=== PATIENT | male | born 1945 | race Asian ===

== ENCOUNTER 2017-06-28 13:42 | Inpatient (IN) | payer OTHER ==
[2017-06-28 14:16] VITALS: BMI 24.9
--- NOTE | 2017-06-28 14:23 | PDOC ---
History of Present Illness - General History Source: Patient Exam Limitations: No Limitations - History of Present Illness Initial Comments: 06/28/17 14:24 72yo M with history of COPD, CAD and Afib/flutter s/p ventricular pacemaker (12 years ago), HTN, HLD, GERD and previous CHF who presented to the ED with a one day history of some nausea with nonbloody, nonbilious vomiting and nausea. Pt states he previously had some dysuria and presented to his PCP's office (Dr. Drake) and was given medications. He is unsure of one medication but the second was nitrofurantoin. Pt notes his nausea started when he developed these symptoms. In addition, pt also endorses some shortness of breath. He normally has a little shortness of breath with exertion due to his COPD and cardiac history, however he reports this is worse than usual. Finally, he states his abdomen is more distended than usual and denies any previous liver abnormalities. Pt denies any fever/chills, chest pain, chest discomfort, palpitations, abdominal pain. <Terence Prescott - Last Filed: 06/28/17 18:55> <Jay Gutiérrez - Last Filed: 06/28/17 20:13> - General Stated Complaint: SHORTNESS OF BREATH/VOMITING Past History - Past Medical History Cardiac Disorders: Yes (Stents) COPD: Yes GI Disorders: Yes (GERD) HTN: Yes Hypercholesterolemia: Yes - Surgical History Cardiac Surgery: Yes - Suicide/Smoking/Psychosocial Hx Smoking History: Never smoked Have you smoked in the past 12 months: No Information on smoking cessation initiated: No Hx Alcohol Use: No Drug/Substance Use Hx: No Substance Use Type: None <Terence Prescott - Last Filed: 06/28/17 18:55> <Jay Gutiérrez - Last Filed: 06/28/17 20:13> - Past Medical History Allergies/Adverse Reactions: Allergies Allergy/AdvReac Type Severity Reaction Status Date / Time No Known Allergies Allergy Verified 02/26/16 18:20 Home Medications: Ambulatory Orders Aspirin [ASA -] 81 mg PO DAILY 10/06/15 Brimonidine Tartrate [Alphagan P 0.1% -] 1 drop BID 10/06/15 Esomeprazole Magnesium [Nexium] 40 mg PO DAILY 10/06/15 Fluticasone/Salmeterol [Advair 250-50 Diskus] 1 each IH BID 10/06/15 Furosemide [Lasix -] 20 mg PO DAILY 10/06/15 Levothyroxine [Synthroid -] 37.5 mcg PO DAILY 10/06/15 Losartan Potassium [Cozaar -] 50 mg PO DAILY 10/06/15 Montelukast Na [Singulair -] 10 mg PO HS 10/06/15 [place]-3 Fatty Acids/Fish Oil [Fish Oil 1,000 mg Softgel] 1 each PO DAILY Pilocarpine 2% [Pilostat 2% -] 1 drop OD TID 03/08/16 Acetaminophen [Tylenol .Regular Strength -] 650 mg PO Q4H PRN #0 tablet Albuterol 0.083% Nebulizer Amanda [Ventolin 0.083% Nebulizer Soln -] 1 amp NEB QIDR amp 03/09/16 Apixaban [Eliquis -] 5 mg PO BID #60 tablet 03/09/16 Atorvastatin Ca [Lipitor] 10 mg PO HS #30 tablet 03/09/16 Carvedilol [Coreg -] 12.5 mg PO BID #60 tablet 03/09/16 Docusate Sodium [Colace -] 100 mg PO DAILY capsule 03/09/16 Insulin Sliding Scale [Novolog Vial Sliding Scale -] 1 vial SQ TIDAC units Mag Hydrox/Al Hydrox/Simeth [Mylanta Oral Suspension -] 30 ml PO Q6H PRN #0 cup 03/09/16 Polyethylene Glycol 3350 [Miralax 119 gm Btl -] 17 gm PO DAILY PRN #0 bottle Spironolactone [Aldactone -] 25 mg PO DAILY tablet 03/09/16 Valsartan [Diovan] 160 mg PO DAILY tablet 03/09/16 predniSONE [Deltasone -] 10 mg PO DAILY #30 tablet 03/09/16 Review of Systems - Review of Systems Constitutional: No: Chills, Fever, Night Sweats HEENTM: No: Blurred Vision, Nose Congestion, Throat Pain Respiratory: Yes: Shortness of Breath. No: Cough, Wheezing Cardiac (ROS): No: Chest Pain, Irregular Heart Rate, Lightheadedness, Palpitations, Syncope, Chest Tightness ABD/GI: Yes: Abdominal Distended, Nausea, Vomiting. No: Constipated, Diarrhea, Poor Appetite : Yes: Dysuria, Flank Pain. No: Frequency, Hematuria, Incontinence Integumentary: No: Pruritus, Rash Neurological: No: Headache, Numbness, Tingling, Dizziness <Terence Prescott - Last Filed: 06/28/17 18:55> *Physical Exam - Vital Signs Last Vital Signs Temp Pulse Resp BP Pulse Ox 97.3 F L 75 21 104/69 98 06/28/17 14:08 06/28/17 14:08 06/28/17 14:08 06/28/17 14:08 06/28/17 14:08 - Physical Exam Comments: 06/28/17 15:09 GEN: NAD, awake, alert and oriented x3 HEENT: EOMI, SUGEY, scleral injections noted, sclera anicteric, moist mucosa, no jaundiced mucosa NECK: No JVD LUNGS: CTA b/l diminished breath sounds at the bases CARDIAC: RRR, distant sounds due to body habitus, no murmurs appreciated ABD: Soft, distendend, nontender, normoactive BS, no hepatomegaly via percussion and palpation, no ecchymosis EXT: No edema, 2+ DP pulses <Terence Prescott - Last Filed: 06/28/17 18:55> - Vital Signs Last Vital Signs Temp Pulse Resp BP Pulse Ox 98.1 F 60 20 110/72 99 06/28/17 19:58 06/28/17 19:58 06/28/17 19:58 06/28/17 19:58 06/28/17 19:58 <Jay Gutiérrez - Last Filed: 06/28/17 20:13> Heart Score/ECG Review #1 06/28/17 14:47 Ventricular-paced rhythm at 70bpm rate. QTc 507, 0/3 Sgarbossa criteria met <Terence Prescott - Last Filed: 06/28/17 18:55> ED Treatment Course - LABORATORY CBC & Chemistry Diagram: 06/28/17 15:20 06/28/17 15:20 <Terence Prescott - Last Filed: 06/28/17 18:55> - LABORATORY CBC & Chemistry Diagram: 06/28/17 15:20 06/28/17 15:20 - ADDITIONAL ORDERS Additional order review: Laboratory Results 06/28/17 06/28/17 06/28/17 18:10 15:20 15:20 Sodium 124 L* Potassium 5.2 H Chloride 92 L Carbon Dioxide 27 Anion Gap 5 L BUN 14 D Creatinine 1.3 Creat Clearance w eGFR 54.11 Random Glucose 116 H D Calcium 8.4 L Total Bilirubin 2.0 H D AST 24 D ALT 23 Alkaline Phosphatase 46 D Creatine Kinase 71 Troponin I 0.07 H D Total Protein 6.7 Albumin 3.4 Lipase 51 L Urine Osmolality 626 06/28/17 15:20 RBC 3.95 L MCV 94.3 MCHC 34.3 RDW 14.7 MPV 9.3 Neutrophils % 81.3 Lymphocytes % 8.0 Monocytes % 10.0 D Eosinophils % 0.4 D Basophils % 0.3 - Medications Given in the ED: ED Medications Discontinued Medications Generic Name Dose Route Start Last Admin Trade Name Freq PRN Reason Stop Dose Admin Metoclopramide HCl 10 mg 06/28/17 18:59 06/28/17 19:15 Reglan - PO 06/28/17 19:00 10 mg ONCE ONE Administration Sodium Polystyrene Sulfonate 15 gm 06/28/17 18:42 06/28/17 19:14 Kayexalate - PO 06/28/17 18:43 15 gm ONCE ONE Administration <Jay Gutiérrez - Last Filed: 06/28/17 20:13> Medical Decision Making - Medical Decision Making 06/28/17 14:49 1) In setting of abdominal distention, nausea, and vomiting r/o partial obstruction --KUB AXR for air fluid levels 2) Nausea vomiting SOB; r/o cardiac event or worsening cardiac status --EKG - see above --Troponin --CXR 3) CBC, CMP, Lipase 06/28/17 15:38 CBC revealed nonconcerning thrombocytopenia; otherwise normal 06/28/17 16:03 Critical lab value 124 Na with 5.2 K --NS @75cc/hr currently (pt is CHF) --doubt adrenal insufficiency, doubt psychogenic polydipsia based on history, doubt metabolic derangements due to normal anion gap --cannot r/o SIADH --Cannot r/o hypoaldosteronism --hypochloremia can be due to vomiting episodes --aldosterone ordered 06/28/17 18:38 CXR error in [facility] not appearing for me; CXR shown done on PACS system: no acute pathology noted; no effusions 06/28/17 18:39 Pt continues to have no symptoms currently. Receiving his IV saline currently <Terence Prescott - Last Filed: 06/28/17 18:55> *DC/Admit/Observation/Transfer <Terence Prescott - Last Filed: 06/28/17 18:55> - Discharge Dispostion Admit: Yes <Jay Gutiérrez - Last Filed: 06/28/17 20:13> Diagnosis at time of Disposition: Hyponatremia Vomiting Qualifiers: Vomiting type: unspecified Vomiting Intractability: non-intractable Nausea presence: with nausea Qualified Code(s): R11.2 - Nausea with vomiting, unspecified - Discharge Dispostion Condition at time of disposition: Stable - Referrals Referrals: Fannie Drake MD [Primary Care Provider] -
[2017-06-28 15:32] LABS: BASO % 0.3 % (0-2.0); EOS % 0.4 % (0-4.5); HEMATOCRIT 37.2 % (35.4-49); HEMOGLOBIN 12.8 GM/dL (11.7-16.9); MCH 32.3 pg (25.7-33.7); MCHC 34.3 g/dl (32.0-35.9); MEAN CELL VOLUME 94.3 fl (80-96); MEAN PLT VOLUME 9.3 fl (7.5-11.1); NEUT % 81.3 % (42.8-82.8); PLATELET COUNT 104 K/MM3 (134-434); RBC 3.95 M/mm3 (4.00-5.60); RDW 14.7 % (11.9-15.9); WHITE BLOOD COUNT 9.5 K/mm3 (4.0-10.0)
[2017-06-28 15:50] LABS: ALBUMIN 3.4 g/dl (3.4-5.0); ALK PHOS 46 U/L (45-117); ANION GAP 5 (8-16); BLOOD UREA NITROGEN 14 mg/dL (7-18); CALCIUM 8.4 mg/dL (8.5-10.1); CHLORIDE 92 mmol/L (98-107); CO2 27 mmol/L (21-32); CREATININE 1.3 mg/dL (0.7-1.3); GLUCOSE,RANDOM 116 mg/dL (74-106); LIPASE 51 U/L (73-393); POTASSIUM 5.2 mmol/L (3.5-5.1); SGOT/AST 24 U/L (15-37); SGPT/ALT 23 U/L (12-78); TOT PROT 6.7 g/dl (6.4-8.2)
[2017-06-28 15:51] LABS: SODIUM 124 mmol/L (136-145)
[2017-06-28] MEDS ORDERED: SODIUM CHLORIDE 1,000 ML IV SCH (16:00)
[2017-06-28] MEDS ORDERED: SODIUM POLYSTYRENE SULFONATE 15 GM/60 ML BOTTLE PO ONE (18:42)
[2017-06-28] MEDS ORDERED: METOCLOPRAMIDE HCL 10 MG TABLET (FP) PO ONE (18:59)
[2017-06-28] MEDS ORDERED: METOCLOPRAMIDE HCL INJECTION 10 MG/2 ML VIAL ONE (19:06)
[2017-06-28] MEDS ORDERED: SODIUM POLYSTYRENE SULFONATE 15 GM/60 ML BOTTLE ONE (19:07)
--- NOTE | 2017-06-28 19:47 | HP ---
CHIEF COMPLAINT: PCP HISTORY OF PRESENT ILLNESS: ER course was notable for: (1) (2) (3) Recent Travel: None PAST MEDICAL HISTORY: See HPI PAST SURGICAL HISTORY: See HPI Social History: Smoking: Never Alcohol: None Drugs: None Family History: Allergies No Known Allergies Allergy (Verified 02/26/16 18:20) HOME MEDICATIONS: Home Medications Medication Instructions Recorded Aspirin [ASA -] 81 mg PO DAILY 10/06/15 Brimonidine Tartrate [Alphagan P 1 drop BID 10/06/15 0.1% -] Esomeprazole Magnesium [Nexium] 40 mg PO DAILY 10/06/15 Fluticasone/Salmeterol [Advair 1 each IH BID 10/06/15 250-50 Diskus] Furosemide [Lasix -] 20 mg PO DAILY 10/06/15 Levothyroxine [Synthroid -] 37.5 mcg PO DAILY 10/06/15 Losartan Potassium [Cozaar -] 50 mg PO DAILY 10/06/15 Montelukast Na [Singulair -] 10 mg PO HS 10/06/15 [place]-3 Fatty Acids/Fish Oil [Fish 1 each PO DAILY 10/06/15 Oil 1,000 mg Softgel] Pilocarpine 2% [Pilostat 2% -] 1 drop OD TID 03/08/16 Acetaminophen [Tylenol .Regular 650 mg PO Q4H PRN #0 tablet 03/09/16 Strength -] Albuterol 0.083% Nebulizer Amanda 1 amp NEB QIDR amp 03/09/16 [Ventolin 0.083% Nebulizer Soln -] Apixaban [Eliquis -] 5 mg PO BID #60 tablet 03/09/16 Atorvastatin Ca [Lipitor] 10 mg PO HS #30 tablet 03/09/16 Carvedilol [Coreg -] 12.5 mg PO BID #60 tablet 03/09/16 Docusate Sodium [Colace -] 100 mg PO DAILY capsule 03/09/16 Insulin Sliding Scale [Novolog 1 vial SQ TIDAC units 03/09/16 Vial Sliding Scale -] Mag Hydrox/Al Hydrox/Simeth 30 ml PO Q6H PRN #0 cup 03/09/16 [Mylanta Oral Suspension -] Polyethylene Glycol 3350 [Miralax 17 gm PO DAILY PRN #0 bottle 03/09/16 119 gm Btl -] Spironolactone [Aldactone -] 25 mg PO DAILY tablet 03/09/16 Valsartan [Diovan] 160 mg PO DAILY tablet 03/09/16 predniSONE [Deltasone -] 10 mg PO DAILY #30 tablet 03/09/16 REVIEW OF SYSTEMS CONSTITUTIONAL: Absent: fever, chills, diaphoresis, generalized weakness, malaise, loss of appetite, weight change HEENT: Absent: rhinorrhea, nasal congestion, throat pain, throat swelling, difficulty swallowing, mouth swelling, ear pain, eye pain, visual changes CARDIOVASCULAR: Absent: chest pain, syncope, palpitations, irregular heart rate, lightheadedness , peripheral edema RESPIRATORY: Absent: cough, shortness of breath, dyspnea with exertion, orthopnea, wheezing, stridor, hemoptysis GASTROINTESTINAL: Absent: abdominal pain, abdominal distension, nausea, vomiting, diarrhea, constipation, melena, hematochezia GENITOURINARY: Absent: dysuria, frequency, urgency, hesitancy, hematuria, flank pain, genital pain MUSCULOSKELETAL: Absent: myalgia, arthralgia, joint swelling, back pain, neck pain SKIN: Absent: rash, itching, pallor HEMATOLOGIC/IMMUNOLOGIC: Absent: easy bleeding, easy bruising, lymphadenopathy, frequent infections ENDOCRINE: Absent: unexplained weight gain, unexplained weight loss, heat intolerance, cold intolerance NEUROLOGIC: Absent: headache, focal weakness or paresthesias, dizziness, unsteady gait, seizure, mental status changes, bladder or bowel incontinence PSYCHIATRIC: Absent: anxiety, depression, suicidal or homicidal ideation, hallucinations. PHYSICAL EXAMINATION Vital Signs - 24 hr 06/28/17 14:08 Temperature 97.3 F L Pulse Rate 75 Respiratory 21 Rate Blood Pressure 104/69 O2 Sat by Pulse 98 Oximetry (%) GENERAL: Awake, alert, and fully oriented, in no acute distress. HEAD: Normal with no signs of trauma. EYES: Pupils equal, round and reactive to light, extraocular movements intact, sclera anicteric, conjunctiva clear. No lid lag. EARS, NOSE, THROAT: Ears normal, nares patent, oropharynx clear without exudates. Moist mucous membranes. NECK: Normal range of motion, supple without lymphadenopathy, JVD, or masses. LUNGS: Breath sounds equal, clear to auscultation bilaterally. No wheezes, and no crackles. No accessory muscle use. HEART: Regular rate and rhythm, normal S1 and S2 without murmur, rub or gallop. ABDOMEN: Soft, nontender, not distended, normoactive bowel sounds, no guarding, no rebound, no masses. No hepatomegaly or splenomegaly. MUSCULOSKELETAL: Normal range of motion at all joints. No bony deformities or tenderness. No CVA tenderness. UPPER EXTREMITIES: 2+ pulses, warm, well-perfused. No cyanosis. No clubbing. No peripheral edema. LOWER EXTREMITIES: 2+ pulses, warm, well-perfused. No calf tenderness. No peripheral edema. NEUROLOGICAL: Cranial nerves II-XII intact. Normal speech. Normal gait. PSYCHIATRIC: Cooperative. Good eye contact. Appropriate mood and affect. SKIN: Warm, dry, normal turgor, no rashes or lesions noted, normal capillary refill. Laboratory Results - last 24 hr 06/28/17 06/28/17 06/28/17 15:20 15:20 15:20 WBC 9.5 RBC 3.95 L Hgb 12.8 D Hct 37.2 MCV 94.3 MCH 32.3 MCHC 34.3 RDW 14.7 Plt Count 104 L MPV 9.3 Neutrophils % 81.3 Lymphocytes % 8.0 Monocytes % 10.0 D Eosinophils % 0.4 D Basophils % 0.3 Sodium 124 L* Potassium 5.2 H Chloride 92 L Carbon Dioxide 27 Anion Gap 5 L BUN 14 D Creatinine 1.3 Creat Clearance w eGFR 54.11 Random Glucose 116 H D Calcium 8.4 L Total Bilirubin 2.0 H D AST 24 D ALT 23 Alkaline Phosphatase 46 D Creatine Kinase 71 Troponin I 0.07 H D Total Protein 6.7 Albumin 3.4 Lipase 51 L ASSESSMENT/PLAN: Hospitalist Screening - Colonoscopy Questionnaire Colonoscopy Questionnaire: Colonoscopy Questionnaire
--- NOTE | 2017-06-28 19:52 | PDOC ---
Attending Attestation - Resident Resident Name: Terence Prescott - ED Attending Attestation I have performed the following: I have examined & evaluated the patient, The case was reviewed & discussed with the resident, I agree w/resident's findings & plan, Exceptions are as noted - HPI HPI: 06/28/17 19:53 72y F hx of copd, cad, aflutter/fib sp pm, htn, hl, chf, recently dx with UTI by PMD presents with complaint of mild sob, n/v. Pt states that he had some dysuria and suprapubic pain 2 days ago, went to dr. olson who started him on pyridium and abx. he states starting last night he felt alittle nauseus, thsi morning had some sob and nbnb n/v. he endorses mild suprapubic pain, but denies any fever/chills, cough, cp, curent sob, palpitations, diarrhea. on exam pt well apaering in no distress abd slightly distended but nontender and no guarding/rebound. no cva tenderness lungs cta heart rrr ddx includes acs, metabolic deragnement, anemia, chf, med side effect will ck labs will give ezequiel ezofran will ck ekg will reasesss - Physicial Exam PE: 06/28/17 20:18 see above - Medical Decision Making 06/28/17 20:14 labs reviewed noted for hyponatremia slightly elevated K ?metaoblic derangement secondary to diuretic use? will admit for furhter management of hyponatremia trop at 0.07 - will continue to tred due to pts episode of sob/nausea for possible anginal equivalent case dw padmini gomez - agree with observation in med surg under d.r crichlows service Heart Score/ECG Review - ECG Impressions Comment:: 06/28/17 19:52 ekg from 06/28/17 at 13:59 rate of [address] changes suggestive of acute ischemia per sgarbossa criteria
--- NOTE | 2017-06-28 20:07 | HP ---
CHIEF COMPLAINT: Dysuria, Vomiting PCP: Dr. Fannie Drake HISTORY OF PRESENT ILLNESS: This is a 72 y/o man with significant medical history COPD, CAD s/p Stents, Afib /Flutter, s/p Ventricular PM (12yrs), HTN, HLD, GERD, Hypothyroid, Previous CHF Who presents to the ED with nausea, non-bloody, non-bilious vomiting, dysuria. Patient reports having dysuria x 2 days and going to his PCP, placed on nitrofurantoin, ?pyridum. Patient reports after taking the medication he became nausea. Patient reports having increased SOB after vomiting. Patient denies fever, chills, dizziness, [place], CP, diarrhea, constipation. ER course was notable for: (1) Na 124 (2) UA- +Nitrate, +1 Blood, Trace Ketones (3) Recent Travel: None PAST MEDICAL HISTORY: See HPI PAST SURGICAL HISTORY: See HPI Social History: Smoking: Never Alcohol: None Drugs: None Family History: Allergies No Known Allergies Allergy (Verified 02/26/16 18:20) HOME MEDICATIONS: Home Medications Medication Instructions Recorded Aspirin [ASA -] 81 mg PO DAILY 10/06/15 Brimonidine Tartrate [Alphagan P 1 drop BID 10/06/15 0.1% -] Esomeprazole Magnesium [Nexium] 40 mg PO DAILY 10/06/15 Fluticasone/Salmeterol [Advair 1 each IH BID 10/06/15 250-50 Diskus] Furosemide [Lasix -] 20 mg PO DAILY 10/06/15 Levothyroxine [Synthroid -] 37.5 mcg PO DAILY 10/06/15 Losartan Potassium [Cozaar -] 50 mg PO DAILY 10/06/15 Montelukast Na [Singulair -] 10 mg PO HS 10/06/15 [place]-3 Fatty Acids/Fish Oil [Fish 1 each PO DAILY 10/06/15 Oil 1,000 mg Softgel] Pilocarpine 2% [Pilostat 2% -] 1 drop OD TID 03/08/16 Acetaminophen [Tylenol .Regular 650 mg PO Q4H PRN #0 tablet 03/09/16 Strength -] Albuterol 0.083% Nebulizer Amanda 1 amp NEB QIDR amp 03/09/16 [Ventolin 0.083% Nebulizer Soln -] Apixaban [Eliquis -] 5 mg PO BID #60 tablet 03/09/16 Atorvastatin Ca [Lipitor] 10 mg PO HS #30 tablet 03/09/16 Carvedilol [Coreg -] 12.5 mg PO BID #60 tablet 03/09/16 Docusate Sodium [Colace -] 100 mg PO DAILY capsule 03/09/16 Insulin Sliding Scale [Novolog 1 vial SQ TIDAC units 03/09/16 Vial Sliding Scale -] Mag Hydrox/Al Hydrox/Simeth 30 ml PO Q6H PRN #0 cup 03/09/16 [Mylanta Oral Suspension -] Polyethylene Glycol 3350 [Miralax 17 gm PO DAILY PRN #0 bottle 03/09/16 119 gm Btl -] Spironolactone [Aldactone -] 25 mg PO DAILY tablet 03/09/16 Valsartan [Diovan] 160 mg PO DAILY tablet 03/09/16 predniSONE [Deltasone -] 10 mg PO DAILY #30 tablet 03/09/16 REVIEW OF SYSTEMS CONSTITUTIONAL: Absent: fever, chills, diaphoresis, generalized weakness, malaise, loss of appetite, weight change HEENT: Absent: rhinorrhea, nasal congestion, throat pain, throat swelling, difficulty swallowing, mouth swelling, ear pain, eye pain, visual changes CARDIOVASCULAR: Absent: chest pain, syncope, palpitations, irregular heart rate, lightheadedness , peripheral edema RESPIRATORY: Absent: cough, shortness of breath, dyspnea with exertion, orthopnea, wheezing, stridor, hemoptysis GASTROINTESTINAL: abdominal pain, abdominal distension, nausea, vomiting Absent: diarrhea, constipation, melena, hematochezia GENITOURINARY: dysuria Absent: frequency, urgency, hesitancy, hematuria, flank pain, genital pain MUSCULOSKELETAL: Absent: myalgia, arthralgia, joint swelling, back pain, neck pain SKIN: Absent: rash, itching, pallor HEMATOLOGIC/IMMUNOLOGIC: Absent: easy bleeding, easy bruising, lymphadenopathy, frequent infections ENDOCRINE: Absent: unexplained weight gain, unexplained weight loss, heat intolerance, cold intolerance NEUROLOGIC: Absent: headache, focal weakness or paresthesias, dizziness, unsteady gait, seizure, mental status changes, bladder or bowel incontinence PSYCHIATRIC: Absent: anxiety, depression, suicidal or homicidal ideation, hallucinations. PHYSICAL EXAMINATION Vital Signs - 24 hr 06/28/17 06/28/17 14:08 19:58 Temperature 97.3 F L 98.1 F Pulse Rate 75 Pulse Rate [ 60 Apical] Respiratory 21 20 Rate Blood Pressure 104/69 Blood Pressure 110/72 [Right Arm] O2 Sat by Pulse 98 99 Oximetry (%) GENERAL: Awake, alert, and fully oriented, in no acute distress. HEAD: Normal with no signs of trauma. EYES: Pupils equal, round and reactive to light, extraocular movements intact, sclera anicteric, conjunctiva clear. No lid lag. EARS, NOSE, THROAT: Ears normal, nares patent, oropharynx clear without exudates. Dry mucous membranes. NECK: Normal range of motion, supple without lymphadenopathy, JVD, or masses. LUNGS: Breath sounds equal, clear to auscultation bilaterally. No wheezes, and no crackles. No accessory muscle use. HEART: Regular rate and rhythm, normal S1 and S2 without murmur, rub or gallop. ABDOMEN: Soft, nontender, +distended, hypoactive bowel sounds, no guarding, no rebound, no masses. No hepatomegaly or splenomegaly. MUSCULOSKELETAL: Normal range of motion at all joints. No bony deformities or tenderness. No CVA tenderness. UPPER EXTREMITIES: 2+ pulses, warm, well-perfused. No cyanosis. No clubbing. No peripheral edema. LOWER EXTREMITIES: 2+ pulses, warm, well-perfused. No calf tenderness. No peripheral edema. NEUROLOGICAL: Cranial nerves II-XII intact. Normal speech. Gait not observed. PSYCHIATRIC: Cooperative. Good eye contact. Appropriate mood and affect. SKIN: Warm, dry, normal turgor, no rashes or lesions noted, normal capillary refill. Laboratory Results - last 24 hr 06/28/17 06/28/17 06/28/17 15:20 15:20 15:20 WBC 9.5 RBC 3.95 L Hgb 12.8 D Hct 37.2 MCV 94.3 MCH 32.3 MCHC 34.3 RDW 14.7 Plt Count 104 L MPV 9.3 Neutrophils % 81.3 Lymphocytes % 8.0 Monocytes % 10.0 D Eosinophils % 0.4 D Basophils % 0.3 Sodium 124 L* Potassium 5.2 H Chloride 92 L Carbon Dioxide 27 Anion Gap 5 L BUN 14 D Creatinine 1.3 Creat Clearance w eGFR 54.11 Random Glucose 116 H D Calcium 8.4 L Total Bilirubin 2.0 H D AST 24 D ALT 23 Alkaline Phosphatase 46 D Creatine Kinase 71 Troponin I 0.07 H D Total Protein 6.7 Albumin 3.4 Lipase 51 L Urine Osmolality 06/28/17 18:10 WBC RBC Hgb Hct MCV MCH MCHC RDW Plt Count MPV Neutrophils % Lymphocytes % Monocytes % Eosinophils % Basophils % Sodium Potassium Chloride Carbon Dioxide Anion Gap BUN Creatinine Creat Clearance w eGFR Random Glucose Calcium Total Bilirubin AST ALT Alkaline Phosphatase Creatine Kinase Troponin I Total Protein Albumin Lipase Urine Osmolality 626 ASSESSMENT/PLAN: This is a 72 y/o man placed in Observation for Acute Hyponatremia, UTI. Plan: 1. Acute Hyponatremia - Likely due to hypovalemia vs medications - Sodium Deficit 576 meq - NS fluids started in ED will continue judiciously concern for fluid overload - Appreciate Nephrology consult - Serial BMPs - Urine Osm, Urine electrolytes-pending - Monitor vitals - Seizure Precautions - Fall Precautions 2. UTI - Urine culture-pending - Will start Ceftriaxone - Monitor vitals 3. Afib/Flutter - [id number] 4 - Continue Coreg, Eliquis 4. CAD - stable - s/p Stents - Continue home meds 5. CHF - will hold diuretics 2/2 Hyponatremia 6. COPD - Duonebs - Continue home meds - Monitor Spo2 7. HTN - stable - Continue home meds - monitor renal function 8. HLD - continue Statin - monitor LFTs 9. Hypothyroid - TSH in am - continue Levothyroid 10. GERD - Continue PPI 11. FEN - Replete Na, monitor - Clear Liquid Diet 12. DVT ppx - SCDs - Continue Eliquis Code Status: Full Code Dispo: Observation Problem List - Problem (1) Hyponatremia Code(s): E87.1 - HYPO-OSMOLALITY AND HYPONATREMIA (2) UTI (urinary tract infection) Code(s): N39.0 - URINARY TRACT INFECTION, SITE NOT SPECIFIED (3) Chronic left ventricular systolic heart failure Code(s): I50.22 - CHRONIC SYSTOLIC (CONGESTIVE) HEART FAILURE (4) CAD (coronary artery disease) Code(s): I25.10 - ATHSCL HEART DISEASE OF [place] CORONARY ARTERY W/O ANG PCTRS Qualifiers: Coronary Disease-Associated Artery/Lesion type: [place] artery [place] vs. transplanted heart: [place] heart Associated angina: without angina Qualified Code(s): I25.10 - Atherosclerotic heart disease of [place] coronary artery without angina pectoris (5) HTN (hypertension) Code(s): I10 - ESSENTIAL (PRIMARY) HYPERTENSION Qualifiers: Hypertension type: essential hypertension Qualified Code(s): I10 - Essential (primary) hypertension (6) Hyperlipidemia Code(s): E78.5 - HYPERLIPIDEMIA, UNSPECIFIED Qualifiers: Hyperlipidemia type: pure hypercholesterolemia Qualified Code(s): E78.00 - Pure hypercholesterolemia, unspecified; E78.0 - Pure hypercholesterolemia (7) Hypothyroidism Code(s): E03.9 - HYPOTHYROIDISM, UNSPECIFIED Qualifiers: Hypothyroidism type: unspecified Qualified Code(s): E03.9 - Hypothyroidism , unspecified (8) Status post coronary artery stent placement Code(s): Z95.5 - PRESENCE OF CORONARY ANGIOPLASTY IMPLANT AND GRAFT (9) DVT prophylaxis Code(s): UQJ3301 - Visit type - Emergency Visit Emergency Visit: Yes ED Registration Date: 06/28/17 Care time: The patient presented to the Emergency Department on the above date and was hospitalized for further evaluation of their emergent condition. - New Patient This patient is new to me today: Yes Date on this admission: 06/28/17 - Critical Care Critical Care patient: No Hospitalist Screening - Colonoscopy Questionnaire Colonoscopy Questionnaire: Colonoscopy Questionnaire - Patient: 50 - 75 years old and never had a screening colonoscopy: Unknown History of colon or rectal polyps, or CA: Unknown History of IBD, Crohn's disease or UC: Unknown History of abdominal radiation therapy as a child: Unknown - Relative: 1 with colon or rectal CA, or polyps at age 60 or younger: Unknown Colon or rectal CA diagnosed at age 45 or younger: Unknown Multiple relatives with colon or rectal CA: Unknown - Outcome: Screening Result: Negative Screen
[2017-06-28 20:18] LABS: URINE APPEARANCE CLEAR; URINE BILIRUBIN NEGATIVE (<2.0 mg/dL); URINE BLOOD 1+ (NEGATIVE); URINE COLOR AMBER; URINE GLUCOSE (UA) NEGATIVE (NEGATIVE); URINE KETONE TRACE (NEGATIVE); URINE LEUK ESTERASE NEGATIVE (NEGATIVE); URINE NITRITE POSITIVE (NEGATIVE); URINE PROTEIN NEGATIVE (NEGATIVE); URINE UROBILINOGEN 4.0 E.U/dl mg/dL (0.2-1.0)
[2017-06-28 20:21] LABS: EPI CELLS RARE /HPF (FEW); URINE BACTERIA RARE /hpf (NONE SEEN); URINE MUCUS RARE
[2017-06-28 22:27] LABS: ANION GAP 7 (8-16); BLOOD UREA NITROGEN 14 mg/dL (7-18); CALCIUM 8.1 mg/dL (8.5-10.1); CHLORIDE 95 mmol/L (98-107); CO2 24 mmol/L (21-32); CREATININE 1.2 mg/dL (0.7-1.3); GLUCOSE,RANDOM 130 mg/dL (74-106); POTASSIUM 4.6 mmol/L (3.5-5.1); SODIUM 126 mmol/L (136-145)
--- NOTE | 2017-06-28 23:36 | CON.NEP ---
Consult - History of Present Illness History of Present Illness: 06/28/17 14:24 72yo M with history of COPD, CAD and Afib/flutter s/p ventricular pacemaker (12 years ago), HTN, HLD, GERD and previous CHF who presented to the ED with a one day history of some nausea with nonbloody, nonbilious vomiting and nausea. Pt states he previously had some dysuria and presented to his PCP's office (Dr. Drake) and was given medications. He is unsure of one medication but the second was nitrofurantoin. Pt notes his nausea started when he developed these symptoms. In addition, pt also endorses some shortness of breath. He normally has a little shortness of breath with exertion due to his COPD and cardiac history, however he reports this is worse than usual. Finally, he states his abdomen is more distended than usual and denies any previous liver abnormalities. Pt denies any fever/chills, chest pain, chest discomfort, palpitations, abdominal pain. - Past Medical History Cardio/Vascular: Yes: [facility] HTN, Hyperlipdemia, Other (CHF, cardiomyopathy- s/p AICD) Pulmonary: Yes: Asthma, Cancer Gastrointestinal: Yes: GERD Renal/: Yes: Renal Inusuff (creat- around 1.3), BPH - Alcohol/Substance Use Hx Alcohol Use: No - Smoking History Smoking history: Never smoked Have you smoked in the past 12 months: No Home Medications - Allergies Allergies/Adverse Reactions: Allergies Allergy/AdvReac Type Severity Reaction Status Date / Time No Known Allergies Allergy Verified 02/26/16 18:20 - Home Medications Home Medications: Ambulatory Orders Aspirin [ASA -] 81 mg PO DAILY 10/06/15 Brimonidine Tartrate [Alphagan P 0.1% -] 1 drop BID 10/06/15 Esomeprazole Magnesium [Nexium] 40 mg PO DAILY 10/06/15 Fluticasone/Salmeterol [Advair 250-50 Diskus] 1 each IH BID 10/06/15 Furosemide [Lasix -] 20 mg PO DAILY 10/06/15 Levothyroxine [Synthroid -] 37.5 mcg PO DAILY 10/06/15 Losartan Potassium [Cozaar -] 50 mg PO DAILY 10/06/15 Montelukast Na [Singulair -] 10 mg PO HS 10/06/15 [place]-3 Fatty Acids/Fish Oil [Fish Oil 1,000 mg Softgel] 1 each PO DAILY [place] 2% [Pilostat 2% -] 1 drop OD TID 03/08/16 Acetaminophen [Tylenol .Regular Strength -] 650 mg PO Q4H PRN #0 tablet Albuterol 0.083% Nebulizer Amanda [Ventolin 0.083% Nebulizer Soln -] 1 amp NEB QIDR amp 03/09/16 Apixaban [Eliquis -] 5 mg PO BID #60 tablet 03/09/16 Atorvastatin Ca [Lipitor] 10 mg PO HS #30 tablet 03/09/16 Carvedilol [Coreg -] 12.5 mg PO BID #60 tablet 03/09/16 Docusate Sodium [Colace -] 100 mg PO DAILY capsule 03/09/16 Insulin Sliding Scale [Novolog Vial Sliding Scale -] 1 vial SQ TIDAC units Mag Hydrox/Al Hydrox/Simeth [Mylanta Oral Suspension -] 30 ml PO Q6H PRN #0 cup 03/09/16 Polyethylene Glycol 3350 [Miralax 119 gm Btl -] 17 gm PO DAILY PRN #0 bottle Spironolactone [Aldactone -] 25 mg PO DAILY tablet 03/09/16 Valsartan [Diovan] 160 mg PO DAILY tablet 03/09/16 predniSONE [Deltasone -] 10 mg PO DAILY #30 tablet 03/09/16 Nephrology Consult - Height Height: 5 ft 4 in - Weight Weight: 145 lb - BMI Body Mass Index (BMI): 24.9 - Lab Results CBC,BMP: CBC, BMP 06/28/17 15:20 06/28/17 21:41 Anion Gap: Anion Gap Anion Gap 7 (8-16) L 06/28/17 21:41 - Physical Examination Vital Signs: Vital Signs Temperature 98.1 F 06/28/17 22:21 Pulse Rate 59 L 06/28/17 22:21 Respiratory Rate 20 06/28/17 22:21 Blood Pressure 116/78 06/28/17 22:21 O2 Sat by Pulse Oximetry (%) 100 06/28/17 22:21 Assessment/Plan hyponatremia na 124 worse than baseline 134 sodium 126 after one liter of ns multifactorial- nausea, vomiting, underlying lung and heart disease has a component of siadh- urine osmolality inappropriately high indicating high adh state copd chf well compensated Plan- hold IVF for now repeat bmp in am
[2017-06-28] MEDS ORDERED: CEFTRIAXONE 1 GM in DEXTROSE 5%-WATER - 50 ML IVPB ONE (23:45)
[2017-06-28] MEDS ORDERED: DEXTROSE 5%-WATER - 50 ML IVPB ONE (23:56)
[2017-06-28] MEDS ORDERED: cefTRIAXone SODIUM 1 GM VIAL ONE (23:56)
[2017-06-29] MEDS: ATORVASTATIN CA 10 MG TABLET (FP) PO SCH ×2 (00:27→22:56)
[2017-06-29] MEDS: APIXABAN 5 MG TABLET PO SCH ×3 (00:27→22:56)
[2017-06-29] MEDS: PILOCARPINE 2% OPHTHALMIC SOLUTION 15 ML BOTTLE OD SCH ×4 (00:27→22:57)
[2017-06-29] MEDS: BRIMONIDINE TARTRATE 0.1% OPHTHALMIC 5 ML BOTTLE OD SCH ×3 (00:28→22:56)
[2017-06-29 04:48] LABS: ANION GAP 7 (8-16); BLOOD UREA NITROGEN 14 mg/dL (7-18); CALCIUM 7.7 mg/dL (8.5-10.1); CHLORIDE 97 mmol/L (98-107); CO2 23 mmol/L (21-32); GLUCOSE,RANDOM 109 mg/dL (74-106); SODIUM 127 mmol/L (136-145)
[2017-06-29] MEDS: LEVOTHYROXINE NA 25 MCG TABLET (FP) PO SCH (06:01)
[2017-06-29 08:56] LABS: ANION GAP 9 (8-16); BLOOD UREA NITROGEN 13 mg/dL (7-18); CALCIUM 7.7 mg/dL (8.5-10.1); CHLORIDE 101 mmol/L (98-107); CO2 24 mmol/L (21-32); CREATININE 1.1 mg/dL (0.7-1.3); GLUCOSE,RANDOM 107 mg/dL (74-106); POTASSIUM 4.2 mmol/L (3.5-5.1); SODIUM 134 mmol/L (136-145)
[2017-06-29] MEDS ORDERED: cefTRIAXone SODIUM 1 GM VIAL ONE (09:06)
[2017-06-29] MEDS ORDERED: DEXTROSE 5%-WATER - 50 ML IVPB ONE (09:06)
[2017-06-29] MEDS ORDERED: PT OWN MED DRAWER 7, Y5N ONE ×4 (09:06→22:51)
[2017-06-29] MEDS: LOSARTAN POTASSIUM 50 MG TABLET (FP) PO SCH (09:15)
[2017-06-29] MEDS: ASPIRIN 81 MG CHEWABLE TABLETS PO SCH (09:15)
[2017-06-29] MEDS: CARVEDILOL 12.5 MG TABLET (FP) PO SCH ×2 (09:15→22:56)
[2017-06-29] MEDS: CEFTRIAXONE 1 GM in DEXTROSE 5%-WATER - 50 ML IVPB SCH (09:15)
--- NOTE | 2017-06-29 11:16 | PN ---
Progress Note, Physician History of Present Illness: pt seen/ examined . feels much better well known to me sodium better passing urine-much better afebrile - Current Medication List Current Medications: Active Medications Apixaban (Eliquis -) 5 mg PO BID [facility] Last Admin: 06/29/17 09:16 Dose: 5 mg Aspirin (Asa -) 81 mg PO DAILY [facility] Last Admin: 06/29/17 09:15 Dose: 81 mg Atorvastatin Calcium (Lipitor -) 10 mg PO HS [facility] Last Admin: 06/29/17 00:27 Dose: 10 mg Brimonidine Tartrate (Alphagan P 0.1% -) 1 drop OD BID [facility] Last Admin: 06/29/17 09:15 Dose: 1 drop Budesonide/Formoterol Fumarate (Symbicort 80/4.5mcg -) 2 puff IH BID [facility] Carvedilol (Coreg -) 12.5 mg PO BID [facility] Last Admin: 06/29/17 09:15 Dose: 12.5 mg Ceftriaxone Sodium 1 gm/ (Dextrose) 50 mls @ 200 mls/hr IVPB DAILY [facility] Last Admin: 06/29/17 09:15 Dose: 200 mls/hr Levothyroxine Sodium (Synthroid -) 37.5 mcg PO DAILY@0700 [facility] Last Admin: 06/29/17 06:01 Dose: 37.5 mcg Losartan Potassium (Cozaar -) 50 mg PO DAILY [facility] Last Admin: 06/29/17 09:15 Dose: 50 mg Pilocarpine HCl (Pilostat 2% -) 1 drop OD TID [facility] Last Admin: 06/29/17 06:01 Dose: 1 drop - Objective Vital Signs: Vital Signs Temperature 98.7 F 06/29/17 05:06 Pulse Rate 68 06/29/17 05:06 Respiratory Rate 18 06/29/17 05:06 Blood Pressure 110/77 06/29/17 05:06 O2 Sat by Pulse Oximetry (%) 100 06/29/17 03:05 Constitutional: Yes: No Distress, Calm Eyes: Yes: Conjunctiva Clear Neck: Yes: Supple Cardiovascular: Yes: Pulse Irregular. No: Regular Rate and Rhythm Respiratory: Yes: Diminished Gastrointestinal: Yes: Soft Edema: No Neurological: Yes: Alert Labs: CBC, BMP 06/29/17 08:00 Problem List - Problems (1) Hyponatremia Code(s): E87.1 - HYPO-OSMOLALITY AND HYPONATREMIA (2) UTI (urinary tract infection) Code(s): N39.0 - URINARY TRACT INFECTION, SITE NOT SPECIFIED (3) [id number] kidney injury Code(s): N17.9 - ACUTE KIDNEY FAILURE, UNSPECIFIED; N18.9 - CHRONIC KIDNEY DISEASE, UNSPECIFIED (4) Automatic implantable cardiac defibrillator in situ Code(s): Z95.810 - PRESENCE OF AUTOMATIC (IMPLANTABLE) CARDIAC DEFIBRILLATOR (5) CAD (coronary artery disease) Code(s): I25.10 - ATHSCL HEART DISEASE OF [place] CORONARY ARTERY W/O ANG PCTRS Qualifiers: Coronary Disease-Associated Artery/Lesion type: [place] artery [place] vs. transplanted heart: [place] heart Associated angina: without angina Qualified Code(s): I25.10 - Atherosclerotic heart disease of [place] coronary artery without angina pectoris (6) Chronic left ventricular systolic heart failure Code(s): I50.22 - CHRONIC SYSTOLIC (CONGESTIVE) HEART FAILURE (7) HTN (hypertension) Code(s): I10 - ESSENTIAL (PRIMARY) HYPERTENSION Qualifiers: Hypertension type: essential hypertension Qualified Code(s): I10 - Essential (primary) hypertension (8) Hypothyroidism Code(s): E03.9 - HYPOTHYROIDISM, UNSPECIFIED Qualifiers: Hypothyroidism type: unspecified Qualified Code(s): E03.9 - Hypothyroidism , unspecified (9) A-fib Code(s): I48.91 - UNSPECIFIED ATRIAL FIBRILLATION Assessment/Plan overall better meds reviewed continue present care. abx f/u cultures discussed with pt and pts daughter will follow.
[2017-06-29] MEDS: BUDESONIDE/FORMETEROL FUMARATE 80/4.5 mcg INHALER IH SCH ×2 (11:37→22:57)
[2017-06-29 13:07] LABS: BASO % 0.8 % (0-2.0); EOS % 0.4 % (0-4.5); HEMATOCRIT 37.6 % (35.4-49); HEMOGLOBIN 12.5 GM/dL (11.7-16.9); LYMPH % 14.1 % (8-40); MCH 31.9 pg (25.7-33.7); MCHC 33.2 g/dl (32.0-35.9); MEAN PLT VOLUME 9.8 fl (7.5-11.1); MONO % 11.5 % (3.8-10.2); NEUT % 73.2 % (42.8-82.8); PLATELET COUNT 107 K/MM3 (134-434); RBC 3.92 M/mm3 (4.00-5.60); RDW 14.7 % (11.9-15.9); WHITE BLOOD COUNT 8.8 K/mm3 (4.0-10.0)
--- NOTE | 2017-06-29 16:22 | PN ---
Progress Note (short form) - Note Progress Note: Hyponatremia on admission copd recent uti s/p nausea/vomiting prior to admission serum Na 134 now. that sees to be his baseline, looking at prior labs but he c/o increased abd girth, bloating, and mild residual nausea- he is still on clear liquid diet he also c/o diminished urine vol Current Medications Apixaban (Eliquis -) 5 mg PO BID [facility] Last Admin: 06/29/17 09:16 Dose: 5 mg Aspirin (Asa -) 81 mg PO DAILY [facility] Last Admin: 06/29/17 09:15 Dose: 81 mg Atorvastatin Calcium (Lipitor -) 10 mg PO HS [facility] Last Admin: 06/29/17 00:27 Dose: 10 mg Brimonidine Tartrate (Alphagan P 0.1% -) 1 drop OD BID [facility] Last Admin: 06/29/17 09:15 Dose: 1 drop Budesonide/Formoterol Fumarate (Symbicort 80/4.5mcg -) 2 puff IH BID [facility] Last Admin: 06/29/17 11:37 Dose: 2 puff Carvedilol (Coreg -) 12.5 mg PO BID [facility] Last Admin: 06/29/17 09:15 Dose: 12.5 mg Ceftriaxone Sodium 1 gm/ (Dextrose) 50 mls @ 200 mls/hr IVPB DAILY [facility] Last Admin: 06/29/17 09:15 Dose: 200 mls/hr Levothyroxine Sodium (Synthroid -) 37.5 mcg PO DAILY@0700 [facility] Last Admin: 06/29/17 06:01 Dose: 37.5 mcg Losartan Potassium (Cozaar -) 50 mg PO DAILY [facility] Last Admin: 06/29/17 09:15 Dose: 50 mg Pilocarpine HCl (Pilostat 2% -) 1 drop OD TID [facility] Last Admin: 06/29/17 15:19 Dose: 1 drop Last Vital Signs Temp Pulse Resp BP Pulse Ox 97.5 F L 79 18 92/56 100 06/29/17 15:19 06/29/17 15:19 06/29/17 15:19 06/29/17 15:19 06/29/17 03:05 Intake & Output 06/26/17 06/27/17 06/28/17 06/29/17 23:59 23:59 23:59 23:59 Intake Total 100 400 Output Total 200 Balance 100 200 Weight 164 lb 1.6 oz 158 lb CBC, BMP 06/29/17 08:00 06/29/17 08:00 IP- hyponatremia multifactorial- resolving copd ashd/valvuar heart dis abd bloating and distension mild generalized edema evident in all extremities Hypocalcemia unclear cause, albumin normal Plan-plain xray of abdomen eval bowel gas pattern add serum magnesium, pth daily weights continue to moitor labs can be d/c from renal poit of view
[2017-06-30] MEDS ORDERED: PT OWN MED DRAWER 7, Y5N ONE ×7 (05:29→21:36)
[2017-06-30] MEDS: PILOCARPINE 2% OPHTHALMIC SOLUTION 15 ML BOTTLE OD SCH ×3 (05:54→21:20)
[2017-06-30] MEDS: LEVOTHYROXINE NA 25 MCG TABLET (FP) PO SCH (05:59)
[2017-06-30 08:15] LABS: ANION GAP 11 (8-16); BLOOD UREA NITROGEN 15 mg/dL (7-18); CALCIUM 8.1 mg/dL (8.5-10.1); CHLORIDE 91 mmol/L (98-107); CO2 23 mmol/L (21-32); GLUCOSE,RANDOM 141 mg/dL (74-106); MAGNESIUM 1.8 mg/dL (1.8-2.4); POTASSIUM 4.6 mmol/L (3.5-5.1); SODIUM 125 mmol/L (136-145)
[2017-06-30 08:16] LABS: CREATININE 1.1 mg/dL (0.7-1.3)
--- NOTE | 2017-06-30 09:21 | PN ---
Progress Note (short form) - Note Progress Note: Pt seen/ examined. going for x- ray- abdomen renal f/u noted c/c- little difficulty in passing urine.-- afebrile overall looks/ feels ok. Vital Signs Temp 97.5 F L 06/30/17 06:00 Pulse 68 06/30/17 06:00 Resp 16 06/30/17 06:00 BP 105/66 06/30/17 06:00 Pulse Ox 99 06/30/17 04:00 Intake & Output 06/29/17 06/29/17 06/30/17 11:59 23:59 11:59 Intake Total 400 0 Output Total 200 Balance 200 0 Weight 158 lb 149 lb 4.8 oz Intake: IV 0 SALINE LOCK 0 Oral 400 Output: Urine 200 Void 200 Other: Voiding Method Toilet Urinal Urinal Bowel Movement No Yes Height 5 ft 4 in Body Mass Index (BMI) 24.9 Weight Measurement Method Built in [facility] Active Medications Apixaban (Eliquis -) 5 mg PO BID [facility] Last Admin: 06/29/17 22:56 Dose: 5 mg Aspirin (Asa -) 81 mg PO DAILY [facility] Last Admin: 06/29/17 09:15 Dose: 81 mg Atorvastatin Calcium (Lipitor -) 10 mg PO HS [facility] Last Admin: 06/29/17 22:56 Dose: 10 mg Brimonidine Tartrate (Alphagan P 0.1% -) 1 drop OD BID [facility] Last Admin: 06/29/17 22:56 Dose: 1 drop Budesonide/Formoterol Fumarate (Symbicort 80/4.5mcg -) 2 puff IH BID [facility] Last Admin: 06/29/17 22:57 Dose: 2 puff Carvedilol (Coreg -) 12.5 mg PO BID [facility] Last Admin: 06/29/17 22:56 Dose: 12.5 mg Ceftriaxone Sodium 1 gm/ (Dextrose) 50 mls @ 200 mls/hr IVPB DAILY [facility] Last Admin: 06/29/17 09:15 Dose: 200 mls/hr Levothyroxine Sodium (Synthroid -) 37.5 mcg PO DAILY@0700 [facility] Last Admin: 06/30/17 05:59 Dose: 37.5 mcg Losartan Potassium (Cozaar -) 50 mg PO DAILY [facility] Last Admin: 06/29/17 09:15 Dose: 50 mg Pilocarpine HCl (Pilostat 2% -) 1 drop OD TID [facility] Last Admin: 06/30/17 05:54 Dose: 1 drop Polyethylene Glycol (Miralax (For Daily Use) -) 17 gm PO DAILY [facility] CBC, BMP 06/29/17 08:00 06/30/17 07:30 urine - culture- pending - Objective Constitutional: Yes: No Distress, Calm.comfortable Eyes: Yes: Conjunctiva Clear Neck: Yes: Supple Cardiovascular: Yes: Pulse Irregular. No: Regular Rate and Rhythm Respiratory: Yes: Diminished Gastrointestinal: Yes: Soft/ slightly distended Edema: No Neurological: Yes: Alert Assessment/Plan clinically stable continue present care sodium low again u/c pending called lab-- pending add flomax-- likely has prostate issues also discussed with nursing staff will follow Problem List - Problems (1) Hyponatremia Code(s): E87.1 - HYPO-OSMOLALITY AND HYPONATREMIA (2) UTI (urinary tract infection) Code(s): N39.0 - URINARY TRACT INFECTION, SITE NOT SPECIFIED (3) [id number] kidney injury Code(s): N17.9 - ACUTE KIDNEY FAILURE, UNSPECIFIED; N18.9 - CHRONIC KIDNEY DISEASE, UNSPECIFIED (4) Automatic implantable cardiac defibrillator in situ Code(s): Z95.810 - PRESENCE OF AUTOMATIC (IMPLANTABLE) CARDIAC DEFIBRILLATOR (5) CAD (coronary artery disease) Code(s): I25.10 - ATHSCL HEART DISEASE OF [place] CORONARY ARTERY W/O ANG PCTRS Qualifiers: Coronary Disease-Associated Artery/Lesion type: [place] artery [place] vs. transplanted heart: [place] heart Associated angina: without angina Qualified Code(s): I25.10 - Atherosclerotic heart disease of [place] coronary artery without angina pectoris (6) Chronic left ventricular systolic heart failure Code(s): I50.22 - CHRONIC SYSTOLIC (CONGESTIVE) HEART FAILURE (7) HTN (hypertension) Code(s): I10 - ESSENTIAL (PRIMARY) HYPERTENSION Qualifiers: Hypertension type: essential hypertension Qualified Code(s): I10 - Essential (primary) hypertension (8) Hypothyroidism Code(s): E03.9 - HYPOTHYROIDISM, UNSPECIFIED Qualifiers: Hypothyroidism type: unspecified Qualified Code(s): E03.9 - Hypothyroidism , unspecified (9) A-fib Code(s): I48.91 - UNSPECIFIED ATRIAL FIBRILLATION
[2017-06-30] MEDS ORDERED: DEXTROSE 5%-WATER - 50 ML IVPB ONE (10:26)
[2017-06-30] MEDS ORDERED: cefTRIAXone SODIUM 1 GM VIAL ONE (10:26)
[2017-06-30] MEDS: ASPIRIN 81 MG CHEWABLE TABLETS PO SCH (10:32)
[2017-06-30] MEDS: APIXABAN 5 MG TABLET PO SCH ×2 (10:32→21:22)
[2017-06-30] MEDS: CARVEDILOL 12.5 MG TABLET (FP) PO SCH ×2 (10:32→21:20)
[2017-06-30] MEDS: CEFTRIAXONE 1 GM in DEXTROSE 5%-WATER - 50 ML IVPB SCH (10:33)
[2017-06-30] MEDS: BUDESONIDE/FORMETEROL FUMARATE 80/4.5 mcg INHALER IH SCH ×2 (10:33→21:20)
[2017-06-30] MEDS: BRIMONIDINE TARTRATE 0.1% OPHTHALMIC 5 ML BOTTLE OD SCH ×2 (10:34→21:20)
[2017-06-30] MEDS: POLYETHYLENE GLYCOL 3350 119 GM BTL PO SCH (10:34)
[2017-06-30] MEDS: LOSARTAN POTASSIUM 50 MG TABLET (FP) PO SCH (10:40)
--- NOTE | 2017-06-30 12:47 | EKG ---
Test Reason : Blood Pressure : / mmHG Vent. Rate : 070 BPM Atrial Rate : 075 BPM P-R Int : 000 ms QRS Dur : 190 ms QT Int : 470 ms P-R-T Axes : 000 -73 090 degrees QTc Int : 507 ms Ventricular-paced rhythm ABNORMAL ECG WHEN COMPARED WITH ECG OF 27-FEB-2016 10:42, ELECTRONIC VENTRICULAR PACEMAKER HAS REPLACED ATRIAL FIBRILLATION Confirmed by VERA RODRIGUEZ MD ([id number]) on 06/30/2017 12:46:53 PM Referred By: Confirmed By:VERA RODRIGUEZ MD
[2017-06-30] MEDS: PANTOPRAZOLE 40 MG TABLET (FP) PO SCH (14:09)
[2017-06-30] MEDS: TAMSULOSIN HCL 0.4 MG CAP.ER.24H (FP) PO SCH (15:16)
--- NOTE | 2017-06-30 17:00 | PN ---
Progress Note, Physician History of Present Illness: Pt seen and examined at bedside. He is awake and alert. He complains of shortness of breath and lower ext edema. He says he was drinking about 3 liters of fluid per day. He was on spironolactone and lasix at home. - Current Medication List Current Medications: Active Medications Apixaban (Eliquis -) 5 mg PO BID [facility] Last Admin: 06/30/17 10:32 Dose: 5 mg Aspirin (Asa -) 81 mg PO DAILY [facility] Last Admin: 06/30/17 10:32 Dose: 81 mg Atorvastatin Calcium (Lipitor -) 10 mg PO HS [facility] Last Admin: 06/29/17 22:56 Dose: 10 mg Brimonidine Tartrate (Alphagan P 0.1% -) 1 drop OD BID [facility] Last Admin: 06/30/17 10:34 Dose: 1 drop Budesonide/Formoterol Fumarate (Symbicort 80/4.5mcg -) 2 puff IH BID [facility] Last Admin: 06/30/17 10:33 Dose: 2 puff Carvedilol (Coreg -) 12.5 mg PO BID [facility] Last Admin: 06/30/17 10:32 Dose: 12.5 mg Ceftriaxone Sodium 1 gm/ (Dextrose) 50 mls @ 200 mls/hr IVPB DAILY [facility] Last Admin: 06/30/17 10:33 Dose: 200 mls/hr Levothyroxine Sodium (Synthroid -) 37.5 mcg PO DAILY@0700 [facility] Last Admin: 06/30/17 05:59 Dose: 37.5 mcg Losartan Potassium (Cozaar -) 50 mg PO DAILY [facility] Last Admin: 06/30/17 10:40 Dose: 50 mg Pantoprazole Sodium (Protonix -) 40 mg PO DAILY [facility] Last Admin: 06/30/17 14:09 Dose: 40 mg Pilocarpine HCl (Pilostat 2% -) 1 drop OD TID [facility] Last Admin: 06/30/17 15:16 Dose: 1 drop Polyethylene Glycol (Miralax (For Daily Use) -) 17 gm PO DAILY [facility] Last Admin: 06/30/17 10:34 Dose: 17 gm Tamsulosin HCl (Flomax -) 0.4 mg PO DAILY@0830 [facility] Last Admin: 06/30/17 15:16 Dose: 0.4 mg - Objective Vital Signs: Vital Signs Temperature 97.5 F L 06/30/17 13:25 Pulse Rate 60 06/30/17 13:25 Respiratory Rate 18 06/30/17 13:25 Blood Pressure 113/67 06/30/17 13:25 O2 Sat by Pulse Oximetry (%) 99 06/30/17 04:00 Constitutional: Yes: Calm Eyes: Yes: Conjunctiva Clear HENT: Yes: Atraumatic Neck: Yes: Supple Cardiovascular: Yes: S1, S2 Respiratory: Yes: Rhonchi Gastrointestinal: Yes: Soft Genitourinary: Yes: WNL Musculoskeletal: Yes: WNL Edema: Yes Edema: LLE: 1+, RLE: 1+ Neurological: Yes: Oriented Psychiatric: Yes: Oriented Labs: CBC, BMP 06/29/17 08:00 06/30/17 07:30 Problem List - Problems (1) A-fib Code(s): I48.91 - UNSPECIFIED ATRIAL FIBRILLATION (2) CAD (coronary artery disease) Code(s): I25.10 - ATHSCL HEART DISEASE OF [place] CORONARY ARTERY W/O ANG PCTRS Qualifiers: Coronary Disease-Associated Artery/Lesion type: [place] artery [place] vs. transplanted heart: [place] heart Associated angina: without angina Qualified Code(s): I25.10 - Atherosclerotic heart disease of [place] coronary artery without angina pectoris Assessment/Plan Current Medications Generic Name Dose Route Start Last Admin Trade Name Freq PRN Reason Stop Dose Admin Apixaban 5 mg 06/28/17 22:45 06/30/17 10:32 Eliquis - PO 5 mg BID [facility] Administration Aspirin 81 mg 06/29/17 10:00 06/30/17 10:32 Asa - PO 81 mg DAILY [facility] Administration Atorvastatin Calcium 10 mg 06/28/17 22:00 06/29/17 22:56 Lipitor - PO 10 mg HS [facility] Administration Brimonidine Tartrate 1 drop 06/28/17 23:15 06/30/17 10:34 Alphagan P 0.1% - OD 1 drop BID [facility] Administration Budesonide/Formoterol Fumarate 2 puff 06/29/17 10:00 06/30/17 10:33 Symbicort 80/4.5mcg - IH 2 puff BID [facility] Administration Carvedilol 12.5 mg 06/29/17 10:00 06/30/17 10:32 Coreg - PO 12.5 mg BID [facility] Administration Ceftriaxone Sodium 1 gm/ 50 mls @ 200 mls/hr 06/29/17 10:00 06/30/17 10:33 Dextrose IVPB 200 mls/hr DAILY [facility] Administration Levothyroxine Sodium 37.5 mcg 06/29/17 07:00 06/30/17 05:59 Synthroid - PO 37.5 mcg DAILY@0700 [facility] Administration Losartan Potassium 50 mg 06/29/17 10:00 06/30/17 10:40 Cozaar - PO 50 mg DAILY [facility] Administration Pantoprazole Sodium 40 mg 06/30/17 12:15 06/30/17 14:09 Protonix - PO 40 mg DAILY [facility] Administration Pilocarpine HCl 1 drop 06/28/17 23:15 06/30/17 15:16 Pilostat 2% - OD 1 drop TID [facility] Administration Polyethylene Glycol 17 gm 06/30/17 10:00 06/30/17 10:34 Miralax (For Daily Use) - PO 17 gm DAILY [facility] Administration Tamsulosin HCl 0.4 mg 06/30/17 16:00 06/30/17 15:16 Flomax - PO 0.4 mg DAILY@0830 [facility] Administration Laboratory Tests 06/28/17 06/28/17 06/29/17 18:10 18:10 08:00 Sodium 134 L Urine Osmolality 626 Ur Random Sodium 12 06/30/17 07:30 Sodium 125 L Urine Osmolality Ur Random Sodium Impression 1. hyponatremia 2. CHF 3. HTN 4. hyperlipidemia 5. a-fib Plan - will give a dose of lasix - restrict free water - pt is hypervolemic hyponatremia - urine sodium not consistent with siadh - cont to monitor sodium Dr Copeland
[2017-06-30] MEDS: FUROSEMIDE 40 MG TABLET (FP) PO SCH (17:52)
[2017-06-30] MEDS: ATORVASTATIN CA 10 MG TABLET (FP) PO SCH (21:19)
[2017-07-01 01:51] LABS: ANION GAP 12 (8-16); BLOOD UREA NITROGEN 16 mg/dL (7-18); CALCIUM 7.8 mg/dL (8.5-10.1); CHLORIDE 88 mmol/L (98-107); CO2 23 mmol/L (21-32); CREATININE 1.1 mg/dL (0.7-1.3); GLUCOSE,RANDOM 126 mg/dL (74-106); MAGNESIUM 1.5 mg/dL (1.8-2.4); POTASSIUM 3.9 mmol/L (3.5-5.1)
[2017-07-01 01:57] LABS: SODIUM 123 mmol/L (136-145)
[2017-07-01] MEDS ORDERED: MAGNESIUM SULF 50% (8.12 MEQ/2 ML-1 GM VIAL) IVPB ONE (03:05)
[2017-07-01] MEDS: PILOCARPINE 2% OPHTHALMIC SOLUTION 15 ML BOTTLE OD SCH ×3 (06:43→21:48)
[2017-07-01] MEDS: LEVOTHYROXINE NA 25 MCG TABLET (FP) PO SCH (06:44)
[2017-07-01] MEDS ORDERED: PT OWN MED DRAWER 7, Y5N ONE ×4 (06:47→21:50)
[2017-07-01] MEDS: TAMSULOSIN HCL 0.4 MG CAP.ER.24H (FP) PO SCH (08:15)
[2017-07-01] MEDS ORDERED: ONDANSETRON 4 MG/2 ML VIAL IVPUSH PRN (08:24)
[2017-07-01 08:33] LABS: ALBUMIN 3.3 g/dl (3.4-5.0); ANION GAP 9 (8-16); BLOOD UREA NITROGEN 17 mg/dL (7-18); CALCIUM 8.1 mg/dL (8.5-10.1); CHLORIDE 88 mmol/L (98-107); CO2 25 mmol/L (21-32); CREATININE 1.2 mg/dL (0.7-1.3); GLUCOSE,RANDOM 132 mg/dL (74-106); POTASSIUM 4.1 mmol/L (3.5-5.1); SGOT/AST 73 U/L (15-37); SGPT/ALT 93 U/L (12-78)
[2017-07-01 08:37] LABS: ALK PHOS 55 U/L (45-117); BILIRUBIN,TOTAL 1.4 mg/dL (0.2-1.0); TOT PROT 6.3 g/dl (6.4-8.2)
[2017-07-01 09:00] LABS: SODIUM 122 mmol/L (136-145)
[2017-07-01] MEDS ORDERED: DEXTROSE 5%-WATER - 50 ML IVPB ONE (09:14)
[2017-07-01] MEDS ORDERED: cefTRIAXone SODIUM 1 GM VIAL ONE (09:14)
[2017-07-01] MEDS: APIXABAN 5 MG TABLET PO SCH ×2 (09:28→21:47)
[2017-07-01] MEDS: FUROSEMIDE 40 MG TABLET (FP) PO SCH (09:28)
[2017-07-01] MEDS: CARVEDILOL 12.5 MG TABLET (FP) PO SCH ×2 (09:28→21:47)
[2017-07-01] MEDS: CEFTRIAXONE 1 GM in DEXTROSE 5%-WATER - 50 ML IVPB SCH (09:28)
[2017-07-01] MEDS: ASPIRIN 81 MG CHEWABLE TABLETS PO SCH (09:28)
[2017-07-01] MEDS: LOSARTAN POTASSIUM 50 MG TABLET (FP) PO SCH (09:28)
[2017-07-01] MEDS: POLYETHYLENE GLYCOL 3350 119 GM BTL PO SCH (09:31)
[2017-07-01] MEDS: PANTOPRAZOLE 40 MG TABLET (FP) PO SCH (09:31)
[2017-07-01] MEDS: BRIMONIDINE TARTRATE 0.1% OPHTHALMIC 5 ML BOTTLE OD SCH ×2 (09:31→21:47)
[2017-07-01] MEDS: BUDESONIDE/FORMETEROL FUMARATE 80/4.5 mcg INHALER IH SCH ×2 (09:31→21:46)
--- NOTE | 2017-07-01 11:50 | PN ---
Progress Note, Physician Chief Complaint: SOB when he talks states he ambulates across the [place] able to lie down with one pillow edema decreased per pt - Current Medication List Current Medications: Active Medications Apixaban (Eliquis -) 5 mg PO BID [facility] Last Admin: 07/01/17 09:28 Dose: 5 mg Aspirin (Asa -) 81 mg PO DAILY [facility] Last Admin: 07/01/17 09:28 Dose: 81 mg Atorvastatin Calcium (Lipitor -) 10 mg PO HS [facility] Last Admin: 06/30/17 21:19 Dose: 10 mg Brimonidine Tartrate (Alphagan P 0.1% -) 1 drop OD BID [facility] Last Admin: 07/01/17 09:31 Dose: 1 drop Budesonide/Formoterol Fumarate (Symbicort 80/4.5mcg -) 2 puff IH BID [facility] Last Admin: 07/01/17 09:31 Dose: 2 puff Carvedilol (Coreg -) 12.5 mg PO BID [facility] Last Admin: 07/01/17 09:28 Dose: 12.5 mg Furosemide (Lasix Injection -) 40 mg IVPUSH DAILY [facility] Ceftriaxone Sodium 1 gm/ (Dextrose) 50 mls @ 200 mls/hr IVPB DAILY [facility] Last Admin: 07/01/17 09:28 Dose: 200 mls/hr Levothyroxine Sodium (Synthroid -) 37.5 mcg PO DAILY@0700 [facility] Last Admin: 07/01/17 06:44 Dose: 37.5 mcg Losartan Potassium (Cozaar -) 50 mg PO DAILY [facility] Last Admin: 07/01/17 09:28 Dose: 50 mg Ondansetron HCl (Zofran Injection) 4 mg IVPUSH Q6H PRN PRN Reason: NAUSEA AND/OR VOMITING Last Admin: 07/01/17 09:28 Dose: 4 mg Pantoprazole Sodium (Protonix -) 40 mg PO DAILY [facility] Last Admin: 07/01/17 09:31 Dose: 40 mg Pilocarpine HCl (Pilostat 2% -) 1 drop OD TID [facility] Last Admin: 07/01/17 06:43 Dose: 1 drop Polyethylene Glycol (Miralax (For Daily Use) -) 17 gm PO DAILY [facility] Last Admin: 07/01/17 09:31 Dose: 17 gm Tamsulosin HCl (Flomax -) 0.4 mg PO DAILY@0830 [facility] Last Admin: 07/01/17 08:15 Dose: 0.4 mg - Objective Vital Signs: Vital Signs Temperature 98.0 F 07/01/17 09:24 Pulse Rate 64 07/01/17 09:24 Respiratory Rate 18 07/01/17 09:24 Blood Pressure 112/77 07/01/17 09:24 O2 Sat by Pulse Oximetry (%) 97 07/01/17 04:00 Constitutional: Yes: No Distress, Calm Cardiovascular: Yes: Pulse Irregular Respiratory: Yes: Diminished Gastrointestinal: Yes: Normal Bowel Sounds, Soft, Distention. No: Tenderness Edema: Yes Edema: LLE: 2+, RLE: 2+ Labs: CBC, BMP 06/29/17 08:00 07/01/17 06:35 Problem List - Problems (1) A-fib Code(s): I48.91 - UNSPECIFIED ATRIAL FIBRILLATION (2) Hyponatremia Code(s): E87.1 - HYPO-OSMOLALITY AND HYPONATREMIA (3) UTI (urinary tract infection) Code(s): N39.0 - URINARY TRACT INFECTION, SITE NOT SPECIFIED (4) Chronic left ventricular systolic heart failure Code(s): I50.22 - CHRONIC SYSTOLIC (CONGESTIVE) HEART FAILURE (5) HTN (hypertension) Code(s): I10 - ESSENTIAL (PRIMARY) HYPERTENSION Qualifiers: Hypertension type: essential hypertension Qualified Code(s): I10 - Essential (primary) hypertension (6) Hyperlipidemia Code(s): E78.5 - HYPERLIPIDEMIA, UNSPECIFIED Qualifiers: Hyperlipidemia type: pure hypercholesterolemia Qualified Code(s): E78.00 - Pure hypercholesterolemia, unspecified; E78.0 - Pure hypercholesterolemia (7) Hypothyroidism Code(s): E03.9 - HYPOTHYROIDISM, UNSPECIFIED Qualifiers: Hypothyroidism type: unspecified Qualified Code(s): E03.9 - Hypothyroidism , unspecified (8) Systolic CHF, acute on chronic Code(s): I50.23 - ACUTE ON CHRONIC SYSTOLIC (CONGESTIVE) HEART FAILURE Assessment/Plan PLAN change Lasix to IV check i and O daily weights check BNP Cardiology eval check lytes and replace if needed fluid restriction
[2017-07-01] MEDS ORDERED: ACETAMINOPHEN 500 MG TABLET (FP) PO PRN (11:51)
--- NOTE | 2017-07-01 15:49 | PN ---
Progress Note, Physician History of Present Illness: Pt seen and examined at bedside. He complains of shortness of breath and lower ext edema. - Current Medication List Current Medications: Active Medications Acetaminophen (Tylenol -) 500 mg PO Q6H PRN PRN Reason: FEVER Apixaban (Eliquis -) 5 mg PO BID [facility] Last Admin: 07/01/17 09:28 Dose: 5 mg Aspirin (Asa -) 81 mg PO DAILY [facility] Last Admin: 07/01/17 09:28 Dose: 81 mg Atorvastatin Calcium (Lipitor -) 10 mg PO HS [facility] Last Admin: 06/30/17 21:19 Dose: 10 mg Brimonidine Tartrate (Alphagan P 0.1% -) 1 drop OD BID [facility] Last Admin: 07/01/17 09:31 Dose: 1 drop Budesonide/Formoterol Fumarate (Symbicort 80/4.5mcg -) 2 puff IH BID [facility] Last Admin: 07/01/17 09:31 Dose: 2 puff Carvedilol (Coreg -) 12.5 mg PO BID [facility] Last Admin: 07/01/17 09:28 Dose: 12.5 mg Furosemide (Lasix Injection -) 40 mg IVPUSH DAILY [facility] Ceftriaxone Sodium 1 gm/ (Dextrose) 50 mls @ 200 mls/hr IVPB DAILY [facility] Last Admin: 07/01/17 09:28 Dose: 200 mls/hr Levothyroxine Sodium (Synthroid -) 37.5 mcg PO DAILY@0700 [facility] Last Admin: 07/01/17 06:44 Dose: 37.5 mcg Losartan Potassium (Cozaar -) 50 mg PO DAILY [facility] Last Admin: 07/01/17 09:28 Dose: 50 mg Ondansetron HCl (Zofran Injection) 4 mg IVPUSH Q6H PRN PRN Reason: NAUSEA AND/OR VOMITING Last Admin: 07/01/17 09:28 Dose: 4 mg Pantoprazole Sodium (Protonix -) 40 mg PO DAILY [facility] Last Admin: 07/01/17 09:31 Dose: 40 mg Pilocarpine HCl (Pilostat 2% -) 1 drop OD TID [facility] Last Admin: 07/01/17 14:10 Dose: 1 drop Polyethylene Glycol (Miralax (For Daily Use) -) 17 gm PO DAILY [facility] Last Admin: 07/01/17 09:31 Dose: 17 gm Potassium Chloride (K-Dur -) 20 meq PO DAILY [facility] Tamsulosin HCl (Flomax -) 0.4 mg PO DAILY@0830 [facility] Last Admin: 07/01/17 08:15 Dose: 0.4 mg - Objective Vital Signs: Vital Signs Temperature 97.4 F L 07/01/17 13:46 Pulse Rate 86 07/01/17 13:46 Respiratory Rate 18 07/01/17 09:24 Blood Pressure 113/62 07/01/17 13:46 O2 Sat by Pulse Oximetry (%) 98 07/01/17 12:00 Constitutional: Yes: Calm Eyes: Yes: Conjunctiva Clear HENT: Yes: Atraumatic Cardiovascular: Yes: S1, S2 Respiratory: Yes: Rhonchi Gastrointestinal: Yes: Soft Genitourinary: Yes: WNL Musculoskeletal: Yes: WNL Edema: Yes Edema: LLE: 2+, RLE: 2+ Neurological: Yes: Oriented Psychiatric: Yes: Oriented Labs: CBC, BMP 06/29/17 08:00 07/01/17 06:35 Problem List - Problems (1) A-fib Code(s): I48.91 - UNSPECIFIED ATRIAL FIBRILLATION (2) CAD (coronary artery disease) Code(s): I25.10 - ATHSCL HEART DISEASE OF [place] CORONARY ARTERY W/O ANG PCTRS Qualifiers: Coronary Disease-Associated Artery/Lesion type: [place] artery [place] vs. transplanted heart: [place] heart Associated angina: without angina Qualified Code(s): I25.10 - Atherosclerotic heart disease of [place] coronary artery without angina pectoris Assessment/Plan Current Medications Generic Name Dose Route Start Last Admin Trade Name Michaela PRN Reason Stop Dose Admin Acetaminophen 500 mg 07/01/17 11:51 Tylenol - PO Q6H PRN FEVER Apixaban 5 mg 06/28/17 22:45 07/01/17 09:28 Eliquis - PO 5 mg BID [facility] Administration Aspirin 81 mg 06/29/17 10:00 07/01/17 09:28 Asa - PO 81 mg DAILY [facility] Administration Atorvastatin Calcium 10 mg 06/28/17 22:00 06/30/17 21:19 Lipitor - PO 10 mg HS [facility] Administration Brimonidine Tartrate 1 drop 06/28/17 23:15 07/01/17 09:31 Alphagan P 0.1% - OD 1 drop BID [facility] Administration Budesonide/Formoterol Fumarate 2 puff 06/29/17 10:00 07/01/17 09:31 Symbicort 80/4.5mcg - IH 2 puff BID [facility] Administration Carvedilol 12.5 mg 06/29/17 10:00 07/01/17 09:28 Coreg - PO 12.5 mg BID [facility] Administration Furosemide 40 mg 07/02/17 10:00 Lasix Injection - IVPUSH DAILY [facility] Ceftriaxone Sodium 1 gm/ 50 mls @ 200 mls/hr 06/29/17 10:00 07/01/17 09:28 Dextrose IVPB 200 mls/hr DAILY [facility] Administration Levothyroxine Sodium 37.5 mcg 06/29/17 07:00 07/01/17 06:44 Synthroid - PO 37.5 mcg DAILY@0700 [facility] Administration Losartan Potassium 50 mg 06/29/17 10:00 07/01/17 09:28 Cozaar - PO 50 mg DAILY [facility] Administration Ondansetron HCl 4 mg 07/01/17 08:24 07/01/17 09:28 Zofran Injection IVPUSH 4 mg Q6H PRN Administration NAUSEA AND/OR VOMITING Pantoprazole Sodium 40 mg 06/30/17 12:15 07/01/17 09:31 Protonix - PO 40 mg DAILY [facility] Administration Pilocarpine HCl 1 drop 06/28/17 23:15 07/01/17 14:10 Pilostat 2% - OD 1 drop TID [facility] Administration Polyethylene Glycol 17 gm 06/30/17 10:00 07/01/17 09:31 Miralax (For Daily Use) - PO 17 gm DAILY [facility] Administration Potassium Chloride 20 meq 07/02/17 10:00 K-Dur - PO DAILY [facility] Tamsulosin HCl 0.4 mg 06/30/17 16:00 07/01/17 08:15 Flomax - PO 0.4 mg DAILY@0830 [facility] Administration Impression 1. hyponatremia 2. CHF 3. HTN 4. hyperlipidemia 5. a-fib Plan - discussed free water intake - he did take lasix today - repeat labs - asked nurse to call me with lab results - tighten fluid restriction to 800 cc - cardio eval - pt is hypervolemic hyponatremia - urine sodium not consistent with siadh - cont to monitor sodium Dr Copeland
[2017-07-01 17:45] LABS: ANION GAP 10 (8-16); BLOOD UREA NITROGEN 16 mg/dL (7-18); CALCIUM 8.1 mg/dL (8.5-10.1); CHLORIDE 86 mmol/L (98-107); CO2 27 mmol/L (21-32); CREATININE 1.3 mg/dL (0.7-1.3); GLUCOSE,RANDOM 116 mg/dL (74-106)
[2017-07-01 17:47] LABS: SODIUM 123 mmol/L (136-145)
[2017-07-01] MEDS ORDERED: FUROSEMIDE 40 MG/4 ML INJECTABLE VIAL IVPUSH ONE (18:15)
[2017-07-01] MEDS: ATORVASTATIN CA 10 MG TABLET (FP) PO SCH (21:47)
[2017-07-02] MEDS ORDERED: PT OWN MED DRAWER 7, Y5N ONE ×2 (06:23→21:09)
[2017-07-02] MEDS: PILOCARPINE 2% OPHTHALMIC SOLUTION 15 ML BOTTLE OD SCH ×3 (06:32→21:40)
[2017-07-02] MEDS: LEVOTHYROXINE NA 25 MCG TABLET (FP) PO SCH (06:32)
[2017-07-02] MEDS: TAMSULOSIN HCL 0.4 MG CAP.ER.24H (FP) PO SCH (07:45)
[2017-07-02 09:29] LABS: CHLORIDE 89 mmol/L (98-107); POTASSIUM 4.2 mmol/L (3.5-5.1); SODIUM 125 mmol/L (136-145)
[2017-07-02 09:36] LABS: ANION GAP 9 (8-16); BLOOD UREA NITROGEN 19 mg/dL (7-18); CALCIUM 7.9 mg/dL (8.5-10.1); CO2 27 mmol/L (21-32); CREATININE 1.4 mg/dL (0.7-1.3); GLUCOSE,RANDOM 93 mg/dL (74-106); MAGNESIUM 1.9 mg/dL (1.8-2.4)
[2017-07-02] MEDS ORDERED: cefTRIAXone SODIUM 1 GM VIAL ONE (10:00)
[2017-07-02] MEDS ORDERED: DEXTROSE 5%-WATER - 50 ML IVPB ONE (10:00)
[2017-07-02] MEDS: CEFTRIAXONE 1 GM in DEXTROSE 5%-WATER - 50 ML IVPB SCH (10:09)
[2017-07-02] MEDS: CARVEDILOL 12.5 MG TABLET (FP) PO SCH ×2 (10:10→21:41)
[2017-07-02] MEDS: LOSARTAN POTASSIUM 50 MG TABLET (FP) PO SCH (10:10)
[2017-07-02] MEDS: ASPIRIN 81 MG CHEWABLE TABLETS PO SCH (10:10)
[2017-07-02] MEDS: POTASSIUM CHLORIDE TABS 20 MEQ TABLET.ER (FP) PO SCH (10:10)
[2017-07-02] MEDS: PANTOPRAZOLE 40 MG TABLET (FP) PO SCH (10:10)
[2017-07-02] MEDS: BRIMONIDINE TARTRATE 0.1% OPHTHALMIC 5 ML BOTTLE OD SCH ×2 (10:10→21:40)
[2017-07-02] MEDS: APIXABAN 5 MG TABLET PO SCH ×2 (10:11→21:49)
[2017-07-02] MEDS: FUROSEMIDE 40 MG/4 ML INJECTABLE VIAL IVPUSH SCH (10:11)
[2017-07-02] MEDS: BUDESONIDE/FORMETEROL FUMARATE 80/4.5 mcg INHALER IH SCH ×2 (10:12→21:41)
[2017-07-02] MEDS: POLYETHYLENE GLYCOL 3350 119 GM BTL PO SCH (10:12)
--- NOTE | 2017-07-02 13:05 | CON.CARD ---
Consult Consult Specialty:: Cardiology Referred by:: Nohemy Morris MD Reason for Consultation:: Systolic failure - History of Present Illness Chief Complaint: Dyspnea, abd distension History of Present Illness: 72 yo male with h/o HTN, DM, hyperlipidemia, CAD s/p 2 stents, hypothyroidism, ischemic cardiomyopathy s/p ICD, COPD admitted for dysuria, hyponatremia, received IVF, experienced worsening dyspnea on exertion and abd distension, denies chest pain, near or true syncope, palpitations, orthopnea, PND or LE edema, IVF d/rayne and started on diuresis with symptom relief. - History Source History Provided By: Patient Limitations to Obtaining History: No Limitations - Past Medical History Card[facility]: Yes: [facility] HTN, Hyperlipdemia, Other (CHF, cardiomyopathy- s/p AICD) Pulmonary: Yes: Asthma, Cancer Gastrointestinal: Yes: GERD Renal/: Yes: Renal Inusuff (creat- around 1.3), BPH - Alcohol/Substance Use Hx Alcohol Use: No - Smoking History Smoking history: Never smoked Have you smoked in the past 12 months: No Home Medications - Allergies Allergies/Adverse Reactions: Allergies Allergy/AdvReac Type Severity Reaction Status Date / Time No Known Allergies Allergy Verified 02/26/16 18:20 - Home Medications Home Medications: Ambulatory Orders Aspirin [ASA -] 81 mg PO DAILY 10/06/15 Brimonidine Tartrate [Alphagan P 0.1% -] 1 drop BID 10/06/15 Esomeprazole Magnesium [Nexium] 40 mg PO DAILY 10/06/15 Fluticasone/Salmeterol [Advair 250-50 Diskus] 1 each IH BID 10/06/15 Furosemide [Lasix -] 20 mg PO DAILY 10/06/15 Levothyroxine [Synthroid -] 37.5 mcg PO DAILY 10/06/15 Losartan Potassium [Cozaar -] 50 mg PO DAILY 10/06/15 Montelukast Na [Singulair -] 10 mg PO HS 10/06/15 [place]-3 Fatty Acids/Fish Oil [Fish Oil 1,000 mg Softgel] 1 each PO DAILY [place] 2% [Pilostat 2% -] 1 drop OD TID 03/08/16 Acetaminophen [Tylenol .Regular Strength -] 650 mg PO Q4H PRN #0 tablet Albuterol 0.083% Nebulizer Amanda [Ventolin 0.083% Nebulizer Soln -] 1 amp NEB QIDR amp 03/09/16 Apixaban [Eliquis -] 5 mg PO BID #60 tablet 03/09/16 Atorvastatin Ca [Lipitor] 10 mg PO HS #30 tablet 03/09/16 Carvedilol [Coreg -] 12.5 mg PO BID #60 tablet 03/09/16 Docusate Sodium [Colace -] 100 mg PO DAILY capsule 03/09/16 Insulin Sliding Scale [Novolog Vial Sliding Scale -] 1 vial SQ TIDAC units Mag Hydrox/Al Hydrox/Simeth [Mylanta Oral Suspension -] 30 ml PO Q6H PRN #0 cup 03/09/16 Polyethylene Glycol 3350 [Miralax 119 gm Btl -] 17 gm PO DAILY PRN #0 bottle Spironolactone [Aldactone -] 25 mg PO DAILY tablet 03/09/16 Valsartan [Diovan] 160 mg PO DAILY tablet 03/09/16 predniSONE [Deltasone -] 10 mg PO DAILY #30 tablet 03/09/16 Review of Systems - Review of Systems Respiratory: reports: Exercise Intolerance, SOB on Exertion Vital Signs: Vital Signs Temperature 97.6 F 07/02/17 05:21 Pulse Rate 60 07/02/17 09:00 Respiratory Rate 18 07/02/17 09:00 Blood Pressure 110/70 07/02/17 09:00 O2 Sat by Pulse Oximetry (%) 98 07/02/17 04:00 Constitutional: Yes: No Distress, Calm, Thin Neck: Yes: Supple Respiratory: Yes: Regular, Diminished, Stridor Gastrointestinal: Yes: Normal Bowel Sounds, Distention Cardiovascular: Yes: Regular Rate and Rhythm JVD: Yes Carotid Bruit: No Heart Sounds: Yes: S1, S2 Murmur: Yes: Systolic Murmur, Grade 2 Edema: No - Other Data Labs, Other Data: CBC, BMP 06/29/17 08:00 07/02/17 07:25 Afib v-paced @ 70 Ejection Fraction %: LVEF < 40 % Imaging - Results Chest X-ray: Report Reviewed (NAD, ICD seen) Problem List - Problems (1) A-fib Code(s): I48.91 - UNSPECIFIED ATRIAL FIBRILLATION Qualifiers: Atrial fibrillation type: persistent Qualified Code(s): I48.1 - Persistent atrial fibrillation (2) Hyponatremia Code(s): E87.1 - HYPO-OSMOLALITY AND HYPONATREMIA (3) Systolic CHF, acute on chronic Code(s): I50.23 - ACUTE ON CHRONIC SYSTOLIC (CONGESTIVE) HEART FAILURE (4) UTI (urinary tract infection) Code(s): N39.0 - URINARY TRACT INFECTION, SITE NOT SPECIFIED Qualifiers: Urinary tract infection type: site unspecified (5) [id number] kidney injury Code(s): N17.9 - ACUTE KIDNEY FAILURE, UNSPECIFIED; N18.9 - CHRONIC KIDNEY DISEASE, UNSPECIFIED (6) Automatic implantable cardiac defibrillator in situ Code(s): Z95.810 - PRESENCE OF AUTOMATIC (IMPLANTABLE) CARDIAC DEFIBRILLATOR (7) CAD (coronary artery disease) Code(s): I25.10 - ATHSCL HEART DISEASE OF [place] CORONARY ARTERY W/O ANG PCTRS Qualifiers: Coronary Disease-Associated Artery/Lesion type: [place] artery [place] vs. transplanted heart: [place] heart Associated angina: without angina Qualified Code(s): I25.10 - Atherosclerotic heart disease of [place] coronary artery without angina pectoris (8) HTN (hypertension) Code(s): I10 - ESSENTIAL (PRIMARY) HYPERTENSION Qualifiers: Hypertension type: essential hypertension Qualified Code(s): I10 - Essential (primary) hypertension (9) Hyperlipidemia Code(s): E78.5 - HYPERLIPIDEMIA, UNSPECIFIED Qualifiers: Hyperlipidemia type: pure hypercholesterolemia Qualified Code(s): E78.00 - Pure hypercholesterolemia, unspecified; E78.0 - Pure hypercholesterolemia (10) Hypothyroidism Code(s): E03.9 - HYPOTHYROIDISM, UNSPECIFIED Qualifiers: Hypothyroidism type: unspecified Qualified Code(s): E03.9 - Hypothyroidism , unspecified (11) Old myocardial infarction, greater than 8 weeks Code(s): I25.2 - OLD MYOCARDIAL INFARCTION (12) Status post coronary artery stent placement Code(s): Z95.5 - PRESENCE OF CORONARY ANGIOPLASTY IMPLANT AND GRAFT Assessment/Plan 07/02/2017 Echo: Normal LV size with severely decreased LV fxn, anterior AK, severe TR, mod-severe MR, mild-mod AR, mild [place] 1. Acute on chronic LV systolic failure with underlying severe TR, mod-severe MR 2. Persistent atrial fibrillation [id number] score of 4 on NOAC 3. CAD post SD/PCI/stent angina pectoris 4. s/p ICD 5. HTN 6. Hypercholesterolemia 7. Hypervolemic hyponatremia 8. Hypothyroidism 9. DM 10. Hepatic congestion PLAN: 1. IV diuresis with monitor diuretic response, renal function and electrolytes, trend LFTs, keep K>4.0 Mg>2.0 2. Continue Coreg 12.5 mg BID as tolerated 3. Continue losartan 50 qd and resume Aldactone 25 mg QD with monitoring renal function. Entresto may be considered as outpatient once renal function stabilizes 4. Continue Eliquis 5 mg twice daily 5. ASA discontinued while on NOAC as CAD is stable 6. Continue Lipitor 10 qhs 7. Upgrade to COMPLIANCE INTERN-D as outpatient Patient is to follow up with Dr. Rad Flower (cardiology) at [facility] post discharge
--- NOTE | 2017-07-02 13:06 | PN ---
Progress Note, Physician Chief Complaint: feels better decreased SOB - Current Medication List Current Medications: Active Medications Acetaminophen (Tylenol -) 500 mg PO Q6H PRN PRN Reason: FEVER Apixaban (Eliquis -) 5 mg PO BID [facility] Last Admin: 07/02/17 10:11 Dose: 5 mg Aspirin (Asa -) 81 mg PO DAILY [facility] Last Admin: 07/02/17 10:10 Dose: 81 mg Atorvastatin Calcium (Lipitor -) 10 mg PO HS [facility] Last Admin: 07/01/17 21:47 Dose: 10 mg Brimonidine Tartrate (Alphagan P 0.1% -) 1 drop OD BID [facility] Last Admin: 07/02/17 10:10 Dose: 1 drop Budesonide/Formoterol Fumarate (Symbicort 80/4.5mcg -) 2 puff IH BID [facility] Last Admin: 07/02/17 10:12 Dose: 2 puff Carvedilol (Coreg -) 12.5 mg PO BID [facility] Last Admin: 07/02/17 10:10 Dose: 12.5 mg Furosemide (Lasix Injection -) 40 mg IVPUSH DAILY [facility] Last Admin: 07/02/17 10:11 Dose: 40 mg Ceftriaxone Sodium 1 gm/ (Dextrose) 50 mls @ 200 mls/hr IVPB DAILY [facility] Last Admin: 07/02/17 10:09 Dose: 200 mls/hr Levothyroxine Sodium (Synthroid -) 37.5 mcg PO DAILY@0700 [facility] Last Admin: 07/02/17 06:32 Dose: 37.5 mcg Losartan Potassium (Cozaar -) 50 mg PO DAILY [facility] Last Admin: 07/02/17 10:10 Dose: 50 mg Ondansetron HCl (Zofran Injection) 4 mg IVPUSH Q6H PRN PRN Reason: NAUSEA AND/OR VOMITING Last Admin: 07/01/17 09:28 Dose: 4 mg Pantoprazole Sodium (Protonix -) 40 mg PO DAILY [facility] Last Admin: 07/02/17 10:10 Dose: 40 mg Pilocarpine HCl (Pilostat 2% -) 1 drop OD TID [facility] Last Admin: 07/02/17 06:32 Dose: 1 drop Polyethylene Glycol (Miralax (For Daily Use) -) 17 gm PO DAILY [facility] Last Admin: 07/02/17 10:12 Dose: 17 gm Potassium Chloride (K-Dur -) 20 meq PO DAILY [facility] Last Admin: 07/02/17 10:10 Dose: 20 meq Tamsulosin HCl (Flomax -) 0.4 mg PO DAILY@0830 [facility] Last Admin: 07/02/17 07:45 Dose: 0.4 mg - Objective Vital Signs: Vital Signs Temperature 97.6 F 07/02/17 05:21 Pulse Rate 60 07/02/17 09:00 Respiratory Rate 18 07/02/17 09:00 Blood Pressure 110/70 07/02/17 09:00 O2 Sat by Pulse Oximetry (%) 98 07/02/17 04:00 Constitutional: Yes: No Distress Cardiovascular: Yes: Pulse Irregular Respiratory: Yes: Diminished. No: Rales, Rhonchi Gastrointestinal: Yes: Normal Bowel Sounds, Soft, Distention (decreased). No: Tenderness Edema: Yes (decreased) Labs: CBC, BMP 06/29/17 08:00 07/02/17 07:25 Problem List - Problems (1) A-fib Code(s): I48.91 - UNSPECIFIED ATRIAL FIBRILLATION (2) Hyponatremia Code(s): E87.1 - HYPO-OSMOLALITY AND HYPONATREMIA (3) UTI (urinary tract infection) Code(s): N39.0 - URINARY TRACT INFECTION, SITE NOT SPECIFIED (4) Chronic left ventricular systolic heart failure Code(s): I50.22 - CHRONIC SYSTOLIC (CONGESTIVE) HEART FAILURE (5) HTN (hypertension) Code(s): I10 - ESSENTIAL (PRIMARY) HYPERTENSION Qualifiers: Hypertension type: essential hypertension Qualified Code(s): I10 - Essential (primary) hypertension (6) Hyperlipidemia Code(s): E78.5 - HYPERLIPIDEMIA, UNSPECIFIED Qualifiers: Hyperlipidemia type: pure hypercholesterolemia Qualified Code(s): E78.00 - Pure hypercholesterolemia, unspecified; E78.0 - Pure hypercholesterolemia (7) Hypothyroidism Code(s): E03.9 - HYPOTHYROIDISM, UNSPECIFIED Qualifiers: Hypothyroidism type: unspecified Qualified Code(s): E03.9 - Hypothyroidism , unspecified (8) Systolic CHF, acute on chronic Code(s): I50.23 - ACUTE ON CHRONIC SYSTOLIC (CONGESTIVE) HEART FAILURE Assessment/Plan PLAN on Lasix IV check i and O daily weights check BNP Cardiology eval appreciated check lytes and replace if needed fluid restriction change to regular diet dc iv antibiotics-- urine cultures negative OOB daily Check echo
--- NOTE | 2017-07-02 13:40 | PN ---
Progress Note, Physician History of Present Illness: Pt seen and examined at bedside. He feels a little better today. He is out of bed to chair. - Current Medication List Current Medications: Active Medications Acetaminophen (Tylenol -) 500 mg PO Q6H PRN PRN Reason: FEVER Apixaban (Eliquis -) 5 mg PO BID [facility] Last Admin: 07/02/17 10:11 Dose: 5 mg Aspirin (Asa -) 81 mg PO DAILY [facility] Last Admin: 07/02/17 10:10 Dose: 81 mg Atorvastatin Calcium (Lipitor -) 10 mg PO HS [facility] Last Admin: 07/01/17 21:47 Dose: 10 mg Brimonidine Tartrate (Alphagan P 0.1% -) 1 drop OD BID [facility] Last Admin: 07/02/17 10:10 Dose: 1 drop Budesonide/Formoterol Fumarate (Symbicort 80/4.5mcg -) 2 puff IH BID [facility] Last Admin: 07/02/17 10:12 Dose: 2 puff Carvedilol (Coreg -) 12.5 mg PO BID [facility] Last Admin: 07/02/17 10:10 Dose: 12.5 mg Furosemide (Lasix Injection -) 40 mg IVPUSH DAILY [facility] Last Admin: 07/02/17 10:11 Dose: 40 mg Levothyroxine Sodium (Synthroid -) 37.5 mcg PO DAILY@0700 [facility] Last Admin: 07/02/17 06:32 Dose: 37.5 mcg Losartan Potassium (Cozaar -) 50 mg PO DAILY [facility] Last Admin: 07/02/17 10:10 Dose: 50 mg Ondansetron HCl (Zofran Injection) 4 mg IVPUSH Q6H PRN PRN Reason: NAUSEA AND/OR VOMITING Last Admin: 07/01/17 09:28 Dose: 4 mg Pantoprazole Sodium (Protonix -) 40 mg PO DAILY [facility] Last Admin: 07/02/17 10:10 Dose: 40 mg Pilocarpine HCl (Pilostat 2% -) 1 drop OD TID [facility] Last Admin: 07/02/17 06:32 Dose: 1 drop Polyethylene Glycol (Miralax (For Daily Use) -) 17 gm PO DAILY [facility] Last Admin: 07/02/17 10:12 Dose: 17 gm Potassium Chloride (K-Dur -) 20 meq PO DAILY [facility] Last Admin: 07/02/17 10:10 Dose: 20 meq Tamsulosin HCl (Flomax -) 0.4 mg PO DAILY@0830 [facility] Last Admin: 07/02/17 07:45 Dose: 0.4 mg - Objective Vital Signs: Vital Signs Temperature 97.6 F 07/02/17 05:21 Pulse Rate 60 07/02/17 09:00 Respiratory Rate 18 07/02/17 09:00 Blood Pressure 110/70 07/02/17 09:00 O2 Sat by Pulse Oximetry (%) 98 07/02/17 04:00 Constitutional: Yes: Calm Eyes: Yes: Conjunctiva Clear HENT: Yes: Atraumatic Neck: Yes: Supple Cardiovascular: Yes: S1, S2 Respiratory: Yes: Rhonchi Gastrointestinal: Yes: Soft Genitourinary: Yes: WNL Musculoskeletal: Yes: WNL Edema: Yes Edema: LLE: 1+, RLE: 1+ Neurological: Yes: Oriented Psychiatric: Yes: Oriented Labs: CBC, BMP 06/29/17 08:00 07/02/17 07:25 Problem List - Problems (1) A-fib Code(s): I48.91 - UNSPECIFIED ATRIAL FIBRILLATION (2) CAD (coronary artery disease) Code(s): I25.10 - ATHSCL HEART DISEASE OF [place] CORONARY ARTERY W/O ANG PCTRS Qualifiers: Coronary Disease-Associated Artery/Lesion type: [place] artery [place] vs. transplanted heart: [place] heart Associated angina: without angina Qualified Code(s): I25.10 - Atherosclerotic heart disease of [place] coronary artery without angina pectoris Assessment/Plan Current Medications Generic Name Dose Route Start Last Admin Trade Name Michaela PRN Reason Stop Dose Admin Acetaminophen 500 mg 07/01/17 11:51 Tylenol - PO Q6H PRN FEVER Apixaban 5 mg 06/28/17 22:45 07/02/17 10:11 Eliquis - PO 5 mg BID [facility] Administration Aspirin 81 mg 06/29/17 10:00 07/02/17 10:10 Asa - PO 81 mg DAILY [facility] Administration Atorvastatin Calcium 10 mg 06/28/17 22:00 07/01/17 21:47 Lipitor - PO 10 mg HS [facility] Administration Brimonidine Tartrate 1 drop 06/28/17 23:15 07/02/17 10:10 Alphagan P 0.1% - OD 1 drop BID [facility] Administration Budesonide/Formoterol Fumarate 2 puff 06/29/17 10:00 07/02/17 10:12 Symbicort 80/4.5mcg - IH 2 puff BID [facility] Administration Carvedilol 12.5 mg 06/29/17 10:00 07/02/17 10:10 Coreg - PO 12.5 mg BID [facility] Administration Furosemide 40 mg 07/02/17 10:00 07/02/17 10:11 Lasix Injection - IVPUSH 40 mg DAILY [facility] Administration Levothyroxine Sodium 37.5 mcg 06/29/17 07:00 07/02/17 06:32 Synthroid - PO 37.5 mcg DAILY@0700 [facility] Administration Losartan Potassium 50 mg 06/29/17 10:00 07/02/17 10:10 Cozaar - PO 50 mg DAILY [facility] Administration Ondansetron HCl 4 mg 07/01/17 08:24 07/01/17 09:28 Zofran Injection IVPUSH 4 mg Q6H PRN Administration NAUSEA AND/OR VOMITING Pantoprazole Sodium 40 mg 06/30/17 12:15 07/02/17 10:10 Protonix - PO 40 mg DAILY [facility] Administration Pilocarpine HCl 1 drop 06/28/17 23:15 07/02/17 06:32 Pilostat 2% - OD 1 drop TID [facility] Administration Polyethylene Glycol 17 gm 06/30/17 10:00 07/02/17 10:12 Miralax (For Daily Use) - PO 17 gm DAILY [facility] Administration Potassium Chloride 20 meq 07/02/17 10:00 07/02/17 10:10 K-Dur - PO 20 meq DAILY [facility] Administration Tamsulosin HCl 0.4 mg 06/30/17 16:00 07/02/17 07:45 Flomax - PO 0.4 mg DAILY@0830 [facility] Administration Impression 1. hyponatremia 2. CHF 3. HTN 4. hyperlipidemia 5. a-fib Plan - cont with IV lasix - monitor sodium - etiology likely secondary to CHF - cardio input pending - restrict fluid intake Dr Copeland
[2017-07-02] MEDS ORDERED: MAGNESIUM OXIDE 400 MG TABLET (FP) PO ONE ×2 (18:25→21:50)
[2017-07-02] MEDS: SPIRONOLACTONE 25 MG TABLET (FP) PO SCH (21:41)
[2017-07-02] MEDS: ATORVASTATIN CA 10 MG TABLET (FP) PO SCH (21:41)
[2017-07-03] MEDS: PILOCARPINE 2% OPHTHALMIC SOLUTION 15 ML BOTTLE OD SCH ×2 (06:16→21:58)
[2017-07-03] MEDS: LEVOTHYROXINE NA 25 MCG TABLET (FP) PO SCH (06:16)
[2017-07-03] MEDS ORDERED: PT OWN MED DRAWER 7, Y5N ONE ×3 (06:37→21:54)
[2017-07-03] MEDS: TAMSULOSIN HCL 0.4 MG CAP.ER.24H (FP) PO SCH (08:35)
[2017-07-03 08:49] LABS: ANION GAP 11 (8-16); BLOOD UREA NITROGEN 21 mg/dL (7-18); CALCIUM 8.7 mg/dL (8.5-10.1); CHLORIDE 89 mmol/L (98-107); CO2 29 mmol/L (21-32); CREATININE 1.5 mg/dL (0.7-1.3); GLUCOSE,RANDOM 98 mg/dL (74-106); MAGNESIUM 2.3 mg/dL (1.8-2.4); POTASSIUM 4.1 mmol/L (3.5-5.1); SODIUM 129 mmol/L (136-145)
[2017-07-03 08:52] LABS: ALBUMIN 3.2 g/dl (3.4-5.0); BILIRUBIN,DIRECT 0.5 mg/dL (0.0-0.2); BILIRUBIN,TOTAL 1.1 mg/dL (0.2-1.0); TOT PROT 6.6 g/dl (6.4-8.2)
[2017-07-03] MEDS ORDERED: cefTRIAXone SODIUM 1 GM VIAL ONE (09:24)
[2017-07-03] MEDS ORDERED: DEXTROSE 5%-WATER - 50 ML IVPB ONE (09:24)
[2017-07-03] MEDS: FUROSEMIDE 40 MG/4 ML INJECTABLE VIAL IVPUSH SCH (09:31)
[2017-07-03] MEDS: CARVEDILOL 12.5 MG TABLET (FP) PO SCH ×2 (09:32→21:58)
[2017-07-03] MEDS: APIXABAN 5 MG TABLET PO SCH ×2 (09:32→21:58)
[2017-07-03] MEDS: SPIRONOLACTONE 25 MG TABLET (FP) PO SCH (09:32)
[2017-07-03] MEDS: PANTOPRAZOLE 40 MG TABLET (FP) PO SCH (09:32)
[2017-07-03] MEDS: LOSARTAN POTASSIUM 50 MG TABLET (FP) PO SCH (09:32)
[2017-07-03] MEDS: POTASSIUM CHLORIDE TABS 20 MEQ TABLET.ER (FP) PO SCH (09:32)
[2017-07-03] MEDS: CEFTRIAXONE 1 GM in DEXTROSE 5%-WATER - 50 ML IVPB SCH (09:32)
[2017-07-03] MEDS: POLYETHYLENE GLYCOL 3350 119 GM BTL PO SCH (09:33)
[2017-07-03] MEDS: BRIMONIDINE TARTRATE 0.1% OPHTHALMIC 5 ML BOTTLE OD SCH ×2 (09:33→21:58)
[2017-07-03] MEDS: BUDESONIDE/FORMETEROL FUMARATE 80/4.5 mcg INHALER IH SCH ×2 (09:34→21:57)
--- NOTE | 2017-07-03 11:43 | PN ---
Progress Note, Physician History of Present Illness: Dyspnea on exertion and abd distension resolved with diuresis, denies chest pain , near or true syncope, palpitations, orthopnea, PND or LE edema. - Current Medication List Current Medications: Active Medications Acetaminophen (Tylenol -) 500 mg PO Q6H PRN PRN Reason: FEVER Apixaban (Eliquis -) 5 mg PO BID [facility] Last Admin: 07/03/17 09:32 Dose: 5 mg Atorvastatin Calcium (Lipitor -) 10 mg PO HS [facility] Last Admin: 07/02/17 21:41 Dose: 10 mg Brimonidine Tartrate (Alphagan P 0.1% -) 1 drop OD BID [facility] Last Admin: 07/03/17 09:33 Dose: 1 drop Budesonide/Formoterol Fumarate (Symbicort 80/4.5mcg -) 2 puff IH BID [facility] Last Admin: 07/03/17 09:34 Dose: 2 puff Carvedilol (Coreg -) 12.5 mg PO BID [facility] Last Admin: 07/03/17 09:32 Dose: 12.5 mg Furosemide (Lasix Injection -) 40 mg IVPUSH DAILY [facility] Last Admin: 07/03/17 09:31 Dose: 40 mg Ceftriaxone Sodium 1 gm/ (Dextrose) 50 mls @ 100 mls/hr IVPB DAILY [facility] Last Admin: 07/03/17 09:32 Dose: 100 mls/hr Levothyroxine Sodium (Synthroid -) 37.5 mcg PO DAILY@0700 [facility] Last Admin: 07/03/17 06:16 Dose: 37.5 mcg Losartan Potassium (Cozaar -) 50 mg PO DAILY [facility] Last Admin: 07/03/17 09:32 Dose: 50 mg Ondansetron HCl (Zofran Injection) 4 mg IVPUSH Q6H PRN PRN Reason: NAUSEA AND/OR VOMITING Last Admin: 07/01/17 09:28 Dose: 4 mg Pantoprazole Sodium (Protonix -) 40 mg PO DAILY [facility] Last Admin: 07/03/17 09:32 Dose: 40 mg Pilocarpine HCl (Pilostat 2% -) 1 drop OD TID [facility] Last Admin: 07/03/17 06:16 Dose: 1 drop Polyethylene Glycol (Miralax (For Daily Use) -) 17 gm PO DAILY [facility] Last Admin: 04/19/18 09:33 Dose: 17 gm Potassium Chloride (K-Dur -) 20 meq PO DAILY [facility] Last Admin: 07/03/17 09:32 Dose: 20 meq Spironolactone (Aldactone -) 25 mg PO DAILY [facility] Last Admin: 07/03/17 09:32 Dose: 25 mg Tamsulosin HCl (Flomax -) 0.4 mg PO DAILY@0830 [facility] Last Admin: 07/03/17 08:35 Dose: 0.4 mg - Objective Vital Signs: Vital Signs Temperature 98.1 F 07/03/17 06:26 Pulse Rate 60 07/03/17 06:26 Respiratory Rate 20 07/03/17 06:26 Blood Pressure 100/55 07/03/17 06:26 O2 Sat by Pulse Oximetry (%) 98 07/02/17 21:00 Constitutional: Yes: No Distress, Calm, Thin Neck: Yes: Supple Cardiovascular: Yes: Regular Rate and Rhythm, Murmur (2/6 SM) Respiratory: Yes: Regular, CTA Bilaterally Gastrointestinal: Yes: Normal Bowel Sounds, Soft Edema: No Labs: CBC, BMP 06/29/17 08:00 07/03/17 06:30 Problem List - Problems (1) A-fib Code(s): I48.91 - UNSPECIFIED ATRIAL FIBRILLATION Qualifiers: Atrial fibrillation type: persistent Qualified Code(s): I48.1 - Persistent atrial fibrillation (2) Hyponatremia Code(s): E87.1 - HYPO-OSMOLALITY AND HYPONATREMIA (3) Systolic CHF, acute on chronic Code(s): I50.23 - ACUTE ON CHRONIC SYSTOLIC (CONGESTIVE) HEART FAILURE (4) UTI (urinary tract infection) Code(s): N39.0 - URINARY TRACT INFECTION, SITE NOT SPECIFIED Qualifiers: Urinary tract infection type: site unspecified (5) [id number] kidney injury Code(s): N17.9 - ACUTE KIDNEY FAILURE, UNSPECIFIED; N18.9 - CHRONIC KIDNEY DISEASE, UNSPECIFIED (6) Automatic implantable cardiac defibrillator in situ Code(s): Z95.810 - PRESENCE OF AUTOMATIC (IMPLANTABLE) CARDIAC DEFIBRILLATOR (7) CAD (coronary artery disease) Code(s): I25.10 - ATHSCL HEART DISEASE OF [place] CORONARY ARTERY W/O ANG PCTRS Qualifiers: Coronary Disease-Associated Artery/Lesion type: [place] artery [place] vs. transplanted heart: [place] heart Associated angina: without angina Qualified Code(s): I25.10 - Atherosclerotic heart disease of [place] coronary artery without angina pectoris (8) HTN (hypertension) Code(s): I10 - ESSENTIAL (PRIMARY) HYPERTENSION Qualifiers: Hypertension type: essential hypertension Qualified Code(s): I10 - Essential (primary) hypertension (9) Hyperlipidemia Code(s): E78.5 - HYPERLIPIDEMIA, UNSPECIFIED Qualifiers: Hyperlipidemia type: pure hypercholesterolemia Qualified Code(s): E78.00 - Pure hypercholesterolemia, unspecified; E78.0 - Pure hypercholesterolemia (10) Hypothyroidism Code(s): E03.9 - HYPOTHYROIDISM, UNSPECIFIED Qualifiers: Hypothyroidism type: unspecified Qualified Code(s): E03.9 - Hypothyroidism , unspecified (11) Old myocardial infarction, greater than 8 weeks Code(s): I25.2 - OLD MYOCARDIAL INFARCTION (12) Status post coronary artery stent placement Code(s): Z95.5 - PRESENCE OF CORONARY ANGIOPLASTY IMPLANT AND GRAFT Assessment/Plan 07/02/2017 Echo: Normal LV size with severely decreased LV fxn, anterior AK, severe TR, mod-severe MR, mild-mod AR, mild [place] 1. Acute on chronic LV systolic failure with underlying severe TR, mod-severe MR resolving 2. Persistent atrial fibrillation [id number] score of 4 on NOAC 3. CAD post [place]/PCI/stent angina pectoris 4. s/p ICD 5. HTN 6. Hypercholesterolemia 7. Hypervolemic hyponatremia 8. Hypothyroidism 9. DM 10. Hepatic congestion 11. Acute kidney injury 12. UTI PLAN: 1. Resume home oral diuretic dose with monitor diuretic response, renal function and electrolytes, trend LFTs, keep K>4.0 Mg>2.0 2. Continue Coreg 12.5 mg BID as tolerated 3. Continue losartan 50 qd and Aldactone 25 mg QD with monitoring renal function. Entresto may be considered as outpatient once renal function stabilizes 4. Continue Eliquis 5 mg twice daily 5. ASA discontinued while on NOAC as CAD is stable 6. Continue Lipitor 10 qhs 7. Upgrade to BRIDAL GOWN FITTER-D as outpatient 8. Complete abx course Patient is to follow up with Dr. Rad Flower (cardiology) at [facility] post discharge
--- NOTE | 2017-07-03 12:36 | PN ---
Progress Note, Physician Chief Complaint: feels better decreased SOB - Current Medication List Current Medications: Active Medications Acetaminophen (Tylenol -) 500 mg PO Q6H PRN PRN Reason: FEVER Apixaban (Eliquis -) 5 mg PO BID [facility] Last Admin: 07/03/17 09:32 Dose: 5 mg Atorvastatin Calcium (Lipitor -) 10 mg PO HS [facility] Last Admin: 07/02/17 21:41 Dose: 10 mg Brimonidine Tartrate (Alphagan P 0.1% -) 1 drop OD BID [facility] Last Admin: 07/03/17 09:33 Dose: 1 drop Budesonide/Formoterol Fumarate (Symbicort 80/4.5mcg -) 2 puff IH BID [facility] Last Admin: 07/03/17 09:34 Dose: 2 puff Carvedilol (Coreg -) 12.5 mg PO BID [facility] Last Admin: 07/03/17 09:32 Dose: 12.5 mg Furosemide (Lasix -) 20 mg PO DAILY [facility] Ceftriaxone Sodium 1 gm/ (Dextrose) 50 mls @ 100 mls/hr IVPB DAILY [facility] Last Admin: 07/03/17 09:32 Dose: 100 mls/hr Levothyroxine Sodium (Synthroid -) 37.5 mcg PO DAILY@0700 [facility] Last Admin: 07/03/17 06:16 Dose: 37.5 mcg Losartan Potassium (Cozaar -) 50 mg PO DAILY [facility] Last Admin: 07/03/17 09:32 Dose: 50 mg Ondansetron HCl (Zofran Injection) 4 mg IVPUSH Q6H PRN PRN Reason: NAUSEA AND/OR VOMITING Last Admin: 07/01/17 09:28 Dose: 4 mg Pantoprazole Sodium (Protonix -) 40 mg PO DAILY [facility] Last Admin: 07/03/17 09:32 Dose: 40 mg Pilocarpine HCl (Pilostat 2% -) 1 drop OD TID [facility] Last Admin: 07/03/17 06:16 Dose: 1 drop Polyethylene Glycol (Miralax (For Daily Use) -) 17 gm PO DAILY [facility] Last Admin: 07/03/17 09:33 Dose: 17 gm Potassium Chloride (K-Dur -) 20 meq PO DAILY [facility] Last Admin: 07/03/17 09:32 Dose: 20 meq Spironolactone (Aldactone -) 25 mg PO DAILY [facility] Last Admin: 07/03/17 09:32 Dose: 25 mg Tamsulosin HCl (Flomax -) 0.4 mg PO DAILY@0830 [facility] Last Admin: 07/03/17 08:35 Dose: 0.4 mg - Objective Vital Signs: Vital Signs Temperature 98.1 F 07/03/17 06:26 Pulse Rate 60 07/03/17 06:26 Respiratory Rate 20 07/03/17 06:26 Blood Pressure 100/55 07/03/17 06:26 O2 Sat by Pulse Oximetry (%) 98 07/02/17 21:00 Constitutional: Yes: No Distress Cardiovascular: Yes: Regular Rate and Rhythm Respiratory: Yes: Diminished. No: Rales, Rhonchi Gastrointestinal: Yes: Normal Bowel Sounds, Soft. No: Tenderness Edema: Yes (decreased) Labs: CBC, BMP 06/29/17 08:00 07/03/17 06:30 Problem List - Problems (1) A-fib Code(s): I48.91 - UNSPECIFIED ATRIAL FIBRILLATION Qualifiers: Atrial fibrillation type: persistent Qualified Code(s): I48.1 - Persistent atrial fibrillation (2) Hyponatremia Code(s): E87.1 - HYPO-OSMOLALITY AND HYPONATREMIA (3) UTI (urinary tract infection) Code(s): N39.0 - URINARY TRACT INFECTION, SITE NOT SPECIFIED Qualifiers: Urinary tract infection type: site unspecified (4) Chronic left ventricular systolic heart failure Code(s): I50.22 - CHRONIC SYSTOLIC (CONGESTIVE) HEART FAILURE (5) HTN (hypertension) Code(s): I10 - ESSENTIAL (PRIMARY) HYPERTENSION Qualifiers: Hypertension type: essential hypertension Qualified Code(s): I10 - Essential (primary) hypertension (6) Hyperlipidemia Code(s): E78.5 - HYPERLIPIDEMIA, UNSPECIFIED Qualifiers: Hyperlipidemia type: pure hypercholesterolemia Qualified Code(s): E78.00 - Pure hypercholesterolemia, unspecified; E78.0 - Pure hypercholesterolemia (7) Hypothyroidism Code(s): E03.9 - HYPOTHYROIDISM, UNSPECIFIED Qualifiers: Hypothyroidism type: unspecified Qualified Code(s): E03.9 - Hypothyroidism , unspecified (8) Systolic CHF, acute on chronic Code(s): I50.23 - ACUTE ON CHRONIC SYSTOLIC (CONGESTIVE) HEART FAILURE Assessment/Plan PLAN on Lasix IV -- >changed to PO check i and O daily weights check BNP Cardiology eval appreciated check lytes and replace if needed fluid restriction change to regular diet will change iv antibiotics to PO dc planning
--- NOTE | 2017-07-03 13:41 | PN ---
Progress Note, Physician History of Present Illness: Pt seen and examined at bedside. He is awake and alert. He feels that his breathing is improving. - Current Medication List Current Medications: Active Medications Acetaminophen (Tylenol -) 500 mg PO Q6H PRN PRN Reason: FEVER Apixaban (Eliquis -) 5 mg PO BID [facility] Last Admin: 07/03/17 09:32 Dose: 5 mg Atorvastatin Calcium (Lipitor -) 10 mg PO HS [facility] Last Admin: 07/02/17 21:41 Dose: 10 mg Brimonidine Tartrate (Alphagan P 0.1% -) 1 drop OD BID [facility] Last Admin: 07/03/17 09:33 Dose: 1 drop Budesonide/Formoterol Fumarate (Symbicort 80/4.5mcg -) 2 puff IH BID [facility] Last Admin: 07/03/17 09:34 Dose: 2 puff Carvedilol (Coreg -) 12.5 mg PO BID [facility] Last Admin: 07/03/17 09:32 Dose: 12.5 mg Furosemide (Lasix -) 20 mg PO DAILY [facility] Ceftriaxone Sodium 1 gm/ (Dextrose) 50 mls @ 100 mls/hr IVPB DAILY [facility] Last Admin: 07/03/17 09:32 Dose: 100 mls/hr Levothyroxine Sodium (Synthroid -) 37.5 mcg PO DAILY@0700 [facility] Last Admin: 07/03/17 06:16 Dose: 37.5 mcg Losartan Potassium (Cozaar -) 50 mg PO DAILY [facility] Last Admin: 07/03/17 09:32 Dose: 50 mg Ondansetron HCl (Zofran Injection) 4 mg IVPUSH Q6H PRN PRN Reason: NAUSEA AND/OR VOMITING Last Admin: 07/01/17 09:28 Dose: 4 mg Pantoprazole Sodium (Protonix -) 40 mg PO DAILY [facility] Last Admin: 07/03/17 09:32 Dose: 40 mg Pilocarpine HCl (Pilostat 2% -) 1 drop OD TID [facility] Last Admin: 07/03/17 06:16 Dose: 1 drop Polyethylene Glycol (Miralax (For Daily Use) -) 17 gm PO DAILY [facility] Last Admin: 07/03/17 09:33 Dose: 17 gm Potassium Chloride (K-Dur -) 20 meq PO DAILY [facility] Last Admin: 04/19/18 09:32 Dose: 20 meq Spironolactone (Aldactone -) 25 mg PO DAILY [facility] Last Admin: 07/03/17 09:32 Dose: 25 mg Tamsulosin HCl (Flomax -) 0.4 mg PO DAILY@0830 [facility] Last Admin: 07/03/17 08:35 Dose: 0.4 mg - Objective Vital Signs: Vital Signs Temperature 98 F 07/03/17 10:00 Pulse Rate 62 07/03/17 10:00 Respiratory Rate 20 07/03/17 10:00 Blood Pressure 114/57 07/03/17 10:00 O2 Sat by Pulse Oximetry (%) 98 07/02/17 21:00 Constitutional: Yes: Calm HENT: Yes: Atraumatic Cardiovascular: Yes: S1, S2 Respiratory: Yes: CTA Bilaterally Gastrointestinal: Yes: Normal Bowel Sounds, Soft Genitourinary: Yes: WNL Musculoskeletal: Yes: WNL Edema: Yes Edema: LLE: 1+, RLE: 1+ Neurological: Yes: Oriented Psychiatric: Yes: Oriented Labs: CBC, BMP 06/29/17 08:00 07/03/17 06:30 Problem List - Problems (1) A-fib Code(s): I48.91 - UNSPECIFIED ATRIAL FIBRILLATION Qualifiers: Atrial fibrillation type: persistent Qualified Code(s): I48.1 - Persistent atrial fibrillation (2) CAD (coronary artery disease) Code(s): I25.10 - ATHSCL HEART DISEASE OF [place] CORONARY ARTERY W/O ANG PCTRS Qualifiers: Coronary Disease-Associated Artery/Lesion type: [place] artery [place] vs. transplanted heart: [place] heart Associated angina: without angina Qualified Code(s): I25.10 - Atherosclerotic heart disease of [place] coronary artery without angina pectoris Assessment/Plan Current Medications Generic Name Dose Route Start Last Admin Trade Name Freq PRN Reason Stop Dose Admin Acetaminophen 500 mg 07/01/17 11:51 Tylenol - PO Q6H PRN FEVER Apixaban 5 mg 06/28/17 22:45 07/03/17 09:32 Eliquis - PO 5 mg BID [facility] Administration Atorvastatin Calcium 10 mg 06/28/17 22:00 07/02/17 21:41 Lipitor - PO 10 mg HS [facility] Administration Brimonidine Tartrate 1 drop 06/28/17 23:15 07/03/17 09:33 Alphagan P 0.1% - OD 1 drop BID [facility] Administration Budesonide/Formoterol Fumarate 2 puff 06/29/17 10:00 07/03/17 09:34 Symbicort 80/4.5mcg - IH 2 puff BID [facility] Administration Carvedilol 12.5 mg 06/29/17 10:00 07/03/17 09:32 Coreg - PO 12.5 mg BID [facility] Administration Furosemide 20 mg 07/04/17 10:00 Lasix - PO DAILY [facility] Ceftriaxone Sodium 1 gm/ 50 mls @ 100 mls/hr 07/03/17 10:00 07/03/17 09:32 Dextrose IVPB 100 mls/hr DAILY [facility] Administration Levothyroxine Sodium 37.5 mcg 06/29/17 07:00 07/03/17 06:16 Synthroid - PO 37.5 mcg DAILY@0700 [facility] Administration Losartan Potassium 50 mg 06/29/17 10:00 07/03/17 09:32 Cozaar - PO 50 mg DAILY [facility] Administration Ondansetron HCl 4 mg 07/01/17 08:24 07/01/17 09:28 Zofran Injection IVPUSH 4 mg Q6H PRN Administration NAUSEA AND/OR VOMITING Pantoprazole Sodium 40 mg 06/30/17 12:15 07/03/17 09:32 Protonix - PO 40 mg DAILY [facility] Administration Pilocarpine HCl 1 drop 06/28/17 23:15 07/03/17 06:16 Pilostat 2% - OD 1 drop TID [facility] Administration Polyethylene Glycol 17 gm 06/30/17 10:00 07/03/17 09:33 Miralax (For Daily Use) - PO 17 gm DAILY [facility] Administration Potassium Chloride 20 meq 07/02/17 10:00 07/03/17 09:32 K-Dur - PO 20 meq DAILY [facility] Administration Spironolactone 25 mg 07/02/17 18:30 07/03/17 09:32 Aldactone - PO 25 mg DAILY [facility] Administration Tamsulosin HCl 0.4 mg 06/30/17 16:00 07/03/17 08:35 Flomax - PO 0.4 mg DAILY@0830 [facility] Administration Impression 1. hyponatremia 2. CHF 3. HTN 4. hyperlipidemia 5. a-fib Plan - will give IV lasix - monitor sodium - aldactone restarted - monitor lytes - cardio input appreciated - restrict fluid intake Dr Copeland
[2017-07-03] MEDS ORDERED: FUROSEMIDE 40 MG/4 ML INJECTABLE VIAL IVPUSH ONE (14:00)
[2017-07-03] MEDS: ATORVASTATIN CA 10 MG TABLET (FP) PO SCH (21:58)
[2017-07-04] MEDS: LEVOTHYROXINE NA 25 MCG TABLET (FP) PO SCH (06:20)
[2017-07-04] MEDS: TAMSULOSIN HCL 0.4 MG CAP.ER.24H (FP) PO SCH (08:04)
[2017-07-04 09:23] LABS: ANION GAP 5 (8-16); BLOOD UREA NITROGEN 23 mg/dL (7-18); CALCIUM 8.8 mg/dL (8.5-10.1); CHLORIDE 96 mmol/L (98-107); CO2 30 mmol/L (21-32); CREATININE 1.4 mg/dL (0.7-1.3); GLUCOSE,RANDOM 99 mg/dL (74-106); POTASSIUM 4.6 mmol/L (3.5-5.1); SODIUM 131 mmol/L (136-145)
--- NOTE | 2017-07-04 09:33 | DS ---
Physical Examination Vital Signs: Vital Signs Temperature 98.5 F 07/04/17 05:49 Pulse Rate 65 07/04/17 05:49 Respiratory Rate 20 07/04/17 05:49 Blood Pressure 103/65 07/04/17 05:49 O2 Sat by Pulse Oximetry (%) 97 07/03/17 21:00 Labs: CBC, BMP 06/29/17 08:00 07/04/17 07:30 Discharge Summary Reason For Visit: HYPONATREMIA VOMITING Current Active Problems A-fib (Acute) DVT prophylaxis (Acute) Hyponatremia (Acute) Systolic CHF, acute on chronic (Acute) UTI (urinary tract infection) (Acute) Vomiting (Acute) Condition: Stable - Instructions Referrals: Fannie Drake MD [Primary Care Provider] - Disposition: HOME - Home Medications Comprehensive Discharge Medication List: Ambulatory Orders Aspirin [ASA -] 81 mg PO DAILY 10/06/15 Brimonidine Tartrate [Alphagan P 0.1% -] 1 drop BID 10/06/15 Esomeprazole Magnesium [Nexium] 40 mg PO DAILY 10/06/15 Fluticasone/Salmeterol [Advair 250-50 Diskus] 1 each IH BID 10/06/15 Furosemide [Lasix -] 20 mg PO DAILY 10/06/15 Levothyroxine [Synthroid -] 37.5 mcg PO DAILY 10/06/15 Losartan Potassium [Cozaar -] 50 mg PO DAILY 10/06/15 Montelukast Na [Singulair -] 10 mg PO HS 10/06/15 [place]-3 Fatty Acids/Fish Oil [Fish Oil 1,000 mg Softgel] 1 each PO DAILY [place] 2% [Pilostat 2% -] 1 drop OD TID 03/08/16 Acetaminophen [Tylenol .Regular Strength -] 650 mg PO Q4H PRN #0 tablet Albuterol 0.083% Nebulizer Amanda [Ventolin 0.083% Nebulizer Soln -] 1 amp NEB QIDR amp 03/09/16 Apixaban [Eliquis -] 5 mg PO BID #60 tablet 03/09/16 Atorvastatin Ca [Lipitor] 10 mg PO HS #30 tablet 03/09/16 Carvedilol [Coreg -] 12.5 mg PO BID #60 tablet 03/09/16 Docusate Sodium [Colace -] 100 mg PO DAILY capsule 03/09/16 Insulin Sliding Scale [Novolog Vial Sliding Scale -] 1 vial SQ TIDAC units Mag Hydrox/Al Hydrox/Simeth [Mylanta Oral Suspension -] 30 ml PO Q6H PRN #0 cup 03/09/16 Polyethylene Glycol 3350 [Miralax 119 gm Btl -] 17 gm PO DAILY PRN #0 bottle Valsartan [Diovan] 160 mg PO DAILY tablet 03/09/16 Cefuroxime Axetil [Ceftin -] 500 mg PO Q12H #8 tablet 07/03/17 Furosemide [Lasix -] 40 mg PO DAILY #90 tablet 07/04/17 Potassium Chloride [K-Dur -] 20 meq PO DAILY #60 tablet.er 07/04/17
[2017-07-04] MEDS ORDERED: PT OWN MED DRAWER 7, Y5N ONE (09:37)
[2017-07-04] MEDS ORDERED: DEXTROSE 5%-WATER - 50 ML IVPB ONE (09:37)
[2017-07-04] MEDS ORDERED: cefTRIAXone SODIUM 1 GM VIAL ONE (09:37)
[2017-07-04] MEDS: POTASSIUM CHLORIDE TABS 20 MEQ TABLET.ER (FP) PO SCH (09:43)
[2017-07-04] MEDS: CEFTRIAXONE 1 GM in DEXTROSE 5%-WATER - 50 ML IVPB SCH (09:43)
[2017-07-04] MEDS: CARVEDILOL 12.5 MG TABLET (FP) PO SCH (09:43)
[2017-07-04] MEDS: BUDESONIDE/FORMETEROL FUMARATE 80/4.5 mcg INHALER IH SCH (09:43)
[2017-07-04] MEDS: LOSARTAN POTASSIUM 50 MG TABLET (FP) PO SCH (09:43)
[2017-07-04] MEDS: PANTOPRAZOLE 40 MG TABLET (FP) PO SCH (09:43)
[2017-07-04] MEDS: BRIMONIDINE TARTRATE 0.1% OPHTHALMIC 5 ML BOTTLE OD SCH (09:44)
[2017-07-04] MEDS: SPIRONOLACTONE 25 MG TABLET (FP) PO SCH (09:44)
[2017-07-04] MEDS: APIXABAN 5 MG TABLET PO SCH (09:44)
[2017-07-04] MEDS: POLYETHYLENE GLYCOL 3350 119 GM BTL PO SCH (09:44)
[2017-07-04] MEDS ORDERED: FUROSEMIDE 20 MG TABLET (FP) PO SCH (10:00)
[2017-07-04 11:21] VITALS: BP 103/68; PULSE 67; TEMP 98.9
--- NOTE | 2017-07-04 12:22 | PN ---
Progress Note, Physician History of Present Illness: Dyspnea on exertion and abd distension resolved with diuresis, denies chest pain , near or true syncope, palpitations, orthopnea, PND or LE edema. - Current Medication List Current Medications: Active Medications Acetaminophen (Tylenol -) 500 mg PO Q6H PRN PRN Reason: FEVER Apixaban (Eliquis -) 5 mg PO BID [facility] Last Admin: 07/04/17 09:44 Dose: 5 mg Atorvastatin Calcium (Lipitor -) 10 mg PO HS [facility] Last Admin: 07/03/17 21:58 Dose: 10 mg Brimonidine Tartrate (Alphagan P 0.1% -) 1 drop OD BID [facility] Last Admin: 07/04/17 09:44 Dose: 1 drop Budesonide/Formoterol Fumarate (Symbicort 80/4.5mcg -) 2 puff IH BID [facility] Last Admin: 07/04/17 09:43 Dose: 2 puff Carvedilol (Coreg -) 12.5 mg PO BID [facility] Last Admin: 07/04/17 09:43 Dose: 12.5 mg Furosemide (Lasix -) 20 mg PO DAILY [facility] Last Admin: 07/04/17 09:43 Dose: 20 mg Ceftriaxone Sodium 1 gm/ (Dextrose) 50 mls @ 100 mls/hr IVPB DAILY [facility] Last Admin: 07/04/17 09:43 Dose: 100 mls/hr Levothyroxine Sodium (Synthroid -) 37.5 mcg PO DAILY@0700 [facility] Last Admin: 07/04/17 06:20 Dose: 37.5 mcg Losartan Potassium (Cozaar -) 50 mg PO DAILY [facility] Last Admin: 07/04/17 09:43 Dose: 50 mg Ondansetron HCl (Zofran Injection) 4 mg IVPUSH Q6H PRN PRN Reason: NAUSEA AND/OR VOMITING Last Admin: 07/01/17 09:28 Dose: 4 mg Pantoprazole Sodium (Protonix -) 40 mg PO DAILY [facility] Last Admin: 07/04/17 09:43 Dose: 40 mg Pilocarpine HCl (Pilostat 2% -) 1 drop OD TID [facility] Last Admin: 07/03/17 21:58 Dose: 1 drop Polyethylene Glycol (Miralax (For Daily Use) -) 17 gm PO DAILY [facility] Last Admin: 07/04/17 09:44 Dose: 17 gm Potassium Chloride (K-Dur -) 20 meq PO DAILY [facility] Last Admin: 07/04/17 09:43 Dose: 20 meq Spironolactone (Aldactone -) 25 mg PO DAILY [facility] Last Admin: 07/04/17 09:44 Dose: 25 mg Tamsulosin HCl (Flomax -) 0.4 mg PO DAILY@0830 [facility] Last Admin: 07/04/17 08:04 Dose: 0.4 mg - Objective Vital Signs: Vital Signs Temperature 98.9 F 07/04/17 10:00 Pulse Rate 67 07/04/17 10:00 Respiratory Rate 20 07/04/17 10:00 Blood Pressure 103/68 07/04/17 10:00 O2 Sat by Pulse Oximetry (%) 97 07/03/17 21:00 Constitutional: Yes: No Distress, Calm, Thin Neck: Yes: Supple Cardiovascular: Yes: Regular Rate and Rhythm Respiratory: Yes: Regular, Diminished Gastrointestinal: Yes: Normal Bowel Sounds, Soft Edema: No Labs: CBC, BMP 06/29/17 08:00 07/04/17 07:30 Problem List - Problems (1) A-fib Code(s): I48.91 - UNSPECIFIED ATRIAL FIBRILLATION Qualifiers: Atrial fibrillation type: persistent Qualified Code(s): I48.1 - Persistent atrial fibrillation (2) Hyponatremia Code(s): E87.1 - HYPO-OSMOLALITY AND HYPONATREMIA (3) Systolic CHF, acute on chronic Code(s): I50.23 - ACUTE ON CHRONIC SYSTOLIC (CONGESTIVE) HEART FAILURE (4) UTI (urinary tract infection) Code(s): N39.0 - URINARY TRACT INFECTION, SITE NOT SPECIFIED Qualifiers: Urinary tract infection type: site unspecified (5) [id number] kidney injury Code(s): N17.9 - ACUTE KIDNEY FAILURE, UNSPECIFIED; N18.9 - CHRONIC KIDNEY DISEASE, UNSPECIFIED (6) Automatic implantable cardiac defibrillator in situ Code(s): Z95.810 - PRESENCE OF AUTOMATIC (IMPLANTABLE) CARDIAC DEFIBRILLATOR (7) CAD (coronary artery disease) Code(s): I25.10 - ATHSCL HEART DISEASE OF [place] CORONARY ARTERY W/O ANG PCTRS Qualifiers: Coronary Disease-Associated Artery/Lesion type: [place] artery [place] vs. transplanted heart: [place] heart Associated angina: without angina Qualified Code(s): I25.10 - Atherosclerotic heart disease of [place] coronary artery without angina pectoris (8) HTN (hypertension) Code(s): I10 - ESSENTIAL (PRIMARY) HYPERTENSION Qualifiers: Hypertension type: essential hypertension Qualified Code(s): I10 - Essential (primary) hypertension (9) Hyperlipidemia Code(s): E78.5 - HYPERLIPIDEMIA, UNSPECIFIED Qualifiers: Hyperlipidemia type: pure hypercholesterolemia Qualified Code(s): E78.00 - Pure hypercholesterolemia, unspecified; E78.0 - Pure hypercholesterolemia (10) Hypothyroidism Code(s): E03.9 - HYPOTHYROIDISM, UNSPECIFIED Qualifiers: Hypothyroidism type: unspecified Qualified Code(s): E03.9 - Hypothyroidism , unspecified (11) Old myocardial infarction, greater than 8 weeks Code(s): I25.2 - OLD MYOCARDIAL INFARCTION (12) Status post coronary artery stent placement Code(s): Z95.5 - PRESENCE OF CORONARY ANGIOPLASTY IMPLANT AND GRAFT Assessment/Plan 07/02/2017 Echo: Normal LV size with severely decreased LV fxn, anterior AK, severe TR, mod-severe MR, mild-mod AR, mild MI 1. Acute on chronic LV systolic failure with underlying severe TR, mod-severe MR resolving 2. Persistent atrial fibrillation [id number] score of 4 on NOAC 3. CAD post [place]/PCI/stent angina pectoris 4. s/p ICD 5. HTN 6. Hypercholesterolemia 7. Hypervolemic hyponatremia resolving 8. Hypothyroidism 9. DM 10. Hepatic congestion 11. Acute kidney injury improving 12. UTI PLAN: 1. Resume home oral diuretic dose with monitor diuretic response, renal function and electrolytes, trend LFTs, keep K>4.0 Mg>2.0 2. Continue Coreg 12.5 mg BID as tolerated 3. Continue losartan 50 qd and Aldactone 25 mg QD with monitoring renal function. Entresto may be considered as outpatient once renal function stabilizes 4. Continue Eliquis 5 mg twice daily 5. ASA discontinued while on NOAC as CAD is stable 6. Continue Lipitor 10 qhs 7. Upgrade to [employer] as outpatient 8. Complete abx course Patient is to follow up with Dr. Rad Flower (cardiology) at [facility] post discharge
== END 2017-07-04 13:42 | disposition home or self-care (01) | DRG 291 ==
LOC: JER 13:42 → JERBED 20:13 → J6S 23:02 → OBSVTOIN 07-02 13:06
PROVIDERS: ADMIT Internal Medicine; ATTEND Internal Medicine
DX: I13.0 Hypertensive heart and chronic kidney disease with heart failure and stage 1 through stage 4 chronic kidney disease, or unspecified chronic kidney disease (principal); I50.23 Acute on chronic systolic (congestive) heart failure; E87.1 Hypo-osmolality and hyponatremia; N17.9 Acute kidney failure, unspecified; I48.92 Unspecified atrial flutter; I48.1 Persistent atrial fibrillation; N39.0 Urinary tract infection, site not specified; I42.9 Cardiomyopathy, unspecified; N18.9 Chronic kidney disease, unspecified; J44.9 Chronic obstructive pulmonary disease, unspecified; E83.51 Hypocalcemia; I25.5 Ischemic cardiomyopathy; I36.1 Nonrheumatic tricuspid (valve) insufficiency; I34.0 Nonrheumatic mitral (valve) insufficiency; K76.1 Chronic passive congestion of liver; I25.10 Atherosclerotic heart disease of native coronary artery without angina pectoris; K21.9 Gastro-esophageal reflux disease without esophagitis; E78.5 Hyperlipidemia, unspecified; Z95.810 Presence of automatic (implantable) cardiac defibrillator; E03.9 Hypothyroidism, unspecified; I25.119 Atherosclerotic heart disease of native coronary artery with unspecified angina pectoris; Z79.4 Long term (current) use of insulin
CPT/HCPCS: 36415; 71045-TC-FY; 74018-TC-FY; 80048; 80053; 80076; 81003; 81015; 82088; 82310; 82436; 82533; 82550; 83690; 83735; 83880; 83935; 83970; 84133; 84300; 84443; 84484; 85025; 87086; 93005; 93010; 93306-TC; 99284-25; G0378; J7030

== ENCOUNTER 2017-08-07 12:31 | Observation (INO) | payer OTHER ==
[2017-08-07 12:47] VITALS: BMI 24.9
--- NOTE | 2017-08-07 13:25 | PDOC ---
History of Present Illness - General Chief Complaint: Pain Stated Complaint: WEAKNESS Time Seen by Provider: 08/07/17 12:57 History Source: Patient Exam Limitations: No Limitations - History of Present Illness Initial Comments: 08/07/17 13:13 The patient is a 72M with a PMH of COPD, CHF, CAD and Afib/flutter s/p ventricular pacemaker (12 years ago), HTN, HLD, and GERD who presents to the ER with worsening SOB. The patient states that for the past 3-4 days he has worsening shortness of breath that was initially only when he laid down and is now when he is sitting up as well. He also endorses leg swelling bilaterally and abdominal distension. He denies CP, abdominal pain, dysuria, rash, numbness , tingling, or weakness, cough. Past History - Past Medical History Allergies/Adverse Reactions: Allergies Allergy/AdvReac Type Severity Reaction Status Date / Time No Known Allergies Allergy Verified 02/26/16 18:20 Home Medications: Ambulatory Orders Apixaban [Eliquis -] 5 mg PO BID 08/07/17 Aspirin 81 mg PO DAILY 08/07/17 Atorvastatin Ca [Lipitor] 10 mg PO HS 08/07/17 Brimonidine Tartrate [Alphagan 0.15% -] 1 drop OU BID 08/07/17 Carvedilol [Coreg -] 6.25 mg PO BID 08/07/17 Esomeprazole Magnesium [Nexium 24Hr] 20 mg PO DAILY 08/07/17 Fluticasone/Salmeterol [Advair 250-50 Diskus] 1 each IH BID 08/07/17 Levothyroxine [Synthroid -] 37.5 mcg PO DAILY 08/07/17 Montelukast Sodium [Singulair] 10 mg PO DAILY 08/07/17 [place]-3 Fatty Acids/Fish Oil [Fish Oil 1,000 mg Capsule] 1 each PO DAILY [place]ocarpine 0.5% [Pilostat 0.5% -] 1 drop OU TID 08/07/17 Solifenacin Succinate [Vesicare -] 5 mg PO DAILY 08/07/17 Valsartan [Diovan] 160 mg PO DAILY 08/07/17 Furosemide [Lasix] 60 mg PO DAILY #30 tab 08/08/17 Cardiac Disorders: Yes (Stents) COPD: Yes GI Disorders: Yes (GERD) HTN: Yes Hypercholesterolemia: Yes - Surgical History Cardiac Surgery: Yes - Suicide/Smoking/Psychosocial Hx Smoking History: Never smoked Have you smoked in the past 12 months: No Information on smoking cessation initiated: No Hx Alcohol Use: No Drug/Substance Use Hx: No Substance Use Type: None Review of Systems - Review of Systems Able to Perform ROS?: Yes Comments:: 08/07/17 13:25 GENERAL/CONSTITUTIONAL: No fever or chills. No weakness. HEAD, EYES, EARS, NOSE AND THROAT: No change in vision. No ear pain or discharge. No sore throat. CARDIOVASCULAR: No chest pain, palpitations, or lightheadedness. RESPIRATORY: Positive for shortness of breath. No cough, wheezing, or hemoptysis. GASTROINTESTINAL: Positive for abdominal distension. No nausea, vomiting, diarrhea, constipation, or abdominal pain. GENITOURINARY: No dysuria, frequency, hematuria, or change in urination. MUSCULOSKELETAL: Positive for leg swelling. No joint or muscle swelling or pain. No neck or back pain. SKIN: No rash or lesions. NEUROLOGIC: No headache, numbness, tingling, weakness, loss of consciousness, or change in strength/sensation. ENDOCRINE: No increased thirst. No abnormal weight change. HEMATOLOGIC/LYMPHATIC: No anemia, easy bleeding, or history of blood clots. ALLERGIC/IMMUNOLOGIC: No hives or skin allergy. Is the patient limited [place]inese proficient: No *Physical Exam - Vital Signs Last Vital Signs Temp Pulse Resp BP Pulse Ox 97.8 F 79 20 115/85 99 08/07/17 12:44 08/07/17 12:44 08/07/17 12:44 08/07/17 12:44 08/07/17 12:44 - Physical Exam Comments: 08/07/17 13:27 GENERAL: Well developed, well nourished. Awake and alert. No acute distress. HEENT: Normocephalic, atraumatic. Hearing grossly normal. Moist mucous membranes. PERRLA, EOMI. No conjunctival pallor. Sclera are non-icteric. NECK: Supple. Full ROM. CARDIOVASCULAR: Regular rate and rhythm. No murmurs, rubs, or gallops. PULMONARY: No evidence of respiratory distress. Lungs clear to auscultation bilaterally. No wheezing, rales or rhonchi. ABDOMINAL: Soft. Non-tender. 1+ edema in abdomen. Distended. No rebound or guarding. N GENITOURINARY: No CVA tenderness bilaterally. MUSCULOSKELETAL: Normal range of motion at all joints. No bony deformities or tenderness. EXTREMITIES: No cyanosis. No clubbing. 2+ edema in b/l LE. No calf tenderness or swelling. SKIN: Warm and dry. Normal capillary refill. No rashes. No jaundice. NEUROLOGICAL: Alert, awake, appropriate. Cranial nerves 2-12 intact. Normal speech. Gait is normal without ataxia. PSYCHIATRIC: Cooperative. Good eye contact. Appropriate mood and affect. Heart Score/ECG Review #1 ECG reviewed & interpreted by me at: 12:50 General ECG Interpretation: Sinus Rhythm, Normal Rate, Normal Intervals, No acute ischemic changes Compared to previous ECG there are: No significant change 08/07/17 13:30 Vent-paced rhythm Rate 68 MO n/a QRS 184 QTc 499 No ANTONINA or STD. No acute ischemic changes noted. ED Treatment Course - LABORATORY CBC & Chemistry Diagram: 08/08/17 06:26 08/08/17 06:26 - RADIOLOGY Radiology Studies Ordered: Category Date Time Status CHEST X-RAY PORTABLE* [RAD] Stat Radiology 08/07/17 13:06 Ordered Medical Decision Making - Medical Decision Making 08/07/17 13:30 The patient is a 72M with an extensive PMH who presents to the ER with worsening orthopnea and SOB at rest. This is likely acute on chronic CHF. Will give 40 of lasix while labs are pending. 08/07/17 14:12 CBC WNL. BNP 3012. Likely acute on chronic CHF. The patient's previous echo indicates mitral and aortic regurg. Pt is scheduled for a EMILE tomorrow. 08/07/17 15:19 I have endorsed the patient to Dr. Morris for admission under Dr. Drake. *DC/Admit/Observation/Transfer Diagnosis at time of Disposition: Chronic left ventricular systolic heart failure CAD (coronary artery disease) Qualifiers: Coronary Disease-Associated Artery/Lesion type: unspecified vessel or lesion type [place] vs. transplanted heart: unspecified whether [place] or transplanted heart Associated angina: with unspecified angina Qualified Code(s): I25.119 - Atherosclerotic heart disease of [place] coronary artery with unspecified angina pectoris - Discharge Dispostion Disposition: HOME Condition at time of disposition: Stable Decision to Admit order: Yes - Referrals - Patient Instructions - Post Discharge Activity
[2017-08-07 13:37] LABS: BASO % 0.7 % (0-2.0); EOS % 2.1 % (0-4.5); HEMOGLOBIN 13.1 GM/dL (11.7-16.9); LYMPH % 20.7 % (8-40); MCH 31.8 pg (25.7-33.7); MCHC 33.5 g/dl (32.0-35.9); MEAN CELL VOLUME 94.9 fl (80-96); MEAN PLT VOLUME 9.5 fl (7.5-11.1); NEUT % 65.5 % (42.8-82.8); PLATELET COUNT 127 K/MM3 (134-434); RDW 14.4 % (11.9-15.9); WHITE BLOOD COUNT 6.1 K/mm3 (4.0-10.0)
[2017-08-07] MEDS ORDERED: FUROSEMIDE 40 MG/4 ML INJECTABLE VIAL IVPUSH ONE (13:39)
[2017-08-07] MEDS ORDERED: FUROSEMIDE 40 MG/4 ML INJECTABLE VIAL ONE (13:48)
--- NOTE | 2017-08-07 14:01 | PDOC ---
Attending Attestation - Resident Resident Name: SarkisOskar wrgiht - ED Attending Attestation I have performed the following: I have examined & evaluated the patient, The case was reviewed & discussed with the resident, I agree w/resident's findings & plan - HPI HPI: 08/07/17 13:54 72y/o M multiple medical problems including CAD/CHF p/w 3d worsening volume overload, ESPARZA, orthopnea, and about 3-pound weight gain. intermittent chest pressure lasts about 1h then resolves. no syncope. - Physicial Exam PE: 08/07/17 14:01 well appearing, VSS, O2 98% on room air no acute distress, speaking full sentences no jvd bibasilar crackles, no wheeze s1s2 regular with 2-3/6 aida abd wall edema, otherwise nontender 1+ b/l edema, no calf ttp neuro nl - Medical Decision Making 08/07/17 14:03 72y/o M h/o CHF p/w several days of CHF exacerbation and volume overload, both pulmonary and peripheral. intermittent chest pain concerning for angina. scheduled for EMILE tomorrow at [facility] with his gas prover, Dr. Flower. labs cxr, ekg iv diuresis admission, PMD Dr. Drake Heart Score/ECG Review #1 ECG reviewed & interpreted by me at: 12:40 08/07/17 14:05 v-paced at 68, no secondary signs of acute ischemic change
[2017-08-07 14:02] LABS: ALBUMIN 3.6 g/dl (3.4-5.0); ANION GAP 7 (8-16); BILIRUBIN,TOTAL 1.1 mg/dL (0.2-1.0); BLOOD UREA NITROGEN 19 mg/dL (7-18); CALCIUM 8.8 mg/dL (8.5-10.1); CHLORIDE 102 mmol/L (98-107); CO2 28 mmol/L (21-32); CREATININE 1.4 mg/dL (0.7-1.3); GLUCOSE,RANDOM 96 mg/dL (74-106); POTASSIUM 4.3 mmol/L (3.5-5.1); SGOT/AST 20 U/L (15-37); SGPT/ALT 26 U/L (12-78); SODIUM 137 mmol/L (136-145); TOT PROT 7.2 g/dl (6.4-8.2)
[2017-08-07 14:15] LABS: ALK PHOS 51 U/L (45-117)
--- NOTE | 2017-08-07 16:29 | EKG ---
Test Reason : Blood Pressure : / mmHG Vent. Rate : 068 BPM Atrial Rate : 068 BPM P-R Int : 000 ms QRS Dur : 184 ms QT Int : 470 ms P-R-T Axes : 000 -77 087 degrees QTc Int : 499 ms POOR DATA QUALITY, INTERPRETATION MAY BE ADVERSELY AFFECTED Ventricular-paced rhythm ABNORMAL ECG WHEN COMPARED WITH ECG OF 28-JUN-2017 13:59, VENT. RATE HAS DECREASED BY 2 BPM Confirmed by TITUS COLE, GELACIO ([id number]) on 08/07/2017 4:29:08 PM Referred By: Confirmed By:GELACIO QURESHI MD
[2017-08-07] MEDS ORDERED: ATORVASTATIN CA 10 MG TABLET (FP) PO SCH (22:00)
[2017-08-07] MEDS ORDERED: MONTELUKAST NA 10 MG TABLET PO SCH (22:00)
[2017-08-07] MEDS ORDERED: PILOCARPINE HCL OP SCH (22:00)
[2017-08-07] MEDS: APIXABAN 5 MG TABLET PO SCH (22:07)
[2017-08-07] MEDS: CARVEDILOL 6.25 MG TABLET (FP) PO SCH (22:07)
[2017-08-07] MEDS: BUDESONIDE/FORMETEROL FUMARATE 80/4.5 mcg INHALER IH SCH (22:58)
[2017-08-07] MEDS: BRIMONIDINE TARTRATE 0.15% OPHTHALMIC 5 ML BOTTLE OU SCH (22:59)
[2017-08-08] MEDS ORDERED: LEVOTHYROXINE NA 25 MCG TABLET (FP) PO SCH (07:00)
[2017-08-08 07:36] LABS: BASO % 0.7 % (0-2.0); EOS % 2.3 % (0-4.5); HEMATOCRIT 38.7 % (35.4-49); HEMOGLOBIN 13.1 GM/dL (11.7-16.9); MCH 31.9 pg (25.7-33.7); MCHC 33.8 g/dl (32.0-35.9); MEAN CELL VOLUME 94.2 fl (80-96); MEAN PLT VOLUME 9.7 fl (7.5-11.1); MONO % 12.1 % (3.8-10.2); NEUT % 60.9 % (42.8-82.8); PLATELET COUNT 124 K/MM3 (134-434); RDW 14.2 % (11.9-15.9); WHITE BLOOD COUNT 5.5 K/mm3 (4.0-10.0)
[2017-08-08 08:10] LABS: CHLORIDE 103 mmol/L (98-107); POTASSIUM 3.6 mmol/L (3.5-5.1); SODIUM 139 mmol/L (136-145)
[2017-08-08 08:24] VITALS: BP 102/74; PULSE 62; TEMP 98.1
[2017-08-08 08:32] LABS: ALBUMIN 3.3 g/dl (3.4-5.0); ALK PHOS 47 U/L (45-117); ANION GAP 8 (8-16); BILIRUBIN,TOTAL 1.1 mg/dL (0.2-1.0); BLOOD UREA NITROGEN 22 mg/dL (7-18); CO2 28 mmol/L (21-32); CREATININE 1.4 mg/dL (0.7-1.3); GLUCOSE,RANDOM 98 mg/dL (74-106); SGOT/AST 17 U/L (15-37); SGPT/ALT 21 U/L (12-78); TOT PROT 6.3 g/dl (6.4-8.2)
[2017-08-08] MEDS: CARVEDILOL 6.25 MG TABLET (FP) PO SCH (09:09)
[2017-08-08] MEDS: APIXABAN 5 MG TABLET PO SCH (09:09)
[2017-08-08] MEDS: BUDESONIDE/FORMETEROL FUMARATE 80/4.5 mcg INHALER IH SCH (09:14)
[2017-08-08] MEDS: BRIMONIDINE TARTRATE 0.15% OPHTHALMIC 5 ML BOTTLE OU SCH (09:14)
[2017-08-08] MEDS ORDERED: FUROSEMIDE 40 MG/4 ML INJECTABLE VIAL IVPUSH SCH (10:00)
[2017-08-08] MEDS ORDERED: ASPIRIN 81 MG CHEWABLE TABLETS PO SCH (10:00)
[2017-08-08] MEDS ORDERED: VALSARTAN 160 MG TABLET (UD) PO SCH (10:00)
[2017-08-08] MEDS ORDERED: SOLIFENACIN SUCCINATE 5 MG TAB (FP) PO SCH (10:00)
--- NOTE | 2017-08-08 12:27 | HP ---
Admitting History and Physical - Primary Care Physician PCP: Fannie Drake - Admission Chief Complaint: sob History of Present Illness: pt seen/ examined chart reviewed per er records-- 08/07/17 13:13 The patient is a 72M with a PMH of COPD, CHF, CAD and Afib/flutter s/p ventricular pacemaker (12 years ago), HTN, HLD, and GERD who presents to the ER with worsening SOB. The patient states that for the past 3-4 days he has worsening shortness of breath that was initially only when he laid down and is now when he is sitting up as well. He also endorses leg swelling bilaterally and abdominal distension. He denies CP, abdominal pain, dysuria, rash, numbness , tingling, or weakness, cough. Pt well known to me admitted to floor for chf exac chart reviewed given i/v lasix much better ambulatory wants to go home History Source: Patient Limitations to Obtaining History: No Limitations - Past Medical History Cardiovascular: Yes: CAD (s/p stent in 2005- Jessica.), HTN, Hyperlipdemia, Other (CHF, cardiomyopathy- s/p AICD) Pulmonary: Yes: Asthma. No: Cancer Gastrointestinal: Yes: GERD Renal/: Yes: Renal Inusuff (creat- around 1.3), BPH - Smoking History Smoking history: Never smoked Have you smoked in the past 12 months: No - Alcohol/Substance Use Hx Alcohol Use: No Home Medications - Allergies Allergies/Adverse Reactions: Allergies Allergy/AdvReac Type Severity Reaction Status Date / Time No Known Allergies Allergy Verified 02/26/16 18:20 - Home Medications Home Medications: Ambulatory Orders Apixaban [Eliquis -] 5 mg PO BID 08/07/17 Aspirin 81 mg PO DAILY 08/07/17 Atorvastatin Ca [Lipitor] 10 mg PO HS 08/07/17 Brimonidine Tartrate [Alphagan 0.15% -] 1 drop OU BID 08/07/17 Carvedilol [Coreg -] 6.25 mg PO BID 08/07/17 Esomeprazole Magnesium [Nexium 24Hr] 20 mg PO DAILY 08/07/17 Fluticasone/Salmeterol [Advair 250-50 Diskus] 1 each IH BID 08/07/17 Levothyroxine [Synthroid -] 37.5 mcg PO DAILY 08/07/17 Montelukast Sodium [Singulair] 10 mg PO DAILY 08/07/17 [place]-3 Fatty Acids/Fish Oil [Fish Oil 1,000 mg Capsule] 1 each PO DAILY [place] 0.5% [Pilostat 0.5% -] 1 drop OU TID 08/07/17 Solifenacin Succinate [Vesicare -] 5 mg PO DAILY 08/07/17 Valsartan [Diovan] 160 mg PO DAILY 08/07/17 Furosemide [Lasix] 60 mg PO DAILY #30 tab 08/08/17 Review of Systems - Review of Systems Constitutional: reports: No Symptoms Eyes: reports: No Symptoms Neck: reports: No Symptoms Cardiovascular: reports: Shortness of Breath Respiratory: reports: SOB Gastrointestinal: reports: No Symptoms Genitourinary: reports: No Symptoms Neurological: reports: No Symptoms Psychiatric: reports: No Symptoms Physical Examination Vital Signs: Vital Signs Temperature 98.1 F 08/08/17 08:23 Pulse Rate 62 08/08/17 08:23 Respiratory Rate 18 08/08/17 08:23 Blood Pressure 102/74 08/08/17 08:23 O2 Sat by Pulse Oximetry (%) 98 08/08/17 08:00 Constitutional: Yes: No Distress, Calm Eyes: Yes: Conjunctiva Clear Neck: Yes: Supple Cardiovascular: Yes: Regular Rate and Rhythm Respiratory: Yes: Regular Gastrointestinal: Yes: Soft Edema: LLE: Trace, RLE: Trace Neurological: Yes: WNL, Alert Psychiatric: Yes: Alert Labs: CBC, BMP 08/08/17 06:26 08/08/17 06:26 Imaging - Results Chest X-ray: Report Reviewed EKG: Report Reviewed Problem List - Problems (1) A-fib Code(s): I48.91 - UNSPECIFIED ATRIAL FIBRILLATION Qualifiers: Atrial fibrillation type: persistent Qualified Code(s): I48.1 - Persistent atrial fibrillation (2) Automatic implantable cardiac defibrillator in situ Code(s): Z95.810 - PRESENCE OF AUTOMATIC (IMPLANTABLE) CARDIAC DEFIBRILLATOR (3) CAD (coronary artery disease) Code(s): I25.10 - ATHSCL HEART DISEASE OF [place] CORONARY ARTERY W/O ANG PCTRS Qualifiers: Coronary Disease-Associated Artery/Lesion type: unspecified vessel or lesion type [place] vs. transplanted heart: unspecified whether [place] or transplanted heart Associated angina: with unspecified angina Qualified Code (s): I25.119 - Atherosclerotic heart disease of [place] coronary artery with unspecified angina pectoris (4) Chronic left ventricular systolic heart failure Code(s): I50.22 - CHRONIC SYSTOLIC (CONGESTIVE) HEART FAILURE (5) HTN (hypertension) Code(s): I10 - ESSENTIAL (PRIMARY) HYPERTENSION Qualifiers: Hypertension type: essential hypertension Qualified Code(s): I10 - Essential (primary) hypertension Assessment/Plan Stable Discussed will d/c home advised to take lasix 60 mg daily x few days and the 40 mg f/u with optical effects layout person f/u in offce next visit. meds reconcilled pt in agreement discussed with nursing staff
== END 2017-08-08 13:54 | disposition home or self-care (01) ==
LOC: JER 12:31 → JERBED 15:20 → J4W 21:19
PROVIDERS: ADMIT Internal Medicine; ATTEND Internal Medicine
PROC: 3E033GC Introduction of Other Therapeutic Substance into Peripheral Vein, Percutaneous Approach (ICD-10-PCS; principal; 2017-08-07)
PROC: 3E0F7GC Introduction of Other Therapeutic Substance into Respiratory Tract, Via Natural or Artificial Opening (ICD-10-PCS; 2017-08-07)
DX: I50.22 Chronic systolic (congestive) heart failure (principal); I25.119 Atherosclerotic heart disease of native coronary artery with unspecified angina pectoris; I10 Essential (primary) hypertension; I48.1 Persistent atrial fibrillation; I48.92 Unspecified atrial flutter; E78.5 Hyperlipidemia, unspecified; K21.9 Gastro-esophageal reflux disease without esophagitis; J44.9 Chronic obstructive pulmonary disease, unspecified; E87.70 Fluid overload, unspecified; R07.9 Chest pain, unspecified; Z95.810 Presence of automatic (implantable) cardiac defibrillator
CPT/HCPCS: 36415; 71045-TC-FY; 80053; 82550; 83880; 84484; 85025; 93005; 93010; 94640; 96374; 96375; 99285-25; G0378

== ENCOUNTER 2017-12-06 09:47 | Inpatient (IN) | payer OTHER ==
[2017-12-06] MEDS ORDERED: ONDANSETRON 4 MG/2 ML VIAL IVPUSH ONE (10:12)
[2017-12-06] MEDS ORDERED: LACTATED RINGERS SOLUTION 1,000 ML IV STA (10:12)
[2017-12-06] MEDS ORDERED: FAMOTIDINE 20 MG/50 ML IVPB 20 MG/50 ML MG IVPB ONE ×2 (10:12→10:59)
--- NOTE | 2017-12-06 10:18 | PDOC ---
History of Present Illness <FernandesMaris Jessica - Last Filed: 12/06/17 13:33> - History of Present Illness Initial Comments: 12/06/17 10:18 72M with a PMH of COPD, CHF, CAD and Afib/flutter s/p ventricular pacemaker (12 years ago), HTN, HLD, and GERD who presents to the ER with Nausea, vomiting and chest tightness since last night. He had blood work performed on Friday and he received a call from his PCP - Dr. Morris - this morning to come into the ER. He denies diaphoresis or chest pain. He denies recent fevers, chills, or infections. Denies abdominal pain, back pain , dysuria, frequency, or urgency. I spoke with Dr. Morris and was informed that the reason the patient was sent to the ER was that his most recent lab results from [facility] showed a sodium level of 117. 12/06/17 11:01 <River Chand - Last Filed: 12/06/17 15:03> - General Chief Complaint: Nausea/Vomiting Stated Complaint: TROUBLE BREATHING Time Seen by Provider: 12/06/17 10:07 Past History <Maris Fernandes - Last Filed: 12/06/17 13:33> - Past Medical History Cardiac Disorders: Yes (Stents) COPD: Yes GI Disorders: Yes (GERD) HTN: Yes Hypercholesterolemia: Yes - Surgical History Cardiac Surgery: Yes - Suicide/Smoking/Psychosocial Hx Smoking History: Never smoked Have you smoked in the past 12 months: No Hx Alcohol Use: No Drug/Substance Use Hx: No Substance Use Type: None <River Chand - Last Filed: 12/06/17 15:03> - Past Medical History Allergies/Adverse Reactions: Allergies Allergy/AdvReac Type Severity Reaction Status Date / Time No Known Allergies Allergy Verified 12/06/17 09:58 Home Medications: Ambulatory Orders Apixaban [Eliquis -] 5 mg PO BID 08/07/17 Aspirin 81 mg PO DAILY 08/07/17 Atorvastatin Ca [Lipitor] 10 mg PO HS 08/07/17 Brimonidine Tartrate [Alphagan 0.15% -] 1 drop OU BID 08/07/17 Carvedilol [Coreg -] 6.25 mg PO BID 08/07/17 Esomeprazole Magnesium [Nexium 24Hr] 40 mg PO DAILY 08/07/17 Fluticasone/Salmeterol [Advair 250-50 Diskus] 1 each IH BID 08/07/17 Levothyroxine [Synthroid -] 37.5 mcg PO DAILY 08/07/17 Montelukast Sodium [Singulair] 10 mg PO DAILY 08/07/17 [place]-3 Fatty Acids/Fish Oil [Fish Oil 1,000 mg Capsule] 1 each PO DAILY Pilocarpine 0.5% [Pilostat 0.5% -] 1 drop OU TID 08/07/17 Solifenacin Succinate [Vesicare -] 5 mg PO DAILY 08/07/17 Furosemide [Lasix] 40 mg PO BID 12/06/17 Losartan Potassium [Cozaar -] 50 mg PO DAILY 12/06/17 Review of Systems - Review of Systems Comments:: 12/06/17 11:04 CONSTITUTIONAL: Absent: fever, chills, diaphoresis, generalized weakness, malaise, loss of appetite HEENT: Absent: rhinorrhea, nasal congestion, throat pain, throat swelling, difficulty swallowing, mouth swelling, ear pain, eye pain, visual Changes CARDIOVASCULAR: Present: Chest tightness, peripheral edema Absent: syncope, palpitations, irregular heart rate, lightheadedness, RESPIRATORY: Present: dyspnea with exertion, orthopnea, Absent: cough, shortness of breath, wheezing, stridor, hemoptysis GASTROINTESTINAL: Present: nausea, vomiting, Absent: abdominal pain, abdominal distension, diarrhea, constipation, melena, hematochezia GENITOURINARY: Absent: dysuria, frequency, urgency, hesitancy, hematuria, flank pain, genital pain MUSCULOSKELETAL: Absent: myalgia, arthralgia, joint swelling SKIN: Absent: rash, itching, pallor HEMATOLOGIC/IMMUNOLOGIC: Absent: easy bleeding, easy bruising, lymphadenopathy, frequent infections ENDOCRINE: Absent: unexplained weight gain, unexplained weight loss, heat intolerance, cold intolerance NEUROLOGIC: Absent: headache, focal weakness or paresthesias, dizziness, unsteady gait, seizure, mental status changes, bladder or bowel incontinence PSYCHIATRIC: Absent: anxiety, depression, suicidal or homicidal ideation, hallucinations. <River Chand - Last Filed: 12/06/17 15:03> *Physical Exam - Vital Signs Last Vital Signs Temp Pulse Resp BP Pulse Ox 97.7 F 82 16 118/62 99 12/06/17 09:58 12/06/17 09:58 12/06/17 09:58 12/06/17 09:58 12/06/17 11:00 <Maris Fernandes - Last Filed: 12/06/17 13:33> - Vital Signs Last Vital Signs Temp Pulse Resp BP Pulse Ox 97.7 F 82 16 118/62 99 12/06/17 09:58 12/06/17 09:58 12/06/17 09:58 12/06/17 09:58 12/06/17 09:58 - Physical Exam Comments: 12/06/17 11:06 GENERAL: Well developed, well nourished. Awake and alert. No acute distress. HEENT: Normocephalic, atraumatic. PERRLA, EOMI. No conjunctival pallor. Sclera are non- icteric. Moist mucous membranes. Oropharynx is clear. NECK: Supple. Full ROM. No JVD. No thyromegaly. No lymphadenopathy. CARDIOVASCULAR: Regular rate and rhythm. No murmurs, rubs, or gallops. Distal pulses are 2+ and symmetric. PULMONARY: No evidence of respiratory distress. Lungs clear to auscultation bilaterally. No wheezing, rales or rhonchi. ABDOMINAL: Soft. Non-tender. Non-distended. No rebound or guarding. No organomegaly. Normoactive bowel sounds. MUSCULOSKELETAL Normal range of motion at all joints. No bony deformities or tenderness. No CVA tenderness. EXTREMITIES: No cyanosis. No clubbing. No edema. No calf tenderness. SKIN: Warm and dry. Normal capillary refill. No rashes. No jaundice. NEUROLOGICAL: Alert, awake, appropriate. Cranial nerves 2-12 intact. Normal speech. Gait is normal without ataxia. PSYCHIATRIC: Cooperative. Good eye contact. Appropriate mood and affect. 12/06/17 11:08 <iRver Chand - Last Filed: 12/06/17 15:03> ED Treatment Course - LABORATORY CBC & Chemistry Diagram: 12/06/17 10:42 12/06/17 11:54 - ADDITIONAL ORDERS Additional order review: Laboratory Results 12/06/17 12/06/17 12/06/17 11:54 11:00 10:42 Sodium 112 L* Potassium 2.8 L* Chloride 70 L Carbon Dioxide 33 H Anion Gap 9 BUN 18 Creatinine 1.2 Creat Clearance w eGFR 59.35 Random Glucose 196 H Calcium 8.1 L Total Bilirubin 1.8 H AST 33 ALT 27 Alkaline Phosphatase 63 Troponin I < 0.02 Total Protein 6.4 Albumin 3.2 L Lipase 102 Urine Color Yellow Urine Appearance Clear Urine pH 6.0 Ur Specific [place] 1.020 Urine Protein Negative Urine Glucose (UA) 2+ H Urine Ketones Negative Urine Blood Negative Urine Nitrite Negative Urine Bilirubin Negative Urine Urobilinogen 2.0 Ur Leukocyte Esterase Negative 12/06/17 10:42 Sodium Cancelled Potassium Cancelled Chloride Cancelled Carbon Dioxide Cancelled Anion Gap Cancelled BUN Cancelled Creatinine Cancelled Creat Clearance w eGFR Cancelled Random Glucose Cancelled Calcium Cancelled Total Bilirubin Cancelled AST Cancelled ALT Cancelled Alkaline Phosphatase Cancelled Troponin I Total Protein Cancelled Albumin Cancelled Lipase Cancelled Urine Color Urine Appearance Urine pH Ur Specific [place] Urine Protein Urine Glucose (UA) Urine Ketones Urine Blood Urine Nitrite Urine Bilirubin Urine Urobilinogen Ur Leukocyte Esterase 12/06/17 10:42 RBC 4.44 MCV 88.2 MCHC 35.0 RDW 14.4 MPV 9.2 Neutrophils % 73.6 D Lymphocytes % 15.0 D Monocytes % 9.8 Eosinophils % 1.0 Basophils % 0.6 - Medications Given in the ED: ED Medications Discontinued Medications Generic Name Dose Route Start Last Admin Trade Name Freq PRN Reason Stop Dose Admin Lactated Ringer's 1,000 mls @ 1,000 mls/hr 12/06/17 10:12 12/06/17 10:58 Lactated Ringers Solution IV 12/06/17 11:11 1,000 mls/hr ONCE STA Administration Famotidine/Sodium Chloride 20 mg in 50 mls @ 100 mls/hr 12/06/17 10:12 11:08 Pepcid 20 Mg Premixed Ivpb - IVPB 12/06/17 10:41 100 mls/hr ONCE ONE Administration Ondansetron HCl 4 mg 12/06/17 10:12 12/06/17 10:58 Zofran Injection IVPUSH 12/06/17 10:13 4 mg ONCE ONE Administration <Maris Fernandes - Last Filed: 12/06/17 13:33> - LABORATORY CBC & Chemistry Diagram: 12/06/17 10:42 12/06/17 11:54 - RADIOLOGY Radiology Studies Ordered: Category Date Time Status CHEST PA & LAT [RAD] Stat Radiology 12/06/17 10:16 Ordered <River Chand - Last Filed: 12/06/17 15:03> Medical Decision Making - Medical Decision Making 12/06/17 11:09 72M with a PMH of COPD, CHF, CAD and Afib/flutter s/p ventricular pacemaker (12 years ago), HTN, HLD, and GERD who presents to the ER with Nausea, vomiting and chest tightness since last night. He was sent here by Dr. Morris due to a low sodium level of 117 taken at [facility]. DD ncludes but not limited to: CHF, infection, COPD exacerbation. Plan: Labs, urine, CXR, Ekg, zofran, pepcid, re-assess. Chemistry shows a sodium level of 112 and a potasium of 2.8. This is likely a heart failure excaerbation. Patient will be admitted for further care. Will start repleting both sodium and potassium. 3% hypertonic saline administered in ED. Patient will go up to the ICU for further correction. 12/06/17 15:02 <River Chand - Last Filed: 12/06/17 15:03> *DC/Admit/Observation/Transfer - Discharge Dispostion Decision to Admit order: Yes Decision to Admit order Date/Time: 12/06/17 13:33 <Maris Fernandes - Last Filed: 12/06/17 13:33> - Discharge Dispostion Decision to Admit order: Yes <River Chand - Last Filed: 12/06/17 15:03> Diagnosis at time of Disposition: Nausea & vomiting, Hyponatremia, Hypokalemia - Discharge Dispostion Condition at time of disposition: Guarded
[2017-12-06] MEDS ORDERED: ONDANSETRON 4 MG/2 ML VIAL ONE (10:44)
[2017-12-06 10:50] LABS: BASO % 0.6 % (0-2.0); HEMATOCRIT 39.2 % (35.4-49); HEMOGLOBIN 13.7 GM/dL (11.7-16.9); MCH 30.9 pg (25.7-33.7); MEAN CELL VOLUME 88.2 fl (80-96); MEAN PLT VOLUME 9.2 fl (7.5-11.1); MONO % 9.8 % (3.8-10.2); NEUT % 73.6 % (42.8-82.8); PLATELET COUNT 162 K/MM3 (134-434); RBC 4.44 M/mm3 (4.00-5.60); RDW 14.4 % (11.9-15.9); WHITE BLOOD COUNT 8.8 K/mm3 (4.0-10.0)
[2017-12-06 11:37] LABS: URINE APPEARANCE CLEAR; URINE BILIRUBIN NEGATIVE (<2.0 mg/dL); URINE COLOR YELLOW; URINE GLUCOSE (UA) 2+ (NEGATIVE); URINE KETONE NEGATIVE (NEGATIVE); URINE LEUK ESTERASE NEGATIVE (NEGATIVE); URINE NITRITE NEGATIVE (NEGATIVE); URINE PROTEIN NEGATIVE (NEGATIVE)
--- NOTE | 2017-12-06 12:35 | PDOC ---
Attending Attestation - Resident Resident Name: River Chand - HPI HPI: 12/06/17 12:32 Gwyn 72 year old male, with a significant PMH of CAD, afib/flutter s/p ventricular pacemaker (12 years ago), COPD, CHF, hypertension, hyperlipidemia, and GERD who presents to the emergency department with chest tightness and nausea with vomiting, cough since last night. Patient was prompted to visit ED for further evaluation by Dr. Fannie Drake (PCP) secondary to sodium level of 117 and to rule out fluid overload. The patient denies chest pain, back pain, abdominal pain, shortness of breath, diaphoresis, fevers, chills, dysuria, frequency, or urgency. 12/06/17 12:57 - Physicial Exam PE: 12/06/17 12:35 NAD, well appearing, MMM, nl conjunctiva, anicteric; neck supple. no JVD. left chest wall PPM. lungs clear, RRR, abdomen soft nontender, obese. MCGARRY x4, no focal neuro deficits. No peripheral edema. normal color for ethnicity, WWP. - Medical Decision Making 12/06/17 12:33 72M with a PMH of COPD, CHF, CAD and Afib/flutter s/p ventricular pacemaker (12 years ago), HTN, HLD, and GERD who presents to the ER with Nausea, vomiting and chest tightness since last night. Vital signs reviewed, wnl. Prior notes reviewed, including admissions, discharges and consultations. laboratory results and imaging reviewed, basic labs and lytes with +hypokalemia and Hyponatremia to 112, will send off urine lytes and osm. no sz or AMS, will fluid restrict for now until further elucidation based on lytes/urine testing for etiology of hyponatremia. IV and PO Potassium runs and Mg repletion for electrolyte derangement. nephro consultation, recommend hypertonic saline 3% slowly with solution made with sodium bicarb diluted to 3% solution since pharmacy med not available for treatment and c/w fluid restriction. h/o hypervolemia/heart failure, defer DDAVP for now. trop_negative EKG with V paced pattern, wide QRS, c/w pacemaker at 71 bpm - no derangements. CXR clear, no effusion or edema, PPM visualized. abdomen remains soft and nontender, no respiratory distress here. D/w Dr Morris with update on results. renal consult in place. monitor lytes, ordered for urine lytes and osm/serum osm checks. Dispo: admit to telemetry/ICU for medical management, repletion and slow resolution of sodium/potassium accepted to ICU for closer monitoring of lytes and neuro status as there is risk of central pontine myelinolysis 12/06/17 13:50 12/06/17 15:17 12/06/17 15:19 Heart Score/ECG Review - ECG Impressions Comment:: 12/06/17 12:35 EKG with V paced pattern, wide QRS, c/w pacemaker at 71 bpm
[2017-12-06 13:07] LABS: ALBUMIN 3.2 g/dl (3.4-5.0); ALK PHOS 63 U/L (45-117); ANION GAP 9 MMOL/L (8-16); BILIRUBIN,TOTAL 1.8 mg/dL (0.2-1); BLOOD UREA NITROGEN 18 mg/dL (7-18); CALCIUM 8.1 mg/dL (8.5-10.1); CHLORIDE 70 mmol/L (98-107); CO2 33 mmol/L (21-32); CREATININE 1.2 mg/dL (0.55-1.3); GLUCOSE,RANDOM 196 mg/dL (74-106); LIPASE 102 U/L (73-393); SGOT/AST 33 U/L (15-37); SGPT/ALT 27 U/L (13-61); TOT PROT 6.4 g/dl (6.4-8.2)
[2017-12-06 13:09] LABS: POTASSIUM 2.8 mmol/L (3.5-5.1); SODIUM 112 mmol/L (136-145)
[2017-12-06] MEDS ORDERED: MAGNESIUM SULF 50% (8.12 MEQ/2 ML-1 GM VIAL) IVPB ONE (13:22)
[2017-12-06] MEDS ORDERED: POTASSIUM CHLORIDE TABS 20 MEQ TABLET.ER (FP) PO ONE ×3 (13:22→18:08)
[2017-12-06] MEDS ORDERED: KCL 10 MEQ IVPB 10 MEQ/100 ML INFUS.BAG IVPB SCH (13:30)
[2017-12-06] MEDS ORDERED: MAGNESIUM 1GM/D5W - 1 GM/100 ML IVPB IVPB ONE (13:43)
[2017-12-06] MEDS ORDERED: KCL 10 MEQ IVPB 10 MEQ/100 ML INFUS.BAG IVPB ONE (13:43)
[2017-12-06] MEDS ORDERED: SODIUM CHLORIDE 3% 500 ML/500 ML INFUS.BAG IV ONE ×2 (14:02→18:05)
[2017-12-06] MEDS: KCL 10 MEQ IVPB 10 MEQ/100 ML INFUS.BAG IVPB SCH ×2 (15:21→23:40)
--- NOTE | 2017-12-06 15:26 | EKG ---
Test Reason : Blood Pressure : / mmHG Vent. Rate : 071 BPM Atrial Rate : 468 BPM P-R Int : 000 ms QRS Dur : 236 ms QT Int : 542 ms P-R-T Axes : 000 -78 092 degrees QTc Int : 588 ms Ventricular-paced rhythm ABNORMAL ECG WHEN COMPARED WITH ECG OF 07-AUG-2017 12:40, VENT. RATE HAS INCREASED BY 3 BPM Confirmed by MD Daugherty Daniel ([id number]) on 12/06/2017 3:26:23 PM Referred By: Confirmed By:Timothy Daugherty MD
--- NOTE | 2017-12-06 16:43 | CONSULT ---
Consult Consult Specialty:: CCM Referred by:: Dena Reason for Consultation:: hyponatremia - History of Present Illness Chief Complaint: told by PMD to present History of Present Illness: Briefly Mr Pascal is a 72 yo male with h/o HTN, DM, hyperlipidemia, CAD s/p 2 stents, hypothyroidism, ischemic cardiomyopathy s/p ICD, COPD and previous admissions for hyponatremia who now presents for same, requiring hypertonic salinie. Pt relates adjustments in diuretic over last two weeks (decrease of lasix but addition of metolazone), also relates significant free water intake ( states drinks two glasses of water, and lots of coffee and tea daily). Pt also c /o nausea, non bloody non bilious vomiting in morning which he feels is related to reflux. Pt presented to PMD yesterday for those symptoms, had labs drawn then , today PMD office called pt telling him to go to ED for Na of 117. In ED pt was non-toxic appearing, afebrile, without acute new complaint. Na in ED was 112 (114 when corrected for Glu 196). He was given 1 L of LR, Nephrology was consulted, pt was started on 3% saline and pt was admitted to ICU for close monitoring while Na is slowly corrected. - History Source History Provided By: Patient - Past Medical History Cardio/Vascular: Yes: CAD (s/p stent in 2005- [facility] HTN, Hyperlipdemia, Other (CHF, cardiomyopathy- s/p AICD, S/p 2 Stents) Pulmonary: Yes: Asthma. No: Cancer Gastrointestinal: Yes: GERD Renal/: Yes: Renal Inusuff (creat- around 1.3), BPH - Alcohol/Substance Use Hx Alcohol Use: No Number of Drinks Daily: 0 History of Substance Use: reports: None - Smoking History Smoking history: Never smoked Have you smoked in the past 12 months: No - Social History Usual Living Arrangement: With Spouse ADL: Independent History of Recent Travel: No Home Medications - Allergies Allergies/Adverse Reactions: Allergies Allergy/AdvReac Type Severity Reaction Status Date / Time No Known Allergies Allergy Verified 12/06/17 09:58 - Home Medications Home Medications: Ambulatory Orders Apixaban [Eliquis -] 5 mg PO BID 08/07/17 Aspirin 81 mg PO DAILY 08/07/17 Atorvastatin Ca [Lipitor] 10 mg PO HS 08/07/17 Brimonidine Tartrate [Alphagan 0.15% -] 1 drop OU BID 08/07/17 Carvedilol [Coreg -] 6.25 mg PO BID 08/07/17 Esomeprazole Magnesium [Nexium 24Hr] 40 mg PO DAILY 08/07/17 Fluticasone/Salmeterol [Advair 250-50 Diskus] 1 each IH BID 08/07/17 Levothyroxine [Synthroid -] 37.5 mcg PO DAILY 08/07/17 Montelukast Sodium [Singulair] 10 mg PO DAILY 08/07/17 [place]-3 Fatty Acids/Fish Oil [Fish Oil 1,000 mg Capsule] 1 each PO DAILY Pilocarpine 0.5% [Pilostat 0.5% -] 1 drop OU TID 08/07/17 Solifenacin Succinate [Vesicare -] 5 mg PO DAILY 08/07/17 Furosemide [Lasix] 40 mg PO BID 12/06/17 Losartan Potassium [Cozaar -] 50 mg PO DAILY 12/06/17 Family Disease History - Family Disease History Family History: Unremarkable Review of Systems Findings/Remarks: 12 pt review negative except as per HPI Physical Exam Vital Signs: Vital Signs Temperature 97.3 F L 12/06/17 14:12 Pulse Rate 69 12/06/17 16:00 Respiratory Rate 16 12/06/17 16:00 Blood Pressure 101/54 L 12/06/17 16:00 O2 Sat by Pulse Oximetry (%) 100 12/06/17 16:00 Constitutional: Yes: Well Nourished, No Distress, Calm Eyes: Yes: Conjunctiva Clear, EOM Intact, PERRL HENT: Yes: Atraumatic, Normocephalic Neck: Yes: Trachea Midline Cardiovascular: Yes: JVD, Murmur Respiratory: Yes: CTA Bilaterally, Poor Air Entry. No: Accessory Muscle Use Gastrointestinal: Yes: Normal Bowel Sounds, Soft, Abdomen, Obese, Distention, Other (tympanic) ...Rectal Exam: Yes: Deferred Renal/: Yes: WNL Breast(s): Yes: WNL Musculoskeletal: Yes: WNL Edema: Yes Edema: LUE: Trace, RUE: Trace, LLE: 1+, RLE: 1+ Peripheral Pulses WNL: Yes Integumentary: Yes: WNL Neurological: Yes: WNL ...Motor Strength: WNL Psychiatric: Yes: WNL Labs: CBC, BMP 12/06/17 10:42 12/06/17 11:54 Imaging - Results Chest X-ray: Report Reviewed, Image Reviewed (Clear) EKG: Report Reviewed, Image Reviewed (Vpaced) Problem List - Problems (1) Hypokalemia Code(s): E87.6 - HYPOKALEMIA (2) Hyponatremia Code(s): E87.1 - HYPO-OSMOLALITY AND HYPONATREMIA (3) Systolic CHF, acute on chronic Code(s): I50.23 - ACUTE ON CHRONIC SYSTOLIC (CONGESTIVE) HEART FAILURE (4) A-fib Code(s): I48.91 - UNSPECIFIED ATRIAL FIBRILLATION Qualifiers: Atrial fibrillation type: persistent Qualified Code(s): I48.1 - Persistent atrial fibrillation (5) [id number] kidney injury Code(s): N17.9 - ACUTE KIDNEY FAILURE, UNSPECIFIED; N18.9 - CHRONIC KIDNEY DISEASE, UNSPECIFIED (6) Automatic implantable cardiac defibrillator in situ Code(s): Z95.810 - PRESENCE OF AUTOMATIC (IMPLANTABLE) CARDIAC DEFIBRILLATOR Assessment/Plan CCM A/ 72 yo male with h/o HTN, DM, hyperlipidemia, CAD s/p 2 stents, hypothyroidism, ischemic cardiomyopathy s/p ICD, COPD admitted for hyponatremia P/ Hyponatremia, likley combination of freewater intake, diuretic use with metolazone, some overload -correction of 10meq/24hr or less -serial BMP q 3hr (repeat currently pending) -check urine and serum osm to R/o Siadh, check Aracelis -free water restrict -may need diuretic with the hypertonic -will check TSH, cortisol, urine Na CAD/CHF: -cont ASA, Eliquis -cont Coreg -would Hold Statin given elevated Bili (likley 2/2 hepatic congestion but will wait until down trending) -cont Losartan -check TBNP Hypothyroid: -check TSH, fT4 -cont synthroid No indication for GI prophy On Eliquis ( DVT prophy) Full Code: Discussed POC with pt and family at bedside [facility] [id number]
[2017-12-06 17:59] LABS: ANION GAP 9 MMOL/L (8-16); BLOOD UREA NITROGEN 16 mg/dL (7-18); CALCIUM 8.5 mg/dL (8.5-10.1); CHLORIDE 69 mmol/L (98-107); CO2 34 mmol/L (21-32); CREATININE 1.2 mg/dL (0.55-1.3); GLUCOSE,RANDOM 211 mg/dL (74-106); N-TERMINAL BNP 2067.7 pg/ml (5-125)
[2017-12-06 18:00] LABS: SODIUM 112 mmol/L (136-145)
--- NOTE | 2017-12-06 18:05 | CON.NEP ---
Consult Consult Specialty:: nephrology Reason for Consultation:: hyponatremia - History of Present Illness Chief Complaint: nausea and vomiting History of Present Illness: This is a 72 year old male, with a significant PMH of CAD, afib/flutter s/p ventricular pacemaker (12 years ago), COPD, CHF, hypertension, hyperlipidemia, and GERD who presents to the emergency department with nausea with vomiting, for 1 week. Patient was prompted to visit ED for further evaluation by Dr. Fannie Drake (PCP) secondary to sodium level of 117 and to rule out fluid overload. The patient denies chest pain, back pain, abdominal pain, shortness of breath, diaphoresis, fevers, chills, dysuria, frequency, or urgency He apparently has been on lasix and recently another diuretic was added (probably metolazone). Says his speech has been garbled as well. - History Source History Provided By: Patient, Medical Record - Past Medical History Cardio/Vascular: Yes: CAD (s/p stent in 2005- [facility] HTN, Hyperlipdemia, Other (CHF, cardiomyopathy- s/p AICD, S/p 2 Stents) Pulmonary: Yes: Asthma. No: Cancer Gastrointestinal: Yes: GERD Renal/: Yes: Renal Inusuff (creat- around 1.3), BPH - Alcohol/Substance Use Hx Alcohol Use: No Number of Drinks Daily: 0 History of Substance Use: reports: None - Smoking History Smoking history: Never smoked Have you smoked in the past 12 months: No - Social History Usual Living Arrangement: With Spouse ADL: Independent History of Recent Travel: No Home Medications - Allergies Allergies/Adverse Reactions: Allergies Allergy/AdvReac Type Severity Reaction Status Date / Time No Known Allergies Allergy Verified 12/06/17 09:58 - Home Medications Home Medications: Ambulatory Orders Apixaban [Eliquis -] 5 mg PO BID 08/07/17 Aspirin 81 mg PO DAILY 08/07/17 Atorvastatin Ca [Lipitor] 10 mg PO HS 08/07/17 Brimonidine Tartrate [Alphagan 0.15% -] 1 drop OU BID 08/07/17 Carvedilol [Coreg -] 6.25 mg PO BID 08/07/17 Esomeprazole Magnesium [Nexium 24Hr] 40 mg PO DAILY 08/07/17 Fluticasone/Salmeterol [Advair 250-50 Diskus] 1 each IH BID 08/07/17 Levothyroxine [Synthroid -] 37.5 mcg PO DAILY 08/07/17 Montelukast Sodium [Singulair] 10 mg PO DAILY 08/07/17 [place]-3 Fatty Acids/Fish Oil [Fish Oil 1,000 mg Capsule] 1 each PO DAILY [place]ocarp[place] 0.5% [Pilostat 0.5% -] 1 drop OU TID 08/07/17 Solifenacin Succinate [Vesicare -] 5 mg PO DAILY 08/07/17 Furosemide [Lasix] 40 mg PO BID 12/06/17 Losartan Potassium [Cozaar -] 50 mg PO DAILY 12/06/17 Review of Systems - Review of Systems Constitutional: reports: Weakness Eyes: reports: No Symptoms HENT: reports: No Symptoms Neck: reports: No Symptoms Cardiovascular: reports: Edema Respiratory: reports: No Symptoms Gastrointestinal: reports: Nausea, Vomiting Genitourinary: reports: No Symptoms Breasts: reports: No Symptoms Reported Musculoskeletal: reports: No Symptoms Integumentary: reports: No Symptoms Neurological: reports: Change in Speech Endocrine: reports: No Symptoms Hematology/Lymphatic: reports: No Symptoms Psychiatric: reports: No Symptoms Nephrology Consult - Height Height: 5 ft 4 in - Weight Weight: 149 lb 0.52 oz - BMI Body Mass Index (BMI): 25.5 - Lab Results CBC,BMP: CBC, BMP 12/06/17 10:42 Anion Gap: Anion Gap Anion Gap 9 MMOL/L (8-16) 12/06/17 11:54 - Imaging Chest X-ray: Report Reviewed (no evidence of acute infiltrate or pleural eff) - Physical Examination Vital Signs: Vital Signs Temperature 97.5 F L 12/06/17 16:28 Pulse Rate 89 12/06/17 16:28 Respiratory Rate 22 H 12/06/17 16:28 Blood Pressure 100/68 12/06/17 16:28 O2 Sat by Pulse Oximetry (%) 100 12/06/17 16:28 Constitutional: Yes: Well Nourished, No Distress Eyes: Yes: Conjunctiva Clear HENT: Yes: Atraumatic, Normocephalic Neck: Yes: Supple, Trachea Midline Cardiovascular: Yes: Regular Rate and Rhythm Respiratory: Yes: Regular, CTA Bilaterally Gastrointestinal: Yes: Normal Bowel Sounds Renal/: Yes: WNL Musculoskeletal: Yes: WNL Extremities: Yes: WNL Edema: Yes Edema: LLE: Trace, RLE: Trace Neurological: Yes: Alert, Oriented Psychiatric: Yes: Alert, Oriented Assessment/Plan IMPRESSION Likely diuretic induced hyponatremia and hypokalemia hypokalemia needs to be corrected for the sodium to improve h/o LV dysf with EF of 25 percent per pt s/p pacemaker insertion PLAN k replacements being given he has been on hypertonic saline and sodium did not improve so will increase rate to 20 cc/hr the goal should be to reach a sodium of 122 by tomorrow obtain urine sodium and osm and serum osm. Also tsh and cortisol he should not be on thiazide diuretics like metolazone If he becomes fluid overloaded he can get lasix keep in ICU for now will need q2 sodiums for now MV
[2017-12-06] MEDS ORDERED: SODIUM CHLORIDE IV ONE (19:30)
[2017-12-06] MEDS: SODIUM CHLORIDE IV ONE ×2 (19:30→22:00)
[2017-12-06] MEDS: WATER FOR INJ STERILE IV ONE ×2 (19:30→22:00)
[2017-12-06] MEDS ORDERED: WATER FOR INJ STERILE IV ONE (19:30)
[2017-12-06 21:14] LABS: ANION GAP 14 MMOL/L (8-16); BLOOD UREA NITROGEN 15 mg/dL (7-18); CALCIUM 8.8 mg/dL (8.5-10.1); CHLORIDE 70 mmol/L (98-107); CO2 33 mmol/L (21-32); CREATININE 1.2 mg/dL (0.55-1.3); GLUCOSE,RANDOM 194 mg/dL (74-106)
[2017-12-06 21:21] LABS: SODIUM 117 mmol/L (136-145)
[2017-12-06] MEDS ORDERED: ONDANSETRON 4 MG/2 ML VIAL IVPUSH PRN (22:18)
[2017-12-06] MEDS: CARVEDILOL 6.25 MG TABLET (FP) PO SCH (22:21)
[2017-12-06] MEDS: APIXABAN 5 MG TABLET PO SCH (22:22)
[2017-12-07 02:19] LABS: ANION GAP 7 MMOL/L (8-16); BLOOD UREA NITROGEN 15 mg/dL (7-18); CALCIUM 8.4 mg/dL (8.5-10.1); CHLORIDE 72 mmol/L (98-107); CO2 34 mmol/L (21-32); CREATININE 1.3 mg/dL (0.55-1.3); GLUCOSE,RANDOM 160 mg/dL (74-106); POTASSIUM 3.4 mmol/L (3.5-5.1)
[2017-12-07 02:21] LABS: SODIUM 114 mmol/L (136-145)
[2017-12-07] MEDS ORDERED: SODIUM CHLORIDE IV ONE (02:28)
[2017-12-07] MEDS ORDERED: WATER FOR INJ STERILE IV ONE (02:28)
[2017-12-07 05:14] LABS: HEMATOCRIT 36.2 % (35.4-49); HEMOGLOBIN 12.6 GM/dL (11.7-16.9); MCHC 34.9 g/dl (32.0-35.9); MEAN CELL VOLUME 88.8 fl (80-96); MEAN PLT VOLUME 8.6 fl (7.5-11.1); PLATELET COUNT 141 K/MM3 (134-434); RBC 4.07 M/mm3 (4.00-5.60); RDW 14.1 % (11.9-15.9); WHITE BLOOD COUNT 7.2 K/mm3 (4.0-10.0)
[2017-12-07 05:57] LABS: ALBUMIN 3.1 g/dl (3.4-5.0); ALK PHOS 60 U/L (45-117); ANION GAP 6 MMOL/L (8-16); BILIRUBIN,TOTAL 1.7 mg/dL (0.2-1); BLOOD UREA NITROGEN 15 mg/dL (7-18); CALCIUM 8.3 mg/dL (8.5-10.1); CHLORIDE 75 mmol/L (98-107); CO2 36 mmol/L (21-32); CREATININE 1.3 mg/dL (0.55-1.3); GLUCOSE,RANDOM 158 mg/dL (74-106); MAGNESIUM 1.9 mg/dL (1.8-2.4); PHOSPHOROUS 2.8 mg/dL (2.5-4.9); POTASSIUM 3.4 mmol/L (3.5-5.1); SGOT/AST 27 U/L (15-37); SGPT/ALT 28 U/L (13-61); TOT PROT 6.3 g/dl (6.4-8.2)
[2017-12-07 06:09] LABS: SODIUM 117 mmol/L (136-145)
[2017-12-07] MEDS ORDERED: LEVOTHYROXINE NA 25 MCG TABLET (FP) PO ONE ×2 (09:47→10:15)
[2017-12-07] MEDS: LOSARTAN POTASSIUM 50 MG TABLET (FP) PO SCH (09:50)
[2017-12-07] MEDS: APIXABAN 5 MG TABLET PO SCH ×2 (09:50→21:50)
[2017-12-07] MEDS: CARVEDILOL 6.25 MG TABLET (FP) PO SCH ×2 (09:50→21:50)
[2017-12-07] MEDS: ASPIRIN COATED 81 MG TABLET.EC PO SCH (10:00)
--- NOTE | 2017-12-07 10:03 | PN ---
Progress Note (short form) - Note Progress Note: RENAL Pt is awake and alert his sodium was rising quickly and his hypertonic saline was held Last Vital Signs Temp Pulse Resp BP Pulse Ox 97.6 F 72 15 100/75 100 12/07/17 05:00 12/07/17 06:00 12/07/17 06:00 12/07/17 06:00 12/06/17 21:00 lungs crackles at bases cvs s1s2 rr abd soft ext trace edema neuro a+ox3 skin no lesions CBC, BMP 12/07/17 03:30 12/07/17 03:30 Current Medications Generic Name Dose Route Start Last Admin Trade Name Freq PRN Reason Stop Dose Admin Apixaban 5 mg 12/06/17 22:00 12/07/17 09:50 Eliquis - PO 5 mg BID JAYSON Administration Aspirin 81 mg 12/07/17 10:00 Ecotrin - PO DAILY JAYSON Atorvastatin Calcium 10 mg 12/07/17 22:00 Lipitor - PO HS JAYSON Brimonidine Tartrate 1 drop 12/07/17 10:00 Alphagan 0.15% - OU BID JAYSON Carvedilol 6.25 mg 12/06/17 22:00 12/07/17 09:50 Coreg - PO 6.25 mg BID JAYSON Administration Sodium Chloride 256.5 meq/ 500 mls @ 15 mls/hr 12/07/17 02:28 Sterile Water IV 12/08/17 04:50 ASDIR ONE Levothyroxine Sodium 37.5 mcg 12/08/17 07:00 Synthroid - PO DAILY@0700 JAYSON Levothyroxine Sodium 37.5 mcg 12/07/17 09:47 Synthroid - PO 12/07/17 09:48 ONCE ONE Losartan Potassium 50 mg 12/07/17 10:00 12/07/17 09:50 Cozaar - PO 50 mg DAILY JAYSON Administration Montelukast Sodium 10 mg 12/07/17 22:00 Singulair - PO HS JAYSON Ondansetron HCl 4 mg 12/06/17 22:18 12/06/17 22:22 Zofran Injection IVPUSH 4 mg Q4H PRN Administration NAUSEA AND/OR VOMITING Pilocarpine HCl 1 drop 12/07/17 14:00 Pilostat 0.5% - OU TID JAYSON IMPRESSION Hyponatremia likely due to diuretics. Had very low chloride and high bicarb which would be consistent PLAN await todays labs would switch to ns with kcl 20 meq at 75 cc and observe will need to exclude other causes of hyponatremia MV
--- NOTE | 2017-12-07 10:13 | PN ---
Progress Note (short form) - Note Progress Note: CCM F/U Pt seen and examined in ICU 24Hr: -Na slowly correcting on hypertonic, albeit slowly -restarted home meds, TSH wnl. -Neph saw, will cont 3% for now Vital Signs Temp 97.6 F 12/07/17 05:00 Pulse 72 12/07/17 06:00 Resp 15 12/07/17 06:00 BP 100/75 12/07/17 06:00 Pulse Ox 100 12/06/17 21:00 Intake & Output 12/06/17 12/06/17 12/07/17 11:59 23:59 11:59 Intake Total 330 167.5 Output Total 675 300 Balance -345 -132.5 Weight 69.4 kg 67.6 kg 68.492 kg Intake: IV 110 67.5 SODIUM CHLORIDE 3% 500 ml 30 In 500 ml @ 15 mls/hr IV ASDIR ONE Rx#: [id number] SODIUM CHLORIDE 3% 500 ml 20 In 500 ml @ 20 mls/hr IV ASDIR ONE Rx#: [id number] Sterile Water *TPN Order* 60 67.5 435.875 ml @ 20 mls/hr IV ASDIR ONE with Sodium Chloride 23.4% - 256.5 Meq Rx#:[id number] IVPB 100 100 Oral 120 Output: Urine 675 300 Void 675 300 Other: Voiding Method Urinal Bowel Movement No No Height 5 ft 4 in 5 ft 4 in Body Mass Index (BMI) 26.2 25.5 Weight Measurement Method Built in [facility] Built in [facility] Weight Measurement Method Est/Stated by Patient Current Medications Apixaban (Eliquis -) 5 mg PO BID ON LICENSE OF [facility] Last Admin: 12/07/17 09:50 Dose: 5 mg Aspirin (Ecotrin -) 81 mg PO DAILY ON LICENSE OF [facility] Last Admin: 12/07/17 10:00 Dose: 81 mg Atorvastatin Calcium (Lipitor -) 10 mg PO HS ON LICENSE OF [facility] Brimonidine Tartrate (Alphagan 0.15% -) 1 drop OU BID ON LICENSE OF [facility] Carvedilol (Coreg -) 6.25 mg PO BID ON LICENSE OF [facility] Last Admin: 12/07/17 09:50 Dose: 6.25 mg Sodium Chloride 256.5 meq/ (Sterile Water) 500 mls @ 15 mls/hr IV ASDIR ONE Stop: 12/08/17 04:50 Levothyroxine Sodium (Synthroid -) 37.5 mcg PO DAILY@0700 ON LICENSE OF [facility] Losartan Potassium (Cozaar -) 50 mg PO DAILY ON [facility] OF [facility] Last Admin: 12/07/17 09:50 Dose: 50 mg Montelukast Sodium (Singulair -) 10 mg PO HS ON LICENSE OF [facility] Ondansetron HCl (Zofran Injection) 4 mg IVPUSH Q4H PRN PRN Reason: NAUSEA AND/OR VOMITING Last Admin: 12/06/17 22:22 Dose: 4 mg Pilocarpine HCl (Pilostat 0.5% -) 1 drop OU TID JAYSON CBC, BMP 12/07/17 03:30 12/07/17 03:30 PE: Gen: awake, alert, in chair INAD HEENT: NCAT PULM: clear anterior CV: reg, paced ABD: soft, slightly distended EXT: mild dependent edema NEURO: no focal, N/V improved Assessment/Plan CCM A/ 72 yo male with h/o HTN, DM, hyperlipidemia, CAD s/p 2 stents, hypothyroidism, ischemic cardiomyopathy s/p ICD, COPD admitted for hyponatremia (multifactorial) P/ Hyponatremia, likley combination of freewater intake, diuretic use with metolazone, some overload -hypertonic to NS with KCL as per Nephrology, recs appreciated -correction of 10meq/24hr or less -serial BMP -free water restrict -may need diuretic with the hypertonic if signs of CHF CAD/CHF: -cont ASA, Eliquis -cont Coreg -statin -cont Losartan Hypothyroid: -cont synthroid No indication for GI prophy On Eliquis ( DVT prophy) ICU monitoring until off hypertonic Full Code: Discussed POC with pt and family at bedside Jesus ACNP [id number] Problem List - Problems (1) Hypokalemia Code(s): E87.6 - HYPOKALEMIA (2) Hyponatremia Code(s): E87.1 - HYPO-OSMOLALITY AND HYPONATREMIA (3) Systolic CHF, acute on chronic Code(s): I50.23 - ACUTE ON CHRONIC SYSTOLIC (CONGESTIVE) HEART FAILURE (4) A-fib Code(s): I48.91 - UNSPECIFIED ATRIAL FIBRILLATION Qualifiers: Atrial fibrillation type: persistent Qualified Code(s): I48.1 - Persistent atrial fibrillation (5) Cwviw-lv-aomvvwz kidney injury Code(s): N17.9 - ACUTE KIDNEY FAILURE, UNSPECIFIED; N18.9 - CHRONIC KIDNEY DISEASE, UNSPECIFIED (6) Automatic implantable cardiac defibrillator in situ Code(s): Z95.810 - PRESENCE OF AUTOMATIC (IMPLANTABLE) CARDIAC DEFIBRILLATOR
[2017-12-07 10:22] LABS: HEMATOCRIT 37.6 % (35.4-49); HEMOGLOBIN 13.3 GM/dL (11.7-16.9); MCH 30.9 pg (25.7-33.7); MCHC 35.3 g/dl (32.0-35.9); MEAN CELL VOLUME 87.6 fl (80-96); MEAN PLT VOLUME 8.9 fl (7.5-11.1); PLATELET COUNT 144 K/MM3 (134-434); RBC 4.29 M/mm3 (4.00-5.60); RDW 14.5 % (11.9-15.9); WHITE BLOOD COUNT 6.8 K/mm3 (4.0-10.0)
[2017-12-07] MEDS ORDERED: SODIUM CHLORIDE 0.9%/KCL 20 MEQ/1,000 ML INFUS.BAG IV SCH ×2 (10:30→19:45)
[2017-12-07 10:51] LABS: ANION GAP 12 MMOL/L (8-16); BLOOD UREA NITROGEN 15 mg/dL (7-18); CALCIUM 8.4 mg/dL (8.5-10.1); CHLORIDE 78 mmol/L (98-107); CO2 32 mmol/L (21-32); CREATININE 1.2 mg/dL (0.55-1.3); GLUCOSE,RANDOM 180 mg/dL (74-106); MAGNESIUM 1.9 mg/dL (1.8-2.4); PHOSPHOROUS 2.8 mg/dL (2.5-4.9); POTASSIUM 3.4 mmol/L (3.5-5.1); SODIUM 121 mmol/L (136-145)
[2017-12-07] MEDS: BRIMONIDINE TARTRATE 0.15% OPHTHALMIC 5 ML BOTTLE OU SCH ×2 (10:51→21:49)
--- NOTE | 2017-12-07 11:03 | HP ---
Admitting History and Physical - Primary Care Physician PCP: Fannie Drake - Admission Chief Complaint: hyponatremia History of Present Illness: Pt sent from home for abnormal labs-- sodium was 117. Recent h/o nausea, vomiting multiple times for last few days. Had come to the office and labs were done. Pt admits to feeling weak and having a "garbled speech" Pt examined in ICU-- he feels better He is sitting up in chair He is on Hypertonic saline admits he was drinking a lot of water and gatorade when he was vomiting History Source: Patient Limitations to Obtaining History: No Limitations - Past Medical History Cardiovascular: Yes: CAD (s/p stent in 2005- [facility] HTN, Hyperlipdemia, Other (CHF, cardiomyopathy- s/p AICD, S/p 2 Stents) Pulmonary: Yes: Asthma. No: Cancer Gastrointestinal: Yes: GERD Renal/: Yes: Renal Inusuff (creat- around 1.3), BPH - Smoking History Smoking history: Never smoked Have you smoked in the past 12 months: No - Alcohol/Substance Use Hx Alcohol Use: No Number of Drinks Daily: 0 History of Substance Use: reports: None - Social History ADL: Independent History of Recent Travel: No Home Medications - Allergies Allergies/Adverse Reactions: Allergies Allergy/AdvReac Type Severity Reaction Status Date / Time No Known Allergies Allergy Verified 12/06/17 09:58 - Home Medications Home Medications: Ambulatory Orders Apixaban [Eliquis -] 5 mg PO BID 08/07/17 Aspirin 81 mg PO DAILY 08/07/17 Atorvastatin Ca [Lipitor] 10 mg PO HS 08/07/17 Brimonidine Tartrate [Alphagan 0.15% -] 1 drop OU BID 08/07/17 Carvedilol [Coreg -] 6.25 mg PO BID 08/07/17 Esomeprazole Magnesium [Nexium 24Hr] 40 mg PO DAILY 08/07/17 Fluticasone/Salmeterol [Advair 250-50 Diskus] 1 each IH BID 08/07/17 Levothyroxine [Synthroid -] 37.5 mcg PO DAILY 08/07/17 Montelukast Sodium [Singulair] 10 mg PO DAILY 08/07/17 [place]-3 Fatty Acids/Fish Oil [Fish Oil 1,000 mg Capsule] 1 each PO DAILY Pilocarpine 0.5% [Pilostat 0.5% -] 1 drop OU TID 08/07/17 Solifenacin Succinate [Vesicare -] 5 mg PO DAILY 08/07/17 Furosemide [Lasix] 40 mg PO BID 12/06/17 Losartan Potassium [Cozaar -] 50 mg PO DAILY 12/06/17 Review of Systems - Review of Systems Constitutional: reports: Weakness. denies: Chills, Fever Cardiovascular: denies: Chest Pain, Edema, Palpitations Respiratory: reports: Wheezing. denies: Cough, SOB, SOB on Exertion Physical Examination Vital Signs: Vital Signs Temperature 97.6 F 12/07/17 05:00 Pulse Rate 72 12/07/17 06:00 Respiratory Rate 15 12/07/17 06:00 Blood Pressure 100/75 12/07/17 06:00 O2 Sat by Pulse Oximetry (%) 100 12/06/17 21:00 Constitutional: Yes: No Distress, Calm Cardiovascular: Yes: Pulse Irregular, Murmur Respiratory: Yes: Diminished Gastrointestinal: Yes: Normal Bowel Sounds, Soft Edema: No Labs: CBC, BMP 12/07/17 10:05 12/07/17 10:05 Imaging - Results Chest X-ray: Image Reviewed (clear) EKG: Image Reviewed (paced) Problem List - Problems (1) Hypokalemia Code(s): E87.6 - HYPOKALEMIA (2) Hyponatremia Code(s): E87.1 - HYPO-OSMOLALITY AND HYPONATREMIA (3) Nausea & vomiting Code(s): R11.2 - NAUSEA WITH VOMITING, UNSPECIFIED (4) A-fib Code(s): I48.91 - UNSPECIFIED ATRIAL FIBRILLATION Qualifiers: Atrial fibrillation type: persistent Qualified Code(s): I48.1 - Persistent atrial fibrillation Assessment/Plan PLAN On Hypertonic saline Renal eval appreciated check Sodium q2h continue with meds hyponatremia due to diuretic use and gastritis replacing potassium continue with meds monitor for volume overload Protonix for GERD
[2017-12-07] MEDS ORDERED: POTASSIUM CHLORIDE ORAL LIQUID 20 MEQ/15 ML PO ONE ×2 (11:13)
[2017-12-07] MEDS ORDERED: POLYETHYLENE GLYCOL 3350 119 GM BTL PO PRN (11:13)
[2017-12-07] MEDS ORDERED: ALBUTEROL SO4 8 GM HFA INHALER IH PRN (11:15)
[2017-12-07] MEDS: PANTOPRAZOLE 40 MG TABLET (FP) PO SCH (13:14)
[2017-12-07] MEDS ORDERED: PILOCARPINE HCL OU SCH ×2 (14:00→22:00)
[2017-12-07 19:13] LABS: ANION GAP 9 MMOL/L (8-16); BLOOD UREA NITROGEN 16 mg/dL (7-18); CHLORIDE 84 mmol/L (98-107); CO2 31 mmol/L (21-32); CREATININE 1.1 mg/dL (0.55-1.3); GLUCOSE,RANDOM 180 mg/dL (74-106); POTASSIUM 3.8 mmol/L (3.5-5.1); SODIUM 124 mmol/L (136-145)
[2017-12-07 19:14] LABS: CALCIUM 8.3 mg/dL (8.5-10.1)
[2017-12-07] MEDS ORDERED: ATORVASTATIN CA 10 MG TABLET (FP) PO SCH (22:00)
[2017-12-07] MEDS ORDERED: MONTELUKAST NA 10 MG TABLET PO SCH (22:00)
[2017-12-08 02:23] LABS: ALBUMIN 3.1 g/dl (3.4-5.0); ANION GAP 5 MMOL/L (8-16); BLOOD UREA NITROGEN 18 mg/dL (7-18); CALCIUM 8.2 mg/dL (8.5-10.1); CHLORIDE 86 mmol/L (98-107); CO2 33 mmol/L (21-32); CREATININE 1.3 mg/dL (0.55-1.3); GLUCOSE,RANDOM 118 mg/dL (74-106); SODIUM 124 mmol/L (136-145)
[2017-12-08 02:24] LABS: POTASSIUM 4.5 mmol/L (3.5-5.1)
[2017-12-08] MEDS ORDERED: SODIUM CHLORIDE 0.9%/KCL 20 MEQ/1,000 ML INFUS.BAG IV SCH (02:37)
[2017-12-08] MEDS ORDERED: SODIUM CHLORIDE 1,000 ML IV SCH ×2 (02:45→15:39)
[2017-12-08 06:24] LABS: ALBUMIN 3.1 g/dl (3.4-5.0); ANION GAP 8 MMOL/L (8-16); BLOOD UREA NITROGEN 18 mg/dL (7-18); CALCIUM 8.2 mg/dL (8.5-10.1); CHLORIDE 89 mmol/L (98-107); CO2 29 mmol/L (21-32); CREATININE 1.2 mg/dL (0.55-1.3); GLUCOSE,RANDOM 133 mg/dL (74-106); MAGNESIUM 1.8 mg/dL (1.8-2.4); POTASSIUM 3.8 mmol/L (3.5-5.1); SODIUM 126 mmol/L (136-145)
[2017-12-08] MEDS ORDERED: LEVOTHYROXINE NA 25 MCG TABLET (FP) PO SCH (07:00)
[2017-12-08] MEDS ORDERED: LEVOTHYROXINE NA 50 MCG TABLET (FP) PO SCH (07:00)
[2017-12-08] MEDS ORDERED: LEVOTHYROXINE NA 25 MCG TABLET (FP) PO ONE (09:47)
[2017-12-08] MEDS: ASPIRIN COATED 81 MG TABLET.EC PO SCH (10:09)
[2017-12-08] MEDS: CARVEDILOL 6.25 MG TABLET (FP) PO SCH ×2 (10:09→22:09)
[2017-12-08] MEDS: APIXABAN 5 MG TABLET PO SCH ×2 (10:09→22:08)
[2017-12-08] MEDS: LOSARTAN POTASSIUM 50 MG TABLET (FP) PO SCH (10:09)
[2017-12-08] MEDS: PANTOPRAZOLE 40 MG TABLET (FP) PO SCH (10:09)
[2017-12-08] MEDS: BRIMONIDINE TARTRATE 0.15% OPHTHALMIC 5 ML BOTTLE OU SCH ×2 (10:12→22:10)
--- NOTE | 2017-12-08 11:25 | PN ---
Progress Note (short form) - Note Progress Note: Pt seen/ examined in icu chart reviewed events noted sitting in chair feels ok sodium better off hypertonic saline Vital Signs Temp 98.3 F 12/08/17 10:00 Pulse 70 12/08/17 10:00 Resp 18 12/08/17 10:00 BP 113/73 12/08/17 10:00 Pulse Ox 97 12/08/17 08:01 Intake & Output 12/07/17 12/07/17 12/08/17 11:59 23:59 11:59 Intake Total 167.5 738 426 Output Total 300 1100 300 Balance -132.5 -362 126 Weight 151 lb 151 lb Intake: IV 67.5 618 426 NS+20 MEQ KCL - 20 meq In 183 426 1,000 ml @ 42 mls/hr IV ASDIR JAYSON Rx#:[id number] NS+20 MEQ KCL - 20 meq In 375 1,000 ml @ 75 mls/hr IV ASDIR JAYSON Rx#:[id number] Sterile Water *TPN Order* 67.5 60 435.875 ml @ 20 mls/hr IV ASDIR ONE with Sodium Chloride 23.4% - 256.5 Meq Rx#:[id number] IVPB 100 0 0 Oral 120 Output: Urine 300 1100 300 Void 300 1100 300 Other: Voiding Method Urinal Urinal Urinal # Unmeasured Voids Void 1 Bowel Movement No No No Weight Measurement Method [facility] Active Medications Albuterol Sulfate (Ventolin Hfa Inhaler -) 2 puff IH Q4H PRN PRN Reason: SHORT OF BREATH/WHEEZING Apixaban (Eliquis -) 5 mg PO BID [facility] Last Admin: 12/08/17 10:09 Dose: 5 mg Aspirin (Ecotrin -) 81 mg PO DAILY [facility] Last Admin: 12/08/17 10:09 Dose: 81 mg Atorvastatin Calcium (Lipitor -) 10 mg PO HS [facility] Last Admin: 12/07/17 21:50 Dose: 10 mg Brimonidine Tartrate (Alphagan 0.15% -) 1 drop OU BID [facility] Last Admin: 12/08/17 10:12 Dose: 1 drop Carvedilol (Coreg -) 6.25 mg PO BID [facility] Last Admin: 12/08/17 10:09 Dose: 6.25 mg Sodium Chloride (Normal Saline -) 1,000 mls @ 75 mls/hr IV ASDIR [facility] Last Admin: 12/08/17 02:45 Dose: 75 mls/hr Levothyroxine Sodium (Synthroid -) 37.5 mcg PO DAILY@0700 [facility] Last Admin: 12/08/17 06:31 Dose: 37.5 mcg Losartan Potassium (Cozaar -) 50 mg PO DAILY [facility] Last Admin: 12/08/17 10:09 Dose: 50 mg Montelukast Sodium (Singulair -) 10 mg PO HS [facility] Last Admin: 12/07/17 21:50 Dose: 10 mg Ondansetron HCl (Zofran Injection) 4 mg IVPUSH Q4H PRN PRN Reason: NAUSEA AND/OR VOMITING Last Admin: 12/06/17 22:22 Dose: 4 mg Pantoprazole Sodium (Protonix -) 40 mg PO DAILY [facility] Last Admin: 12/08/17 10:09 Dose: 40 mg Pilocarpine HCl (Pilostat 0.5% -) 1 drop OU TID [facility] Polyethylene Glycol (Miralax (For Daily Use) -) 17 gm PO DAILY PRN PRN Reason: CONSTIPATION Last Admin: 12/07/17 13:14 Dose: 17 grams CBC, BMP 12/07/17 10:05 12/08/17 05:30 Microbiology 12/06/17 11:00 Urine Culture - Final Urine - Urine Clean Catch Contaminated: Please Repeat cxr -- reviewed Physical Examination Constitutional: Yes: No Distress, Comfortable. Cardiovascular: Yes: Pulse Irregular, Murmur Respiratory: Yes: Diminished Gastrointestinal: Yes: Normal Bowel Sounds, Soft Edema: No Imaging - Results Chest X-ray: Image Reviewed (clear) EKG: Image Reviewed (paced) Problem List - Problems (1) Hypokalemia Code(s): E87.6 - HYPOKALEMIA (2) Hyponatremia Code(s): E87.1 - HYPO-OSMOLALITY AND HYPONATREMIA (3) Nausea & vomiting Code(s): R11.2 - NAUSEA WITH VOMITING, UNSPECIFIED (4) A-fib Code(s): I48.91 - UNSPECIFIED ATRIAL FIBRILLATION Qualifiers: Atrial fibrillation type: persistent Qualified Code(s): I48.1 - Persistent atrial fibrillation Assessment/Plan Better on i/v ns continue with meds off diuretice and Entresto monitor for volume overload Protonix for GERD overall better Monitor lytes will follow can downgrade
--- NOTE | 2017-12-08 12:57 | PN ---
Teaching Attending Note Name of Resident: Missy Connolly ATTENDING PHYSICIAN STATEMENT I saw and evaluated the patient. I reviewed the resident's note and discussed the case with the resident. I agree with the resident's findings and plan as documented. SUBJECTIVE: Patient seen and examined in the ICU. Awake and alert. Reported some SOB this AM but feels back to baseline now. No CP. Na has improved to 126. Off 3% saline. Intake & Output 12/05/17 12/06/17 12/07/17 12/08/17 23:59 23:59 23:59 23:59 Intake Total 330 905.5 426 Output Total 675 1400 300 Balance -345 -494.5 126 Weight 149 lb 0.52 oz 151 lb 151 lb Last Vital Signs Temp Pulse Resp BP Pulse Ox 98.3 F 70 18 95/70 97 12/08/17 10:00 12/08/17 12:00 12/08/17 12:00 12/08/17 12:00 12/08/17 08:01 Active Medications Albuterol Sulfate (Ventolin Hfa Inhaler -) 2 puff IH Q4H PRN PRN Reason: SHORT OF BREATH/WHEEZING Apixaban (Eliquis -) 5 mg PO BID [facility] Last Admin: 12/08/17 10:09 Dose: 5 mg Aspirin (Ecotrin -) 81 mg PO DAILY [facility] Last Admin: 12/08/17 10:09 Dose: 81 mg Atorvastatin Calcium (Lipitor -) 10 mg PO HS [facility] Last Admin: 12/07/17 21:50 Dose: 10 mg Brimonidine Tartrate (Alphagan 0.15% -) 1 drop OU BID [facility] Last Admin: 12/08/17 10:12 Dose: 1 drop Carvedilol (Coreg -) 6.25 mg PO BID [facility] Last Admin: 12/08/17 10:09 Dose: 6.25 mg Sodium Chloride (Normal Saline -) 1,000 mls @ 75 mls/hr IV ASDIR [facility] Last Admin: 12/08/17 02:45 Dose: 75 mls/hr Levothyroxine Sodium (Synthroid -) 37.5 mcg PO DAILY@0700 [facility] Last Admin: 12/08/17 06:31 Dose: 37.5 mcg Losartan Potassium (Cozaar -) 50 mg PO DAILY [facility] Last Admin: 12/08/17 10:09 Dose: 50 mg Montelukast Sodium (Singulair -) 10 mg PO HS [facility] Last Admin: 12/07/17 21:50 Dose: 10 mg Ondansetron HCl (Zofran Injection) 4 mg IVPUSH Q4H PRN PRN Reason: NAUSEA AND/OR VOMITING Last Admin: 12/06/17 22:22 Dose: 4 mg Pantoprazole Sodium (Protonix -) 40 mg PO DAILY [facility] Last Admin: 12/08/17 10:09 Dose: 40 mg Pilocarpine HCl (Pilostat 0.5% -) 1 drop OU TID [facility] Polyethylene Glycol (Miralax (For Daily Use) -) 17 gm PO DAILY PRN PRN Reason: CONSTIPATION Last Admin: 12/07/17 13:14 Dose: 17 grams PE: Gen: awake, alert, NAD HEENT: NC, AT, (-) Icterus PULM: Clear CV: S1S2 ABD: soft, (+) BS, NT EXT: mild dependent edema NEURO: non-focal Laboratory Results - last 24 hr 12/06/17 12/06/17 12/07/17 18:00 18:00 18:38 Sodium 124 L Potassium 3.8 Chloride 84 L Carbon Dioxide 31 Anion Gap 9 BUN 16 Creatinine 1.1 Creat Clearance w eGFR > 60 Random Glucose 180 H Calcium 8.3 L Phosphorus Magnesium Albumin Urine Osmolality 320 D Ur Random Sodium 39 L Ur Random Potassium 56.0 Ur Random Chloride 82 L Ur Random Urea Nitrogn 315 L 12/08/17 12/08/17 01:30 05:30 Sodium 124 L 126 L Potassium 4.5 3.8 Chloride 86 L 89 L Carbon Dioxide 33 H 29 Anion Gap 5 L 8 BUN 18 18 Creatinine 1.3 1.2 Creat Clearance w eGFR 54.11 59.35 Random Glucose 118 H 133 H Calcium 8.2 L 8.2 L Phosphorus 3.0 Magnesium 1.8 Albumin 3.1 L 3.1 L Urine Osmolality Ur Random Sodium Ur Random Potassium Ur Random Chloride Ur Random Urea Nitrogn Problem List - Problems (1) Hypokalemia Code(s): E87.6 - HYPOKALEMIA (2) Hyponatremia Code(s): E87.1 - HYPO-OSMOLALITY AND HYPONATREMIA (3) Systolic CHF, acute on chronic Code(s): I50.23 - ACUTE ON CHRONIC SYSTOLIC (CONGESTIVE) HEART FAILURE (4) A-fib Code(s): I48.91 - UNSPECIFIED ATRIAL FIBRILLATION Qualifiers: Atrial fibrillation type: persistent Qualified Code(s): I48.1 - Persistent atrial fibrillation (5) Tgoez-dh-tuxekop kidney injury Code(s): N17.9 - ACUTE KIDNEY FAILURE, UNSPECIFIED; N18.9 - CHRONIC KIDNEY DISEASE, UNSPECIFIED (6) Automatic implantable cardiac defibrillator in situ Code(s): Z95.810 - PRESENCE OF AUTOMATIC (IMPLANTABLE) CARDIAC DEFIBRILLATOR Assessment/Plan Symptomatic Hyponatremia likely due to diuretics HTN DM Hyperlipidemia CAD S/P PCI Hypothyroidism Ischemic cardiomyopathy S/P ICD COPD Currently on NS Strict I & O O2 as needed Noted on free water restriction ASA Eliquis Statin Losartan Follow chemistry Floor Dr Maddox
[2017-12-08 15:00] VITALS: BMI 25.9
--- NOTE | 2017-12-08 15:30 | PN ---
Progress Note, Physician History of Present Illness: Pt seen and examined at bedside. He is out of bed to chair. - Current Medication List Current Medications: Active Medications Albuterol Sulfate (Ventolin Hfa Inhaler -) 2 puff IH Q4H PRN PRN Reason: SHORT OF BREATH/WHEEZING Apixaban (Eliquis -) 5 mg PO BID [facility] Last Admin: 12/08/17 10:09 Dose: 5 mg Aspirin (Ecotrin -) 81 mg PO DAILY [facility] Last Admin: 12/08/17 10:09 Dose: 81 mg Atorvastatin Calcium (Lipitor -) 10 mg PO HS [facility] Last Admin: 12/07/17 21:50 Dose: 10 mg Brimonidine Tartrate (Alphagan 0.15% -) 1 drop OU BID [facility] Last Admin: 12/08/17 10:12 Dose: 1 drop Carvedilol (Coreg -) 6.25 mg PO BID [facility] Last Admin: 12/08/17 10:09 Dose: 6.25 mg Sodium Chloride (Normal Saline -) 1,000 mls @ 75 mls/hr IV ASDIR [facility] Last Admin: 12/08/17 02:45 Dose: 75 mls/hr Levothyroxine Sodium (Synthroid -) 37.5 mcg PO DAILY@0700 [facility] Last Admin: 12/08/17 06:31 Dose: 37.5 mcg Losartan Potassium (Cozaar -) 50 mg PO DAILY [facility] Last Admin: 12/08/17 10:09 Dose: 50 mg Montelukast Sodium (Singulair -) 10 mg PO HS [facility] Last Admin: 12/07/17 21:50 Dose: 10 mg Ondansetron HCl (Zofran Injection) 4 mg IVPUSH Q4H PRN PRN Reason: NAUSEA AND/OR VOMITING Last Admin: 12/06/17 22:22 Dose: 4 mg Pantoprazole Sodium (Protonix -) 40 mg PO DAILY [facility] Last Admin: 12/08/17 10:09 Dose: 40 mg Pilocarpine HCl (Pilostat 0.5% -) 1 drop OU TID [facility] Polyethylene Glycol (Miralax (For Daily Use) -) 17 gm PO DAILY PRN PRN Reason: CONSTIPATION Last Admin: 12/07/17 13:14 Dose: 17 grams - Objective Vital Signs: Vital Signs Temperature 99.7 F H 12/08/17 14:00 Pulse Rate 74 12/08/17 14:00 Respiratory Rate 18 12/08/17 14:00 Blood Pressure 101/67 12/08/17 14:00 O2 Sat by Pulse Oximetry (%) 97 12/08/17 08:01 Constitutional: Yes: Calm Eyes: Yes: Conjunctiva Clear HENT: Yes: Atraumatic Neck: Yes: Supple Cardiovascular: Yes: S1, S2 Respiratory: Yes: CTA Bilaterally Gastrointestinal: Yes: Soft Genitourinary: Yes: WNL Musculoskeletal: Yes: WNL Edema: Yes Edema: LLE: Trace, RLE: Trace Neurological: Yes: Oriented Psychiatric: Yes: Oriented Labs: CBC, BMP 12/07/17 10:05 12/08/17 05:30 Problem List - Problems (1) Hypokalemia Code(s): E87.6 - HYPOKALEMIA (2) COPD exacerbation Code(s): J44.1 - CHRONIC OBSTRUCTIVE PULMONARY DISEASE W (ACUTE) EXACERBATION Assessment/Plan Current Medications Generic Name Dose Route Start Last Admin Trade Name Freq PRN Reason Stop Dose Admin Albuterol Sulfate 2 puff 12/07/17 11:15 Ventolin Hfa Inhaler - IH Q4H PRN SHORT OF BREATH/WHEEZING Apixaban 5 mg 12/06/17 22:00 12/08/17 10:09 Eliquis - PO 5 mg BID JAYSON Administration Aspirin 81 mg 12/07/17 10:00 12/08/17 10:09 Ecotrin - PO 81 mg DAILY JAYSON Administration Atorvastatin Calcium 10 mg 12/07/17 22:00 12/07/17 21:50 Lipitor - PO 10 mg HS JAYSON Administration Brimonidine Tartrate 1 drop 12/07/17 10:00 12/08/17 10:12 Alphagan 0.15% - OU 1 drop BID JAYSON Administration Carvedilol 6.25 mg 12/06/17 22:00 12/08/17 10:09 Coreg - PO 6.25 mg BID JAYSON Administration Sodium Chloride 1,000 mls @ 75 mls/hr 12/08/17 02:45 12/08/17 02:45 Normal Saline - IV 75 mls/hr ASDIR JAYSON Administration Levothyroxine Sodium 37.5 mcg 12/08/17 07:00 12/08/17 06:31 Synthroid - PO 37.5 mcg DAILY@0700 JAYSON Administration Losartan Potassium 50 mg 12/07/17 10:00 12/08/17 10:09 Cozaar - PO 50 mg DAILY [facility]YSON Administration Montelukast Sodium 10 mg 12/07/17 22:00 12/07/17 21:50 Singulair - PO 10 mg HS [facility]ON Administration Ondansetron HCl 4 mg 12/06/17 22:18 12/06/17 22:22 Zofran Injection IVPUSH 4 mg Q4H PRN Administration NAUSEA AND/OR VOMITING Pantoprazole Sodium 40 mg 12/07/17 11:15 12/08/17 10:09 Protonix - PO 40 mg DAILY JAYSON Administration Pilocarpine HCl 1 drop 12/07/17 22:00 Pilostat 0.5% - OU TID JAYSON Polyethylene Glycol 17 gm 12/07/17 11:13 12/07/17 13:14 Miralax (For Daily Use) - PO 17 grams DAILY PRN Administration CONSTIPATION Laboratory Tests 12/06/17 12/06/17 12/06/17 16:57 18:00 18:00 Serum Osmolality 248 L Urine Osmolality 320 D Ur Random Sodium 39 L 12/06/17 19:30 Serum Osmolality 247 L Urine Osmolality Ur Random Sodium Impression 1. hyponatremia 2. hypothyroidism 3. htn 4. HLD Plan - sodium is improving - check bmp - cont saline - restrict free water - discussed with ICU team - diuretics on hold for now
[2017-12-08] MEDS ORDERED: POLYETHYLENE GLYCOL 3350 119 GM BTL PO PRN (18:31)
[2017-12-08] MEDS ORDERED: ONDANSETRON 4 MG/2 ML VIAL IVPUSH PRN (18:31)
[2017-12-08] MEDS ORDERED: ALBUTEROL SO4 8 GM HFA INHALER IH PRN (18:31)
--- NOTE | 2017-12-08 18:52 | PN ---
Physical Exam: SUBJECTIVE: - Feels well this morning, no new complaints - NAEO OBJECTIVE: Vital Signs Period Temp Pulse Resp BP Sys/Dennis Pulse Ox Last 24 Hr 96.8 F-99.7 F 70-82 14-26 82-122/58-88 96-97 General: Comfortable, no acute distress HEENT: PERRL, EOMI, MMM, voice normal, normal neck ROM, no LAD Cards: RRR, no murmur appreciated Pulm: Comfortable on room air, clear to auscultation bilaterally Abd: Soft, nontender, nondistended Ext: Atraumatic. No LE edema. ROM intact. Strength 5/5 and equal bilaterally Vasc: Extremities WWP. Palpable radial and pedal pulses bilaterally Skin: Normal color, no rashes or lesions Neuro: A&Ox3, CN grossly intact, normal speech, motor/sensory grossly intact and symmetric Psych: Mood appropriate to situation Laboratory Results - last 24 hr 12/07/17 12/08/17 12/08/17 18:38 01:30 05:30 Sodium 124 L 124 L 126 L Potassium 3.8 4.5 3.8 Chloride 84 L 86 L 89 L Carbon Dioxide 31 33 H 29 Anion Gap 9 5 L 8 BUN 16 18 18 Creatinine 1.1 1.3 1.2 Creat Clearance w eGFR > 60 54.11 59.35 Random Glucose 180 H 118 H 133 H Calcium 8.3 L 8.2 L 8.2 L Phosphorus 3.0 Magnesium 1.8 Albumin 3.1 L 3.1 L Active Medications Generic Name Dose Route Start Last Admin Trade Name Freq PRN Reason Stop Dose Admin Albuterol Sulfate 2 puff 12/08/17 18:31 Ventolin Hfa Inhaler - IH Q4H PRN SHORT OF BREATH/WHEEZING Apixaban 5 mg 12/08/17 22:00 Eliquis - PO BID JAYSON Aspirin 81 mg 12/09/17 10:00 Ecotrin - PO DAILY JA[facility]ON Atorvastatin Calcium 10 mg 12/08/17 22:00 Lipitor - PO HS JA[facility]ON Brimonidine Tartrate 1 drop 12/08/17 22:00 Alphagan 0.15% - OU BID JA[facility]ON Carvedilol 6.25 mg 12/08/17 22:00 Coreg - PO BID JA[facility]ON Sodium Chloride 1,000 mls @ 42 mls/hr 12/08/17 15:39 12/08/17 16:00 Normal Saline - IV 42 mls/hr ASDIR JAYSON Administration Levothyroxine Sodium 37.5 mcg 12/09/17 07:00 Synthroid - PO DAILY@0700 JA[facility] Losartan Potassium 50 mg 12/09/17 10:00 Cozaar - PO DAILY JA[facility]ON Montelukast Sodium 10 mg 12/08/17 22:00 Singulair - PO HS JA[facility]ON Ondansetron HCl 4 mg 12/08/17 18:31 Zofran Injection IVPUSH Q4H PRN NAUSEA AND/OR VOMITING Pantoprazole Sodium 40 mg 12/09/17 10:00 Protonix - PO DAILY AJYSON Pilocarpine HCl 1 drop 12/08/17 22:00 Pilostat 0.5% - OU TID JA[facility]ON Polyethylene Glycol 17 gm 12/08/17 18:31 Miralax (For Daily Use) - PO DAILY PRN CONSTIPATION ASSESSMENT/PLAN: Dameon Pascal is a 72yo man with HTN, DM, HLD, CAD s/p stent x2, hypothyroidism , ischemic cardiomyopathy s/p ICD, COPD who was admitted for hyponatremia on Friday. His sodium has continued to improve, and he is now stable for transfer to the floor. Neuro: - No issues, A&O. CV: - h/o HTN, CHF, CAD, ICD placement - Continue home ASA, apixaban, carvedilol, losartan - HDS since admission Pulm: - h/o COPD - Continue home brimonidine, monteleukast - Albuterol nebs Q4 PRN - IS 10x per hour Heme: - Fully anticoagulated on apixaban - Monitor daily CBC GI: - Tolerating diet - Continue miralax, zofran PRN, pantoprazole Renal: - Admitted for hyponatremia, likely secondary to free water intake in the setting of diuretic use at home - Holding home lasix - Initially on 3% saline, now NS at 75/hr - Sodium increased to 126 this morning. PM sodium ordered. ID: - No issues Endo: - h/o hypothyroidism - Continue home synthroid Psych: - No issues Musc: - OOB as tolerated PPx: - Fully anticoagulated - Pantoprazole FEN: - General diet - NS@75 - Monitor sodium level - Replete lytes PRN Dispo: - Transfer to floor Seen and discussed with Dr Tanaud. Missy Connolly PGY1 Visit type - Emergency Visit Emergency Visit: No - New Patient This patient is new to me today: Yes Date on this admission: 12/08/17 - Critical Care Critical Care patient: Yes Total Critical Care Time (in minutes): 30 Critical Care Statement: The care of this patient involved high complexity decision making to prevent further life threatening deterioration of the patient 's condition and/or to evaluate & treat vital organ system(s) failure or risk of failure.
[2017-12-08] MEDS ORDERED: PT OWN MED DRAWER 7, Y5N ONE (20:49)
[2017-12-08] MEDS: MONTELUKAST NA 10 MG TABLET PO SCH (22:09)
[2017-12-08] MEDS: ATORVASTATIN CA 10 MG TABLET (FP) PO SCH (22:09)
[2017-12-09] MEDS: LEVOTHYROXINE NA 25 MCG TABLET (FP) PO SCH (06:04)
[2017-12-09 07:59] LABS: ALBUMIN 3.2 g/dl (3.4-5.0); ALK PHOS 57 U/L (45-117); ANION GAP 6 MMOL/L (8-16); BILIRUBIN,TOTAL 0.8 mg/dL (0.2-1); BLOOD UREA NITROGEN 19 mg/dL (7-18); CALCIUM 8.5 mg/dL (8.5-10.1); CHLORIDE 92 mmol/L (98-107); CO2 30 mmol/L (21-32); CREATININE 1.2 mg/dL (0.55-1.3); GLUCOSE,RANDOM 122 mg/dL (74-106); POTASSIUM 3.8 mmol/L (3.5-5.1); SGOT/AST 21 U/L (15-37); SGPT/ALT 27 U/L (13-61); SODIUM 128 mmol/L (136-145); TOT PROT 6.2 g/dl (6.4-8.2)
[2017-12-09] MEDS: LOSARTAN POTASSIUM 50 MG TABLET (FP) PO SCH (10:38)
[2017-12-09] MEDS: ASPIRIN COATED 81 MG TABLET.EC PO SCH (10:39)
[2017-12-09] MEDS: PANTOPRAZOLE 40 MG TABLET (FP) PO SCH (10:39)
[2017-12-09] MEDS: BRIMONIDINE TARTRATE 0.15% OPHTHALMIC 5 ML BOTTLE OU SCH ×2 (10:39→21:07)
[2017-12-09] MEDS: APIXABAN 5 MG TABLET PO SCH ×2 (10:39→21:04)
[2017-12-09] MEDS: CARVEDILOL 6.25 MG TABLET (FP) PO SCH ×2 (10:39→21:05)
--- NOTE | 2017-12-09 12:17 | PN ---
Progress Note (short form) - Note Progress Note: Appears SOB Constipation- no SM since admission Vital Signs - 24 hr 12/08/17 12/08/17 12/08/17 14:00 15:00 16:00 Temperature 99.7 F H Pulse Rate 74 71 70 Respiratory 18 16 15 Rate Blood Pressure 101/67 109/76 82/68 L O2 Sat by Pulse Oximetry (%) 12/08/17 12/08/17 12/08/17 17:00 18:31 22:00 Temperature 96.8 F L Pulse Rate 70 72 Respiratory 14 20 Rate Blood Pressure 103/84 107/71 O2 Sat by Pulse 97 Oximetry (%) 12/08/17 12/09/17 12/09/17 22:32 06:00 10:00 Temperature 98.0 F 97.4 F L Pulse Rate 70 72 71 Respiratory 18 18 18 Rate Blood Pressure 112/70 116/76 113/65 O2 Sat by Pulse Oximetry (%) Current Medications Generic Name Dose Route Start Last Admin Trade Name Freq PRN Reason Stop Dose Admin Albuterol Sulfate 2 puff 12/08/17 18:31 Ventolin Hfa Inhaler - IH Q4H PRN SHORT OF BREATH/WHEEZING Apixaban 5 mg 12/08/17 22:00 12/09/17 10:39 Eliquis - PO 5 mg BID [facility]ON Administration Aspirin 81 mg 12/09/17 10:00 12/09/17 10:39 Ecotrin - PO 81 mg DAILY [facility]ON Administration Atorvastatin Calcium 10 mg 12/08/17 22:00 12/08/17 22:09 Lipitor - PO 10 mg HS JA[facility]ON Administration Brimonidine Tartrate 1 drop 12/08/17 22:00 12/09/17 10:39 Alphagan 0.15% - OU 1 drop BID [facility]ON Administration Carvedilol 6.25 mg 12/08/17 22:00 12/09/17 10:39 Coreg - PO 6.25 mg BID JA[facility]ON Administration Furosemide 20 mg 12/09/17 12:30 Lasix Injection - IVPUSH 12/09/17 12:31 ONCE ONE Levothyroxine Sodium 37.5 mcg 12/09/17 07:00 12/09/17 06:04 Synthroid - PO 37.5 mcg DAILY@0700 [facility] Administration Losartan Potassium 50 mg 12/09/17 10:00 12/09/17 10:38 Cozaar - PO 50 mg DAILY [facility] Administration Mineral Oil 133 ml 12/09/17 12:31 Fleet Mineral Oil Rectal Enema - MI 12/09/17 12:32 NOW ONE Montelukast Sodium 10 mg 12/08/17 22:00 12/08/17 22:09 Singulair - PO 10 mg HS [facility] Administration Ondansetron HCl 4 mg 12/08/17 18:31 Zofran Injection IVPUSH Q4H PRN NAUSEA AND/OR VOMITING Pantoprazole Sodium 40 mg 12/09/17 10:00 12/09/17 10:39 Protonix - PO 40 mg DAILY [facility] Administration Pilocarpine HCl 1 drop 12/08/17 22:00 Pilostat 0.5% - OU TID JA[facility]ON Polyethylene Glycol 17 gm 12/08/17 18:31 Miralax (For Daily Use) - PO DAILY PRN CONSTIPATION Laboratory Results - last 24 hr 12/06/17 12/08/17 12/08/17 18:15 20:00 21:00 Sodium Cancelled Cancelled Potassium Cancelled Chloride Cancelled Carbon Dioxide Cancelled Anion Gap Cancelled BUN Cancelled Creatinine Cancelled Creat Clearance w eGFR Cancelled Random Glucose Cancelled Calcium Cancelled Total Bilirubin AST ALT Alkaline Phosphatase Total Protein Albumin Cortisol PM Sample 16.9 H 12/09/17 06:30 Sodium 128 L Potassium 3.8 Chloride 92 L Carbon Dioxide 30 Anion Gap 6 L BUN 19 H Creatinine 1.2 Creat Clearance w eGFR 59.35 Random Glucose 122 H Calcium 8.5 Total Bilirubin 0.8 AST 21 ALT 27 Alkaline Phosphatase 57 Total Protein 6.2 L Albumin 3.2 L Cortisol PM Sample S1 S2 RRR Lungs crackles at bases+ Abd- soft, obese NT, BS+ edema + 1 + PLAN Sodium improving DC fluids Give stat dose of lasix Fleet enema Spoke with at bedside Problem List - Problems (1) Hypokalemia Code(s): E87.6 - HYPOKALEMIA (2) Hyponatremia Code(s): E87.1 - HYPO-OSMOLALITY AND HYPONATREMIA (3) Nausea & vomiting Code(s): R11.2 - NAUSEA WITH VOMITING, UNSPECIFIED (4) A-fib Code(s): I48.91 - UNSPECIFIED ATRIAL FIBRILLATION Qualifiers: Atrial fibrillation type: persistent Qualified Code(s): I48.1 - Persistent atrial fibrillation
[2017-12-09] MEDS ORDERED: FUROSEMIDE 40 MG/4 ML INJECTABLE VIAL IVPUSH ONE (12:30)
[2017-12-09] MEDS ORDERED: MINERAL OIL ENEMA 133 ML ENEMA PR ONE (12:31)
[2017-12-09] MEDS: PILOCARPINE 2% OPHTHALMIC SOLUTION 15 ML BOTTLE OU SCH ×2 (15:22→21:10)
--- NOTE | 2017-12-09 16:33 | PN ---
Progress Note, Physician History of Present Illness: Pt seen and examined at bedside. He is awake and alert. He had some shortness of breath this morning. It improved with a small dose of lasix. - Current Medication List Current Medications: Active Medications Albuterol Sulfate (Ventolin Hfa Inhaler -) 2 puff IH Q4H PRN PRN Reason: SHORT OF BREATH/WHEEZING Apixaban (Eliquis -) 5 mg PO BID [facility] Last Admin: 12/09/17 10:39 Dose: 5 mg Aspirin (Ecotrin -) 81 mg PO DAILY [facility] Last Admin: 12/09/17 10:39 Dose: 81 mg Atorvastatin Calcium (Lipitor -) 10 mg PO HS [facility] Last Admin: 12/08/17 22:09 Dose: 10 mg Brimonidine Tartrate (Alphagan 0.15% -) 1 drop OU BID [facility] Last Admin: 12/09/17 10:39 Dose: 1 drop Carvedilol (Coreg -) 6.25 mg PO BID [facility] Last Admin: 12/09/17 10:39 Dose: 6.25 mg Levothyroxine Sodium (Synthroid -) 37.5 mcg PO DAILY@0700 [facility] Last Admin: 12/09/17 06:04 Dose: 37.5 mcg Losartan Potassium (Cozaar -) 50 mg PO DAILY [facility] Last Admin: 12/09/17 10:38 Dose: 50 mg Montelukast Sodium (Singulair -) 10 mg PO HS [facility] Last Admin: 12/08/17 22:09 Dose: 10 mg Ondansetron HCl (Zofran Injection) 4 mg IVPUSH Q4H PRN PRN Reason: NAUSEA AND/OR VOMITING Pantoprazole Sodium (Protonix -) 40 mg PO DAILY [facility] Last Admin: 12/09/17 10:39 Dose: 40 mg Pilocarpine HCl (Pilostat 2% -) 1 drop OU TID [facility] Last Admin: 12/09/17 15:22 Dose: 1 drop Polyethylene Glycol (Miralax (For Daily Use) -) 17 gm PO DAILY PRN PRN Reason: CONSTIPATION - Objective Vital Signs: Vital Signs Temperature 98.5 F 12/09/17 14:43 Pulse Rate 75 12/09/17 14:43 Respiratory Rate 20 12/09/17 14:43 Blood Pressure 115/53 L 12/09/17 14:43 O2 Sat by Pulse Oximetry (%) 97 12/08/17 22:00 Constitutional: Yes: Calm Eyes: Yes: Conjunctiva Clear HENT: Yes: Atraumatic Neck: Yes: Supple Cardiovascular: Yes: S1, S2 Respiratory: Yes: On Nasal O2 Gastrointestinal: Yes: Soft Genitourinary: Yes: WNL Musculoskeletal: Yes: WNL Edema: Yes Edema: LLE: Trace, RLE: Trace Neurological: Yes: Oriented Psychiatric: Yes: Oriented Labs: CBC, BMP 12/07/17 10:05 12/09/17 06:30 Problem List - Problems (1) Hypokalemia Code(s): E87.6 - HYPOKALEMIA (2) COPD exacerbation Code(s): J44.1 - CHRONIC OBSTRUCTIVE PULMONARY DISEASE W (ACUTE) EXACERBATION Assessment/Plan Current Medications Generic Name Dose Route Start Last Admin Trade Name Freq PRN Reason Stop Dose Admin Albuterol Sulfate 2 puff 12/08/17 18:31 Ventolin Hfa Inhaler - IH Q4H PRN SHORT OF BREATH/WHEEZING Apixaban 5 mg 12/08/17 22:00 12/09/17 10:39 Eliquis - PO 5 mg BID [facility] Administration Aspirin 81 mg 12/09/17 10:00 12/09/17 10:39 Ecotrin - PO 81 mg DAILY [facility] Administration Atorvastatin Calcium 10 mg 12/08/17 22:00 12/08/17 22:09 Lipitor - PO 10 mg HS [facility]ON Administration Brimonidine Tartrate 1 drop 12/08/17 22:00 12/09/17 10:39 Alphagan 0.15% - OU 1 drop BID [facility] Administration Carvedilol 6.25 mg 12/08/17 22:00 12/09/17 10:39 Coreg - PO 6.25 mg BID [facility] Administration Levothyroxine Sodium 37.5 mcg 12/09/17 07:00 12/09/17 06:04 Synthroid - PO 37.5 mcg DAILY@0700 [facility] Administration Losartan Potassium 50 mg 12/09/17 10:00 12/09/17 10:38 Cozaar - PO 50 mg DAILY [facility] Administration Montelukast Sodium 10 mg 12/08/17 22:00 12/08/17 22:09 Singulair - PO 10 mg HS [facility]ON Administration Ondansetron HCl 4 mg 12/08/17 18:31 Zofran Injection IVPUSH Q4H PRN NAUSEA AND/OR VOMITING Pantoprazole Sodium 40 mg 12/09/17 10:00 12/09/17 10:39 Protonix - PO 40 mg DAILY [facility] Administration Pilocarpine HCl 1 drop 12/09/17 14:45 12/09/17 15:22 Pilostat 2% - OU 1 drop TID JA[facility]ON Administration Polyethylene Glycol 17 gm 12/08/17 18:31 Miralax (For Daily Use) - PO DAILY PRN CONSTIPATION Impression 1. hyponatremia 2. hypothyroidism 3. htn 4. HLD Plan - sodium is still improving - repeat labs in am - lasix 20 mg po once - restrict free water, discussed with pt and his - will follow
[2017-12-09] MEDS ORDERED: PT OWN MED DRAWER 7, Y5N ONE (21:02)
[2017-12-09] MEDS: ATORVASTATIN CA 10 MG TABLET (FP) PO SCH (21:05)
[2017-12-09] MEDS: MONTELUKAST NA 10 MG TABLET PO SCH (21:05)
[2017-12-10] MEDS: LEVOTHYROXINE NA 25 MCG TABLET (FP) PO SCH (06:24)
[2017-12-10] MEDS: PILOCARPINE 2% OPHTHALMIC SOLUTION 15 ML BOTTLE OU SCH ×3 (06:26→21:23)
[2017-12-10 08:19] LABS: ANION GAP 13 MMOL/L (8-16); BLOOD UREA NITROGEN 22 mg/dL (7-18); CALCIUM 9.6 mg/dL (8.5-10.1); CHLORIDE 92 mmol/L (98-107); CO2 27 mmol/L (21-32); CREATININE 1.4 mg/dL (0.55-1.3); GLUCOSE,RANDOM 114 mg/dL (74-106); POTASSIUM 3.7 mmol/L (3.5-5.1); SODIUM 131 mmol/L (136-145)
[2017-12-10] MEDS ORDERED: PT OWN MED DRAWER 7, Y5N ONE (09:54)
[2017-12-10] MEDS: ASPIRIN COATED 81 MG TABLET.EC PO SCH (10:04)
[2017-12-10] MEDS: BRIMONIDINE TARTRATE 0.15% OPHTHALMIC 5 ML BOTTLE OU SCH ×2 (10:04→21:23)
[2017-12-10] MEDS: CARVEDILOL 6.25 MG TABLET (FP) PO SCH ×2 (10:04→21:23)
[2017-12-10] MEDS: APIXABAN 5 MG TABLET PO SCH ×2 (10:04→21:23)
[2017-12-10] MEDS: LOSARTAN POTASSIUM 50 MG TABLET (FP) PO SCH (10:04)
[2017-12-10] MEDS: PANTOPRAZOLE 40 MG TABLET (FP) PO SCH (10:04)
--- NOTE | 2017-12-10 12:01 | PN ---
Progress Note (short form) - Note Progress Note: had a bm yesterday and today breathing is better Vital Signs - 24 hr 12/09/17 12/09/17 12/09/17 14:43 20:18 22:20 Temperature 98.5 F 97.5 F L Pulse Rate 75 72 Respiratory 20 20 20 Rate Blood Pressure 115/53 L 106/74 O2 Sat by Pulse 97 Oximetry (%) 12/10/17 12/10/17 06:00 09:05 Temperature 97.4 F L 98.2 F Pulse Rate 74 75 Respiratory 20 18 Rate Blood Pressure 129/76 123/82 O2 Sat by Pulse Oximetry (%) Current Medications Generic Name Dose Route Start Last Admin Trade Name Freq PRN Reason Stop Dose Admin Albuterol Sulfate 2 puff 12/08/17 18:31 Ventolin Hfa Inhaler - IH Q4H PRN SHORT OF BREATH/WHEEZING Apixaban 5 mg 12/08/17 22:00 12/10/17 10:04 Eliquis - PO 5 mg BID JA[facility]ON Administration Aspirin 81 mg 12/09/17 10:00 12/10/17 10:04 Ecotrin - PO 81 mg DAILY [facility] Administration Atorvastatin Calcium 10 mg 12/08/17 22:00 12/09/17 21:05 Lipitor - PO 10 mg HS JA[facility]ON Administration Brimonidine Tartrate 1 drop 12/08/17 22:00 12/10/17 10:04 Alphagan 0.15% - OU 1 drop BID [facility] Administration Carvedilol 6.25 mg 12/08/17 22:00 12/10/17 10:04 Coreg - PO 6.25 mg BID JA[facility]ON Administration Levothyroxine Sodium 37.5 mcg 12/09/17 07:00 12/10/17 06:24 Synthroid - PO 37.5 mcg DAILY@0700 [facility] Administration Losartan Potassium 50 mg 12/09/17 10:00 12/10/17 10:04 Cozaar - PO 50 mg DAILY [facility] Administration Montelukast Sodium 10 mg 12/08/17 22:00 12/09/17 21:05 Singulair - PO 10 mg HS [facility]ON Administration Ondansetron HCl 4 mg 12/08/17 18:31 Zofran Injection IVPUSH Q4H PRN NAUSEA AND/OR VOMITING Pantoprazole Sodium 40 mg 12/09/17 10:00 12/10/17 10:04 Protonix - PO 40 mg DAILY [facility] Administration Pilocarpine HCl 1 drop 12/09/17 14:45 12/10/17 06:26 Pilostat 2% - OU 1 drop TID [facility]ON Administration Polyethylene Glycol 17 gm 12/08/17 18:31 12/10/17 10:05 Miralax (For Daily Use) - PO 17 grams DAILY PRN Administration CONSTIPATION Laboratory Results - last 24 hr 12/10/17 07:20 Sodium 131 L Potassium 3.7 Chloride 92 L Carbon Dioxide 27 Anion Gap 13 BUN 22 H Creatinine 1.4 H Creat Clearance w eGFR 49.68 Random Glucose 114 H Calcium 9.6 S1 S2 RRR Lungs crackles at bases+ Abd- soft, obese NT, BS+ edema + decreased PLAN Sodium improving spoke with renal about diuretics Lasix PO Problem List - Problems (1) Hypokalemia Code(s): E87.6 - HYPOKALEMIA (2) Hyponatremia Code(s): E87.1 - HYPO-OSMOLALITY AND HYPONATREMIA (3) Nausea & vomiting Code(s): R11.2 - NAUSEA WITH VOMITING, UNSPECIFIED (4) A-fib Code(s): I48.91 - UNSPECIFIED ATRIAL FIBRILLATION Qualifiers: Atrial fibrillation type: persistent Qualified Code(s): I48.1 - Persistent atrial fibrillation
[2017-12-10] MEDS ORDERED: MINERAL OIL ENEMA 133 ML ENEMA PR ONE (16:45)
--- NOTE | 2017-12-10 17:59 | PN ---
Progress Note, Physician History of Present Illness: Pt seen and examined at bedside. He is awake and alert. He denies shortness of breath. - Current Medication List Current Medications: Active Medications Albuterol Sulfate (Ventolin Hfa Inhaler -) 2 puff IH Q4H PRN PRN Reason: SHORT OF BREATH/WHEEZING Apixaban (Eliquis -) 5 mg PO BID [facility] Last Admin: 12/10/17 10:04 Dose: 5 mg Aspirin (Ecotrin -) 81 mg PO DAILY [facility] Last Admin: 12/10/17 10:04 Dose: 81 mg Atorvastatin Calcium (Lipitor -) 10 mg PO HS [facility] Last Admin: 12/09/17 21:05 Dose: 10 mg Brimonidine Tartrate (Alphagan 0.15% -) 1 drop OU BID [facility] Last Admin: 12/10/17 10:04 Dose: 1 drop Carvedilol (Coreg -) 6.25 mg PO BID [facility] Last Admin: 12/10/17 10:04 Dose: 6.25 mg Levothyroxine Sodium (Synthroid -) 37.5 mcg PO DAILY@0700 [facility] Last Admin: 12/10/17 06:24 Dose: 37.5 mcg Losartan Potassium (Cozaar -) 50 mg PO DAILY [facility] Last Admin: 12/10/17 10:04 Dose: 50 mg Montelukast Sodium (Singulair -) 10 mg PO [facility] Last Admin: 12/09/17 21:05 Dose: 10 mg Ondansetron HCl (Zofran Injection) 4 mg IVPUSH Q4H PRN PRN Reason: NAUSEA AND/OR VOMITING Pantoprazole Sodium (Protonix -) 40 mg PO DAILY [facility] Last Admin: 12/10/17 10:04 Dose: 40 mg Pilocarpine HCl (Pilostat 2% -) 1 drop OU TID [facility] Last Admin: 12/10/17 15:09 Dose: 1 drop Polyethylene Glycol (Miralax (For Daily Use) -) 17 gm PO DAILY PRN PRN Reason: CONSTIPATION Last Admin: 12/10/17 10:05 Dose: 17 grams - Objective Vital Signs: Vital Signs Temperature 97.8 F 12/10/17 15:13 Pulse Rate 70 12/10/17 15:13 Respiratory Rate 18 12/10/17 15:13 Blood Pressure 105/71 12/10/17 15:13 O2 Sat by Pulse Oximetry (%) 99 12/10/17 09:05 Constitutional: Yes: Calm Eyes: Yes: Conjunctiva Clear HENT: Yes: Atraumatic Cardiovascular: Yes: S1, S2 Respiratory: Yes: CTA Bilaterally Gastrointestinal: Yes: Soft Musculoskeletal: Yes: WNL Edema: Yes Edema: LLE: Trace, RLE: Trace Neurological: Yes: Oriented Psychiatric: Yes: Oriented Labs: CBC, BMP 12/07/17 10:05 12/10/17 07:20 Problem List - Problems (1) Hypokalemia Code(s): E87.6 - HYPOKALEMIA (2) COPD exacerbation Code(s): J44.1 - CHRONIC OBSTRUCTIVE PULMONARY DISEASE W (ACUTE) EXACERBATION Assessment/Plan Current Medications Generic Name Dose Route Start Last Admin Trade Name Freq PRN Reason Stop Dose Admin Albuterol Sulfate 2 puff 12/08/17 18:31 Ventolin Hfa Inhaler - IH Q4H PRN SHORT OF BREATH/WHEEZING Apixaban 5 mg 12/08/17 22:00 12/10/17 10:04 Eliquis - PO 5 mg BID [facility] Administration Aspirin 81 mg 12/09/17 10:00 12/10/17 10:04 Ecotrin - PO 81 mg DAILY [facility] Administration Atorvastatin Calcium 10 mg 12/08/17 22:00 12/09/17 21:05 Lipitor - PO 10 mg HS [facility] Administration Brimonidine Tartrate 1 drop 12/08/17 22:00 12/10/17 10:04 Alphagan 0.15% - OU 1 drop BID [facility] Administration Carvedilol 6.25 mg 12/08/17 22:00 12/10/17 10:04 Coreg - PO 6.25 mg BID [facility] Administration Levothyroxine Sodium 37.5 mcg 12/09/17 07:00 12/10/17 06:24 Synthroid - PO 37.5 mcg DAILY@0700 [facility] Administration Losartan Potassium 50 mg 12/09/17 10:00 12/10/17 10:04 Cozaar - PO 50 mg DAILY [facility] Administration Montelukast Sodium 10 mg 12/08/17 22:00 12/09/17 21:05 Singulair - PO 10 mg HS [facility] Administration Ondansetron HCl 4 mg 12/08/17 18:31 Zofran Injection IVPUSH Q4H PRN NAUSEA AND/OR VOMITING Pantoprazole Sodium 40 mg 12/09/17 10:00 12/10/17 10:04 Protonix - PO 40 mg DAILY [facility] Administration Pilocarpine HCl 1 drop 12/09/17 14:45 12/10/17 15:09 Pilostat 2% - OU 1 drop TID [facility] Administration Polyethylene Glycol 17 gm 12/08/17 18:31 12/10/17 10:05 Miralax (For Daily Use) - PO 17 grams DAILY PRN Administration CONSTIPATION Impression 1. hyponatremia 2. hypothyroidism 3. htn 4. HLD Plan - sodium continues to improve - repeat labs in am - will restart lasix tomorrow - daily weights - will need close follow up after discharge - restrict free water - will follow
[2017-12-10] MEDS ORDERED: FUROSEMIDE 20 MG TABLET (FP) PO ONE (19:52)
[2017-12-10] MEDS: ATORVASTATIN CA 10 MG TABLET (FP) PO SCH (21:23)
[2017-12-10] MEDS: MONTELUKAST NA 10 MG TABLET PO SCH (21:23)
[2017-12-11] MEDS: PILOCARPINE 2% OPHTHALMIC SOLUTION 15 ML BOTTLE OU SCH ×3 (06:05→21:16)
[2017-12-11] MEDS: LEVOTHYROXINE NA 25 MCG TABLET (FP) PO SCH (06:06)
[2017-12-11 08:27] LABS: ANION GAP 9 MMOL/L (8-16); BLOOD UREA NITROGEN 25 mg/dL (7-18); CALCIUM 8.9 mg/dL (8.5-10.1); CHLORIDE 93 mmol/L (98-107); CO2 28 mmol/L (21-32); CREATININE 1.4 mg/dL (0.55-1.3); GLUCOSE,RANDOM 110 mg/dL (74-106); POTASSIUM 3.9 mmol/L (3.5-5.1); SODIUM 130 mmol/L (136-145)
[2017-12-11] MEDS: ASPIRIN COATED 81 MG TABLET.EC PO SCH (10:44)
[2017-12-11] MEDS: APIXABAN 5 MG TABLET PO SCH ×2 (10:44→21:15)
[2017-12-11] MEDS: PANTOPRAZOLE 40 MG TABLET (FP) PO SCH (10:44)
[2017-12-11] MEDS: LOSARTAN POTASSIUM 50 MG TABLET (FP) PO SCH (10:44)
[2017-12-11] MEDS: CARVEDILOL 6.25 MG TABLET (FP) PO SCH ×2 (10:45→21:15)
[2017-12-11] MEDS: BRIMONIDINE TARTRATE 0.15% OPHTHALMIC 5 ML BOTTLE OU SCH ×2 (10:45→21:16)
--- NOTE | 2017-12-11 11:43 | PN ---
Progress Note (short form) - Note Progress Note: had a bm yesterday and today - but less could not sleep due to SOB having a difficult time speaking Vital Signs - 24 hr 12/10/17 12/10/17 12/10/17 15:13 20:52 22:00 Temperature 97.8 F 97.6 F Pulse Rate 70 71 Respiratory 18 20 20 Rate Blood Pressure 105/71 116/86 O2 Sat by Pulse 98 Oximetry (%) 12/11/17 05:30 Temperature 97.5 F L Pulse Rate 70 Respiratory Rate Blood Pressure 112/68 O2 Sat by Pulse Oximetry (%) Current Medications Generic Name Dose Route Start Last Admin Trade Name Freq PRN Reason Stop Dose Admin Albuterol Sulfate 2 puff 12/08/17 18:31 12/10/17 21:34 Ventolin Hfa Inhaler - IH 2 puff Q4H PRN Administration SHORT OF BREATH/WHEEZING Apixaban 5 mg 12/08/17 22:00 12/11/17 10:44 Eliquis - PO 5 mg BID [facility] Administration Aspirin 81 mg 12/09/17 10:00 12/11/17 10:44 Ecotrin - PO 81 mg DAILY [facility] Administration Atorvastatin Calcium 10 mg 12/08/17 22:00 12/10/17 21:23 Lipitor - PO 10 mg HS [facility] Administration Brimonidine Tartrate 1 drop 12/08/17 22:00 12/11/17 10:45 Alphagan 0.15% - OU 1 drop BID [facility] Administration Carvedilol 6.25 mg 12/08/17 22:00 12/11/17 10:45 Coreg - PO 6.25 mg BID [facility] Administration Docusate Sodium 100 mg 12/11/17 14:00 Colace - PO TID [facility] Furosemide 40 mg 12/11/17 12:07 Lasix Injection - IVPUSH 12/11/17 12:08 ONCE ONE Levothyroxine Sodium 37.5 mcg 12/09/17 07:00 12/11/17 06:06 Synthroid - PO 37.5 mcg DAILY@0700 [facility] Administration Losartan Potassium 50 mg 12/09/17 10:00 12/11/17 10:44 Cozaar - PO 50 mg DAILY [facility] Administration Montelukast Sodium 10 mg 12/08/17 22:00 12/10/17 21:23 Singulair - PO 10 mg HS [facility] Administration Ondansetron HCl 4 mg 12/08/17 18:31 Zofran Injection IVPUSH Q4H PRN NAUSEA AND/OR VOMITING Pantoprazole Sodium 40 mg 12/09/17 10:00 12/11/17 10:44 Protonix - PO 40 mg DAILY [facility] Administration Pilocarpine HCl 1 drop 12/09/17 14:45 12/11/17 06:05 Pilostat 2% - OU 1 drop TID [facility] Administration Polyethylene Glycol 17 gm 12/08/17 18:31 12/10/17 10:05 Miralax (For Daily Use) - PO 17 grams DAILY PRN Administration CONSTIPATION Senna 2 tab 12/11/17 12:09 Senna - PO HS PRN CONSTIPATION Laboratory Results - last 24 hr 12/11/17 06:18 Sodium 130 L Potassium 3.9 Chloride 93 L Carbon Dioxide 28 Anion Gap 9 BUN 25 H Creatinine 1.4 H Creat Clearance w eGFR 49.68 Random Glucose 110 H Calcium 8.9 S1 S2 RRR Lungs crackles at bases+ Abd- soft, obese NT, BS+ edema + decreased PLAN Sodium about same give IV Lasix bowel regimen for constipation check FUA and CXR abd sono- for distension Consult- cardiology for CHF Problem List - Problems (1) Hypokalemia Code(s): E87.6 - HYPOKALEMIA (2) Hyponatremia Code(s): E87.1 - HYPO-OSMOLALITY AND HYPONATREMIA (3) Nausea & vomiting Code(s): R11.2 - NAUSEA WITH VOMITING, UNSPECIFIED (4) A-fib Code(s): I48.91 - UNSPECIFIED ATRIAL FIBRILLATION Qualifiers: Atrial fibrillation type: persistent Qualified Code(s): I48.1 - Persistent atrial fibrillation
[2017-12-11] MEDS ORDERED: FUROSEMIDE 40 MG/4 ML INJECTABLE VIAL IVPUSH ONE (12:07)
[2017-12-11] MEDS ORDERED: SENNOSIDES 8.6MG TABLET (FP) PO PRN (12:09)
[2017-12-11] MEDS: DOCUSATE SODIUM 100 MG CAPSULE (FP) PO SCH ×2 (13:12→21:15)
--- NOTE | 2017-12-11 13:13 | CON.CARD ---
Consult Consult Specialty:: Cardiology Referred by:: Nohemy Morris MD Reason for Consultation:: Cardiomyopathy, dyspnea - History of Present Illness Chief Complaint: Hyponatremia History of Present Illness: 72 yo male with h/o HTN, DM, hyperlipidemia, CAD s/p 2 stents, hypothyroidism, ischemic cardiomyopathy s/p ICD, COPD admitted for significant hyponatremia, nausea, emesis requiring hypertonic salinie and holding diuresis. Pt reported adjustments in diuretic over last two weeks (decrease of lasix but addition of metolazone), also admits to significant free water intake (states drinks two glasses of water, and lots of coffee and tea daily). He reports worsening dyspnea and orthopnea off diuretics, denies chest pain, near or true syncope, palpitations, orthopnea, PND or LE edema, IVF d/rayne and restarted on diuresis - History Source History Provided By: Patient Limitations to Obtaining History: No Limitations - Past Medical History Cardio/Vascular: Yes: CAD (s/p stent in 2005- [facility] HTN, Hyperlipdemia, Other (CHF, cardiomyopathy- s/p AICD, S/p 2 Stents) Pulmonary: Yes: Asthma. No: Cancer Gastrointestinal: Yes: GERD Renal/: Yes: Renal Inusuff (creat- around 1.3), BPH - Past Surgical History Past Surgical History: Yes: Permanent Pacemaker - Alcohol/Substance Use Hx Alcohol Use: No Number of Drinks Daily: 0 History of Substance Use: reports: None - Smoking History Smoking history: Never smoked Have you smoked in the past 12 months: No - Social History Usual Living Arrangement: With Spouse ADL: Independent History of Recent Travel: No Home Medications - Allergies Allergies/Adverse Reactions: Allergies Allergy/AdvReac Type Severity Reaction Status Date / Time No Known Allergies Allergy Verified 12/06/17 09:58 - Home Medications Home Medications: Ambulatory Orders Apixaban [Eliquis -] 5 mg PO BID 08/07/17 Aspirin 81 mg PO DAILY 08/07/17 Atorvastatin Ca [Lipitor] 10 mg PO HS 08/07/17 Brimonidine Tartrate [Alphagan 0.15% -] 1 drop OU BID 08/07/17 Carvedilol [Coreg -] 6.25 mg PO BID 08/07/17 Esomeprazole Magnesium [Nexium 24Hr] 40 mg PO DAILY 08/07/17 Fluticasone/Salmeterol [Advair 250-50 Diskus] 1 each IH BID 08/07/17 Levothyroxine [Synthroid -] 37.5 mcg PO DAILY 08/07/17 Montelukast Sodium [Singulair] 10 mg PO DAILY 08/07/17 [place]-3 Fatty Acids/Fish Oil [Fish Oil 1,000 mg Capsule] 1 each PO DAILY Pilocarp[place] 0.5% [Pilostat 0.5% -] 1 drop OU TID 08/07/17 Solifenacin Succinate [Vesicare -] 5 mg PO DAILY 08/07/17 Furosemide [Lasix] 40 mg PO BID 12/06/17 Losartan Potassium [Cozaar -] 50 mg PO DAILY 12/06/17 Review of Systems - Review of Systems Constitutional: reports: No Symptoms Eyes: reports: No Symptoms HENT: reports: No Symptoms Cardiovascular: reports: Shortness of Breath Respiratory: reports: Orthopnea Gastrointestinal: reports: Nausea, Vomiting Genitourinary: reports: No Symptoms Musculoskeletal: reports: No Symptoms Integumentary: reports: No Symptoms Neurological: reports: No Symptoms Vital Signs: Vital Signs Temperature 97.5 F L 12/11/17 05:30 Pulse Rate 70 12/11/17 05:30 Respiratory Rate 20 12/10/17 22:00 Blood Pressure 112/68 12/11/17 05:30 O2 Sat by Pulse Oximetry (%) 98 12/10/17 20:52 Constitutional: Yes: No Distress, Calm, Thin Neck: Yes: Supple Respiratory: Yes: Regular, Diminished, Orthopnea, Rales, SOB Gastrointestinal: Yes: Normal Bowel Sounds, Soft Cardiovascular: Yes: Regular Rate and Rhythm JVD: No Carotid Bruit: No Heart Sounds: Yes: S1, S2 Murmur: Yes: Systolic Murmur, Grade 2 Edema: No - Other Data Labs, Other Data: CBC, BMP 12/07/17 10:05 12/11/17 06:18 Afib v-paced @ 71 Ejection Fraction %: LVEF < 40 % Imaging - Results Chest X-ray: Report Reviewed (NAD) EKG: Report Reviewed (Tele: v-paced at 71) Problem List - Problems (1) Hyponatremia Code(s): E87.1 - HYPO-OSMOLALITY AND HYPONATREMIA (2) Systolic CHF, acute on chronic Code(s): I50.23 - ACUTE ON CHRONIC SYSTOLIC (CONGESTIVE) HEART FAILURE (3) A-fib Code(s): I48.91 - UNSPECIFIED ATRIAL FIBRILLATION Qualifiers: Atrial fibrillation type: persistent Qualified Code(s): I48.1 - Persistent atrial fibrillation (4) Automatic implantable cardiac defibrillator in situ Code(s): Z95.810 - PRESENCE OF AUTOMATIC (IMPLANTABLE) CARDIAC DEFIBRILLATOR (5) CAD (coronary artery disease) Code(s): I25.10 - ATHSCL HEART DISEASE OF [place] CORONARY ARTERY W/O ANG PCTRS Qualifiers: Coronary Disease-Associated Artery/Lesion type: unspecified vessel or lesion type [place] vs. transplanted heart: unspecified whether [place] or transplanted heart Associated angina: with unspecified angina Qualified Code (s): I25.119 - Atherosclerotic heart disease of [place] coronary artery with unspecified angina pectoris (6) CKD (chronic kidney disease) stage 3, GFR 30-59 ml/min Code(s): N18.3 - CHRONIC KIDNEY DISEASE, STAGE 3 (MODERATE) (7) HTN (hypertension) Code(s): I10 - ESSENTIAL (PRIMARY) HYPERTENSION Qualifiers: Hypertension type: essential hypertension Qualified Code(s): I10 - Essential (primary) hypertension (8) Hyperlipidemia Code(s): E78.5 - HYPERLIPIDEMIA, UNSPECIFIED Qualifiers: Hyperlipidemia type: pure hypercholesterolemia Qualified Code(s): E78.00 - Pure hypercholesterolemia, unspecified; E78.0 - Pure hypercholesterolemia (9) Hypothyroidism Code(s): E03.9 - HYPOTHYROIDISM, UNSPECIFIED Qualifiers: Hypothyroidism type: unspecified Qualified Code(s): E03.9 - Hypothyroidism , unspecified (10) Status post coronary artery stent placement Code(s): Z95.5 - PRESENCE OF CORONARY ANGIOPLASTY IMPLANT AND GRAFT Assessment/Plan 07/02/2017 Echo: Normal LV size with severely decreased LV fxn, anterior AK, severe TR, mod-severe MR, mild-mod AR, mild [place] 1. Resolving hyponatremia 2. Acute on chronic LV systolic failure with underlying severe TR, mod-severe MR off diuretics 3. Persistent atrial fibrillation [id number] score of 4 on NOAC 4. CAD post [place]/PCI/stent angina pectoris 5. s/p ICD 6. HTN 7. Hypercholesterolemia 8. Hypothyroidism 9. DM 10. CKD PLAN: 1. Received IV Lasix, resume Demadex tomorrow with monitor diuretic response, renal function and electrolytes, keep K>4.0 Mg>2.0 2. Continue Coreg 6.25 mg BID as tolerated 3. Continue losartan 50 qd and resume Aldactone 25 mg QD with monitoring renal function. Entresto may be considered as outpatient 4. Continue Eliquis 5 mg twice daily 5. ASA should be discontinued while on NOAC as CAD is stable 6. Continue Lipitor 10 qhs 7. 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 Free H2O restriction 9. Thank you for consultative opportunity Patient is to follow up with Dr. Rad Flower (cardiology) at [facility] post discharge
--- NOTE | 2017-12-11 14:30 | EKG ---
Test Reason : Blood Pressure : / mmHG Vent. Rate : 071 BPM Atrial Rate : 070 BPM P-R Int : 000 ms QRS Dur : 160 ms QT Int : 532 ms P-R-T Axes : 000 -76 087 degrees QTc Int : 578 ms Ventricular-paced rhythm ABNORMAL ECG WHEN COMPARED WITH ECG OF 06-DEC-2017 10:39, NO SIGNIFICANT CHANGE WAS FOUND Confirmed by GELACIO QURESHI MD ([id number]) on 12/11/2017 2:30:37 PM Referred By: Confirmed By:GELACIO QURESHI MD
--- NOTE | 2017-12-11 14:52 | PN ---
Progress Note, Physician History of Present Illness: Pt seen and examined at bedside. He complained of shortness of breath today. - Current Medication List Current Medications: Active Medications Albuterol Sulfate (Ventolin Hfa Inhaler -) 2 puff IH Q4H PRN PRN Reason: SHORT OF BREATH/WHEEZING Last Admin: 12/10/17 21:34 Dose: 2 puff Apixaban (Eliquis -) 5 mg PO BID [facility] Last Admin: 12/11/17 10:44 Dose: 5 mg Aspirin (Ecotrin -) 81 mg PO DAILY [facility] Last Admin: 12/11/17 10:44 Dose: 81 mg Atorvastatin Calcium (Lipitor -) 10 mg PO [facility] Last Admin: 12/10/17 21:23 Dose: 10 mg Brimonidine Tartrate (Alphagan 0.15% -) 1 drop OU BID [facility] Last Admin: 12/11/17 10:45 Dose: 1 drop Carvedilol (Coreg -) 6.25 mg PO BID [facility] Last Admin: 12/11/17 10:45 Dose: 6.25 mg Docusate Sodium (Colace -) 100 mg PO TID [facility] Last Admin: 12/11/17 13:12 Dose: 100 mg Levothyroxine Sodium (Synthroid -) 37.5 mcg PO DAILY@0700 [facility] Last Admin: 12/11/17 06:06 Dose: 37.5 mcg Losartan Potassium (Cozaar -) 50 mg PO DAILY [facility] Last Admin: 12/11/17 10:44 Dose: 50 mg Montelukast Sodium (Singulair -) 10 mg PO [facility] Last Admin: 12/10/17 21:23 Dose: 10 mg Ondansetron HCl (Zofran Injection) 4 mg IVPUSH Q4H PRN PRN Reason: NAUSEA AND/OR VOMITING Pantoprazole Sodium (Protonix -) 40 mg PO DAILY [facility] Last Admin: 12/11/17 10:44 Dose: 40 mg Pilocarpine HCl (Pilostat 2% -) 1 drop OU TID [facility] Last Admin: 12/11/17 13:12 Dose: 1 drop Polyethylene Glycol (Miralax (For Daily Use) -) 17 gm PO DAILY PRN PRN Reason: CONSTIPATION Last Admin: 12/10/17 10:05 Dose: 17 grams Senna (Senna -) 2 tab PO PRN PRN Reason: CONSTIPATION - Objective Vital Signs: Vital Signs Temperature 97.5 F L 12/11/17 14:17 Pulse Rate 80 12/11/17 14:17 Respiratory Rate 20 12/11/17 10:00 Blood Pressure 109/72 12/11/17 14:17 O2 Sat by Pulse Oximetry (%) 98 12/10/17 20:52 Constitutional: Yes: Calm Eyes: Yes: Conjunctiva Clear HENT: Yes: Atraumatic Cardiovascular: Yes: S1, S2 Respiratory: Yes: On Nasal O2, Rhonchi Gastrointestinal: Yes: Soft Genitourinary: Yes: WNL Musculoskeletal: Yes: WNL Edema: Yes Edema: LLE: 1+, RLE: 1+ Neurological: Yes: Oriented Psychiatric: Yes: Oriented Labs: CBC, BMP 12/07/17 10:05 12/11/17 06:18 Problem List - Problems (1) Hypokalemia Code(s): E87.6 - HYPOKALEMIA (2) COPD exacerbation Code(s): J44.1 - CHRONIC OBSTRUCTIVE PULMONARY DISEASE W (ACUTE) EXACERBATION Assessment/Plan Current Medications Generic Name Dose Route Start Last Admin Trade Name Freq PRN Reason Stop Dose Admin Albuterol Sulfate 2 puff 12/08/17 18:31 12/10/17 21:34 Ventolin Hfa Inhaler - IH 2 puff Q4H PRN Administration SHORT OF BREATH/WHEEZING Apixaban 5 mg 12/08/17 22:00 12/11/17 10:44 Eliquis - PO 5 mg BID [facility] Administration Aspirin 81 mg 12/09/17 10:00 12/11/17 10:44 Ecotrin - PO 81 mg DAILY [facility] Administration Atorvastatin Calcium 10 mg 12/08/17 22:00 12/10/17 21:23 Lipitor - PO 10 mg HS [facility] Administration Brimonidine Tartrate 1 drop 12/08/17 22:00 12/11/17 10:45 Alphagan 0.15% - OU 1 drop BID [facility] Administration Carvedilol 6.25 mg 12/08/17 22:00 12/11/17 10:45 Coreg - PO 6.25 mg BID [facility] Administration Docusate Sodium 100 mg 12/11/17 14:00 12/11/17 13:12 Colace - PO 100 mg TID [facility] Administration Levothyroxine Sodium 37.5 mcg 12/09/17 07:00 12/11/17 06:06 Synthroid - PO 37.5 mcg DAILY@0700 [facility] Administration Losartan Potassium 50 mg 12/09/17 10:00 12/11/17 10:44 Cozaar - PO 50 mg DAILY [facility] Administration Montelukast Sodium 10 mg 12/08/17 22:00 12/10/17 21:23 Singulair - PO 10 mg HS [facility] Administration Ondansetron HCl 4 mg 12/08/17 18:31 Zofran Injection IVPUSH Q4H PRN NAUSEA AND/OR VOMITING Pantoprazole Sodium 40 mg 12/09/17 10:00 12/11/17 10:44 Protonix - PO 40 mg DAILY [facility] Administration Pilocarpine HCl 1 drop 12/09/17 14:45 12/11/17 13:12 Pilostat 2% - OU 1 drop TID [facility] Administration Polyethylene Glycol 17 gm 12/08/17 18:31 12/10/17 10:05 Miralax (For Daily Use) - PO 17 grams DAILY PRN Administration CONSTIPATION Senna 2 tab 12/11/17 12:09 Senna - PO HS PRN CONSTIPATION Impression 1. hyponatremia 2. hypothyroidism 3. htn 4. HLD 5. CHF Plan - agree with lasix - will start torsemide tomorrow - monitor renal function - monitor lytes - restrict free water - daily weights - will need close follow up after discharge - will follow
[2017-12-11] MEDS ORDERED: PT OWN MED DRAWER 7, Y5N ONE (20:46)
[2017-12-11] MEDS: ATORVASTATIN CA 10 MG TABLET (FP) PO SCH (21:15)
[2017-12-11] MEDS: MONTELUKAST NA 10 MG TABLET PO SCH (21:15)
[2017-12-12] MEDS: DOCUSATE SODIUM 100 MG CAPSULE (FP) PO SCH ×2 (06:10→13:50)
[2017-12-12] MEDS: LEVOTHYROXINE NA 25 MCG TABLET (FP) PO SCH (06:10)
[2017-12-12] MEDS: TORSEMIDE 20 MG TABLET (FP) PO SCH ×2 (06:11→11:43)
[2017-12-12] MEDS: PILOCARPINE 2% OPHTHALMIC SOLUTION 15 ML BOTTLE OU SCH ×2 (06:11→13:50)
[2017-12-12 08:01] LABS: ANION GAP 13 MMOL/L (8-16); BLOOD UREA NITROGEN 26 mg/dL (7-18); CALCIUM 9.2 mg/dL (8.5-10.1); CHLORIDE 95 mmol/L (98-107); CO2 28 mmol/L (21-32); CREATININE 1.4 mg/dL (0.55-1.3); GLUCOSE,RANDOM 110 mg/dL (74-106); POTASSIUM 3.5 mmol/L (3.5-5.1); SODIUM 136 mmol/L (136-145)
[2017-12-12] MEDS ORDERED: POTASSIUM CHLORIDE TABS 20 MEQ TABLET.ER (FP) PO ONE (08:30)
--- NOTE | 2017-12-12 10:37 | DS ---
Physical Examination Vital Signs: Vital Signs Temperature 97.4 F L 12/12/17 06:00 Pulse Rate 77 12/12/17 06:00 Respiratory Rate 20 12/11/17 23:52 Blood Pressure 109/73 12/12/17 06:00 O2 Sat by Pulse Oximetry (%) 98 12/11/17 20:15 Findings/Remarks: feels much better and wants to go home Denies chest pain Breathing okay Chart reviewed Constitutional: Yes: No Distress, Calm Eyes: Yes: Conjunctiva Clear Neck: Yes: Supple Cardiovascular: Yes: Pulse Irregular Respiratory: Yes: Diminished Gastrointestinal: Yes: Soft Edema: RUE: 1+, LLE: 1+ Neurological: Yes: Alert Psychiatric: Yes: Alert Labs: CBC, BMP 12/07/17 10:05 12/12/17 06:00 Discharge Summary Reason For Visit: CHRONIC LEFT VENTRICULAR SYSTOLIC HEART FAILURE Current Active Problems Hypokalemia (Acute) Hyponatremia (Acute) Nausea & vomiting (Acute) Systolic CHF, acute on chronic (Acute) Hospital Course: 72 yo male with h/o HTN, DM, hyperlipidemia, CAD s/p 2 stents, hypothyroidism, ischemic cardiomyopathy s/p ICD, COPD admitted for significant hyponatremia, nausea, emesis requiring hypertonic salinie and holding diuresis. patient initially admitted to ICU Stabilized downgraded Cardiology followed as well as renal medications adjusted Now improved hyponatremia resolved Need close monitoring Will discharge home today medications Reconciled Patient to follow in office next week Patient in agreement Discussed with nursing staff also Discharge time--30 minutes----examining documenting as well as coordinating care Condition: Improved - Instructions Referrals: Fannie Drake MD [Primary Care Provider] - Disposition: HOME - Home Medications Comprehensive Discharge Medication List: Ambulatory Orders Apixaban [Eliquis -] 5 mg PO BID 08/07/17 Atorvastatin Ca [Lipitor] 10 mg PO HS 08/07/17 Brimonidine Tartrate [Alphagan 0.15% -] 1 drop OU BID 08/07/17 Carvedilol [Coreg -] 6.25 mg PO BID 08/07/17 Esomeprazole Magnesium [Nexium 24Hr] 40 mg PO DAILY 08/07/17 Fluticasone/Salmeterol [Advair 250-50 Diskus] 1 each IH BID 08/07/17 Levothyroxine [Synthroid -] 37.5 mcg PO DAILY 08/07/17 Montelukast Sodium [Singulair] 10 mg PO DAILY 08/07/17 [place]-3 Fatty Acids/Fish Oil [Fish Oil 1,000 mg Capsule] 1 each PO DAILY [place] 0.5% [Pilostat 0.5% -] 1 drop OU TID 08/07/17 Furosemide [Lasix] 40 mg PO BID 12/06/17 Albuterol Sulfate Inhaler - [Ventolin HFA Inhaler -] 2 puff IH Q4H PRN inhaler 12/12/17 Pilocarpine 2% [Pilostat 2% -] 1 drop OU TID drops 12/12/17 Polyethylene Glycol 3350 [Miralax 119 gm Btl -] 17 gm PO DAILY PRN bottle 12/12 Sacubitril/Valsartan [Entresto 24 mg-26 mg Tablet] 1 each PO BID #30 tablet
[2017-12-12 10:57] VITALS: BP 103/75; PULSE 73; TEMP 97.8
[2017-12-12] MEDS: LOSARTAN POTASSIUM 50 MG TABLET (FP) PO SCH (11:42)
[2017-12-12] MEDS: CARVEDILOL 6.25 MG TABLET (FP) PO SCH (11:42)
[2017-12-12] MEDS: PANTOPRAZOLE 40 MG TABLET (FP) PO SCH (11:43)
[2017-12-12] MEDS: ASPIRIN COATED 81 MG TABLET.EC PO SCH (11:43)
[2017-12-12] MEDS: APIXABAN 5 MG TABLET PO SCH (11:43)
[2017-12-12] MEDS: BRIMONIDINE TARTRATE 0.15% OPHTHALMIC 5 ML BOTTLE OU SCH (11:45)
--- NOTE | 2017-12-12 12:14 | PN ---
Progress Note, Physician History of Present Illness: Dyspnea and orthopnea improved after resumption of diuretics, he denies chest pain, near or true syncope, palpitations, orthopnea, PND or LE edema. Sodium continues to improve. - Current Medication List Current Medications: Active Medications Albuterol Sulfate (Ventolin Hfa Inhaler -) 2 puff IH Q4H PRN PRN Reason: SHORT OF BREATH/WHEEZING Last Admin: 12/10/17 21:34 Dose: 2 puff Apixaban (Eliquis -) 5 mg PO BID [facility] Last Admin: 12/12/17 11:43 Dose: 5 mg Aspirin (Ecotrin -) 81 mg PO DAILY [facility] Last Admin: 12/12/17 11:43 Dose: 81 mg Atorvastatin Calcium (Lipitor -) 10 mg PO [facility] Last Admin: 12/11/17 21:15 Dose: 10 mg Brimonidine Tartrate (Alphagan 0.15% -) 1 drop OU BID [facility] Last Admin: 12/12/17 11:45 Dose: 1 drop Carvedilol (Coreg -) 6.25 mg PO BID [facility] Last Admin: 12/12/17 11:42 Dose: 6.25 mg Docusate Sodium (Colace -) 100 mg PO TID [facility] Last Admin: 12/12/17 06:10 Dose: 100 mg Levothyroxine Sodium (Synthroid -) 37.5 mcg PO DAILY@0700 [facility] Last Admin: 12/12/17 06:10 Dose: 37.5 mcg Losartan Potassium (Cozaar -) 50 mg PO DAILY [facility] Last Admin: 12/12/17 11:42 Dose: 50 mg Montelukast Sodium (Singulair -) 10 mg PO [facility] Last Admin: 12/11/17 21:15 Dose: 10 mg Ondansetron HCl (Zofran Injection) 4 mg IVPUSH Q4H PRN PRN Reason: NAUSEA AND/OR VOMITING Pantoprazole Sodium (Protonix -) 40 mg PO DAILY [facility] Last Admin: 12/12/17 11:43 Dose: 40 mg Pilocarpine HCl (Pilostat 2% -) 1 drop OU TID [facility] Last Admin: 12/12/17 06:11 Dose: 1 drop Polyethylene Glycol (Miralax (For Daily Use) -) 17 gm PO DAILY PRN PRN Reason: CONSTIPATION Last Admin: 09/26/18 10:05 Dose: 17 grams Senna (Senna -) 2 tab PO HS PRN PRN Reason: CONSTIPATION Torsemide (Demadex -) 20 mg PO DAILY [facility] Last Admin: 12/12/17 11:43 Dose: 20 mg - Objective Vital Signs: Vital Signs Temperature 97.8 F 12/12/17 09:00 Pulse Rate 73 12/12/17 09:00 Respiratory Rate 20 12/12/17 09:00 Blood Pressure 103/75 12/12/17 09:00 O2 Sat by Pulse Oximetry (%) 98 12/12/17 09:00 Constitutional: Yes: No Distress, Calm, Thin Neck: Yes: Supple Cardiovascular: Yes: Regular Rate and Rhythm, Murmur (2/6 SM) Respiratory: Yes: Regular, CTA Bilaterally Gastrointestinal: Yes: Normal Bowel Sounds, Soft Edema: Yes Edema: LLE: Trace, RLE: Trace Labs: CBC, BMP 12/07/17 10:05 12/12/17 06:00 - ....Imaging Chest X-ray: Report Reviewed (NAD) Problem List - Problems (1) Hyponatremia Code(s): E87.1 - HYPO-OSMOLALITY AND HYPONATREMIA (2) Systolic CHF, acute on chronic Code(s): I50.23 - ACUTE ON CHRONIC SYSTOLIC (CONGESTIVE) HEART FAILURE (3) A-fib Code(s): I48.91 - UNSPECIFIED ATRIAL FIBRILLATION Qualifiers: Atrial fibrillation type: persistent Qualified Code(s): I48.1 - Persistent atrial fibrillation (4) Automatic implantable cardiac defibrillator in situ Code(s): Z95.810 - PRESENCE OF AUTOMATIC (IMPLANTABLE) CARDIAC DEFIBRILLATOR (5) CAD (coronary artery disease) Code(s): I25.10 - ATHSCL HEART DISEASE OF [place] CORONARY ARTERY W/O ANG PCTRS Qualifiers: Coronary Disease-Associated Artery/Lesion type: unspecified vessel or lesion type [place] vs. transplanted heart: unspecified whether [place] or transplanted heart Associated angina: with unspecified angina Qualified Code (s): I25.119 - Atherosclerotic heart disease of [place] coronary artery with unspecified angina pectoris (6) CKD (chronic kidney disease) stage 3, GFR 30-59 ml/min Code(s): N18.3 - CHRONIC KIDNEY DISEASE, STAGE 3 (MODERATE) (7) HTN (hypertension) Code(s): I10 - ESSENTIAL (PRIMARY) HYPERTENSION Qualifiers: Hypertension type: essential hypertension Qualified Code(s): I10 - Essential (primary) hypertension (8) Hyperlipidemia Code(s): E78.5 - HYPERLIPIDEMIA, UNSPECIFIED Qualifiers: Hyperlipidemia type: pure hypercholesterolemia Qualified Code(s): E78.00 - Pure hypercholesterolemia, unspecified; E78.0 - Pure hypercholesterolemia (9) Hypothyroidism Code(s): E03.9 - HYPOTHYROIDISM, UNSPECIFIED Qualifiers: Hypothyroidism type: unspecified Qualified Code(s): E03.9 - Hypothyroidism , unspecified (10) Status post coronary artery stent placement Code(s): Z95.5 - PRESENCE OF CORONARY ANGIOPLASTY IMPLANT AND GRAFT Assessment/Plan 07/02/2017 Echo: Normal LV size with severely decreased LV fxn, anterior AK, severe TR, mod-severe MR, mild-mod AR, mild [place] 1. Resolving hyponatremia 2. Acute on chronic LV systolic failure with underlying severe TR, mod-severe MR off diuretics 3. Persistent atrial fibrillation [id number] score of 4 on NOAC 4. CAD post [place]/PCI/stent angina pectoris 5. s/p ICD 6. HTN 7. Hypercholesterolemia 8. Hypothyroidism 9. DM 10. CKD PLAN: 1. Resumed Demadex 20 qd with monitor diuretic response, renal function and electrolytes, keep K>4.0 Mg>2.0 2. Continue Coreg 6.25 mg BID as tolerated 3. Continue losartan 50 qd and resume Aldactone 25 mg QD as outpatient with monitoring renal function. Entresto may also be considered as outpatient 4. Continue Eliquis 5 mg twice daily 5. ASA should be discontinued while on NOAC as CAD is stable 6. Continue Lipitor 10 qhs 7. 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 Free H2O restriction Patient is to follow up with Dr. Rad Flower (cardiology) at [facility] post discharge , he was notified of hospitalization
--- NOTE | 2017-12-12 13:51 | PN ---
Progress Note, Physician History of Present Illness: Pt seen and examined at bedside. He is awake and alert. He denies shortness of breath. He tolerated the dose of torsemide. He wants to go home today. - Current Medication List Current Medications: Active Medications Albuterol Sulfate (Ventolin Hfa Inhaler -) 2 puff IH Q4H PRN PRN Reason: SHORT OF BREATH/WHEEZING Last Admin: 12/10/17 21:34 Dose: 2 puff Apixaban (Eliquis -) 5 mg PO BID [facility] Last Admin: 12/12/17 11:43 Dose: 5 mg Aspirin (Ecotrin -) 81 mg PO DAILY [facility] Last Admin: 12/12/17 11:43 Dose: 81 mg Atorvastatin Calcium (Lipitor -) 10 mg PO [facility] Last Admin: 12/11/17 21:15 Dose: 10 mg Brimonidine Tartrate (Alphagan 0.15% -) 1 drop OU BID [facility] Last Admin: 12/12/17 11:45 Dose: 1 drop Carvedilol (Coreg -) 6.25 mg PO BID [facility] Last Admin: 12/12/17 11:42 Dose: 6.25 mg Docusate Sodium (Colace -) 100 mg PO TID [facility] Last Admin: 12/12/17 06:10 Dose: 100 mg Levothyroxine Sodium (Synthroid -) 37.5 mcg PO DAILY@0700 [facility] Last Admin: 12/12/17 06:10 Dose: 37.5 mcg Losartan Potassium (Cozaar -) 50 mg PO DAILY [facility] Last Admin: 12/12/17 11:42 Dose: 50 mg Montelukast Sodium (Singulair -) 10 mg PO [facility] Last Admin: 12/11/17 21:15 Dose: 10 mg Ondansetron HCl (Zofran Injection) 4 mg IVPUSH Q4H PRN PRN Reason: NAUSEA AND/OR VOMITING Pantoprazole Sodium (Protonix -) 40 mg PO DAILY [facility] Last Admin: 12/12/17 11:43 Dose: 40 mg Pilocarpine HCl (Pilostat 2% -) 1 drop OU TID [facility] Last Admin: 12/12/17 06:11 Dose: 1 drop Polyethylene Glycol (Miralax (For Daily Use) -) 17 gm PO DAILY PRN PRN Reason: CONSTIPATION Last Admin: 12/10/17 10:05 Dose: 17 grams Senna (Senna -) 2 tab PO HS PRN PRN Reason: CONSTIPATION Spironolactone (Aldactone -) 25 mg PO DAILY JAYSON Torsemide (Demadex -) 20 mg PO DAILY JAYSON Last Admin: 12/12/17 11:43 Dose: 20 mg - Objective Vital Signs: Vital Signs Temperature 97.8 F 12/12/17 09:00 Pulse Rate 73 12/12/17 09:00 Respiratory Rate 20 12/12/17 09:00 Blood Pressure 103/75 12/12/17 09:00 O2 Sat by Pulse Oximetry (%) 98 12/12/17 09:00 Constitutional: Yes: Calm Eyes: Yes: Conjunctiva Clear HENT: Yes: Atraumatic Neck: Yes: Supple Cardiovascular: Yes: S1, S2 Respiratory: Yes: CTA Bilaterally Gastrointestinal: Yes: Soft Genitourinary: Yes: WNL Musculoskeletal: Yes: WNL Edema: Yes Edema: LLE: 1+, RLE: 1+ Neurological: Yes: Oriented Psychiatric: Yes: Oriented Labs: CBC, BMP 12/07/17 10:05 12/12/17 06:00 Problem List - Problems (1) Hypokalemia Code(s): E87.6 - HYPOKALEMIA (2) COPD exacerbation Code(s): J44.1 - CHRONIC OBSTRUCTIVE PULMONARY DISEASE W (ACUTE) EXACERBATION Assessment/Plan Current Medications Generic Name Dose Route Start Last Admin Trade Name Freq PRN Reason Stop Dose Admin Albuterol Sulfate 2 puff 12/08/17 18:31 12/10/17 21:34 Ventolin Hfa Inhaler - IH 2 puff Q4H PRN Administration SHORT OF BREATH/WHEEZING Apixaban 5 mg 12/08/17 22:00 12/12/17 11:43 Eliquis - PO 5 mg BID JAYSON Administration Aspirin 81 mg 12/09/17 10:00 12/12/17 11:43 Ecotrin - PO 81 mg DAILY JAYSON Administration Atorvastatin Calcium 10 mg 12/08/17 22:00 12/11/17 21:15 Lipitor - PO 10 mg HS JAYSON Administration Brimonidine Tartrate 1 drop 12/08/17 22:00 12/12/17 11:45 Alphagan 0.15% - OU 1 drop BID JAYSON Administration Carvedilol 6.25 mg 12/08/17 22:00 12/12/17 11:42 Coreg - PO 6.25 mg BID JAYSON Administration Docusate Sodium 100 mg 12/11/17 14:00 12/12/17 06:10 Colace - PO 100 mg TID JAYSON Administration Levothyroxine Sodium 37.5 mcg 12/09/17 07:00 12/12/17 06:10 Synthroid - PO 37.5 mcg DAILY@0700 JAYSON Administration Losartan Potassium 50 mg 12/09/17 10:00 12/12/17 11:42 Cozaar - PO 50 mg DAILY JAYSON Administration Montelukast Sodium 10 mg 12/08/17 22:00 12/11/17 21:15 Singulair - PO 10 mg HS JAYSON Administration Ondansetron HCl 4 mg 12/08/17 18:31 Zofran Injection IVPUSH Q4H PRN NAUSEA AND/OR VOMITING Pantoprazole Sodium 40 mg 12/09/17 10:00 12/12/17 11:43 Protonix - PO 40 mg DAILY JAYSON Administration Pilocarpine HCl 1 drop 12/09/17 14:45 12/12/17 06:11 Pilostat 2% - OU 1 drop TID JAYSON Administration Polyethylene Glycol 17 gm 12/08/17 18:31 12/10/17 10:05 Miralax (For Daily Use) - PO 17 grams DAILY PRN Administration CONSTIPATION Senna 2 tab 12/11/17 12:09 Senna - PO HS PRN CONSTIPATION Spironolactone 25 mg 12/13/17 10:00 Aldactone - PO DAILY JAYSON Torsemide 20 mg 12/12/17 06:00 12/12/17 11:43 Demadex - PO 20 mg DAILY JAYSON Administration Impression 1. hyponatremia 2. hypothyroidism 3. htn 4. HLD 5. CHF 6. CKD Plan - cont torsemide, may need to adjust diuretics as outpt - called in prescription to pharmacy - discussed with cardio - discussed plan with pt and his family - will see in office - fluids restriction again discussed - cardiac diet - daily weights - will follow
[2017-12-13] MEDS ORDERED: SPIRONOLACTONE 25 MG TABLET (FP) PO SCH (10:00)
== END 2017-12-12 15:00 | disposition home or self-care (01) | DRG 640 ==
LOC: JER 09:47 → JERBED 13:12 → JICU 16:33 → J6S 12-08 18:17
PROVIDERS: ADMIT Internal Medicine; ATTEND Internal Medicine
DX: E87.1 Hypo-osmolality and hyponatremia (principal); I50.23 Acute on chronic systolic (congestive) heart failure; N17.9 Acute kidney failure, unspecified; I13.0 Hypertensive heart and chronic kidney disease with heart failure and stage 1 through stage 4 chronic kidney disease, or unspecified chronic kidney disease; I48.1 Persistent atrial fibrillation; J44.1 Chronic obstructive pulmonary disease with (acute) exacerbation; T50.2X5A Adverse effect of carbonic-anhydrase inhibitors, benzothiadiazides and other diuretics, initial encounter; I25.10 Atherosclerotic heart disease of native coronary artery without angina pectoris; I48.0 Paroxysmal atrial fibrillation; E78.5 Hyperlipidemia, unspecified; K21.9 Gastro-esophageal reflux disease without esophagitis; Z95.5 Presence of coronary angioplasty implant and graft; E87.6 Hypokalemia; E66.9 Obesity, unspecified; Z68.26 Body mass index [BMI] 26.0-26.9, adult; I25.5 Ischemic cardiomyopathy; Z95.810 Presence of automatic (implantable) cardiac defibrillator; J45.909 Unspecified asthma, uncomplicated; N40.0 Benign prostatic hyperplasia without lower urinary tract symptoms; N18.9 Chronic kidney disease, unspecified; E03.9 Hypothyroidism, unspecified; K29.70 Gastritis, unspecified, without bleeding; I34.0 Nonrheumatic mitral (valve) insufficiency; I36.1 Nonrheumatic tricuspid (valve) insufficiency
CPT/HCPCS: 36415; 71046-TC-FY; 74019-TC-FY; 80048; 80053; 81003; 82040; 82340; 82436; 82533; 82570; 83690; 83735; 83880; 83930; 83935; 84100; 84133; 84156; 84300; 84443; 84484; 84540; 85025; 85027; 87086; 93005; 93010; 99285-25; J7030

== ENCOUNTER 2017-12-19 13:49 | Inpatient (IN) | payer OTHER ==
--- NOTE | 2017-12-19 15:08 | PDOC ---
History of Present Illness - General Chief Complaint: Shortness of Breath Stated Complaint: SOB Time Seen by Provider: 12/19/17 14:50 History Source: Patient, Family Exam Limitations: No Limitations - History of Present Illness Initial Comments: 12/19/17 15:02 72 YOM with h/o CHF (on torsemide 20 mg daily without missed doses, on fluid restriction and reportedly adherent, states has not been urinating enough lately ), asthma, CAD s/p stent in 2005, HTN, HLD, cardiomyopathy s/p AICD placement, CKD, and GERD who p/w 2 weeks worsening SOB, orthopnea, PND, leg and abdominal swelling, and up to 10 lb weight gain in the past few weeks. He additionally notes slightly worsened heartburn over the past few days, for which he is taking Nexium, but otherwise denies any new symptoms. He denies headache, lightheadedness, dizziness, n/t/w focally, chest pain, abdominal pain, leg pain , f/c/n/v/d/c, black/bloody stool, etc. He notes that this feels similar to his prior CHF exacerbation for which he has been admitted here at [facility]. Past History - Past Medical History Allergies/Adverse Reactions: Allergies Allergy/AdvReac Type Severity Reaction Status Date / Time No Known Allergies Allergy Verified 12/19/17 13:51 Home Medications: Ambulatory Orders Apixaban [Eliquis -] 5 mg PO BID 08/07/17 Atorvastatin Ca [Lipitor] 10 mg PO HS 08/07/17 Brimonidine Tartrate [Alphagan 0.15% -] 1 drop OU BID 08/07/17 Carvedilol [Coreg -] 6.25 mg PO BID 08/07/17 Esomeprazole Magnesium [Nexium 24Hr] 40 mg PO DAILY 08/07/17 Fluticasone/Salmeterol [Advair 250-50 Diskus] 1 each IH BID 08/07/17 Levothyroxine [Synthroid -] 37.5 mcg PO DAILY 08/07/17 Montelukast Sodium [Singulair] 10 mg PO DAILY 08/07/17 [place]-3 Fatty Acids/Fish Oil [Fish Oil 1,000 mg Capsule] 1 each PO DAILY Pilocarpine 0.5% [Pilostat 0.5% -] 1 drop OU TID 08/07/17 Furosemide [Lasix] 40 mg PO BID 12/06/17 Albuterol Sulfate Inhaler - [Ventolin HFA Inhaler -] 2 puff IH Q4H PRN inhaler 12/12/17 Pilocarpine 2% [Pilostat 2% -] 1 drop OU TID drops 12/12/17 Polyethylene Glycol 3350 [Miralax 119 gm Btl -] 17 gm PO DAILY PRN bottle 12/12 Sacubitril/Valsartan [Entresto 24 mg-26 mg Tablet] 1 each PO BID #30 tablet Cardiac Disorders: Yes (Stents) COPD: Yes CHF: Yes Dementia: No GI Disorders: Yes (GERD) HTN: Yes Hypercholesterolemia: Yes Seizures: No - Surgical History Abdominal Surgery: No Appendectomy: No Cardiac Surgery: Yes Cholecystectomy: No Lung Surgery: No - Suicide/Smoking/Psychosocial Hx Smoking History: Never smoked Have you smoked in the past 12 months: No Hx Alcohol Use: No Drug/Substance Use Hx: No Substance Use Type: None Review of Systems - Review of Systems Able to Perform ROS?: Yes Constitutional: Yes: Other (weight gain). No: Chills, Fever, Unexplained wgt Loss HEENTM: No: Nose Congestion, Throat Pain Respiratory: Yes: Cough, Orthopnea, Shortness of Breath Cardiac (ROS): No: Chest Pain, Palpitations ABD/GI: Yes: Other (abdominal swelling/distention). No: Constipated, Diarrhea, Nausea, Vomiting : No: Burning, Dysuria Musculoskeletal: No: Back Pain, Neck Pain Integumentary: No: Bruising, Rash Neurological: No: Headache, Numbness, Tingling, Weakness, Dizziness Endocrine: Yes: Unexplained Weight Gain. No: Unexplained Weight Loss *Physical Exam - Vital Signs Last Vital Signs Temp Pulse Resp BP Pulse Ox 97.4 F L 87 24 H 109/76 100 12/19/17 13:51 12/19/17 13:51 12/19/17 13:51 12/19/17 13:51 12/19/17 13:51 12/19/17 15:14 GENERAL: nontoxic, well-appearing, nourished, A/Ox4, no acute distress, speaking 4-5 word sentences, answers questions appropriately, accompanied by daughter at bedside HEENT: PERRLA, EOMI, moist mucous membranes, no posterior pharyngeal erythema, no tonsillar swelling or exudates, no cervical lymphadenopathy CARDIOVASCULAR: Regular rate and rhythm, normal S1S2, 2/6 systolic murmur loudest at LUSB, no gallop or rub, radial and DP pulses 2+ and symmetric, capillary refill <2 seconds, extremities warm and well-perfused LUNGS/RESPIRATORY: No respiratory distress, slightly tachypneic, normal and symmetric chest movements during respirations, equal but diffusely diminished breath sounds, slight crackles diffusely but exam is limited by poor air movement, no cyanosis, no nail clubbing GI/ABDOMEN: Symmetric appearance, normoactive bowel sounds, soft, no tenderness to palpation, no midline pulsatile masses, no palpated organomegaly : No CVA tenderness, normal external appearance, no lesions BACK: No midline ttp or stepoff or deformity of thoracic or lumbar spine EXTREMITIES: distal pulses 2+, warm and well-perfused, 2+ BLE pitting edema SKIN: Warm and dry, no pallor, no jaundice, no bruising, no rash, no skin breakdown, no cuts, no lesions NEUROLOGICAL: GCS 15, CN II-XII grossly intact, ambulating with normal gait, moving all extremities, 5/5 strength proximally and distally, no facial droop, no decreased sensation ED Treatment Course - LABORATORY CBC & Chemistry Diagram: 12/19/17 15:00 12/19/17 15:00 - RADIOLOGY Radiology Studies Ordered: Category Date Time Status CXRPORT [CHEST X-RAY PORTABLE*] [RAD] Stat Radiology 12/19/17 15:01 Ordered Medical Decision Making - Medical Decision Making 12/19/17 15:12 Pt with h/o CHF who p/w SOB, cough, orthopnea, BLE swelling, same as their prior CHF. Initial Vital Signs Temp Pulse Resp BP Pulse Ox 97.4 F L 87 24 H 109/76 100 12/19/17 13:51 12/19/17 13:51 12/19/17 13:51 12/19/17 13:51 12/19/17 13:51 Exam: As noted in Physical Exam section. DDX IBNLT: CHF, pulmonary edema, COPD, asthma, other lung disease, PNA/ bronchitis, anemia, ACS, pericarditis, tamponade, AD, PE, PTX, allergic reaction , malignancy (e.g. causing pericardial effusion or vascular shunt), other infection, pulmonary HTN, etc. W/U ordered: CBCD CMP Mg Phos Troponin CK CKMB BNP UA UCx EKG CXR TX ordered: Pt positioned with head of bed up EKG: Reviewed; results as noted in ECG Review section. CXR: Labs: Reassessment: Repeat VS: ADMIT The Pt is unsafe for discharge at this time. Clinically in HF exacerbation, BNP elevated beyond baseline, RILEY on CKD. Would diurese but the patient has little reserve with his BP. They require further hospital observation, workup, and treatment. Page sent to Dr. Drake (patient's PCP) for admission. 12/19/17 16:20 Dr. Drake requests that this patient go to the hospitalist service. He will see the patient tomorrow. Microblog is sent to [employer]. Blank Decision to Admit order is placed. *DC/Admit/Observation/Transfer Diagnosis at time of Disposition: RILEY (acute kidney injury), Cough CHF (congestive heart failure) Qualifiers: Heart failure type: unspecified Heart failure chronicity: unspecified Qualified Code(s): I50.9 - Heart failure, unspecified - Discharge Dispostion Condition at time of disposition: Guarded Decision to Admit order: Yes - Referrals Referrals: Fannie Drake MD [Primary Care Provider] - - Patient Instructions - Post Discharge Activity
[2017-12-19] MEDS ORDERED: ALBUTEROL SO4 2.5/IPRATROPIUM 0.5 INH SOL 3 ML VIAL.NEB. NEB ONE ×2 (15:09→15:33)
[2017-12-19 15:25] LABS: BASO % 0.8 % (0-2.0); EOS % 3.4 % (0-4.5); HEMATOCRIT 38.7 % (35.4-49); HEMOGLOBIN 12.7 GM/dL (11.7-16.9); LYMPH % 23.1 % (8-40); MCH 30.3 pg (25.7-33.7); MCHC 32.7 g/dl (32.0-35.9); MEAN CELL VOLUME 92.6 fl (80-96); MEAN PLT VOLUME 9.2 fl (7.5-11.1); MONO % 9.3 % (3.8-10.2); NEUT % 63.4 % (42.8-82.8); PLATELET COUNT 138 K/MM3 (134-434); RBC 4.18 M/mm3 (4.00-5.60); WHITE BLOOD COUNT 5.3 K/mm3 (4.0-10.0)
[2017-12-19 15:51] LABS: URINE APPEARANCE CLEAR; URINE BILIRUBIN NEGATIVE (<2.0 mg/dL); URINE COLOR YELLOW; URINE GLUCOSE (UA) NEGATIVE (NEGATIVE); URINE KETONE NEGATIVE (NEGATIVE); URINE LEUK ESTERASE NEGATIVE (NEGATIVE); URINE NITRITE NEGATIVE (NEGATIVE); URINE PROTEIN NEGATIVE (NEGATIVE); URINE UROBILINOGEN NEGATIVE mg/dL (0.2-1.0)
[2017-12-19 16:11] LABS: ALBUMIN 3.5 g/dl (3.4-5.0); ALK PHOS 59 U/L (45-117); ANION GAP 7 MMOL/L (8-16); BILIRUBIN,TOTAL 1.3 mg/dL (0.2-1); BLOOD UREA NITROGEN 22 mg/dL (7-18); CALCIUM 8.5 mg/dL (8.5-10.1); CHLORIDE 98 mmol/L (98-107); CO2 30 mmol/L (21-32); CREATININE 1.6 mg/dL (0.55-1.3); GLUCOSE,RANDOM 150 mg/dL (74-106); MAGNESIUM 2.1 mg/dL (1.8-2.4); PHOSPHOROUS 3.6 mg/dL (2.5-4.9); POTASSIUM 4.2 mmol/L (3.5-5.1); SGOT/AST 22 U/L (15-37); SGPT/ALT 23 U/L (13-61); SODIUM 135 mmol/L (136-145); TOT PROT 7.1 g/dl (6.4-8.2)
[2017-12-19] MEDS ORDERED: FUROSEMIDE 40 MG/4 ML INJECTABLE VIAL IVPUSH ONE (16:45)
--- NOTE | 2017-12-19 16:53 | PDOC ---
Attending Attestation - Resident Resident Name: BrittneyGema - ED Attending Attestation I have performed the following: I have examined & evaluated the patient, The case was reviewed & discussed with the resident, I agree w/resident's findings & plan - HPI HPI: 12/19/17 16:52 72 YOM with h/o CHF (on torsemide 20 mg daily without missed doses, on fluid restriction and reportedly adherent, states has not been urinating enough lately ), asthma, CAD s/p stent in 2005, HTN, HLD, cardiomyopathy s/p AICD placement, CKD, and GERD who p/w 2 weeks worsening SOB, orthopnea, PND, leg and abdominal swelling, and up to 10 lb weight gain. also noted heart burn and shortness of breath/cough x 3-4 days. has been compliant with his fluid restriction for recent admit for hyponatremia - Physicial Exam PE: 12/19/17 17:32 NAD, well appearing, MMM, nl conjunctiva, anicteric; neck supple. +JVD, lungs clear, no wheeze. RRR, abdomen soft nontender. MCGARRY x4, no focal neuro deficits. 1+ pretibial peripheral edema. normal color for ethnicity, [facility]. - Medical Decision Making 12/19/17 16:52 72 YOM with h/o CHF (on torsemide 20 mg daily without missed doses, on fluid restriction and reportedly adherent, states has not been urinating enough lately ), asthma, CAD s/p stent in 2005, HTN, HLD, cardiomyopathy s/p AICD placement, CKD, and GERD who p/w 2 weeks worsening SOB, orthopnea, PND, leg and abdominal swelling, and up to 10 lb weight gain. also noted heart burn and shortness of breath/cough x 3-4 days. has been compliant with his fluid restriction for recent admit for hyponatremia Vital signs reviewed, wnl. notable for mild tachypnea, but no desats or hypoxia Prior notes reviewed, including admissions, discharges and consultations. laboratory results and imaging reviewed, basic labs and lytes wnl, notable for normal sodium and lytes, BNP higher than previous results when trended >3900. trop neg. EKG V paced rhythm, no interval abnormalities, wide QRS as expected, ST and T wave segments and morphology normal. Nonspecific T wave abnormalities CXR neg for acute pathology gave dose of lasix 40mg x1 IV, as he is on torsemide, a more potent diuretic. given duonebs for comfort, remains well appearing, no sig respiratory distress. Dispo: admit to Dr. Drake. Admit for CHF. Discussed results and management plan with pt and family member at bedside, agree with impression and plan 12/19/17 17:35 12/19/17 17:36 Heart Score/ECG Review - ECG Impressions Comment:: 12/19/17 17:35 EKG V paced rhythm, no interval abnormalities, wide QRS as expected, ST and T wave segments and morphology normal. Nonspecific T wave abnormalities
[2017-12-19] MEDS ORDERED: FUROSEMIDE 40 MG/4 ML INJECTABLE VIAL ONE (17:02)
--- NOTE | 2017-12-19 18:03 | HP ---
CHIEF COMPLAINT: shortness of breath PCP: Dr. Drake. HISTORY OF PRESENT ILLNESS: Patient is a 72 year old male with a significant past medical history of COPD, DM, CHF, CAD, atril fib/aflutter s/p ventricular pacemaker, hypertension HLD, and GERD. He presents to the ED today with worsening shortness of breath with orthopnea. The patient states that for the past few days he is having worsening shortness of breath, which is worse when laying flat. He also endorses lower extremity edema and mild abdominal distention. Patient most recently here 2 weeks ago for hyponatremia and was monitored in the ICU. ER course was notable for: (1) bnp 3689 (2) bun/creat 22/1.6 (3) Recent Travel: denies PAST MEDICAL HISTORY: COPD, CHF, CAD, atril fib/aflutter s/p ventricular pacemaker, hypertension HLD, and GERD. PAST SURGICAL HISTORY: s/p ventricular pacemaker, Social History: Smoking: denies Alcohol:denies Drugs: denies Family History: Allergies No Known Allergies Allergy (Verified 12/19/17 13:51) HOME MEDICATIONS: Home Medications Medication Instructions Recorded Apixaban [Eliquis -] 5 mg PO BID 08/07/17 Atorvastatin Ca [Lipitor] 10 mg PO HS 08/07/17 Brimonidine Tartrate [Alphagan 1 drop OU BID 08/07/17 0.15% -] Carvedilol [Coreg -] 6.25 mg PO BID 08/07/17 Esomeprazole Magnesium [Nexium 40 mg PO DAILY 08/07/17 24Hr] Fluticasone/Salmeterol [Advair 1 each IH BID 08/07/17 250-50 Diskus] Levothyroxine [Synthroid -] 37.5 mcg PO DAILY 08/07/17 Montelukast Sodium [Singulair] 10 mg PO DAILY 08/07/17 [place]-3 Fatty Acids/Fish Oil [Fish 1 each PO DAILY 08/07/17 Oil 1,000 mg Capsule] Pilocarpine 0.5% [Pilostat 0.5% -] 1 drop OU TID 08/07/17 Furosemide [Lasix] 40 mg PO BID 12/06/17 Albuterol Sulfate Inhaler - 2 puff IH Q4H PRN inhaler 12/12/17 [Ventolin HFA Inhaler -] Pilocarpine 2% [Pilostat 2% -] 1 drop OU TID drops 12/12/17 Polyethylene Glycol 3350 [Miralax 17 gm PO DAILY PRN bottle 12/12/17 119 gm Btl -] Sacubitril/Valsartan [Entresto 24 1 each PO BID #30 tablet 12/12/17 mg-26 mg Tablet] PHYSICAL EXAMINATION Vital Signs - 24 hr 12/19/17 12/19/17 12/19/17 13:51 16:00 17:36 Temperature 97.4 F L 97.5 F L Pulse Rate 87 Pulse Rate [ 72 Left Radial] Respiratory 24 H 18 Rate Blood Pressure 109/76 Blood Pressure 112/90 [Right Arm] O2 Sat by Pulse 100 97 99 Oximetry (%) GENERAL: Awake, alert, and fully oriented, in mild respiratory distress. HEAD: Normal with no signs of trauma. EYES: Pupils equal, round and reactive to light, extraocular movements intact, sclera anicteric, conjunctiva clear. No lid lag. EARS, NOSE, THROAT: Ears normal, nares patent, oropharynx clear without exudates. Moist mucous membranes. NECK: Normal range of motion, supple without lymphadenopathy LUNGS: diminished breath sounds at the bases HEART: irregular rrr 90s ABDOMEN: Soft, nontender, not distended MUSCULOSKELETAL: Normal range of motion at all joints. No bony deformities or tenderness. No CVA tenderness. UPPER EXTREMITIES: No peripheral edema. LOWER EXTREMITIES: bilateral lower ext edema +2 NEUROLOGICAL: Normal speech. Normal gait. PSYCHIATRIC: Cooperative. Good eye contact. Appropriate mood and affect. SKIN: Warm, dry, normal turgor, no rashes or lesions noted, normal capillary refill. Laboratory Results - last 24 hr 12/19/17 12/19/17 12/19/17 15:00 15:00 15:30 WBC 5.3 RBC 4.18 Hgb 12.7 Hct 38.7 MCV 92.6 MCH 30.3 MCHC 32.7 RDW 15.0 Plt Count 138 MPV 9.2 Absolute Neuts (auto) 3.4 Neutrophils % 63.4 Lymphocytes % 23.1 D Monocytes % 9.3 Eosinophils % 3.4 D Basophils % 0.8 Nucleated RBC % 0 Sodium 135 L Potassium 4.2 Chloride 98 Carbon Dioxide 30 Anion Gap 7 L BUN 22 H Creatinine 1.6 H Creat Clearance w eGFR 42.58 Random Glucose 150 H Calcium 8.5 Phosphorus 3.6 Magnesium 2.1 Total Bilirubin 1.3 H AST 22 ALT 23 Alkaline Phosphatase 59 Troponin I < 0.02 B-Natriuretic Peptide 3689.0 H Total Protein 7.1 Albumin 3.5 Urine Color Yellow Urine Appearance Clear Urine pH 5.0 Ur Specific [place] 1.012 Urine Protein Negative Urine Glucose (UA) Negative Urine Ketones Negative Urine Blood Negative Urine Nitrite Negative Urine Bilirubin Negative Urine Urobilinogen Negative Ur Leukocyte Esterase Negative ASSESSMENT/PLAN: Patient is a 72 year old male with a significant past medical history of COPD, CHF, CAD s/p stents x 2, hypothyroidsm, atrial fib/aflutter, ischemic cardiomyopathy s/p ICD, ventricular pacemaker, hypertension HLD, and GERD. Patient most recently here 2 weeks ago for hyponatremia and was monitored in the ICU. Card: Congestive Heart Failure, HTN, CHF, CAD with ICD placement. On Aspirin 81mg daily, Eliquis bid, coreq bid, entreso. will order: daily weights, lasix s0mg BID. monitor intake and output. Pulmonary: COPD: On Advair, albuterol as needed. Incentive spirometer. Renal: Recent admission for hyponatremia. Would monitor closely in the setting of iv lasix. sodium 135 currently. Monitor daily labs. Consider renal consult if sodium down trends. Endocrine: hypothyroidism: continue home synthroid fen low salt diet tolerating PO monitor sodium/electrolytes on eliquis incentive spirometer intake and output with daily weights full code. Visit type - Emergency Visit Emergency Visit: Yes ED Registration Date: 12/19/17 Care time: The patient presented to the Emergency Department on the above date and was hospitalized for further evaluation of their emergent condition. - New Patient This patient is new to me today: Yes Date on this admission: 12/19/17 - Critical Care Critical Care patient: No
[2017-12-19] MEDS ORDERED: ACETAMINOPHEN 325 MG TABLET (FP) PO PRN (22:51)
[2017-12-19] MEDS: CARVEDILOL 6.25 MG TABLET (FP) PO SCH (22:58)
[2017-12-19] MEDS: MONTELUKAST NA 10 MG TABLET PO SCH (22:58)
[2017-12-19] MEDS: BRIMONIDINE TARTRATE 0.15% OPHTHALMIC 5 ML BOTTLE OU SCH (22:59)
[2017-12-19] MEDS: APIXABAN 5 MG TABLET PO SCH (22:59)
[2017-12-19] MEDS: PILOCARPINE 2% OPHTHALMIC SOLUTION 15 ML BOTTLE OU SCH (23:00)
[2017-12-19] MEDS: SACUBITRIL/VALSARTAN 49 MG-51 MG TABLET PO SCH (23:37)
[2017-12-19] MEDS ORDERED: PT OWN MED DRAWER 7, Y5N ONE (23:50)
[2017-12-20 01:58] VITALS: BMI 26.0
[2017-12-20 05:50] LABS: HEMATOCRIT 38.8 % (35.4-49); HEMOGLOBIN 12.7 GM/dL (11.7-16.9); MCH 30.1 pg (25.7-33.7); MCHC 32.6 g/dl (32.0-35.9); MEAN CELL VOLUME 92.2 fl (80-96); MEAN PLT VOLUME 9.2 fl (7.5-11.1); PLATELET COUNT 130 K/MM3 (134-434); RBC 4.21 M/mm3 (4.00-5.60); RDW 14.8 % (11.9-15.9); WHITE BLOOD COUNT 5.1 K/mm3 (4.0-10.0)
[2017-12-20] MEDS ORDERED: PT OWN MED DRAWER 7, Y5N ONE ×3 (05:55→18:51)
[2017-12-20] MEDS ORDERED: FUROSEMIDE 40 MG/4 ML INJECTABLE VIAL IVPUSH SCH ×2 (06:00)
[2017-12-20] MEDS: LEVOTHYROXINE NA 25 MCG TABLET (FP) PO SCH (06:21)
[2017-12-20] MEDS: PILOCARPINE 2% OPHTHALMIC SOLUTION 15 ML BOTTLE OU SCH ×3 (06:24→22:15)
[2017-12-20 06:58] LABS: ALBUMIN 3.7 g/dl (3.4-5.0); ALK PHOS 57 U/L (45-117); ANION GAP 8 MMOL/L (8-16); BILIRUBIN,TOTAL 1.6 mg/dL (0.2-1); BLOOD UREA NITROGEN 19 mg/dL (7-18); CALCIUM 9.1 mg/dL (8.5-10.1); CHLORIDE 99 mmol/L (98-107); CO2 32 mmol/L (21-32); CREATININE 1.6 mg/dL (0.55-1.3); GLUCOSE,RANDOM 105 mg/dL (74-106); PHOSPHOROUS 4.2 mg/dL (2.5-4.9); POTASSIUM 3.9 mmol/L (3.5-5.1); SGOT/AST 22 U/L (15-37); SGPT/ALT 21 U/L (13-61); SODIUM 139 mmol/L (136-145)
[2017-12-20] MEDS: PANTOPRAZOLE 40 MG TABLET (FP) PO SCH (07:51)
[2017-12-20] MEDS ORDERED: PANTOPRAZOLE 40 MG TABLET (FP) PO SCH (10:00)
[2017-12-20] MEDS: ASPIRIN 81 MG CHEWABLE TABLETS PO SCH (11:03)
[2017-12-20] MEDS: APIXABAN 5 MG TABLET PO SCH ×2 (11:03→22:12)
[2017-12-20] MEDS: FLUTICASONE/SALMETEROL 100 MCG/50 MCG DISKUS IH SCH ×2 (11:04→22:10)
[2017-12-20] MEDS: CARVEDILOL 6.25 MG TABLET (FP) PO SCH ×2 (11:04→22:13)
[2017-12-20] MEDS: FUROSEMIDE 40 MG/4 ML INJECTABLE VIAL IVPUSH SCH (11:04)
[2017-12-20] MEDS: SACUBITRIL/VALSARTAN 49 MG-51 MG TABLET PO SCH ×2 (11:04→22:14)
[2017-12-20] MEDS: BRIMONIDINE TARTRATE 0.15% OPHTHALMIC 5 ML BOTTLE OU SCH ×2 (11:05→22:14)
--- NOTE | 2017-12-20 13:29 | PN ---
Progress Note (short form) - Note Progress Note: Feeling better, but not at baseline No chest pain He was on Torsemide 20mg as an outpt- still was gaining weight Vital Signs - 24 hr 12/19/17 12/19/17 12/19/17 17:36 20:07 20:53 Temperature 97.5 F L 98.3 F Pulse Rate 74 Pulse Rate [ 72 71 Left Radial] Respiratory 18 16 20 Rate Blood Pressure 112/65 Blood Pressure 112/90 107/67 [Right Arm] O2 Sat by Pulse 99 98 Oximetry (%) 12/19/17 12/19/17 12/20/17 21:00 21:51 02:08 Temperature 98.3 F 97 F L Pulse Rate 74 70 Pulse Rate [ Left Radial] Respiratory 20 20 20 Rate Blood Pressure 112/65 106/77 Blood Pressure [Right Arm] O2 Sat by Pulse 98 Oximetry (%) 12/20/17 12/20/17 06:00 15:39 Temperature 97.4 F L 97.8 F Pulse Rate 89 70 Pulse Rate [ Left Radial] Respiratory 20 20 Rate Blood Pressure 128/86 113/52 L Blood Pressure [Right Arm] O2 Sat by Pulse Oximetry (%) Current Medications Generic Name Dose Route Start Last Admin Trade Name Freq PRN Reason Stop Dose Admin Acetaminophen 650 mg 12/19/17 22:51 12/19/17 23:43 Tylenol - PO 650 mg Q6H PRN Administration PAIN LEVEL 7 - 10 Albuterol Sulfate 1 amp 12/20/17 13:57 12/20/17 15:33 Ventolin 0.083% Nebulizer Soln - NEB 1 amp Q6H PRN Administration SHORT OF BREATH/WHEEZING Apixaban 5 mg 12/19/17 22:00 12/20/17 11:03 Eliquis - PO 5 mg BID JAYSON Administration Aspirin 81 mg 12/20/17 10:00 12/20/17 11:03 Asa - PO 81 mg DAILY JAYSON Administration Atorvastatin Calcium 10 mg 12/20/17 22:00 Lipitor - PO HS JAYSON Brimonidine Tartrate 1 drop 12/19/17 22:45 12/20/17 11:05 Alphagan 0.15% - OU 1 drop BID JAYSON Administration Carvedilol 6.25 mg 12/19/17 22:00 12/20/17 11:04 Coreg - PO 6.25 mg BID JAYSON Administration Docusate Sodium 100 mg 12/20/17 13:29 12/20/17 14:33 Colace - PO 100 mg Q8H PRN Administration CONSTIPATION Eplerenone 25 mg 12/21/17 10:00 Eplerenone PO DAILY JAYSON Furosemide 40 mg 12/20/17 10:00 12/20/17 11:04 Lasix Injection - IVPUSH 40 mg DAILY JAYSON Administration Guaifenesin 10 ml 12/20/17 13:57 12/20/17 14:32 Robitussin - PO 10 ml Q6H PRN Administration COUGH Levothyroxine Sodium 37.5 mcg 12/20/17 07:00 12/20/17 06:21 Synthroid - PO 37.5 mcg DAILY@0700 JAYSON Administration Montelukast Sodium 10 mg 12/19/17 22:45 12/19/17 22:58 Singulair - PO 10 mg HS JAYSON Administration Pantoprazole Sodium 40 mg 12/20/17 07:45 12/20/17 07:51 Protonix - PO 40 mg DAILY@0600 JAYSON Administration Pilocarpine HCl 1 drop 12/19/17 22:45 12/20/17 14:34 Pilostat 2% - OU 1 drop TID JAYSNO Administration Sacubitril/Valsartan 1 tab 12/19/17 22:45 12/20/17 11:04 Entresto 49 Mg-51 Mg Tablet PO 1 tab BID JAYSON Administration Fluticasone/Salmeterol 1 puff 12/20/17 10:00 12/20/17 11:04 Advair 100mcg/50mcg - IH 1 puff BID JAYSON Administration Laboratory Results - last 24 hr 12/19/17 12/20/17 12/20/17 23:05 05:20 05:20 WBC 5.1 RBC 4.21 Hgb 12.7 Hct 38.8 MCV 92.2 MCH 30.1 MCHC 32.6 RDW 14.8 Plt Count 130 L MPV 9.2 Sodium 139 Potassium 3.9 Chloride 99 Carbon Dioxide 32 Anion Gap 8 BUN 19 H Creatinine 1.6 H Creat Clearance w eGFR 42.58 POC Glucometer 145 Random Glucose 105 Calcium 9.1 Phosphorus 4.2 Total Bilirubin 1.6 H AST 22 ALT 21 Alkaline Phosphatase 57 Total Protein 7.0 Albumin 3.7 12/20/17 12/20/17 07:52 12:02 WBC RBC Hgb Hct MCV MCH MCHC RDW Plt Count MPV Sodium Potassium Chloride Carbon Dioxide Anion Gap BUN Creatinine Creat Clearance w eGFR POC Glucometer 107 148 Random Glucose Calcium Phosphorus Total Bilirubin AST ALT Alkaline Phosphatase Total Protein Albumin S1 S2 Irregular Lungs decreased Abd- soft, NT, obese Edema trace PLAN ON Iv Lasix monitor renal function Cardiology eval check weights Problem List - Problems (1) CHF (congestive heart failure) Code(s): I50.9 - HEART FAILURE, UNSPECIFIED Qualifiers: Heart failure type: unspecified Heart failure chronicity: unspecified Qualified Code(s): I50.9 - Heart failure, unspecified (2) A-fib Code(s): I48.91 - UNSPECIFIED ATRIAL FIBRILLATION Qualifiers: Atrial fibrillation type: persistent Qualified Code(s): I48.1 - Persistent atrial fibrillation (3) CAD (coronary artery disease) Code(s): I25.10 - ATHSCL HEART DISEASE OF [place] CORONARY ARTERY W/O ANG PCTRS Qualifiers: Coronary Disease-Associated Artery/Lesion type: unspecified vessel or lesion type [place] vs. transplanted heart: unspecified whether [place] or transplanted heart Associated angina: with unspecified angina Qualified Code (s): I25.119 - Atherosclerotic heart disease of [place] coronary artery with unspecified angina pectoris (4) CKD (chronic kidney disease) stage 3, GFR 30-59 ml/min Code(s): N18.3 - CHRONIC KIDNEY DISEASE, STAGE 3 (MODERATE)
[2017-12-20] MEDS: guaiFENesin 200 MG/10 ML 10 ML UNIT-DOSE CUPS PO PRN ×2 (14:32→22:16)
[2017-12-20] MEDS: DOCUSATE SODIUM 100 MG CAPSULE (FP) PO PRN ×2 (14:33→23:09)
--- NOTE | 2017-12-20 15:25 | PN ---
Progress Note (short form) - Note Progress Note: Chief Complaint: Events noted, notes reviewed, progressive dyspnea and increasing bilateral lower extremity edema, denies any chest pain History of Present Illness: Seen and examined. Full consult dictated 07/02/2017 Echo: Normal LV size with severely decreased LV fxn, anterior AK, severe TR, mod-severe MR, mild-mod AR, mild CT Medications: Current Medications Acetaminophen (Tylenol -) 650 mg PO Q6H PRN PRN Reason: PAIN LEVEL 7 - 10 Last Admin: 12/19/17 23:43 Dose: 650 mg Albuterol Sulfate (Ventolin 0.083% Nebulizer Soln -) 1 amp NEB Q6H PRN PRN Reason: SHORT OF BREATH/WHEEZING Apixaban (Eliquis -) 5 mg PO BID [facility] Last Admin: 12/20/17 11:03 Dose: 5 mg Aspirin (Asa -) 81 mg PO DAILY [facility] Last Admin: 12/20/17 11:03 Dose: 81 mg Atorvastatin Calcium (Lipitor -) 10 mg PO [facility] Brimonidine Tartrate (Alphagan 0.15% -) 1 drop OU BID [facility] Last Admin: 12/20/17 11:05 Dose: 1 drop Carvedilol (Coreg -) 6.25 mg PO BID [facility] Last Admin: 12/20/17 11:04 Dose: 6.25 mg Docusate Sodium (Colace -) 100 mg PO Q8H PRN PRN Reason: CONSTIPATION Last Admin: 12/20/17 14:33 Dose: 100 mg Furosemide (Lasix Injection -) 40 mg IVPUSH DAILY [facility] Last Admin: 12/20/17 11:04 Dose: 40 mg Guaifenesin (Robitussin -) 10 ml PO Q6H PRN PRN Reason: COUGH Last Admin: 12/20/17 14:32 Dose: 10 ml Levothyroxine Sodium (Synthroid -) 37.5 mcg PO DAILY@0700 [facility] Last Admin: 12/20/17 06:21 Dose: 37.5 mcg Montelukast Sodium (Singulair -) 10 mg PO HS [facility] Last Admin: 12/19/17 22:58 Dose: 10 mg Pantoprazole Sodium (Protonix -) 40 mg PO DAILY@0600 [facility] Last Admin: 12/20/17 07:51 Dose: 40 mg Pilocarpine HCl (Pilostat 2% -) 1 drop OU TID [facility] Last Admin: 12/20/17 14:34 Dose: 1 drop Sacubitril/Valsartan (Entresto 49 Mg-51 Mg Tablet) 1 tab PO BID [facility] Last Admin: 12/20/17 11:04 Dose: 1 tab Fluticasone/Salmeterol (Advair 100mcg/50mcg -) 1 puff IH BID [facility] Last Admin: 12/20/17 11:04 Dose: 1 puff Review of Systems - Review of Systems Constitutional: denies: Chills, Fever Cardiovascular: As noted above Respiratory: denies: Cough or Sputum Production Gastrointestinal: denies: Nausea, Vomiting, Diarrhea, Constipation or Abdominal Pain Genitourinary: denies: Frequency or Urgency Musculoskeletal: No Symptoms Reported Vital Signs: Last Vital Signs Temp Pulse Resp BP Pulse Ox 97.4 F L 89 20 128/86 98 12/20/17 06:00 12/20/17 06:00 12/20/17 06:00 12/20/17 06:00 12/19/17 21:00 Intake & Output 12/17/17 12/18/17 12/19/17 12/20/17 23:59 23:59 23:59 23:59 Intake Total 200 520 Output Total 350 Balance 200 170 Weight 151 lb 11.2 oz 151 lb 11.2 oz Neck: Supple Negative JVD No Bruit Respiratory: Diminished Breath Sounds at the Bases Bilaterally with Bilateral Basal Rales Cardiovascular: S1 S2 Regular Rate Rhythm Grade 1-2/6 SM Gastrointestinal: Soft Benign Normal Bowel Sounds Ext: Trace-1+ Edema Labs: Troponin, BNP 12/19/17 15:00 Troponin I < 0.02 B-Natriuretic Peptide 3689.0 H CBC, BMP 12/20/17 05:20 12/20/17 05:20 Hepatic Panel Total Bilirubin 1.6 mg/dL (0.2-1) H 12/20/17 05:20 AST 22 U/L (15-37) 12/20/17 05:20 ALT 21 U/L (13-61) 12/20/17 05:20 Alkaline Phosphatase 57 U/L (45-117) 12/20/17 05:20 Albumin 3.7 g/dl (3.4-5.0) 12/20/17 05:20 Assessment/Plan ASSESSMENT: 1. Acute on chronic class II-III NYHA classification systolic failure with underlying 2. Moderate-severe MR 3. Severe TR 4. Persistent atrial fibrillation [id number] score of 4 on DOAC's 5. CAD post [place]/PCI/stent angina pectoris 6. HTN 7. Hypercholesterolemia 8. Chronic obstructive airway disease 9. CKD PLAN: 1. Continue Coreg and titrate dose as tolerated 2. Continue Entresto and titrate dose as tolerated 3. Continue A/C with DOAC's/Eliquis unless it is absolutely contraindicated 4. Continue Lipitor 5. Continue IV Lasix and initiate Inspra, intolerant to Aldactone 6. Outpatient ICD upgrade to CAMPGROUND MA[employer]GER-D device 7. Consideration for Sherine-Clip for the above noted MV regurgitation (according to the patient it has been evaluated recently) Devorah Fontaine M.D.
[2017-12-20] MEDS: ALBUTEROL SO4 0.083% IH SOL 2.5 MG/3 ML VIAL.NEB. NEB PRN ×2 (15:33→21:03)
--- NOTE | 2017-12-20 17:09 | EKG ---
Test Reason : Blood Pressure : / mmHG Vent. Rate : 070 BPM Atrial Rate : 079 BPM P-R Int : 000 ms QRS Dur : 194 ms QT Int : 458 ms P-R-T Axes : 000 -77 089 degrees QTc Int : 494 ms ATRIAL FIBRILLATION WITH Ventricular-paced rhythm WITH OCCASIONAL PREMATURE VENTRICULAR COMPLEXES ABNORMAL ECG WHEN COMPARED WITH ECG OF 06-DEC-2017 15:22, NO SIGNIFICANT CHANGE WAS FOUND CLINICAL CORRELATION IS RECOMMENDED BASELINE ARTIFACT Confirmed by FREEMAN GARCIA MD ([id number]) on 12/20/2017 5:09:03 PM Referred By: Confirmed By:FREEMAN GARCIA MD
[2017-12-20] MEDS ORDERED: INSULIN (NOVOLOG) ASPART 100 UNITS/ML 10ML VIAL ONE (21:47)
[2017-12-20] MEDS: ATORVASTATIN CA 10 MG TABLET (FP) PO SCH (22:12)
[2017-12-20] MEDS: MONTELUKAST NA 10 MG TABLET PO SCH (22:12)
[2017-12-21] MEDS: PILOCARPINE 2% OPHTHALMIC SOLUTION 15 ML BOTTLE OU SCH ×3 (06:53→21:45)
[2017-12-21] MEDS: LEVOTHYROXINE NA 25 MCG TABLET (FP) PO SCH (06:54)
[2017-12-21] MEDS: PANTOPRAZOLE 40 MG TABLET (FP) PO SCH (06:54)
[2017-12-21] MEDS: DOCUSATE SODIUM 100 MG CAPSULE (FP) PO PRN (06:55)
[2017-12-21] MEDS: ALBUTEROL SO4 0.083% IH SOL 2.5 MG/3 ML VIAL.NEB. NEB PRN ×2 (07:30→19:50)
[2017-12-21 08:04] LABS: ANION GAP 5 MMOL/L (8-16); BLOOD UREA NITROGEN 19 mg/dL (7-18); CALCIUM 9.3 mg/dL (8.5-10.1); CHLORIDE 102 mmol/L (98-107); CO2 31 mmol/L (21-32); CREATININE 1.5 mg/dL (0.55-1.3); GLUCOSE,RANDOM 112 mg/dL (74-106); POTASSIUM 3.9 mmol/L (3.5-5.1); SODIUM 138 mmol/L (136-145)
[2017-12-21] MEDS: ASPIRIN 81 MG CHEWABLE TABLETS PO SCH (10:12)
[2017-12-21] MEDS: CARVEDILOL 6.25 MG TABLET (FP) PO SCH ×2 (10:12→21:44)
[2017-12-21] MEDS: BRIMONIDINE TARTRATE 0.15% OPHTHALMIC 5 ML BOTTLE OU SCH ×2 (10:13→21:44)
[2017-12-21] MEDS: APIXABAN 5 MG TABLET PO SCH ×2 (10:13→21:44)
[2017-12-21] MEDS: FLUTICASONE/SALMETEROL 100 MCG/50 MCG DISKUS IH SCH ×2 (10:14→21:43)
[2017-12-21] MEDS: SACUBITRIL/VALSARTAN 49 MG-51 MG TABLET PO SCH ×2 (10:15→21:46)
[2017-12-21] MEDS: EPLERENONE 25 MG TABLET PO SCH (10:16)
--- NOTE | 2017-12-21 11:16 | PN ---
Progress Note (short form) - Note Progress Note: Feeling better, but not at baseline No chest pain Vital Signs - 24 hr 12/21/17 12/21/17 12/21/17 05:54 09:00 10:08 Temperature 97.5 F L Pulse Rate 84 Respiratory 20 20 20 Rate Blood Pressure 122/69 92/61 O2 Sat by Pulse 98 Oximetry (%) 12/21/17 12/21/17 12/21/17 10:10 15:44 21:00 Temperature 97.9 F 98.0 F Pulse Rate 71 78 Respiratory 21 H 20 20 Rate Blood Pressure 99/65 92/56 L 103/70 O2 Sat by Pulse Oximetry (%) Laboratory Results - last 24 hr 12/21/17 12/21/17 12/21/17 06:00 06:58 18:05 Sodium 138 Potassium 3.9 Chloride 102 Carbon Dioxide 31 Anion Gap 5 L BUN 19 H Creatinine 1.5 H Creat Clearance w eGFR 45.87 POC Glucometer 125 116 Random Glucose 112 H Calcium 9.3 S1 S2 Irregular Lungs decreased Abd- soft, NT, obese Edema trace PLAN ON Iv Lasix monitor renal function Cardiology eval noted - started Epleronone check weights Problem List - Problems (1) CHF (congestive heart failure) Code(s): I50.9 - HEART FAILURE, UNSPECIFIED Qualifiers: Heart failure type: unspecified Heart failure chronicity: unspecified Qualified Code(s): I50.9 - Heart failure, unspecified (2) A-fib Code(s): I48.91 - UNSPECIFIED ATRIAL FIBRILLATION Qualifiers: Atrial fibrillation type: persistent Qualified Code(s): I48.1 - Persistent atrial fibrillation (3) CAD (coronary artery disease) Code(s): I25.10 - ATHSCL HEART DISEASE OF [place] CORONARY ARTERY W/O ANG PCTRS Qualifiers: Coronary Disease-Associated Artery/Lesion type: unspecified vessel or lesion type [place] vs. transplanted heart: unspecified whether [place] or transplanted heart Associated angina: with unspecified angina Qualified Code (s): I25.119 - Atherosclerotic heart disease of [place] coronary artery with unspecified angina pectoris (4) CKD (chronic kidney disease) stage 3, GFR 30-59 ml/min Code(s): N18.3 - CHRONIC KIDNEY DISEASE, STAGE 3 (MODERATE)
[2017-12-21] MEDS: FUROSEMIDE 40 MG/4 ML INJECTABLE VIAL IVPUSH SCH (11:26)
--- NOTE | 2017-12-21 11:54 | PN ---
Progress Note (short form) - Note Progress Note: Chief Complaint: Events noted, notes reviewed, dyspnea severity decreased, bilateral lower extremity edema severity decreased, denies any chest pain, reports weight loss History of Present Illness: Seen and examined. Events noted, notes reviewed, dyspnea severity decreased, bilateral lower extremity edema severity decreased, denies any chest pain, reports weight loss Hypotension noted, remains asymptomatic 07/02/2017 Echo: Normal LV size with severely decreased LV fxn, anterior AK, severe TR, mod-severe MR, mild-mod AR, mild [place] Medications: Current Medications Acetaminophen (Tylenol -) 650 mg PO Q6H PRN PRN Reason: PAIN LEVEL 7 - 10 Last Admin: 12/19/17 23:43 Dose: 650 mg Albuterol Sulfate (Ventolin 0.083% Nebulizer Soln -) 1 amp NEB Q6H PRN PRN Reason: SHORT OF BREATH/WHEEZING Last Admin: 12/21/17 07:30 Dose: 1 amp Apixaban (Eliquis -) 5 mg PO BID [facility] Last Admin: 12/21/17 10:13 Dose: 5 mg Aspirin (Asa -) 81 mg PO DAILY [facility] Last Admin: 12/21/17 10:12 Dose: 81 mg Atorvastatin Calcium (Lipitor -) 10 mg PO HS [facility] Last Admin: 12/20/17 22:12 Dose: 10 mg Brimonidine Tartrate (Alphagan 0.15% -) 1 drop OU BID [facility] Last Admin: 12/21/17 10:13 Dose: 1 drop Carvedilol (Coreg -) 6.25 mg PO BID [facility] Last Admin: 12/21/17 10:12 Dose: 6.25 mg Docusate Sodium (Colace -) 100 mg PO Q8H [facility] Eplerenone (Eplerenone) 25 mg PO DAILY [facility] Last Admin: 12/21/17 10:16 Dose: 25 mg Furosemide (Lasix Injection -) 40 mg IVPUSH DAILY [facility] Last Admin: 12/21/17 11:26 Dose: 40 mg Guaifenesin (Robitussin -) 10 ml PO Q6H PRN PRN Reason: COUGH Last Admin: 12/20/17 22:16 Dose: 10 ml Levothyroxine Sodium (Synthroid -) 37.5 mcg PO DAILY@0700 [facility] Last Admin: 12/21/17 06:54 Dose: 37.5 mcg Montelukast Sodium (Singulair -) 10 mg PO [facility] Last Admin: 12/20/17 22:12 Dose: 10 mg Pantoprazole Sodium (Protonix -) 40 mg PO DAILY@0600 [facility] Last Admin: 12/21/17 06:54 Dose: 40 mg Pilocarpine HCl (Pilostat 2% -) 1 drop OU TID [facility] Last Admin: 12/21/17 06:53 Dose: 1 drop Sacubitril/Valsartan (Entresto 49 Mg-51 Mg Tablet) 1 tab PO BID [facility] Last Admin: 12/21/17 10:15 Dose: 1 tab Fluticasone/Salmeterol (Advair 100mcg/50mcg -) 1 puff IH BID [facility] Last Admin: 12/21/17 10:14 Dose: 1 puff Senna (Senna -) 2 tab PO [facility] Vital Signs: Last Vital Signs Temp Pulse Resp BP Pulse Ox 97.5 F L 84 70 H 99/65 98 12/21/17 05:54 12/21/17 05:54 12/21/17 10:10 12/21/17 10:10 12/20/17 21:00 Intake & Output 12/18/17 12/19/17 12/20/17 12/21/17 23:59 23:59 23:59 23:59 Intake Total 200 1250 300 Output Total 350 Balance 200 900 300 Weight 151 lb 11.2 oz 151 lb 11.2 oz 146 lb 12.8 oz Neck: Supple Negative JVD No Bruit Respiratory: Diminished Breath Sounds at the Bases Bilaterally Cardiovascular: S1 S2 Regular Rate Rhythm Grade 1-2/6 SM Gastrointestinal: Soft Benign Normal Bowel Sounds Ext: Trace Edema Labs: CBC, BMP 12/20/17 05:20 12/21/17 06:00 Hepatic Panel Total Bilirubin 1.6 mg/dL (0.2-1) H 12/20/17 05:20 AST 22 U/L (15-37) 12/20/17 05:20 ALT 21 U/L (13-61) 12/20/17 05:20 Alkaline Phosphatase 57 U/L (45-117) 12/20/17 05:20 Albumin 3.7 g/dl (3.4-5.0) 12/20/17 05:20 Assessment/Plan ASSESSMENT: 1. Acute on chronic class II-III NYHA classification systolic failure with underlying valvular pathologies (see below), resolving 2. Moderate-severe MR 3. Severe TR 4. Persistent atrial fibrillation [id number] score of 4 on DOAC's/Eliquis 5. CAD post [place]/PCI/stent angina pectoris 6. HTN 7. Hypercholesterolemia 8. Chronic obstructive airway disease 9. CKD PLAN: 1. Continue Coreg and titrate dose as tolerated/hemodynamics permitting 2. Continue Entresto and titrate dose as tolerated/hemodynamics permitting 3. Continue A/C with DOAC's/Eliquis unless it is absolutely contraindicated 4. Continue Lipitor 5. Continue IV Lasix and Inspra with caution and close monitoring of renal function 6. Outpatient ICD upgrade to EFFICIENCY MINER-D device 7. Consideration for Sherine-Clip for the above noted MV regurgitation (according to the patient it has been evaluated recently, deemed not a suitable candidate) Devorah Fontaine M.D.
--- NOTE | 2017-12-21 12:13 | CONS ---
DATE OF CONSULTATION: 12/20/2017 CONSULTATION REQUESTED BY: Nohemy Morris MD; Fannie Drake MD CHIEF COMPLAINT: Dyspnea, increasing bilateral lower extremity edema, cardiovascular evaluation. A 72-year-old male of [place] descent with known history of coronary artery disease, status post myocardial infarction, status post percutaneous coronary intervention, stenting, angina pectoris, systolic left ventricular dysfunction related to ischemic dilated cardiomyopathy with chronic Class 1 to 2 [place] Heart Association Classification left ventricular failure, post prophylactic ICD implantation, hypertensive cardiovascular disease, hypercholesterolemia, chronic obstructive pulmonary disease who was recently admitted to [facility] December 11, 2017, with increasing dyspnea and was noted to have evidence of acute exacerbation of the above-noted heart failure syndrome. The patient's medical therapy was adjusted and, subsequently, his evaluation revealed evidence of moderate to severe mitral valve regurgitation and severe tricuspid valve regurgitation. The patient was evaluated by his processing lead, Dr. Rad Flower, at [facility]. MitraClip procedure was entertained for the above-noted mitral valve pathology, but it was not pursued for an unknown reason; the patient is not clear. Patient presented with increasing dyspnea and bilateral lower extremity edema and, in addition, abdominal distention. The patient reported orthopnea, but denied any paroxysmal nocturnal dyspnea. The patient denied any chest discomfort. The patient denied any palpitation, dizziness, lightheadedness, or syncope. The patient reported fatigue and tiredness. 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 PAST MEDICAL HISTORY: Coronary artery disease, status post myocardial infarction, status post percutaneous coronary intervention, stenting, angina pectoris, systolic left ventricular dysfunction related to ischemic dilated cardiomyopathy with chronic Class 1 to 2 [place] Heart Association Classification left ventricular failure, post prophylactic ICD implantation, hypertensive cardiovascular disease, hypercholesterolemia, chronic obstructive pulmonary disease, gastroesophageal reflux disease, chronic kidney disease. SOCIAL HISTORY: Patient denies smoking, denies alcohol intake. FAMILY HISTORY: Positive for coronary artery disease. ALLERGIES: None reported. MEDICAL THERAPY: Currently includes acetaminophen 650 mg every 6 hours as needed; Ventolin nebulizer; Eliquis 5 mg twice a day for atrial fibrillation, persistent; aspirin 81 mg once a day; Lipitor 10 mg once a day; Coreg 6.25 mg twice a day; Colace 100 mg every 8 hours; Lasix 40 mg IV once daily; Robitussin 10 mg every 6 hours as needed; levothyroxine 35.7 mcg once daily for hypothyroidism; Singulair 10 mg once a day; Protonix 40 mg once a day; Entresto 49/51 mg twice a day; Advair Diskus twice daily. REVIEW OF SYSTEMS: Head/Neck: Patient denies headache, photophobia, blurring of vision. Respiratory: Patient denies cough or sputum production. Cardiovascular: As noted above. Gastrointestinal: Patient denies nausea, vomiting, diarrhea, abdominal discomfort. Genitourinary: No symptoms reported. Musculoskeletal: No symptoms reported. PHYSICAL EXAMINATION: Vital Signs: Blood pressure 128/86 mmHg, pulse rate is 89 beats/min. Head/Neck: Pupils equal and reactive to light and accommodation. Extraocular muscles are intact. Anicteric sclerae. Negative JVD. No bruit appreciated. Chest: Diminished breath sounds at the bases bilaterally with bilateral basilar rales. Cardiovascular: S1, S2 regular. Grade 1/6 to 2/6 systolic apical murmur. No clicks or gallops. Abdomen: Soft, benign, active bowel sounds. Extremities: One-plus bilateral edema, decreased distal pulses. No calf tenderness. Electrocardiogram reveals underlying rhythm to be atrial fibrillation with ventricular pacing, appropriate sensing and capture. B-type natriuretic peptide was 3689. CBC revealed a white cell count of 5.1, hemoglobin 12.7, platelet count 130. Basic metabolic profile revealed a sodium of 139, potassium 3.9, BUN of 19, creatinine 1.6, glucose 105. ASSESSMENT: 1. Clinical presentation is consistent with [id number] Class 2 to 3 [place] Heart Association Classification left ventricular failure with underlying number 2. 2. Moderate to severe mitral valve regurgitation. 3. Severe tricuspid valve regurgitation. 4. Persistent atrial fibrillation, CHADS2-VASc Score of 4, on direct oral anticoagulant therapy, Eliquis. 5. Coronary artery disease, post myocardial infarction, post percutaneous coronary intervention, stenting, angina pectoris. 6. Hypertensive cardiovascular disease. 7. Hypercholesterolemia. 8. Chronic obstructive pulmonary disease. 9. Chronic kidney disease. RECOMMENDATION: 1. Continuation of Coreg and titration of dosage as tolerated. 2. Continuation of Entresto and titration of dosage as tolerated. 3. Continuation of anticoagulation therapy with Eliquis unless it is absolutely contraindicated. 4. Continuation of Lipitor therapy. 5. Continuation of IV Lasix and initiation of Inspra therapy, as patient has prior history of intolerance to Aldactone therapy administration in the form of gynecomastia. 6. Outpatient ICD upgrade to CRTD with his primary processing lead, Dr. Rad Flower. 7. Consideration for MitraClip for the above-noted mitral valve regurgitation. According to the patient, has been evaluated recently and he might not be an appropriate candidate. Thank you for the kind referral. FREEMAN GARCIA M.D. LUCINDA/[id number]
[2017-12-21] MEDS: DOCUSATE SODIUM 100 MG CAPSULE (FP) PO SCH ×2 (14:54→21:44)
[2017-12-21] MEDS: guaiFENesin 200 MG/10 ML 10 ML UNIT-DOSE CUPS PO PRN (15:26)
[2017-12-21] MEDS: SENNOSIDES 8.6MG TABLET (FP) PO SCH (21:45)
[2017-12-21] MEDS: ATORVASTATIN CA 10 MG TABLET (FP) PO SCH (21:45)
[2017-12-21] MEDS: MONTELUKAST NA 10 MG TABLET PO SCH (21:45)
[2017-12-22] MEDS: LEVOTHYROXINE NA 25 MCG TABLET (FP) PO SCH (06:40)
[2017-12-22] MEDS: PANTOPRAZOLE 40 MG TABLET (FP) PO SCH (06:40)
[2017-12-22] MEDS: DOCUSATE SODIUM 100 MG CAPSULE (FP) PO SCH ×3 (06:40→21:07)
[2017-12-22] MEDS: PILOCARPINE 2% OPHTHALMIC SOLUTION 15 ML BOTTLE OU SCH ×3 (06:41→23:50)
[2017-12-22] MEDS: ALBUTEROL SO4 0.083% IH SOL 2.5 MG/3 ML VIAL.NEB. NEB PRN ×2 (07:30→21:15)
--- NOTE | 2017-12-22 09:39 | PN ---
Progress Note (short form) - Note Progress Note: Feeling better, but not at baseline No chest pain , SOB is better Vital Signs - 24 hr 12/21/17 12/21/17 12/22/17 21:00 22:10 02:00 Temperature 98.0 F 97.4 F L 97.3 F L Pulse Rate 78 73 69 Respiratory 20 20 20 Rate Blood Pressure 103/70 102/68 101/54 L O2 Sat by Pulse 98 Oximetry (%) 12/22/17 12/22/17 12/22/17 06:42 09:00 15:53 Temperature 98.2 F 97.6 F Pulse Rate 72 70 Respiratory 18 18 20 Rate Blood Pressure 96/62 86/56 L O2 Sat by Pulse 98 Oximetry (%) Current Medications Generic Name Dose Route Start Last Admin Trade Name Freq PRN Reason Stop Dose Admin Acetaminophen 650 mg 12/19/17 22:51 12/19/17 23:43 Tylenol - PO 650 mg Q6H PRN Administration PAIN LEVEL 7 - 10 Albuterol Sulfate 1 amp 12/20/17 13:57 12/22/17 07:30 Ventolin 0.083% Nebulizer Soln - NEB 1 amp Q6H PRN Administration SHORT OF BREATH/WHEEZING Apixaban 5 mg 12/19/17 22:00 12/22/17 10:12 Eliquis - PO 5 mg BID JAYSON Administration Aspirin 81 mg 12/20/17 10:00 12/22/17 10:12 Asa - PO 81 mg DAILY JAYSON Administration Atorvastatin Calcium 10 mg 12/20/17 22:00 12/21/17 21:45 Lipitor - PO 10 mg HS JAYSON Administration Brimonidine Tartrate 1 drop 12/19/17 22:45 12/22/17 10:15 Alphagan 0.15% - OU 1 drop BID JAYSON Administration Carvedilol 6.25 mg 12/19/17 22:00 12/22/17 10:11 Coreg - PO 6.25 mg BID JAYSON Administration Docusate Sodium 100 mg 12/21/17 14:00 12/22/17 14:45 Colace - PO 100 mg TID JAYSON Administration Eplerenone 25 mg 12/21/17 10:00 12/22/17 10:12 Eplerenone PO 25 mg DAILY JAYSON Administration Furosemide 40 mg 12/20/17 10:00 12/22/17 10:11 Lasix Injection - IVPUSH 40 mg DAILY JAYSON Administration Guaifenesin 10 ml 12/20/17 13:57 12/21/17 15:26 Robitussin - PO 10 ml Q6H PRN Administration COUGH Levothyroxine Sodium 37.5 mcg 12/20/17 07:00 12/22/17 06:40 Synthroid - PO 37.5 mcg DAILY@0700 JAYSON Administration Montelukast Sodium 10 mg 12/19/17 22:45 12/21/17 21:45 Singulair - PO 10 mg HS JAYSON Administration Pantoprazole Sodium 40 mg 12/20/17 07:45 12/22/17 06:40 Protonix - PO 40 mg DAILY@0600 JAYSON Administration Pilocarpine HCl 1 drop 12/19/17 22:45 12/22/17 14:45 Pilostat 2% - OU 1 drop TID JAYSON Administration Polyethylene Glycol 17 gm 12/22/17 15:15 12/22/17 17:35 Miralax (For Daily Use) - PO 17 gm DAILY JAYSON Administration Sacubitril/Valsartan 1 tab 12/19/17 22:45 12/22/17 10:13 Entresto 49 Mg-51 Mg Tablet PO 1 tab BID JAYSON Administration Fluticasone/Salmeterol 1 puff 12/20/17 10:00 12/22/17 10:12 Advair 100mcg/50mcg - IH 1 puff BID JAYSON Administration Senna 2 tab 12/21/17 22:00 12/21/17 21:45 Senna - PO 2 tab HS JAYSON Administration Laboratory Results - last 24 hr 12/22/17 12/22/17 12/22/17 06:43 10:29 12:35 Sodium 138 Potassium 3.9 Chloride 102 Carbon Dioxide 29 Anion Gap 7 L BUN 22 H Creatinine 1.3 Creat Clearance w eGFR 54.11 POC Glucometer 112 Random Glucose 174 H Calcium 9.4 U Random Total Protein 10 Ur Random Urea Nitrogn 711 Urine Creatinine 82.0 H 12/22/17 17:07 Sodium Potassium Chloride Carbon Dioxide Anion Gap BUN Creatinine Creat Clearance w eGFR POC Glucometer 106 Random Glucose Calcium U Random Total Protein Ur Random Urea Nitrogn Urine Creatinine S1 S2 Irregular Lungs decreased Abd- soft, NT, obese Edema - dependent edema PLAN ON Iv Lasix monitor renal function on Eplerenone renal consult check weights Problem List - Problems (1) CHF (congestive heart failure) Code(s): I50.9 - HEART FAILURE, UNSPECIFIED Qualifiers: Heart failure type: unspecified Heart failure chronicity: unspecified Qualified Code(s): I50.9 - Heart failure, unspecified (2) A-fib Code(s): I48.91 - UNSPECIFIED ATRIAL FIBRILLATION Qualifiers: Atrial fibrillation type: persistent Qualified Code(s): I48.1 - Persistent atrial fibrillation (3) CAD (coronary artery disease) Code(s): I25.10 - ATHSCL HEART DISEASE OF [place] CORONARY ARTERY W/O ANG PCTRS Qualifiers: Coronary Disease-Associated Artery/Lesion type: unspecified vessel or lesion type [place] vs. transplanted heart: unspecified whether [place] or transplanted heart Associated angina: with unspecified angina Qualified Code (s): I25.119 - Atherosclerotic heart disease of [place] coronary artery with unspecified angina pectoris (4) CKD (chronic kidney disease) stage 3, GFR 30-59 ml/min Code(s): N18.3 - CHRONIC KIDNEY DISEASE, STAGE 3 (MODERATE)
[2017-12-22] MEDS: CARVEDILOL 6.25 MG TABLET (FP) PO SCH ×2 (10:11→21:07)
[2017-12-22] MEDS: FUROSEMIDE 40 MG/4 ML INJECTABLE VIAL IVPUSH SCH (10:11)
[2017-12-22] MEDS: APIXABAN 5 MG TABLET PO SCH ×2 (10:12→21:12)
[2017-12-22] MEDS: ASPIRIN 81 MG CHEWABLE TABLETS PO SCH (10:12)
[2017-12-22] MEDS: EPLERENONE 25 MG TABLET PO SCH (10:12)
[2017-12-22] MEDS: FLUTICASONE/SALMETEROL 100 MCG/50 MCG DISKUS IH SCH ×2 (10:12→21:09)
[2017-12-22] MEDS: SACUBITRIL/VALSARTAN 49 MG-51 MG TABLET PO SCH (10:13)
[2017-12-22] MEDS: BRIMONIDINE TARTRATE 0.15% OPHTHALMIC 5 ML BOTTLE OU SCH ×2 (10:15→21:11)
--- NOTE | 2017-12-22 11:17 | CONSULT ---
Consult - text type - Consultation Consultation Note: Renal Consult for RILEY This is a 72 year old gentleman with hx of CHF with severe systolic dysfunction , CAD s/p PCI and stenting, Afib/Aflutter, hx of Hyponatremia who presented with CHF exacerbation. Pt reported SOB and ESPARZA with worsening LE edema. No CP, abd pain, N/V/D, fever or chills. s/p recent admission for severe hyponatremia requiring hypertonic saline. Denies any NSAID use at home. Urine output has been demished. NO hx of CKD or kidney stones. No hematuria or dysuria at home. + Le edema. PMhx: as above Allergies: NKDA Family Hx: NC Social hx: No T/A/D ROS: as per HPI Home Medications Medication Instructions Recorded Apixaban [Eliquis -] 5 mg PO BID 08/07/17 Atorvastatin Ca [Lipitor] 10 mg PO HS 08/07/17 Brimonidine Tartrate [Alphagan 1 drop OU BID 08/07/17 0.15% -] Carvedilol [Coreg -] 6.25 mg PO BID 08/07/17 Esomeprazole Magnesium [Nexium 40 mg PO DAILY 08/07/17 24Hr] Fluticasone/Salmeterol [Advair 1 each IH BID 08/07/17 250-50 Diskus] Levothyroxine [Synthroid -] 37.5 mcg PO DAILY 08/07/17 Montelukast Sodium [Singulair] 10 mg PO DAILY 08/07/17 [place]-3 Fatty Acids/Fish Oil [Fish 1 each PO DAILY 08/07/17 Oil 1,000 mg Capsule] Pilocarpine 0.5% [Pilostat 0.5% -] 1 drop OU TID 08/07/17 Furosemide [Lasix] 40 mg PO BID 12/06/17 Albuterol Sulfate Inhaler - 2 puff IH Q4H PRN inhaler 12/12/17 [Ventolin HFA Inhaler -] Pilocarpine 2% [Pilostat 2% -] 1 drop OU TID drops 12/12/17 Polyethylene Glycol 3350 [Miralax 17 gm PO DAILY PRN bottle 12/12/17 119 gm Btl -] Sacubitril/Valsartan [Entresto 24 1 each PO BID #30 tablet 12/12/17 mg-26 mg Tablet] Vital Signs Temperature 98.2 F 12/22/17 06:42 Pulse Rate 72 12/22/17 06:42 Respiratory Rate 18 12/22/17 09:00 Blood Pressure 96/62 12/22/17 06:42 O2 Sat by Pulse Oximetry (%) 98 12/22/17 09:00 Intake & Output 12/19/17 12/20/17 12/21/17 12/22/17 23:59 23:59 23:59 23:59 Intake Total 200 1250 1530 550 Output Total 350 Balance 794 361 3437 550 Weight 68.81 kg 68.81 kg 66.587 kg 66.877 kg NAD awake and alert MMM, Neck supple, No JVD irregular, no M/r CTA, no rales or wheeze soft NT/ND no bladder distension trace to 1+ LE edema no clubbing or cyanosis CBC, BMP 12/20/17 05:20 12/21/17 06:00 Laboratory Tests 12/19/17 12/21/17 15:30 06:00 Calcium 9.3 Urine Protein Negative Urine Blood Negative Current Medications Acetaminophen (Tylenol -) 650 mg PO Q6H PRN PRN Reason: PAIN LEVEL 7 - 10 Last Admin: 12/19/17 23:43 Dose: 650 mg Albuterol Sulfate (Ventolin 0.083% Nebulizer Soln -) 1 amp NEB Q6H PRN PRN Reason: SHORT OF BREATH/WHEEZING Last Admin: 12/22/17 07:30 Dose: 1 amp Apixaban (Eliquis -) 5 mg PO BID [facility] Last Admin: 12/22/17 10:12 Dose: 5 mg Aspirin (Asa -) 81 mg PO DAILY [facility] Last Admin: 12/22/17 10:12 Dose: 81 mg Atorvastatin Calcium (Lipitor -) 10 mg PO HS [facility] Last Admin: 12/21/17 21:45 Dose: 10 mg Brimonidine Tartrate (Alphagan 0.15% -) 1 drop OU BID [facility] Last Admin: 12/22/17 10:15 Dose: 1 drop Carvedilol (Coreg -) 6.25 mg PO BID [facility] Last Admin: 12/22/17 10:11 Dose: 6.25 mg Docusate Sodium (Colace -) 100 mg PO TID [facility] Last Admin: 12/22/17 06:40 Dose: 100 mg Eplerenone (Eplerenone) 25 mg PO DAILY [facility] Last Admin: 12/22/17 10:12 Dose: 25 mg Furosemide (Lasix Injection -) 40 mg IVPUSH DAILY [facility] Last Admin: 12/22/17 10:11 Dose: 40 mg Guaifenesin (Robitussin -) 10 ml PO Q6H PRN PRN Reason: COUGH Last Admin: 12/21/17 15:26 Dose: 10 ml Levothyroxine Sodium (Synthroid -) 37.5 mcg PO DAILY@0700 [facility] Last Admin: 12/22/17 06:40 Dose: 37.5 mcg Montelukast Sodium (Singulair -) 10 mg PO HS [facility] Last Admin: 12/21/17 21:45 Dose: 10 mg Pantoprazole Sodium (Protonix -) 40 mg PO DAILY@0600 [facility] Last Admin: 12/22/17 06:40 Dose: 40 mg Pilocarpine HCl (Pilostat 2% -) 1 drop OU TID [facility] Last Admin: 12/22/17 06:41 Dose: 1 drop Sacubitril/Valsartan (Entresto 49 Mg-51 Mg Tablet) 1 tab PO BID [facility] Last Admin: 12/22/17 10:13 Dose: 1 tab Fluticasone/Salmeterol (Advair 100mcg/50mcg -) 1 puff IH BID [facility] Last Admin: 12/22/17 10:12 Dose: 1 puff Senna (Senna -) 2 tab PO [facility] Last Admin: 12/21/17 21:45 Dose: 2 tab 72 year old gentleman with hx of CHF with severe systolic dysfunction, CAD s/p PCI and stenting, Afib/Aflutter, hx of Hyponatremia who presented with CHF exacerbation. #RILEY likely secondary to Cardio-renal syndrome #CHF exacerbation #Hx of Hyponatremia #Thrombocytopenia #CAD w/o ACS Renal function stable, mildly improved Check Urine studies for FeUrea, UPCR no signs of GN at this time Continue IV Lasix until symptoms resolve Will likely need to be on higher dose Torsemide on discharge continue epleronone would consider holding Entresto until Cr down trends will discuss case with cardiology Thank you Malcolm Patel DO
[2017-12-22 11:59] LABS: ANION GAP 7 MMOL/L (8-16); BLOOD UREA NITROGEN 22 mg/dL (7-18); CALCIUM 9.4 mg/dL (8.5-10.1); CHLORIDE 102 mmol/L (98-107); CO2 29 mmol/L (21-32); CREATININE 1.3 mg/dL (0.55-1.3); GLUCOSE,RANDOM 174 mg/dL (74-106); POTASSIUM 3.9 mmol/L (3.5-5.1); SODIUM 138 mmol/L (136-145)
--- NOTE | 2017-12-22 14:28 | PN ---
Progress Note, Physician History of Present Illness: Dyspnea on exertion and LE edema improving with diuresis. - Current Medication List Current Medications: Active Medications Acetaminophen (Tylenol -) 650 mg PO Q6H PRN PRN Reason: PAIN LEVEL 7 - 10 Last Admin: 12/19/17 23:43 Dose: 650 mg Albuterol Sulfate (Ventolin 0.083% Nebulizer Soln -) 1 amp NEB Q6H PRN PRN Reason: SHORT OF BREATH/WHEEZING Last Admin: 12/22/17 07:30 Dose: 1 amp Apixaban (Eliquis -) 5 mg PO BID [facility] Last Admin: 12/22/17 10:12 Dose: 5 mg Aspirin (Asa -) 81 mg PO DAILY [facility] Last Admin: 12/22/17 10:12 Dose: 81 mg Atorvastatin Calcium (Lipitor -) 10 mg PO HS [facility] Last Admin: 12/21/17 21:45 Dose: 10 mg Brimonidine Tartrate (Alphagan 0.15% -) 1 drop OU BID [facility] Last Admin: 12/22/17 10:15 Dose: 1 drop Carvedilol (Coreg -) 6.25 mg PO BID [facility] Last Admin: 12/22/17 10:11 Dose: 6.25 mg Docusate Sodium (Colace -) 100 mg PO TID [facility] Last Admin: 12/22/17 06:40 Dose: 100 mg Eplerenone (Eplerenone) 25 mg PO DAILY [facility] Last Admin: 12/22/17 10:12 Dose: 25 mg Furosemide (Lasix Injection -) 40 mg IVPUSH DAILY [facility] Last Admin: 12/22/17 10:11 Dose: 40 mg Guaifenesin (Robitussin -) 10 ml PO Q6H PRN PRN Reason: COUGH Last Admin: 12/21/17 15:26 Dose: 10 ml Levothyroxine Sodium (Synthroid -) 37.5 mcg PO DAILY@0700 [facility] Last Admin: 12/22/17 06:40 Dose: 37.5 mcg Montelukast Sodium (Singulair -) 10 mg PO HS [facility] Last Admin: 12/21/17 21:45 Dose: 10 mg Pantoprazole Sodium (Protonix -) 40 mg PO DAILY@0600 [facility] Last Admin: 12/22/17 06:40 Dose: 40 mg Pilocarpine HCl (Pilostat 2% -) 1 drop OU TID [facility] Last Admin: 12/22/17 06:41 Dose: 1 drop Sacubitril/Valsartan (Entresto 49 Mg-51 Mg Tablet) 1 tab PO BID [facility] Last Admin: 12/22/17 10:13 Dose: 1 tab Fluticasone/Salmeterol (Advair 100mcg/50mcg -) 1 puff IH BID [facility] Last Admin: 12/22/17 10:12 Dose: 1 puff Senna (Senna -) 2 tab PO HS [facility] Last Admin: 12/21/17 21:45 Dose: 2 tab - Objective Vital Signs: Vital Signs Temperature 98.2 F 12/22/17 06:42 Pulse Rate 72 12/22/17 06:42 Respiratory Rate 18 12/22/17 09:00 Blood Pressure 96/62 12/22/17 06:42 O2 Sat by Pulse Oximetry (%) 98 12/22/17 09:00 Constitutional: Yes: No Distress, Calm, Thin Neck: Yes: Supple Cardiovascular: Yes: Regular Rate and Rhythm Respiratory: Yes: Regular, Diminished Gastrointestinal: Yes: Normal Bowel Sounds, Soft Edema: Yes Edema: LLE: Trace, RLE: Trace Labs: CBC, BMP 12/20/17 05:20 12/22/17 10:29 Problem List - Problems (1) A-fib Code(s): I48.91 - UNSPECIFIED ATRIAL FIBRILLATION Qualifiers: Atrial fibrillation type: persistent Qualified Code(s): I48.1 - Persistent atrial fibrillation (2) [id number] kidney injury Code(s): N17.9 - ACUTE KIDNEY FAILURE, UNSPECIFIED; N18.9 - CHRONIC KIDNEY DISEASE, UNSPECIFIED (3) Automatic implantable cardiac defibrillator in situ Code(s): Z95.810 - PRESENCE OF AUTOMATIC (IMPLANTABLE) CARDIAC DEFIBRILLATOR (4) HTN (hypertension) Code(s): I10 - ESSENTIAL (PRIMARY) HYPERTENSION Qualifiers: Hypertension type: essential hypertension Qualified Code(s): I10 - Essential (primary) hypertension (5) Hyperlipidemia Code(s): E78.5 - HYPERLIPIDEMIA, UNSPECIFIED Qualifiers: Hyperlipidemia type: pure hypercholesterolemia Qualified Code(s): E78.00 - Pure hypercholesterolemia, unspecified; E78.0 - Pure hypercholesterolemia (6) Hypothyroidism Code(s): E03.9 - HYPOTHYROIDISM, UNSPECIFIED Qualifiers: Hypothyroidism type: unspecified Qualified Code(s): E03.9 - Hypothyroidism , unspecified (7) Old myocardial infarction, greater than 8 weeks Code(s): I25.2 - OLD MYOCARDIAL INFARCTION (8) Status post coronary artery stent placement Code(s): Z95.5 - PRESENCE OF CORONARY ANGIOPLASTY IMPLANT AND GRAFT (9) Systolic CHF, acute on chronic Code(s): I50.23 - ACUTE ON CHRONIC SYSTOLIC (CONGESTIVE) HEART FAILURE Assessment/Plan 07/02/2017 Echo: Normal LV size with severely decreased LV fxn, anterior AK, severe TR, mod-severe MR, mild-mod AR, mild MD 1. Acute on chronic class II-III NYHA classification systolic failure with underlying valvular pathologies (see below), resolving 2. Moderate-severe MR 3. Severe TR 4. Persistent atrial fibrillation [id number] score of 4 on DOAC's/Eliquis 5. CAD post [place]/PCI/stent angina pectoris 6. HTN 7. Hypercholesterolemia 8. Chronic obstructive airway disease 9. Acute on CKD likely secondary to Cardio-renal syndrome 10. Hypothyroidism PLAN: 1. Continue Coreg 6.25 bid and titrate dose as tolerated/hemodynamics permitting 2. Hold Entresto 49/51 bid pending renal function stabilization 3. Continue A/C with DOAC's/Eliquis 5 bid unless it is absolutely contraindicated, d/c ASA as CAD is stable 4. Continue Lipitor 10 qhs 5. Continue IV Lasix and Inspra 25 qd with caution and close monitoring of renal function, will likely need to be on higher dose Torsemide on discharge 6. Outpatient ICD upgrade to [employer]-D device 7. Consideration for Sherine-Clip for the above noted MV regurgitation (according to the patient it has been evaluated recently, deemed not a suitable candidate) 8. BD, Singulair, GI protection 9. Patient is to follow up with Dr. Rad Flower (cardiology) at [facility] post discharge
[2017-12-22] MEDS: POLYETHYLENE GLYCOL 3350 119 GM BTL PO SCH (17:35)
[2017-12-22] MEDS ORDERED: PT OWN MED DRAWER 7, Y5N ONE (20:54)
[2017-12-22] MEDS: ATORVASTATIN CA 10 MG TABLET (FP) PO SCH (21:07)
[2017-12-22] MEDS: MONTELUKAST NA 10 MG TABLET PO SCH (21:07)
[2017-12-22] MEDS: SENNOSIDES 8.6MG TABLET (FP) PO SCH (21:07)
[2017-12-23] MEDS: PILOCARPINE 2% OPHTHALMIC SOLUTION 15 ML BOTTLE OU SCH ×3 (05:56→21:54)
[2017-12-23] MEDS: PANTOPRAZOLE 40 MG TABLET (FP) PO SCH (05:57)
[2017-12-23] MEDS: DOCUSATE SODIUM 100 MG CAPSULE (FP) PO SCH ×3 (05:57→21:53)
[2017-12-23] MEDS: LEVOTHYROXINE NA 25 MCG TABLET (FP) PO SCH (06:00)
[2017-12-23 08:29] LABS: MAGNESIUM 1.9 mg/dL (1.8-2.4); PHOSPHOROUS 3.7 mg/dL (2.5-4.9)
[2017-12-23] MEDS ORDERED: PT OWN MED DRAWER 7, Y5N ONE ×3 (09:02→21:50)
[2017-12-23] MEDS: CARVEDILOL 6.25 MG TABLET (FP) PO SCH ×2 (09:18→21:53)
[2017-12-23] MEDS: ASPIRIN 81 MG CHEWABLE TABLETS PO SCH (09:18)
[2017-12-23] MEDS: EPLERENONE 25 MG TABLET PO SCH (09:19)
[2017-12-23] MEDS: APIXABAN 5 MG TABLET PO SCH ×2 (09:19→21:55)
[2017-12-23] MEDS: BRIMONIDINE TARTRATE 0.15% OPHTHALMIC 5 ML BOTTLE OU SCH ×2 (09:20→21:52)
[2017-12-23] MEDS: FUROSEMIDE 40 MG/4 ML INJECTABLE VIAL IVPUSH SCH (09:21)
[2017-12-23] MEDS: POLYETHYLENE GLYCOL 3350 119 GM BTL PO SCH (09:37)
[2017-12-23] MEDS: FLUTICASONE/SALMETEROL 100 MCG/50 MCG DISKUS IH SCH ×2 (10:20→21:53)
--- NOTE | 2017-12-23 13:00 | PN ---
Progress Note (short form) - Note Progress Note: Feeling better pt ambulating the hallway No chest pain , SOB is better Vital Signs - 24 hr 12/22/17 12/22/17 12/22/17 15:53 21:00 23:00 Temperature 97.6 F 97.5 F L Pulse Rate 70 70 Respiratory 20 18 18 Rate Blood Pressure 86/56 L 98/59 L O2 Sat by Pulse 98 Oximetry (%) 12/23/17 12/23/17 12/23/17 01:51 06:00 09:00 Temperature 97.4 F L 97.5 F L Pulse Rate 78 80 Respiratory 18 20 Rate Blood Pressure 100/66 113/60 O2 Sat by Pulse 98 Oximetry (%) 12/23/17 09:41 Temperature 97.7 F Pulse Rate 83 Respiratory 20 Rate Blood Pressure 124/74 O2 Sat by Pulse Oximetry (%) Current Medications Generic Name Dose Route Start Last Admin Trade Name Freq PRN Reason Stop Dose Admin Acetaminophen 650 mg 12/19/17 22:51 12/19/17 23:43 Tylenol - PO 650 mg Q6H PRN Administration PAIN LEVEL 7 - 10 Albuterol Sulfate 1 amp 12/20/17 13:57 12/22/17 21:15 Ventolin 0.083% Nebulizer Soln - NEB 1 amp Q6H PRN Administration SHORT OF BREATH/WHEEZING Apixaban 5 mg 12/19/17 22:00 12/23/17 09:19 Eliquis - PO 5 mg BID JAYSON Administration Aspirin 81 mg 12/20/17 10:00 12/23/17 09:18 Asa - PO 81 mg DAILY JAYSON Administration Atorvastatin Calcium 10 mg 12/20/17 22:00 12/22/17 21:07 Lipitor - PO 10 mg HS JAYSON Administration Brimonidine Tartrate 1 drop 12/19/17 22:45 12/23/17 09:20 Alphagan 0.15% - OU 1 drop BID JAYSON Administration Carvedilol 6.25 mg 12/19/17 22:00 12/23/17 09:18 Coreg - PO 6.25 mg BID JAYSON Administration Docusate Sodium 100 mg 12/21/17 14:00 12/23/17 05:57 Colace - PO 100 mg TID JAYSON Administration Eplerenone 25 mg 12/21/17 10:00 12/23/17 09:19 Eplerenone PO 25 mg DAILY JAYSON Administration Furosemide 40 mg 12/20/17 10:00 12/23/17 09:21 Lasix Injection - IVPUSH 40 mg DAILY JAYSON Administration Guaifenesin 10 ml 12/20/17 13:57 12/21/17 15:26 Robitussin - PO 10 ml Q6H PRN Administration COUGH Levothyroxine Sodium 37.5 mcg 12/20/17 07:00 12/23/17 06:00 Synthroid - PO 37.5 mcg DAILY@0700 JAYSON Administration Montelukast Sodium 10 mg 12/19/17 22:45 12/22/17 21:07 Singulair - PO 10 mg HS JAYSON Administration Pantoprazole Sodium 40 mg 12/20/17 07:45 12/23/17 05:57 Protonix - PO 40 mg DAILY@0600 JAYSON Administration Pilocarpine HCl 1 drop 12/19/17 22:45 12/23/17 05:56 Pilostat 2% - OU 1 drop TID JAYSON Administration Polyethylene Glycol 17 gm 12/22/17 15:15 12/23/17 09:37 Miralax (For Daily Use) - PO 17 gm DAILY JAYSON Administration Sacubitril/Valsartan 1 tab 12/19/17 22:45 12/22/17 10:13 Entresto 49 Mg-51 Mg Tablet PO 1 tab BID JAYSON Administration Fluticasone/Salmeterol 1 puff 12/20/17 10:00 12/23/17 10:20 Advair 100mcg/50mcg - IH 1 puff BID JAYSON Administration Senna 2 tab 12/21/17 22:00 12/22/17 21:07 Senna - PO 2 tab HS JAYSON Administration Laboratory Results - last 24 hr 12/22/17 12/22/17 12/23/17 12:35 17:07 05:56 POC Glucometer 106 114 Phosphorus Magnesium U Random Total Protein 10 Ur Random Urea Nitrogn 711 Urine Creatinine 82.0 H 12/23/17 07:20 POC Glucometer Phosphorus 3.7 Magnesium 1.9 U Random Total Protein Ur Random Urea Nitrogn Urine Creatinine S1 S2 Irregular Lungs decreased Abd- soft, NT, obese Edema - dependent edema PLAN ON Iv Lasix monitor renal function spoke with Renal-- will change to Torsemide tomorrow and monitor response on Eplerenone check weights -- gained weight 1 lb Problem List - Problems (1) CHF (congestive heart failure) Code(s): I50.9 - HEART FAILURE, UNSPECIFIED Qualifiers: Heart failure type: unspecified Heart failure chronicity: unspecified Qualified Code(s): I50.9 - Heart failure, unspecified (2) A-fib Code(s): I48.91 - UNSPECIFIED ATRIAL FIBRILLATION Qualifiers: Atrial fibrillation type: persistent Qualified Code(s): I48.1 - Persistent atrial fibrillation (3) CAD (coronary artery disease) Code(s): I25.10 - ATHSCL HEART DISEASE OF [place] CORONARY ARTERY W/O ANG PCTRS Qualifiers: Coronary Disease-Associated Artery/Lesion type: unspecified vessel or lesion type [place] vs. transplanted heart: unspecified whether [place] or transplanted heart Associated angina: with unspecified angina Qualified Code (s): I25.119 - Atherosclerotic heart disease of [place] coronary artery with unspecified angina pectoris (4) CKD (chronic kidney disease) stage 3, GFR 30-59 ml/min Code(s): N18.3 - CHRONIC KIDNEY DISEASE, STAGE 3 (MODERATE)
--- NOTE | 2017-12-23 14:23 | PN ---
Progress Note, Physician Chief Complaint: Events noted Not in distress History of Present Illness: Patient was seen and examined. Awake and alert. Chart was reviewed Denies chest pain - Current Medication List Current Medications: Active Medications Acetaminophen (Tylenol -) 650 mg PO Q6H PRN PRN Reason: PAIN LEVEL 7 - 10 Last Admin: 12/19/17 23:43 Dose: 650 mg Albuterol Sulfate (Ventolin 0.083% Nebulizer Soln -) 1 amp NEB Q6H PRN PRN Reason: SHORT OF BREATH/WHEEZING Last Admin: 12/22/17 21:15 Dose: 1 amp Apixaban (Eliquis -) 5 mg PO BID [facility] Last Admin: 12/23/17 09:19 Dose: 5 mg Aspirin (Asa -) 81 mg PO DAILY [facility] Last Admin: 12/23/17 09:18 Dose: 81 mg Atorvastatin Calcium (Lipitor -) 10 mg PO HS [facility] Last Admin: 12/22/17 21:07 Dose: 10 mg Brimonidine Tartrate (Alphagan 0.15% -) 1 drop OU BID [facility] Last Admin: 12/23/17 09:20 Dose: 1 drop Carvedilol (Coreg -) 6.25 mg PO BID [facility] Last Admin: 12/23/17 09:18 Dose: 6.25 mg Docusate Sodium (Colace -) 100 mg PO TID [facility] Last Admin: 12/23/17 13:13 Dose: 100 mg Eplerenone (Eplerenone) 25 mg PO DAILY [facility] Last Admin: 12/23/17 09:19 Dose: 25 mg Furosemide (Lasix Injection -) 40 mg IVPUSH DAILY [facility] Last Admin: 12/23/17 09:21 Dose: 40 mg Guaifenesin (Robitussin -) 10 ml PO Q6H PRN PRN Reason: COUGH Last Admin: 12/21/17 15:26 Dose: 10 ml Levothyroxine Sodium (Synthroid -) 37.5 mcg PO DAILY@0700 [facility] Last Admin: 12/23/17 06:00 Dose: 37.5 mcg Montelukast Sodium (Singulair -) 10 mg PO HS [facility] Last Admin: 12/22/17 21:07 Dose: 10 mg Pantoprazole Sodium (Protonix -) 40 mg PO DAILY@0600 [facility] Last Admin: 12/23/17 05:57 Dose: 40 mg Pilocarpine HCl (Pilostat 2% -) 1 drop OU TID [facility] Last Admin: 12/23/17 13:13 Dose: 1 drop Polyethylene Glycol (Miralax (For Daily Use) -) 17 gm PO DAILY [facility] Last Admin: 12/23/17 09:37 Dose: 17 gm Sacubitril/Valsartan (Entresto 49 Mg-51 Mg Tablet) 1 tab PO BID [facility] Last Admin: 12/22/17 10:13 Dose: 1 tab Fluticasone/Salmeterol (Advair 100mcg/50mcg -) 1 puff IH BID [facility] Last Admin: 12/23/17 10:20 Dose: 1 puff Senna (Senna -) 2 tab PO HS [facility] Last Admin: 12/22/17 21:07 Dose: 2 tab - Objective Vital Signs: Vital Signs Temperature 97.7 F 12/23/17 09:41 Pulse Rate 83 12/23/17 09:41 Respiratory Rate 20 12/23/17 09:41 Blood Pressure 124/74 12/23/17 09:41 O2 Sat by Pulse Oximetry (%) 98 12/23/17 09:00 Eyes: Yes: PERRL HENT: Yes: Atraumatic Neck: Yes: Supple Cardiovascular: Yes: Regular Rate and Rhythm Respiratory: Yes: CTA Bilaterally Gastrointestinal: Yes: Normal Bowel Sounds, Soft. No: Tenderness Edema: No Labs: CBC, BMP 12/20/17 05:20 12/22/17 10:29 Problem List - Problems (1) A-fib Code(s): I48.91 - UNSPECIFIED ATRIAL FIBRILLATION Qualifiers: Atrial fibrillation type: persistent Qualified Code(s): I48.1 - Persistent atrial fibrillation (2) [id number] kidney injury Code(s): N17.9 - ACUTE KIDNEY FAILURE, UNSPECIFIED; N18.9 - CHRONIC KIDNEY DISEASE, UNSPECIFIED (3) Automatic implantable cardiac defibrillator in situ Code(s): Z95.810 - PRESENCE OF AUTOMATIC (IMPLANTABLE) CARDIAC DEFIBRILLATOR (4) CAD (coronary artery disease) Code(s): I25.10 - ATHSCL HEART DISEASE OF [place] CORONARY ARTERY W/O ANG PCTRS Qualifiers: Coronary Disease-Associated Artery/Lesion type: unspecified vessel or lesion type [place] vs. transplanted heart: unspecified whether [place] or transplanted heart Associated angina: with unspecified angina Qualified Code (s): I25.119 - Atherosclerotic heart disease of [place] coronary artery with unspecified angina pectoris (5) CKD (chronic kidney disease) stage 3, GFR 30-59 ml/min Code(s): N18.3 - CHRONIC KIDNEY DISEASE, STAGE 3 (MODERATE) (6) Chronic left ventricular systolic heart failure Code(s): I50.22 - CHRONIC SYSTOLIC (CONGESTIVE) HEART FAILURE (7) HTN (hypertension) Code(s): I10 - ESSENTIAL (PRIMARY) HYPERTENSION Qualifiers: Hypertension type: essential hypertension Qualified Code(s): I10 - Essential (primary) hypertension (8) Hyperlipidemia Code(s): E78.5 - HYPERLIPIDEMIA, UNSPECIFIED Qualifiers: Hyperlipidemia type: pure hypercholesterolemia Qualified Code(s): E78.00 - Pure hypercholesterolemia, unspecified; E78.0 - Pure hypercholesterolemia (9) Hypothyroidism Code(s): E03.9 - HYPOTHYROIDISM, UNSPECIFIED Qualifiers: Hypothyroidism type: unspecified Qualified Code(s): E03.9 - Hypothyroidism , unspecified (10) Old myocardial infarction, greater than 8 weeks Code(s): I25.2 - OLD MYOCARDIAL INFARCTION (11) Status post coronary artery stent placement Code(s): Z95.5 - PRESENCE OF CORONARY ANGIOPLASTY IMPLANT AND GRAFT (12) Systolic CHF, acute on chronic Code(s): I50.23 - ACUTE ON CHRONIC SYSTOLIC (CONGESTIVE) HEART FAILURE Assessment/Plan 1. Acute on chronic class II-III NYHA classification systolic failure with underlying valvular pathologies 2. Moderate-severe MR 3. Severe TR 4. Persistent atrial fibrillation [id number] score of 4 on Eliquis 5. CAD post SD/PCI/stent angina pectoris 6. HTN 7. Hypercholesterolemia 8. Chronic obstructive airway disease 9. Acute on CKD likely secondary to Cardio-Renal Syndrome 10. Hypothyroidism PLAN: 1. Continue Coreg 6.25 titrate dose as tolerated 2. Resume Entresto 49/51 BID pending renal function stabilization 3. Continue A/C with Eliquis 5 bid unless it is absolutely contraindicated 4. Continue Lipitor 5. Continue IV Lasix and Inspra 25 qd with caution and close monitoring of renal function 6. 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 Consideration for Sherine-Clip for the above noted MV regurgitation, but likely not a suitable candidate 8. Bronchodilator Billy Tinsley MD
--- NOTE | 2017-12-23 16:18 | PN ---
Progress Note (short form) - Note Progress Note: Renal follow up for RILEY Pt seen and examined at the bedside awake and alert no acute complaints no cp, abd pain, N/V/d ESPARZA is improved leg edema persists Vital Signs Temperature 97.6 F 12/23/17 15:38 Pulse Rate 84 12/23/17 15:38 Respiratory Rate 20 12/23/17 15:38 Blood Pressure 101/66 12/23/17 15:38 O2 Sat by Pulse Oximetry (%) 98 12/23/17 09:00 Intake & Output 12/20/17 12/21/17 12/22/17 12/23/17 23:59 23:59 23:59 23:59 Intake Total 1250 1530 1860 990 Output Total 350 Balance 900 1530 1860 990 Weight 68.81 kg 66.587 kg 66.877 kg 67.495 kg NAD awake and alert RRR, No M/R CTA, no rales or wheeze soft NT/ND + leg edema CBC, BMP 12/20/17 05:20 12/22/17 10:29 Current Medications Acetaminophen (Tylenol -) 650 mg PO Q6H PRN PRN Reason: PAIN LEVEL 7 - 10 Last Admin: 12/19/17 23:43 Dose: 650 mg Albuterol Sulfate (Ventolin 0.083% Nebulizer Soln -) 1 amp NEB Q6H PRN PRN Reason: SHORT OF BREATH/WHEEZING Last Admin: 12/22/17 21:15 Dose: 1 amp Apixaban (Eliquis -) 5 mg PO BID [facility] Last Admin: 12/23/17 09:19 Dose: 5 mg Aspirin (Asa -) 81 mg PO DAILY [facility] Last Admin: 12/23/17 09:18 Dose: 81 mg Atorvastatin Calcium (Lipitor -) 10 mg PO HS [facility] Last Admin: 12/22/17 21:07 Dose: 10 mg Brimonidine Tartrate (Alphagan 0.15% -) 1 drop OU BID [facility] Last Admin: 12/23/17 09:20 Dose: 1 drop Carvedilol (Coreg -) 6.25 mg PO BID [facility] Last Admin: 12/23/17 09:18 Dose: 6.25 mg Docusate Sodium (Colace -) 100 mg PO TID [facility] Last Admin: 12/23/17 13:13 Dose: 100 mg Eplerenone (Eplerenone) 25 mg PO DAILY [facility] Last Admin: 12/23/17 09:19 Dose: 25 mg Furosemide (Lasix Injection -) 40 mg IVPUSH DAILY [facility] Last Admin: 12/23/17 09:21 Dose: 40 mg Guaifenesin (Robitussin -) 10 ml PO Q6H PRN PRN Reason: COUGH Last Admin: 12/21/17 15:26 Dose: 10 ml Levothyroxine Sodium (Synthroid -) 37.5 mcg PO DAILY@0700 [facility] Last Admin: 12/23/17 06:00 Dose: 37.5 mcg Montelukast Sodium (Singulair -) 10 mg PO [facility] Last Admin: 12/22/17 21:07 Dose: 10 mg Pantoprazole Sodium (Protonix -) 40 mg PO DAILY@0600 [facility] Last Admin: 12/23/17 05:57 Dose: 40 mg Pilocarpine HCl (Pilostat 2% -) 1 drop OU TID [facility] Last Admin: 12/23/17 13:13 Dose: 1 drop Polyethylene Glycol (Miralax (For Daily Use) -) 17 gm PO DAILY [facility] Last Admin: 12/23/17 09:37 Dose: 17 gm Sacubitril/Valsartan (Entresto 49 Mg-51 Mg Tablet) 1 tab PO BID [facility] Last Admin: 12/22/17 10:13 Dose: 1 tab Fluticasone/Salmeterol (Advair 100mcg/50mcg -) 1 puff IH BID [facility] Last Admin: 12/23/17 10:20 Dose: 1 puff Senna (Senna -) 2 tab PO [facility] Last Admin: 12/22/17 21:07 Dose: 2 tab 72 year old gentleman with hx of CHF with severe systolic dysfunction, CAD s/p PCI and stenting, Afib/Aflutter, hx of Hyponatremia who presented with CHF exacerbation. #RILEY likely secondary to Cardio-renal syndrome #CHF exacerbation #Hx of Hyponatremia #Thrombocytopenia #CAD w/o ACS Rnnal function improved continue IV Lasix plan to convert to oral torsemide will need higher dose on discharge (40mg) and close monitoring can resume entresto since renal function improved continue 1L fluid restriction Thank you Malcolm Patel DO
[2017-12-23] MEDS: ALBUTEROL SO4 0.083% IH SOL 2.5 MG/3 ML VIAL.NEB. NEB PRN (20:50)
[2017-12-23] MEDS: MONTELUKAST NA 10 MG TABLET PO SCH (21:54)
[2017-12-23] MEDS: ATORVASTATIN CA 10 MG TABLET (FP) PO SCH (21:54)
[2017-12-23] MEDS: SENNOSIDES 8.6MG TABLET (FP) PO SCH (21:54)
[2017-12-23] MEDS: guaiFENesin 200 MG/10 ML 10 ML UNIT-DOSE CUPS PO PRN (21:55)
[2017-12-23] MEDS: SACUBITRIL/VALSARTAN 49 MG-51 MG TABLET PO SCH (21:55)
[2017-12-24] MEDS: DOCUSATE SODIUM 100 MG CAPSULE (FP) PO SCH ×3 (06:38→22:12)
[2017-12-24] MEDS: PILOCARPINE 2% OPHTHALMIC SOLUTION 15 ML BOTTLE OU SCH ×3 (06:38→22:16)
[2017-12-24] MEDS: PANTOPRAZOLE 40 MG TABLET (FP) PO SCH (06:38)
[2017-12-24] MEDS: LEVOTHYROXINE NA 25 MCG TABLET (FP) PO SCH (06:38)
[2017-12-24 07:22] LABS: BASO % 1.2 % (0-2.0); HEMATOCRIT 36.8 % (35.4-49); LYMPH % 32.5 % (8-40); MCH 29.8 pg (25.7-33.7); MCHC 32.5 g/dl (32.0-35.9); MEAN CELL VOLUME 91.6 fl (80-96); MEAN PLT VOLUME 9.2 fl (7.5-11.1); NEUT % 51.3 % (42.8-82.8); PLATELET COUNT 133 K/MM3 (134-434); RBC 4.02 M/mm3 (4.00-5.60); RDW 14.5 % (11.9-15.9); WHITE BLOOD COUNT 4.4 K/mm3 (4.0-10.0)
[2017-12-24 07:39] LABS: ANION GAP 6 MMOL/L (8-16); BLOOD UREA NITROGEN 22 mg/dL (7-18); CALCIUM 9.2 mg/dL (8.5-10.1); CHLORIDE 102 mmol/L (98-107); CO2 29 mmol/L (21-32); CREATININE 1.3 mg/dL (0.55-1.3); GLUCOSE,RANDOM 93 mg/dL (74-106); POTASSIUM 3.8 mmol/L (3.5-5.1); SODIUM 137 mmol/L (136-145)
[2017-12-24] MEDS: ALBUTEROL SO4 0.083% IH SOL 2.5 MG/3 ML VIAL.NEB. NEB PRN (08:12)
[2017-12-24] MEDS ORDERED: PT OWN MED DRAWER 7, Y5N ONE ×4 (10:16→21:58)
[2017-12-24] MEDS: ASPIRIN 81 MG CHEWABLE TABLETS PO SCH (10:23)
[2017-12-24] MEDS: FLUTICASONE/SALMETEROL 100 MCG/50 MCG DISKUS IH SCH ×2 (10:23→22:11)
[2017-12-24] MEDS: CARVEDILOL 6.25 MG TABLET (FP) PO SCH ×2 (10:23→22:15)
[2017-12-24] MEDS: SACUBITRIL/VALSARTAN 49 MG-51 MG TABLET PO SCH ×2 (10:24→22:16)
[2017-12-24] MEDS: APIXABAN 5 MG TABLET PO SCH ×2 (10:24→22:15)
[2017-12-24] MEDS: EPLERENONE 25 MG TABLET PO SCH (10:24)
[2017-12-24] MEDS: BRIMONIDINE TARTRATE 0.15% OPHTHALMIC 5 ML BOTTLE OU SCH ×2 (10:25→23:08)
[2017-12-24] MEDS: POLYETHYLENE GLYCOL 3350 119 GM BTL PO SCH (10:28)
[2017-12-24] MEDS ORDERED: TORSEMIDE 20 MG TABLET (FP) PO ONE (12:03)
[2017-12-24] MEDS: FUROSEMIDE 40 MG/4 ML INJECTABLE VIAL IVPUSH SCH (12:35)
[2017-12-24] MEDS ORDERED: POLYETHYLENE GLYCOL 3350 119 GM BTL PO PRN (12:39)
--- NOTE | 2017-12-24 15:15 | PN ---
Progress Note, Physician History of Present Illness: Dyspnea on exertion and LE edema improving with diuresis. - Current Medication List Current Medications: Active Medications Acetaminophen (Tylenol -) 650 mg PO Q6H PRN PRN Reason: PAIN LEVEL 7 - 10 Last Admin: 12/19/17 23:43 Dose: 650 mg Albuterol Sulfate (Ventolin 0.083% Nebulizer Soln -) 1 amp NEB Q6H PRN PRN Reason: SHORT OF BREATH/WHEEZING Last Admin: 12/24/17 08:12 Dose: 1 amp Apixaban (Eliquis -) 5 mg PO BID [facility] Last Admin: 12/24/17 10:24 Dose: 5 mg Aspirin (Asa -) 81 mg PO DAILY [facility] Last Admin: 12/24/17 10:23 Dose: 81 mg Atorvastatin Calcium (Lipitor -) 10 mg PO HS [facility] Last Admin: 12/23/17 21:54 Dose: 10 mg Brimonidine Tartrate (Alphagan 0.15% -) 1 drop OU BID [facility] Last Admin: 12/24/17 10:25 Dose: 1 drop Carvedilol (Coreg -) 6.25 mg PO BID [facility] Last Admin: 12/24/17 10:23 Dose: 6.25 mg Docusate Sodium (Colace -) 100 mg PO TID [facility] Last Admin: 12/24/17 14:15 Dose: 100 mg Eplerenone (Eplerenone) 25 mg PO DAILY [facility] Last Admin: 12/24/17 10:24 Dose: 25 mg Guaifenesin (Robitussin -) 10 ml PO Q6H PRN PRN Reason: COUGH Last Admin: 12/23/17 21:55 Dose: 10 ml Levothyroxine Sodium (Synthroid -) 37.5 mcg PO DAILY@0700 [facility] Last Admin: 12/24/17 06:38 Dose: 37.5 mcg Montelukast Sodium (Singulair -) 10 mg PO HS [facility] Last Admin: 12/23/17 21:54 Dose: 10 mg Pantoprazole Sodium (Protonix -) 40 mg PO DAILY@0600 [facility] Last Admin: 12/24/17 06:38 Dose: 40 mg Pilocarpine HCl (Pilostat 2% -) 1 drop OU TID [facility] Last Admin: 12/24/17 14:16 Dose: 1 drop Polyethylene Glycol (Miralax (For Daily Use) -) 17 gm PO DAILY PRN PRN Reason: CONSTIPATION Sacubitril/Valsartan (Entresto 49 Mg-51 Mg Tablet) 1 tab PO BID [facility] Last Admin: 12/24/17 10:24 Dose: 1 tab Fluticasone/Salmeterol (Advair 100mcg/50mcg -) 1 puff IH BID [facility] Last Admin: 12/24/17 10:23 Dose: 1 puff Senna (Senna -) 2 tab PO HS [facility] Last Admin: 12/23/17 21:54 Dose: 2 tab Torsemide (Demadex -) 40 mg PO DAILY [facility] - Objective Vital Signs: Vital Signs Temperature 97.6 F 12/24/17 14:27 Pulse Rate 80 12/24/17 14:27 Respiratory Rate 18 12/24/17 14:27 Blood Pressure 95/50 L 12/24/17 14:27 O2 Sat by Pulse Oximetry (%) 98 12/23/17 21:00 Constitutional: Yes: No Distress, Calm Neck: Yes: Supple Cardiovascular: Yes: Regular Rate and Rhythm, Murmur (2/6 SM) Respiratory: Yes: Regular, Diminished Gastrointestinal: Yes: Normal Bowel Sounds, Soft Edema: Yes Edema: LLE: Trace, RLE: Trace Labs: CBC, BMP 12/24/17 06:30 12/24/17 06:30 Problem List - Problems (1) A-fib Code(s): I48.91 - UNSPECIFIED ATRIAL FIBRILLATION Qualifiers: Atrial fibrillation type: persistent Qualified Code(s): I48.1 - Persistent atrial fibrillation (2) [id number] kidney injury Code(s): N17.9 - ACUTE KIDNEY FAILURE, UNSPECIFIED; N18.9 - CHRONIC KIDNEY DISEASE, UNSPECIFIED (3) Automatic implantable cardiac defibrillator in situ Code(s): Z95.810 - PRESENCE OF AUTOMATIC (IMPLANTABLE) CARDIAC DEFIBRILLATOR (4) HTN (hypertension) Code(s): I10 - ESSENTIAL (PRIMARY) HYPERTENSION Qualifiers: Hypertension type: essential hypertension Qualified Code(s): I10 - Essential (primary) hypertension (5) Hyperlipidemia Code(s): E78.5 - HYPERLIPIDEMIA, UNSPECIFIED Qualifiers: Hyperlipidemia type: pure hypercholesterolemia Qualified Code(s): E78.00 - Pure hypercholesterolemia, unspecified; E78.0 - Pure hypercholesterolemia (6) Hypothyroidism Code(s): E03.9 - HYPOTHYROIDISM, UNSPECIFIED Qualifiers: Hypothyroidism type: unspecified Qualified Code(s): E03.9 - Hypothyroidism , unspecified (7) Old myocardial infarction, greater than 8 weeks Code(s): I25.2 - OLD MYOCARDIAL INFARCTION (8) Status post coronary artery stent placement Code(s): Z95.5 - PRESENCE OF CORONARY ANGIOPLASTY IMPLANT AND GRAFT (9) Systolic CHF, acute on chronic Code(s): I50.23 - ACUTE ON CHRONIC SYSTOLIC (CONGESTIVE) HEART FAILURE Assessment/Plan 07/02/2017 Echo: Normal LV size with severely decreased LV fxn, anterior AK, severe TR, mod-severe MR, mild-mod AR, mild VT 1. Acute on chronic class II-III NYHA classification systolic failure with underlying valvular pathologies, resolving 2. Moderate-severe MR 3. Severe TR 4. Persistent atrial fibrillation [id number] score of 4 on DOAC's/Eliquis 5. CAD post NC/PCI/stent angina pectoris 6. HTN 7. Hypercholesterolemia 8. Chronic obstructive airway disease 9. Acute on CKD likely secondary to Cardio-renal syndrome 10. Hypothyroidism PLAN: 1. Continue Coreg 6.25 bid and titrate dose as tolerated/hemodynamics permitting 2. Resumed Entresto 49/51 bid given renal function stabilization 3. Continue A/C with DOAC's/Eliquis 5 bid unless it is absolutely contraindicated, d/c ASA as CAD is stable 4. Continue Lipitor 10 qhs 5. Started oral Demadex 40 qd and Inspra 25 qd with caution and close monitoring of renal function 6. Outpatient ICD upgrade to RAM CAR OPERATOR-D device 7. Consideration for Sherine-Clip for the above noted MV regurgitation (according to the patient it has been evaluated recently, deemed not a suitable candidate) 8. BD, Singulair, GI protection 9. D/c planning, patient is to follow up with Dr. Rad Flower (cardiology) at [facility] post discharge
--- NOTE | 2017-12-24 17:58 | PN ---
Progress Note (short form) - Note Progress Note: Renal follow up for RILEY Pt seen and examined at the bedside awake and alert no acute complaints received torsemide today reports less urine output no sob, cp, abd pain has mild Le edema Vital Signs Temperature 97.6 F 12/24/17 14:27 Pulse Rate 80 12/24/17 14:27 Respiratory Rate 18 12/24/17 14:27 Blood Pressure 95/50 L 12/24/17 14:27 O2 Sat by Pulse Oximetry (%) 98 12/23/17 21:00 Intake & Output 12/21/17 12/22/17 12/23/17 12/24/17 23:59 23:59 23:59 23:59 Intake Total 1530 1860 1590 Output Total 1050 350 Balance 1530 1860 540 -350 Weight 66.587 kg 66.877 kg 67.495 kg 67.132 kg NAD awake and alert RRR, No M/R CTA, no rales or wheeze soft NT/ND + leg edema CBC, BMP 12/24/17 06:30 12/24/17 06:30 Current Medications Acetaminophen (Tylenol -) 650 mg PO Q6H PRN PRN Reason: PAIN LEVEL 7 - 10 Last Admin: 12/19/17 23:43 Dose: 650 mg Albuterol Sulfate (Ventolin 0.083% Nebulizer Soln -) 1 amp NEB Q6H PRN PRN Reason: SHORT OF BREATH/WHEEZING Last Admin: 12/24/17 08:12 Dose: 1 amp Apixaban (Eliquis -) 5 mg PO BID [facility] Last Admin: 12/24/17 10:24 Dose: 5 mg Aspirin (Asa -) 81 mg PO DAILY [facility] Last Admin: 12/24/17 10:23 Dose: 81 mg Atorvastatin Calcium (Lipitor -) 10 mg PO HS [facility] Last Admin: 12/23/17 21:54 Dose: 10 mg Brimonidine Tartrate (Alphagan 0.15% -) 1 drop OU BID [facility] Last Admin: 12/24/17 10:25 Dose: 1 drop Carvedilol (Coreg -) 6.25 mg PO BID [facility] Last Admin: 12/24/17 10:23 Dose: 6.25 mg Docusate Sodium (Colace -) 100 mg PO TID [facility] Last Admin: 12/24/17 14:15 Dose: 100 mg Eplerenone (Eplerenone) 25 mg PO DAILY [facility] Last Admin: 12/24/17 10:24 Dose: 25 mg Guaifenesin (Robitussin -) 10 ml PO Q6H PRN PRN Reason: COUGH Last Admin: 12/23/17 21:55 Dose: 10 ml Levothyroxine Sodium (Synthroid -) 37.5 mcg PO DAILY@0700 [facility] Last Admin: 12/24/17 06:38 Dose: 37.5 mcg Montelukast Sodium (Singulair -) 10 mg PO HS [facility] Last Admin: 12/23/17 21:54 Dose: 10 mg Pantoprazole Sodium (Protonix -) 40 mg PO DAILY@0600 [facility] Last Admin: 12/24/17 06:38 Dose: 40 mg Pilocarpine HCl (Pilostat 2% -) 1 drop OU TID [facility] Last Admin: 12/24/17 14:16 Dose: 1 drop Polyethylene Glycol (Miralax (For Daily Use) -) 17 gm PO DAILY PRN PRN Reason: CONSTIPATION Sacubitril/Valsartan (Entresto 49 Mg-51 Mg Tablet) 1 tab PO BID [facility] Last Admin: 12/24/17 10:24 Dose: 1 tab Fluticasone/Salmeterol (Advair 100mcg/50mcg -) 1 puff IH BID [facility] Last Admin: 12/24/17 10:23 Dose: 1 puff Senna (Senna -) 2 tab PO [facility] Last Admin: 12/23/17 21:54 Dose: 2 tab Torsemide (Demadex -) 40 mg PO DAILY [facility] 72 year old gentleman with hx of CHF with severe systolic dysfunction, CAD s/p PCI and stenting, Afib/Aflutter, hx of Hyponatremia who presented with CHF exacerbation. #RILEY likely secondary to Cardio-renal syndrome #CHF exacerbation #Hx of Hyponatremia #Thrombocytopenia #CAD w/o ACS Renal function improved and stable trend urine output and weights with torsemide, if weights increase titarte to 60mg daily continue Entresto and eplerenone Trend renal function and electrolytes anticipate discharge home in AM Thank you Malcolm Patel DO
--- NOTE | 2017-12-24 18:23 | PN ---
Progress Note (short form) - Note Progress Note: Feeling better pt ambulating the hallway No chest pain , SOB is better Vital Signs - 24 hr 12/23/17 12/23/17 12/24/17 18:30 21:00 02:00 Temperature 97.5 F L 98.3 F 97.7 F Pulse Rate 77 72 71 Respiratory 20 20 20 Rate Blood Pressure 110/57 L 100/64 99/71 O2 Sat by Pulse 98 Oximetry (%) 12/24/17 12/24/17 12/24/17 06:00 08:33 12:00 Temperature 97.5 F L 97.4 F L 97.4 F L Pulse Rate 78 71 61 Respiratory 20 18 18 Rate Blood Pressure 110/82 104/62 109/77 O2 Sat by Pulse Oximetry (%) 12/24/17 14:27 Temperature 97.6 F Pulse Rate 80 Respiratory 18 Rate Blood Pressure 95/50 L O2 Sat by Pulse Oximetry (%) Current Medications Generic Name Dose Route Start Last Admin Trade Name Freq PRN Reason Stop Dose Admin Acetaminophen 650 mg 12/19/17 22:51 12/19/17 23:43 Tylenol - PO 650 mg Q6H PRN Administration PAIN LEVEL 7 - 10 Albuterol Sulfate 1 amp 12/20/17 13:57 12/24/17 08:12 Ventolin 0.083% Nebulizer Soln - NEB 1 amp Q6H PRN Administration SHORT OF BREATH/WHEEZING Apixaban 5 mg 12/19/17 22:00 12/24/17 10:24 Eliquis - PO 5 mg BID [facility] Administration Aspirin 81 mg 12/20/17 10:00 12/24/17 10:23 Asa - PO 81 mg DAILY [facility] Administration Atorvastatin Calcium 10 mg 12/20/17 22:00 12/23/17 21:54 Lipitor - PO 10 mg HS [facility] Administration Brimonidine Tartrate 1 drop 12/19/17 22:45 12/24/17 10:25 Alphagan 0.15% - OU 1 drop BID [facility] Administration Carvedilol 6.25 mg 12/19/17 22:00 12/24/17 10:23 Coreg - PO 6.25 mg BID [facility] Administration Docusate Sodium 100 mg 12/21/17 14:00 12/24/17 14:15 Colace - PO 100 mg TID [facility] Administration Eplerenone 25 mg 12/21/17 10:00 12/24/17 10:24 Eplerenone PO 25 mg DAILY [facility] Administration Guaifenesin 10 ml 12/20/17 13:57 12/23/17 21:55 Robitussin - PO 10 ml Q6H PRN Administration COUGH Levothyroxine Sodium 37.5 mcg 12/20/17 07:00 12/24/17 06:38 Synthroid - PO 37.5 mcg DAILY@0700 [facility] Administration Montelukast Sodium 10 mg 12/19/17 22:45 12/23/17 21:54 Singulair - PO 10 mg HS [facility] Administration Pantoprazole Sodium 40 mg 12/20/17 07:45 12/24/17 06:38 Protonix - PO 40 mg DAILY@0600 [facility] Administration Pilocarpine HCl 1 drop 12/19/17 22:45 12/24/17 14:16 Pilostat 2% - OU 1 drop TID [facility] Administration Polyethylene Glycol 17 gm 12/24/17 12:39 Miralax (For Daily Use) - PO DAILY PRN CONSTIPATION Sacubitril/Valsartan 1 tab 12/19/17 22:45 12/24/17 10:24 Entresto 49 Mg-51 Mg Tablet PO 1 tab BID [facility] Administration Fluticasone/Salmeterol 1 puff 12/20/17 10:00 12/24/17 10:23 Advair 100mcg/50mcg - IH 1 puff BID [facility] Administration Senna 2 tab 12/21/17 22:00 12/23/17 21:54 Senna - PO 2 tab HS [facility] Administration Torsemide 40 mg 12/25/17 10:00 Demadex - PO DAILY [facility] Laboratory Results - last 24 hr 12/24/17 12/24/17 12/24/17 06:30 06:30 06:37 WBC 4.4 RBC 4.02 Hgb 12.0 Hct 36.8 MCV 91.6 MCH 29.8 MCHC 32.5 RDW 14.5 Plt Count 133 L MPV 9.2 Absolute Neuts (auto) 2.2 Neutrophils % 51.3 Lymphocytes % 32.5 D Monocytes % 11.0 H Eosinophils % 4.0 Basophils % 1.2 Nucleated RBC % 0 Sodium 137 Potassium 3.8 Chloride 102 Carbon Dioxide 29 Anion Gap 6 L BUN 22 H Creatinine 1.3 Creat Clearance w eGFR 54.11 POC Glucometer 89 Random Glucose 93 Calcium 9.2 S1 S2 Irregular Lungs decreased Abd- soft, NT, obese Edema - dependent edema PLAN ON Iv Lasix monitor renal function- currently stable started Torsemide today on Eplerenone check weights -- gained weight 1 lb possible dc tomorrow Problem List - Problems (1) CHF (congestive heart failure) Code(s): I50.9 - HEART FAILURE, UNSPECIFIED Qualifiers: Heart failure type: unspecified Heart failure chronicity: unspecified Qualified Code(s): I50.9 - Heart failure, unspecified (2) A-fib Code(s): I48.91 - UNSPECIFIED ATRIAL FIBRILLATION Qualifiers: Atrial fibrillation type: persistent Qualified Code(s): I48.1 - Persistent atrial fibrillation (3) CAD (coronary artery disease) Code(s): I25.10 - ATHSCL HEART DISEASE OF [place] CORONARY ARTERY W/O ANG PCTRS Qualifiers: Coronary Disease-Associated Artery/Lesion type: unspecified vessel or lesion type [place] vs. transplanted heart: unspecified whether [place] or transplanted heart Associated angina: with unspecified angina Qualified Code (s): I25.119 - Atherosclerotic heart disease of [place] coronary artery with unspecified angina pectoris (4) CKD (chronic kidney disease) stage 3, GFR 30-59 ml/min Code(s): N18.3 - CHRONIC KIDNEY DISEASE, STAGE 3 (MODERATE)
[2017-12-24] MEDS: SENNOSIDES 8.6MG TABLET (FP) PO SCH (22:12)
[2017-12-24] MEDS: MONTELUKAST NA 10 MG TABLET PO SCH (22:15)
[2017-12-24] MEDS: ATORVASTATIN CA 10 MG TABLET (FP) PO SCH (22:15)
[2017-12-25] MEDS: PANTOPRAZOLE 40 MG TABLET (FP) PO SCH (06:23)
[2017-12-25] MEDS: LEVOTHYROXINE NA 25 MCG TABLET (FP) PO SCH (06:23)
[2017-12-25] MEDS: DOCUSATE SODIUM 100 MG CAPSULE (FP) PO SCH (06:23)
[2017-12-25] MEDS: PILOCARPINE 2% OPHTHALMIC SOLUTION 15 ML BOTTLE OU SCH (06:23)
[2017-12-25] MEDS ORDERED: PT OWN MED DRAWER 7, Y5N ONE ×3 (06:34→12:24)
[2017-12-25] MEDS: ALBUTEROL SO4 0.083% IH SOL 2.5 MG/3 ML VIAL.NEB. NEB PRN (08:38)
[2017-12-25] MEDS: ASPIRIN 81 MG CHEWABLE TABLETS PO SCH (09:43)
[2017-12-25] MEDS: CARVEDILOL 6.25 MG TABLET (FP) PO SCH (09:43)
[2017-12-25] MEDS: EPLERENONE 25 MG TABLET PO SCH (09:44)
[2017-12-25] MEDS: SACUBITRIL/VALSARTAN 49 MG-51 MG TABLET PO SCH (09:44)
[2017-12-25] MEDS: APIXABAN 5 MG TABLET PO SCH (09:44)
[2017-12-25] MEDS: FLUTICASONE/SALMETEROL 100 MCG/50 MCG DISKUS IH SCH (09:45)
[2017-12-25] MEDS: BRIMONIDINE TARTRATE 0.15% OPHTHALMIC 5 ML BOTTLE OU SCH (09:46)
[2017-12-25] MEDS ORDERED: TORSEMIDE 20 MG TABLET (FP) PO SCH (10:00)
[2017-12-25 10:56] VITALS: BP 128/66; PULSE 78; TEMP 98.1
--- NOTE | 2017-12-25 11:19 | PN ---
Progress Note, Physician History of Present Illness: Dyspnea on exertion and LE edema resolved with diuresis. - Current Medication List Current Medications: Active Medications Acetaminophen (Tylenol -) 650 mg PO Q6H PRN PRN Reason: PAIN LEVEL 7 - 10 Last Admin: 12/19/17 23:43 Dose: 650 mg Albuterol Sulfate (Ventolin 0.083% Nebulizer Soln -) 1 amp NEB Q6H PRN PRN Reason: SHORT OF BREATH/WHEEZING Last Admin: 12/25/17 08:38 Dose: 1 amp Apixaban (Eliquis -) 5 mg PO BID [facility] Last Admin: 12/25/17 09:44 Dose: 5 mg Aspirin (Asa -) 81 mg PO DAILY [facility] Last Admin: 12/25/17 09:43 Dose: 81 mg Atorvastatin Calcium (Lipitor -) 10 mg PO HS [facility] Last Admin: 12/24/17 22:15 Dose: 10 mg Brimonidine Tartrate (Alphagan 0.15% -) 1 drop OU BID [facility] Last Admin: 12/25/17 09:46 Dose: 1 drop Carvedilol (Coreg -) 6.25 mg PO BID [facility] Last Admin: 12/25/17 09:43 Dose: 6.25 mg Docusate Sodium (Colace -) 100 mg PO TID [facility] Last Admin: 12/25/17 06:23 Dose: 100 mg Eplerenone (Eplerenone) 25 mg PO DAILY [facility] Last Admin: 12/25/17 09:44 Dose: 25 mg Guaifenesin (Robitussin -) 10 ml PO Q6H PRN PRN Reason: COUGH Last Admin: 12/23/17 21:55 Dose: 10 ml Levothyroxine Sodium (Synthroid -) 37.5 mcg PO DAILY@0700 [facility] Last Admin: 12/25/17 06:23 Dose: 37.5 mcg Montelukast Sodium (Singulair -) 10 mg PO HS [facility] Last Admin: 12/24/17 22:15 Dose: 10 mg Pantoprazole Sodium (Protonix -) 40 mg PO DAILY@0600 [facility] Last Admin: 12/25/17 06:23 Dose: 40 mg Pilocarpine HCl (Pilostat 2% -) 1 drop OU TID [facility] Last Admin: 12/25/17 06:23 Dose: 1 drop Polyethylene Glycol (Miralax (For Daily Use) -) 17 gm PO DAILY PRN PRN Reason: CONSTIPATION Sacubitril/Valsartan (Entresto 49 Mg-51 Mg Tablet) 1 tab PO BID [facility] Last Admin: 12/25/17 09:44 Dose: 1 tab Fluticasone/Salmeterol (Advair 100mcg/50mcg -) 1 puff IH BID [facility] Last Admin: 12/25/17 09:45 Dose: 1 puff Senna (Senna -) 2 tab PO HS [facility] Last Admin: 12/24/17 22:12 Dose: 2 tab Torsemide (Demadex -) 40 mg PO DAILY [facility] Last Admin: 12/25/17 09:43 Dose: 40 mg - Objective Vital Signs: Vital Signs Temperature 98.1 F 12/25/17 09:00 Pulse Rate 78 12/25/17 09:00 Respiratory Rate 20 12/25/17 09:00 Blood Pressure 128/66 12/25/17 09:00 O2 Sat by Pulse Oximetry (%) 96 12/24/17 21:00 Constitutional: Yes: No Distress, Calm Neck: Yes: Supple Cardiovascular: Yes: Regular Rate and Rhythm, Murmur (2/6 SM) Respiratory: Yes: Regular, Diminished Gastrointestinal: Yes: Normal Bowel Sounds, Soft Edema: No Labs: CBC, BMP 12/24/17 06:30 Problem List - Problems (1) A-fib Code(s): I48.91 - UNSPECIFIED ATRIAL FIBRILLATION Qualifiers: Atrial fibrillation type: persistent Qualified Code(s): I48.1 - Persistent atrial fibrillation (2) [id number] kidney injury Code(s): N17.9 - ACUTE KIDNEY FAILURE, UNSPECIFIED; N18.9 - CHRONIC KIDNEY DISEASE, UNSPECIFIED (3) Automatic implantable cardiac defibrillator in situ Code(s): Z95.810 - PRESENCE OF AUTOMATIC (IMPLANTABLE) CARDIAC DEFIBRILLATOR (4) HTN (hypertension) Code(s): I10 - ESSENTIAL (PRIMARY) HYPERTENSION Qualifiers: Hypertension type: essential hypertension Qualified Code(s): I10 - Essential (primary) hypertension (5) Hyperlipidemia Code(s): E78.5 - HYPERLIPIDEMIA, UNSPECIFIED Qualifiers: Hyperlipidemia type: pure hypercholesterolemia Qualified Code(s): E78.00 - Pure hypercholesterolemia, unspecified; E78.0 - Pure hypercholesterolemia (6) Hypothyroidism Code(s): E03.9 - HYPOTHYROIDISM, UNSPECIFIED Qualifiers: Hypothyroidism type: unspecified Qualified Code(s): E03.9 - Hypothyroidism , unspecified (7) Old myocardial infarction, greater than 8 weeks Code(s): I25.2 - OLD MYOCARDIAL INFARCTION (8) Status post coronary artery stent placement Code(s): Z95.5 - PRESENCE OF CORONARY ANGIOPLASTY IMPLANT AND GRAFT (9) Systolic CHF, acute on chronic Code(s): I50.23 - ACUTE ON CHRONIC SYSTOLIC (CONGESTIVE) HEART FAILURE Assessment/Plan 07/02/2017 Echo: Normal LV size with severely decreased LV fxn, anterior AK, severe TR, mod-severe MR, mild-mod AR, mild AL 1. Acute on chronic class II-III NYHA classification systolic failure with underlying valvular pathologies, resolving 2. Moderate-severe MR 3. Severe TR 4. Persistent atrial fibrillation [id number] score of 4 on DOAC's/Eliquis 5. CAD post LA/PCI/stent angina pectoris 6. HTN 7. Hypercholesterolemia 8. Chronic obstructive airway disease 9. Acute on CKD likely secondary to Cardio-renal syndrome 10. Hypothyroidism PLAN: 1. Continue Coreg 6.25 bid and titrate dose as tolerated/hemodynamics permitting 2. Continue Entresto 49/51 bid given renal function stabilization 3. Continue A/C with DOAC's/Eliquis 5 bid unless it is absolutely contraindicated, d/c ASA as CAD is stable 4. Continue Lipitor 10 qhs 5. Continue oral Demadex 40 qd and Inspra 25 qd with caution and close monitoring of renal function 6. Outpatient ICD upgrade to [employer] TECH[employer]ICIAN-D device 7. Consideration for Sherine-Clip for the above noted MV regurgitation (according to the patient it has been evaluated recently, deemed not a suitable candidate) 8. BD, Singulair, GI protection 9. D/c planning, patient is to follow up with Dr. Rad Flower (cardiology) at [facility] post discharge, he was informed of admission
[2017-12-25 11:22] LABS: ANION GAP 8 MMOL/L (8-16); BLOOD UREA NITROGEN 22 mg/dL (7-18); CALCIUM 9.5 mg/dL (8.5-10.1); CHLORIDE 101 mmol/L (98-107); CO2 30 mmol/L (21-32); CREATININE 1.4 mg/dL (0.55-1.3); GLUCOSE,RANDOM 181 mg/dL (74-106); POTASSIUM 3.7 mmol/L (3.5-5.1); SODIUM 139 mmol/L (136-145)
--- NOTE | 2017-12-25 11:32 | DS ---
Physical Examination Vital Signs: Vital Signs Temperature 98.1 F 12/25/17 09:00 Pulse Rate 78 12/25/17 09:00 Respiratory Rate 20 12/25/17 09:00 Blood Pressure 128/66 12/25/17 09:00 O2 Sat by Pulse Oximetry (%) 96 12/24/17 21:00 Constitutional: Yes: No Distress, Calm Cardiovascular: Yes: Pulse Irregular Respiratory: Yes: CTA Bilaterally Gastrointestinal: Yes: Normal Bowel Sounds, Soft, Abdomen, Obese. No: Tenderness Edema: Yes Edema: LLE: Trace, RLE: Trace Labs: CBC, BMP 12/24/17 06:30 Discharge Summary Reason For Visit: ACUTE KIDNEY INJURY; CONGESTIVE HEART FAILURE Current Active Problems RILEY (acute kidney injury) (Acute) CHF (congestive heart failure) (Acute) Cough (Acute) Hospital Course: Admitted for Acute congestive Heart Failure and acute kidney disease. Pt was seen by Cardiology and Renal Was on IV Lasix - diuresed well Renal function better, lytes normal He was started on Torsemide 40mg yesterday and has a good response-- good urine out put-2 liters -pt will be dc home on PO Torsemide 40mg and Eplerenone. Condition: Improved - Instructions Referrals: Malcolm Patel MD [Staff Physician] - Fannie Drake MD [Primary Care Provider] - Disposition: HOME - Home Medications Comprehensive Discharge Medication List: Ambulatory Orders Apixaban [Eliquis -] 5 mg PO BID 08/07/17 Atorvastatin Ca [Lipitor] 10 mg PO HS 08/07/17 Brimonidine Tartrate [Alphagan 0.15% -] 1 drop OU BID 08/07/17 Carvedilol [Coreg -] 6.25 mg PO BID 08/07/17 Esomeprazole Magnesium [Nexium 24Hr] 40 mg PO DAILY 08/07/17 Fluticasone/Salmeterol [Advair 250-50 Diskus] 1 each IH BID 08/07/17 Levothyroxine [Synthroid -] 37.5 mcg PO DAILY 08/07/17 Montelukast Sodium [Singulair] 10 mg PO DAILY 08/07/17 [place]-3 Fatty Acids/Fish Oil [Fish Oil 1,000 mg Capsule] 1 each PO DAILY Pil[place]arp[place] 0.5% [Pilostat 0.5% -] 1 drop OU TID 08/07/17 Albuterol Sulfate Inhaler - [Ventolin HFA Inhaler -] 2 puff IH Q4H PRN inhaler 12/12/17 Pilocarpine 2% [Pilostat 2% -] 1 drop OU TID drops 12/12/17 Polyethylene Glycol 3350 [Miralax 119 gm Btl -] 17 gm PO DAILY PRN bottle 12/12 Sacubitril/Valsartan [Entresto 24 mg-26 mg Tablet] 1 each PO BID #30 tablet Docusate Sodium [Colace -] 100 mg PO TID capsule 12/25/17 Eplerenone 25 mg PO DAILY #30 tablet 12/25/17 Sennosides [Senna -] 2 tab PO HS tablet 12/25/17 Torsemide [Demadex -] 40 mg PO DAILY #30 tablet 12/25/17
== END 2017-12-25 12:50 | disposition home or self-care (01) | DRG 291 ==
LOC: JER 13:49 → JERBED 16:51 → J5S 21:14
PROVIDERS: ADMIT Internal Medicine; ATTEND Internal Medicine
DX: I13.0 Hypertensive heart and chronic kidney disease with heart failure and stage 1 through stage 4 chronic kidney disease, or unspecified chronic kidney disease (principal); I50.23 Acute on chronic systolic (congestive) heart failure; N17.9 Acute kidney failure, unspecified; I48.92 Unspecified atrial flutter; E87.1 Hypo-osmolality and hyponatremia; I48.1 Persistent atrial fibrillation; I42.9 Cardiomyopathy, unspecified; N18.3 Chronic kidney disease, stage 3 (moderate); E78.5 Hyperlipidemia, unspecified; K21.9 Gastro-esophageal reflux disease without esophagitis; J45.909 Unspecified asthma, uncomplicated; J44.9 Chronic obstructive pulmonary disease, unspecified; E03.9 Hypothyroidism, unspecified; I25.119 Atherosclerotic heart disease of native coronary artery with unspecified angina pectoris; I08.1 Rheumatic disorders of both mitral and tricuspid valves; D69.6 Thrombocytopenia, unspecified; I25.2 Old myocardial infarction; Z95.5 Presence of coronary angioplasty implant and graft; Z95.810 Presence of automatic (implantable) cardiac defibrillator
CPT/HCPCS: 36415; 71045-TC-FY; 80048; 80053; 81003; 82570; 82962; 83735; 83880; 84100; 84156; 84484; 84540; 85025; 85027; 87086; 93005; 93010; 94640; 99283-25; J7620